=== PATIENT | male | born 1965 | race Caucasian/White ===

== ENCOUNTER 2022-08-24 14:53 | Emergency (ER) | payer BC, SELFPAY ==
[2022-08-24 14:53] VITALS: BP 144/102; PULSE 112; RESP 17; TEMP 36.9; O2SAT 96; BMI 40.0
--- NOTE | 2022-08-24 14:56 | PC.NURSE ---
AKBAR RODARTE at
[2022-08-24 14:57] VITALS: BP 144/102; PULSE 109; O2SAT 95
[2022-08-24 14:58] VITALS: BP 147/99; PULSE 109; O2SAT 95
--- NOTE | 2022-08-24 15:03 | ECG_ITS ---
APPROVED REPORT Exam: Resting ECG HR:102 bpm ECG Measurements Heart Rate 102 AXES RI 147 P 63 QRSd 80 QRS 50 QT 313 T 18 QTc 372 Conclusion SINUS TACHYCARDIA NONSPECIFIC T-WAVE ABNORMALITY ABNORMAL RHYTHM ECG UNCONFIRMED REPORT Electronically signed by : Latrell Butler MD 08/26/2022 19:52:16
--- NOTE | 2022-08-24 15:35 | PC.NURSE ---
Patient finished gibran lens irrigation. Tolerated well
--- NOTE | 2022-08-24 15:55 | PC.NURSE ---
Patient advised to continue intermittent eye wash with eye wash station in his room.
[2022-08-24 16:03] LABS: Basophils # 0.1 K/mm3 (0-0.2); Basophils % 1.6 % (0.1-2.0); Eosinophils # 0.1 K/mm3 (0.0-0.4); Eosinophils % 2.3 % (0.1-12.0); Hematocrit 47.1 % (42.0-52.0); Hemoglobin 15.2 g/dL (14.1-18.0); Lymphocytes % 33.1 % (10-50); Mean Corpuscular HGB Conc 32.3 g/dL (31.8-35.4); Mean Corpuscular Hemoglobin 30.7 pg (27.0-31.2); Mean Platelet Volume 7.8 fl (7.4-10.4); Monocytes # 0.5 K/mm3 (0.1-1.0); Monocytes % 8.8 % (1.7-9.3); Neutrophils # 3.3 K/mm3 (1.8-7.8); Neutrophils % 54.2 % (37.0-80.0); Platelet Count 255 K/mm3 (142-424); Red Blood Count 4.96 M/mm3 (4.60-6.20); Red Cell Distribution Width 13.2 % (11.5-17.5); White Blood Count 6.1 K/mm3 (4.8-10.8)
[2022-08-24 16:05] LABS: Chloride 102 mmol/L (98-107); Potassium 3.9 mmoL/L (3.5-5.1); Sodium 138 mmol/L (136-145)
[2022-08-24 16:08] LABS: Alanine Aminotransferase 28 U/L (12-78); Albumin Level 4.6 g/dl (3.5-5.0); Albumin/Globulin Ratio 1.5 (1.1-1.8); Alkaline Phosphatase 47 U/L (38-126); Anion Gap 11.9 mEq/L (5-15); Aspartate Amino Transferase 31 U/L (17-59); Bilirubin,Total 0.4 mg/dl (0.2-1.3); Blood Urea Nitrogen 22 mg/dl (9-20); Carbon Dioxide 28 mmol/L (22.0-30.0); Creatinine Clearance Estimated 98 mL/min (50-200); Estimated Glomerular Filt Rate 69 ml/min (>60); GFR (African American) 83 ML/MIN (>60); Total Protein,Serum 7.6 g/dl (6.3-8.2)
[2022-08-24 16:09] LABS: Calcium 9.2 mg/dl (8.4-10.2); Glucose 98 mg/dl (74-100); Lactic Acid 1.5 mmol/L (0.7-2.1)
[2022-08-24 16:34] VITALS: BP 133/66; PULSE 80; RESP 17; TEMP 36.7; O2SAT 99
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
== END 2022-08-24 16:39 | disposition home or self-care (01) ==
PROVIDERS: Emergency Provider Student in an Organized Health Care Education/Training Program; PCP Family Medicine
DX: H10.219 Acute toxic conjunctivitis, unspecified eye (principal); T54.2X1A Toxic effect of corrosive acids and acid-like substances, accidental (unintentional), initial encounter
CPT/HCPCS: 36415; 80053; 83605; 85025; 93005; 99284; 99285

== ENCOUNTER 2024-02-25 08:10 | Emergency (ER) | payer BC, SELFPAY ==
[2024-02-25 08:38] VITALS: BP 140/92; PULSE 91; RESP 18; TEMP 36.9; O2SAT 96; BMI 30.2
[2024-02-25 08:46] LABS: UTC Influenza A Antigen Negative (Negative); UTC Influenza B Antigen Negative (Negative)
--- NOTE | 2024-02-25 08:52 | ED_ITS ---
Discharge Plan Disposition Patient Disposition: Home, Self-Care Condition: Good Prescriptions Prescriptions: New benzonatate 100 mg capsule 100 mg PO TID PRN (Reason: cough) Qty: 30 0RF methylprednisolone [Medrol (Pool)] 4 mg tablets,dose pack See Rx Instructions .Route .COMPLEX 6 Days Qty: 21 0RF Rx Instructions: taper pack; guaifenesin [Mucinex] 600 mg tablet extended release 12hr 1,200 mg PO BID PRN (Reason: cough) Qty: 20 0RF azithromycin [Zithromax Z-Pool] 250 mg tablet See Rx Instructions .ROUTE .COMPLEX 5 Days Qty: 6 0RF Rx Instructions: For 250 mg dose pack: take 500 mg today (day 1), then 250 mg for 4 days (days 2-5) No Action levothyroxine 150 mcg tablet 150 mcg PO DAILY Patient Comments: TAKE 1 TABLET BY MOUTH ONCE DAILY alfuzosin 10 mg tablet extended release 24 hr 10 mg PO DAILY Patient Comments: TAKE 1 TABLET BY MOUTH ONCE DAILY Referrals Follow up/Referrals: Darrick Cifuentes MD [Primary Care Provider] - See instructions Activity Restrictions/Add. Instructions Additional Instructions/Restrictions: * Start antibiotic today. Be sure to complete entire prescription even if feeling better * Monitor temp. Tylenol every 4 hours as needed and / or ibuprofen every 6 hours as needed ( As long as your primary care physician has told you that it ok to take both. For fever/aches/pains ER if no less than 101 despite Tylenol or Motrin * Humidifier/vaporizer or hot steamy shower * Mucinex during the day for your cough and cough suppressant only at night. Be sure to drink lots of water. Insurance may not cover a prescriptions for mucinex. Might be cheaper to get 400mg tablets and take 2 tablet in the morning, mid-day and evening with lots of water. *Tessalon Perles will not cause drowsiness but use at bedtime to help stop cough so that you may get some rest. *Start steroid today. Helps with inflammation therefore, cough and wheezing. Follow directions on the package. Reviewed side effects. Patient reports taking them before. Follow up IMMEDIATELY for new or worsening of symptoms OR no noticeable improvement over the next 48-72 hours. 911 immediately for any life threatening symptoms such as chest pain or difficulty breathing Clinical Impressions Clinical Impression: Sinusitis Instructions Patient Instructions: DI for Sinusitis, Sinusitis Print Language Print Language: Japanese Discharge ED Provider: Alana Hendricks [facility] [place] HPI General Stated complaint: sore throat cough congestion Mode of Arrival: Ambulatory Source of Information: Patient Time Seen by Provider: 02/25/24 08:52 Description of Symptoms (Recalled from Triage Doc. by RN): FLU S/S, COUGHING, HEADACHE, ACHES HEENT Symptoms (Recalled from RN notes): Yes Resp Symptoms (Recalled from RN notes): Yes Skin Symptoms (Recalled from RN notes): No MS Symptoms (Recalled from RN notes): No Functional Status (Recalled from RN notes): WNL History of Present Illness Provider Complaint: Patient states that he has been sick over a week with sore throat, sinus congestion and pressure, cough, headache and chills and over all not feeling well so today when he was still not feeling well he came in to get checked Related Data Home Medications ?Medication ?Instructions ?Recorded ?Confirmed alfuzosin 10 mg tablet,extended 10 mg PO DAILY Prostate 08/24/22 08/24/22 release 24 hr levothyroxine 150 mcg tablet 150 mcg PO DAILY Thyroid 08/24/22 08/24/22 Previous Rx's ?Medication ?Instructions ?Recorded azithromycin 250 mg tablet See Rx Instructions PO .COMPLEX 5 02/25/24 (Zithromax Z-Pool) days #6 tabs benzonatate 100 mg capsule 100 mg PO TID PRN cough #30 caps 02/25/24 guaifenesin 600 mg tablet, 1,200 mg (2 x 600 mg) PO BID PRN 02/25/24 extended release 12 hr (Mucinex) cough #20 tabs methylprednisolone 4 mg tablets in See Rx Instructions .Route 02/25/24 a dose pack (Medrol (Pool)) .COMPLEX 6 days #21 tabs Allergies Allergy/AdvReac Type Severity Reaction Status Date / Time nitroglycerin AdvReac Palpitation Verified 02/25/24 08:42 s succinylcholine AdvReac Drowsy Verified 02/25/24 08:42 [From Anectine] Worker's Comp Is this a Worker's Comp case?: No [facility] Disclaimer: The information contained in this section may have been updated after the patient was seen, as this information can be updated by other users. Medical History (Updated 02/25/24 @ 09:17 by Alana Hendricks APRN) BPH (benign prostatic hyperplasia) Hypothyroidism Social History Smoking Status: Never smoker second hand exposure: No alcohol intake: never current occupational status: employed Travel in the last 8 weeks: None housing: house ROS Obtained: Yes All systems reviewed & no additional complaints except as documented and Yes Systems reviewed as appropriate & no additional complaints except as documented Constitutional Constitutional: Reports system reviewed and no additional complaints, except as documented, Reports as per HPI, Reports body ache, Reports fever(s) and Reports headache(s) ENT Ears, Nose, Mouth, and Throat: Reports system reviewed and no additional complaints, except as documented, Reports as per HPI, Reports headache(s), Reports nasal congestion, Reports sinus pain, Reports sinus pressure and Reports sore throat Cardiovascular Cardiovascular: Reports system reviewed and no additional complaints, except as documented and Reports as per HPI Respiratory Respiratory: Reports system reviewed and no additional complaints, except as documented, Reports as per HPI and Reports cough Gastrointestinal Gastrointestingal: Reports system reviewed and no additional complaints, except as documented and as per HPI Neurologic Neurologic: Reports headache(s) Physical Exam General General appearance: alert and in no apparent distress ENT ENT exam: Present mucous membranes moist Expanded ENT Exam Nose exam: Present sinus tenderness Throat exam: Present tonsillar erythema (several tonsil stones noted) Respiratory Respiratory exam: Present normal lung sounds bilaterally; Absent respiratory distress or wheezes Cardiovascular Cardiovascular exam: Present regular rate, normal rhythm and normal heart sounds Neurological Exam Neurological exam: Present alert, oriented X3 and normal gait Medical Decision Making Medical Records Screening: Per USPSTF and CDC recommendations, given the prevalence of disease in our region, it is our hospital?s policy to screen for HIV and viral Hepatitis for all patients aged 18 and over and those with ongoing risk factors. Jaleel Inquiry Pt receiving controlled substance: No Jaleel was queried for this patient: No Vital Signs: 02/25/24 08:38 Temperature 98.5 F Temperature Source Oral Pulse Rate [Left Radial] 91 H Respiratory Rate 18 Blood Pressure [Left Arm] 140/92 H Blood Pressure Mean [Left Arm] 108 02 Sat by Pulse Oximetry 96 Lab Data Lab results reviewed: Yes I reviewed the patient's lab results. Lab Results 02/25/24 08:45: Influenza Type A Ag Negative, Influenza Type B Ag Negative
[2024-02-25 09:21] VITALS: BP 140/92; PULSE 91; RESP 18; TEMP 36.9; O2SAT 96
[2024-02-25 09:23] LABS: UTC Strep Screen (Rapid) Negative (Negative)
== END 2024-02-25 09:24 | disposition home or self-care (01) ==
PROVIDERS: Emergency Provider Nurse Practitioner; PCP Family Medicine
DX: J32.9 Chronic sinusitis, unspecified (principal); R05.9 Cough, unspecified; J02.9 Acute pharyngitis, unspecified; R09.81 Nasal congestion; R51.9 Headache, unspecified; M79.10 Myalgia, unspecified site
CPT/HCPCS: 87804; 87880; 99212; G0381

== ENCOUNTER 2024-06-01 13:26 | Emergency (ER) | payer BC, SELFPAY ==
[2024-06-01 13:46] VITALS: BP 123/72; PULSE 100; RESP 18; TEMP 36.8; O2SAT 96; BMI 31.6
[2024-06-01 13:57] LABS: UTC Strep Screen (Rapid) Positive (Negative)
--- NOTE | 2024-06-01 14:03 | EXP.UTC ---
Discharge Plan Disposition Patient Disposition: Home, Self-Care Condition: Good Prescriptions Prescriptions: New benzonatate 100 mg capsule 100 mg PO TIDP PRN (Reason: Cough) Qty: 30 0RF methylprednisolone 4 mg Tablets,Dose Pack 4 mg PO DIRECTED 6 Days Qty: 21 0RF Rx Instructions: Take 1 pack as directed for 6 days amoxicillin-pot clavulanate 875-125 mg Tablet 1 tab PO Q12H Qty: 20 0RF No Action levothyroxine 150 mcg tablet 150 mcg PO DAILY Patient Comments: TAKE 1 TABLET BY MOUTH ONCE DAILY Referrals Follow up/Referrals: Darrick Cifuentes MD [Primary Care Provider] - See instructions Activity Restrictions/Add. Instructions Additional Instructions/Restrictions: Drink plenty of fluids. Take tylenol or ibuprofen for pain or fever. Take the medications as directed. Follow up with your regular doctor. GO TO THE ER FOR ANY WORSENING SYMPTOMS Clinical Impressions Clinical Impression: Strep throat, Sinusitis, Bronchitis Instructions Patient Instructions: Strep Throat, DI for Strep Throat, Ceftriaxone Injection Print Language Print Language: Surinamese Discharge ED Provider: Dave Blackman [facility] General Stated complaint: sore throat, congestion, cough Mode of Arrival: Ambulatory Source of Information: Patient Time Seen by Provider: 06/01/24 14:03 Description of Symptoms (Recalled from Triage Doc. by RN): FATIGUE, COUGH , CONGESTION, SORE THROAT, HEENT Symptoms (Recalled from RN notes): Yes Resp Symptoms (Recalled from RN notes): Yes Skin Symptoms (Recalled from RN notes): No MS Symptoms (Recalled from RN notes): No Functional Status (Recalled from RN notes): WNL History of Present Illness Provider Complaint: He states that for the past 3 days he has had worsening sore throat, sinus congestion, and chest congestion. He has a productive cough with greenish sputum. He has had a fever at times also. He states that his cough is worse at night when he goes to bed. Related Data Home Medications ?Medication ?Instructions ?Recorded ?Confirmed levothyroxine 150 mcg tablet 150 mcg PO DAILY Thyroid 08/24/22 06/01/24 Previous Rx's ?Medication ?Instructions ?Recorded amoxicillin 875 mg-potassium 1 tab PO Q12H #20 tabs 06/01/24 clavulanate 125 mg tablet benzonatate 100 mg capsule 100 mg PO TIDP PRN Cough #30 caps 06/01/24 methylprednisolone 4 mg tablets in 4 mg PO DIRECTED 6 days #21 tabs 06/01/24 a dose pack Allergies Allergy/AdvReac Type Severity Reaction Status Date / Time nitroglycerin AdvReac Palpitation Verified 02/25/24 08:42 s succinylcholine (From AdvReac Drowsy Verified 02/25/24 08:42 Anectine) Worker's Comp Is this a Worker's Comp case?: No [facility] Disclaimer: The information contained in this section may have been updated after the patient was seen, as this information can be updated by other users. Medical History (Updated 06/01/24 @ 14:27 by Dave Blackman APRN) BPH (benign prostatic hyperplasia) Hypothyroidism Social History Smoking Status: Never smoker second hand exposure: No alcohol intake: never current occupational status: employed Travel in the last 8 weeks: None housing: house Have you lived/traveled outside [place] in past 30 days?: No Contact w/someone who lives/traveled outside [place] past 30 days?: No Exposure to someone with infectious disease in past 14 days?: No Do you have a fever (greater than 100.4 F or 38 C)?: No Have you tested positive for COVID-19: No Exposed to someone with COVID-19 in past 14 days?: No Do you have a sore throat?: Yes Do you have a cough?: Yes Do you have any weakness?: No Do you have any diarrhea?: No Are you experiencing any unusual bleeding?: No Do you have any muscle aches/pain?: No Do you have any abdominal pain?: No Are you experiencing loss of taste or smell?: No ROS Obtained: Yes All systems reviewed & no additional complaints except as documented Constitutional Constitutional: Reports chills and Reports fever(s) Eyes Eyes: Denies eye discharge ENT Ears, Nose, Mouth, and Throat: Reports as per HPI Cardiovascular Cardiovascular: Denies chest pain Respiratory Respiratory: Denies chest congestion and Reports cough Gastrointestinal Gastrointestingal: Reports nausea; Denies abdominal pain, constipation, cramping, diarrhea or vomiting Musculoskeletal Musculoskeletal: Denies arthralgias Integumentary/Breasts Skin/Breast: Denies rash Neurologic Neurologic: Denies paresthesias Physical Exam General General appearance: alert and in no apparent distress Head Head exam: atraumatic, normocephalic and normal inspection Eye Eye exam: Present normal appearance, PERRL and EOMI ENT ENT exam: Present mucous membranes moist and normal external ear exam Expanded ENT Exam TM/Canal exam: Bilateral TM: erythema and bulging Nose exam: Absent sinus tenderness Mouth exam: Present normal external inspection; Absent drooling Teeth exam: Present normal inspection Throat exam: Present tonsillar erythema, tonsillomegaly and tonsillar exudate Neck Neck exam: Present normal inspection, full ROM and trachea midline; Absent tenderness, meningismus or lymphadenopathy Chest Chest inspection: Present normal inspection and symmetric chest wall rise; Absent tenderness Respiratory Respiratory exam: Present normal lung sounds bilaterally; Absent respiratory distress, wheezes, stridor or accessory muscle use Cardiovascular Cardiovascular exam: Present regular rate and normal rhythm; Absent systolic murmur or diastolic murmur Abdominal Exam Abdominal exam: Present soft and normal bowel sounds; Absent distention, tenderness, guarding, rebound or rigidity Extremities Exam Extremities exam: Present normal inspection and normal capillary refill; Absent calf tenderness Back Exam Back exam: Present normal inspection and full ROM; Absent tenderness, CVA tenderness (R) or CVA tenderness (L) Neurological Exam Neurological exam: Present alert, oriented X3 and CN II-XII intact Psychiatric Psychiatric exam: Present normal affect and normal mood Skin Skin exam: Present warm, dry, intact and normal color Medical Decision Making Medical Records Medical records reviewed: No I reviewed the patient's medical records. Screening: Per USPSTF and CDC recommendations, given the prevalence of disease in our region, it is our hospital?s policy to screen for HIV and viral Hepatitis for all patients aged 18 and over and those with ongoing risk factors. Jaleel Inquiry Pt receiving controlled substance: No Vital Signs: 06/01/24 13:46 Temperature 98.2 F Temperature Source Oral Pulse Rate [Left Radial] 100 H Respiratory Rate 18 Blood Pressure [Left Arm] 123/72 Blood Pressure Mean [Left Arm] 89 02 Sat by Pulse Oximetry 96 Lab Data Lab results reviewed: Yes I reviewed the patient's lab results. Lab Results 06/01/24 13:46: Strep Scn [facility] Positive A
[2024-06-01] MEDS: cefTRIAXone 1GM VIAL 1 GM IM (14:17)
[2024-06-01] MEDS: LIDOCAINE 1% 5ML PF VIAL IM (14:17)
[2024-06-01 14:29] VITALS: BP 123/72; PULSE 100; RESP 18; TEMP 36.8
== END 2024-06-01 14:33 | disposition home or self-care (01) ==
PROVIDERS: Emergency Provider Nurse Practitioner Family; PCP Family Medicine
DX: J02.0 Streptococcal pharyngitis (principal); J01.90 Acute sinusitis, unspecified; J20.9 Acute bronchitis, unspecified; R50.9 Fever, unspecified; R05.9 Cough, unspecified; R09.81 Nasal congestion; R11.0 Nausea
CPT/HCPCS: 87880; 99212; G0381; J0696

== ENCOUNTER 2024-06-04 10:46 | Emergency (ER) | payer BC, SELFPAY ==
[2024-06-04 11:15] VITALS: BP 137/95; PULSE 101; RESP 18; TEMP 36.7; O2SAT 97; BMI 31.4
--- NOTE | 2024-06-04 11:30 | ED_ITS ---
Discharge Plan Disposition Patient Disposition: Home, Self-Care Condition: Good Prescriptions Prescriptions: New azithromycin [Zithromax] 250 mg tablet 250 mg PO UD DOSE PK Qty: 6 0RF Rx Instructions: Take two (2) tablets today, then one (1) tablet days #2 thru #5 guaifenesin [Mucinex] 600 mg tablet extended release 12hr 600 - 1,200 mg PO BIDP PRN (Reason: Congestion) Qty: 30 0RF No Action benzonatate 100 mg capsule 100 mg PO TIDP PRN (Reason: Cough) Qty: 30 0RF methylprednisolone 4 mg Tablets,Dose Pack 4 mg PO DIRECTED 6 Days Qty: 21 0RF Rx Instructions: Take 1 pack as directed for 6 days amoxicillin-pot clavulanate 875-125 mg Tablet 1 tab PO Q12H Qty: 20 0RF levothyroxine 150 mcg tablet 150 mcg PO DAILY Patient Comments: TAKE 1 TABLET BY MOUTH ONCE DAILY Referrals Follow up/Referrals: Darrick Cifuentes MD [Primary Care Provider] - See instructions Activity Restrictions/Add. Instructions Additional Instructions/Restrictions: Drink plenty of fluids. Take tylenol or ibuprofen for pain or fever. Continue the steroids (medrol dose pack) that you are already on. Stop the antibiotics (amoxicillin-potassium clavulanate) that you are on and start the new antibioitics (azithromycin) that we prescribed. Follow up with your regular doctor. GO TO THE ER FOR ANY WORSENING SYMPTOMS Clinical Impressions Clinical Impression: Strep throat, Sinusitis, Acute viral syndrome Instructions Patient Instructions: DI for Sinusitis, Guaifenesin, Azithromycin Print Language Print Language: French Discharge ED Provider: Dave Blackman [facility] General Stated complaint: bad cough and vomiting Time Seen by Provider: 06/04/24 11:29 History of Present Illness Provider Complaint: He is back today after being diagnosed with strep throat 4 days ago. He states that he has not got better as fast as he thought he should with the medications that were prescribed. He denies worsening chest congestion. Related Data Home Medications ?Medication ?Instructions ?Recorded ?Confirmed levothyroxine 150 mcg tablet 150 mcg PO DAILY Thyroid 08/24/22 06/04/24 Previous Rx's ?Medication ?Instructions ?Recorded amoxicillin 875 mg-potassium 1 tab PO Q12H #20 tabs 06/01/24 clavulanate 125 mg tablet benzonatate 100 mg capsule 100 mg PO TIDP PRN Cough #30 caps 06/01/24 methylprednisolone 4 mg tablets in 4 mg PO DIRECTED 6 days #21 tabs 06/01/24 a dose pack azithromycin 250 mg tablet 250 mg PO UD DOSE PK #6 tabs 06/04/24 (Zithromax) guaifenesin 600 mg tablet, 600 - 1,200 mg (1 - 2 x 600 mg) PO 06/04/24 extended release 12 hr (Mucinex) BIDP PRN Congestion #30 tabs Allergies Allergy/AdvReac Type Severity Reaction Status Date / Time nitroglycerin AdvReac Palpitation Verified 02/25/24 08:42 s succinylcholine (From AdvReac Drowsy Verified 02/25/24 08:42 Anectine) [facility] Disclaimer: The information contained in this section may have been updated after the patient was seen, as this information can be updated by other users. Medical History (Updated 06/04/24 @ 12:02 by Dave Blackman APRN) BPH (benign prostatic hyperplasia) Hypothyroidism Social History Smoking Status: Never smoker second hand exposure: No alcohol intake: never current occupational status: employed Travel in the last 8 weeks: None housing: house Have you lived/traveled outside US in past 30 days?: No Contact w/someone who lives/traveled outside US past 30 days?: No Exposure to someone with infectious disease in past 14 days?: No Do you have a fever (greater than 100.4 F or 38 C)?: No Have you tested positive for COVID-19: No Exposed to someone with COVID-19 in past 14 days?: No Do you have a sore throat?: No Do you have a cough?: Yes Do you have any weakness?: No Do you have any diarrhea?: No Are you experiencing any unusual bleeding?: No Do you have any muscle aches/pain?: No Do you have any abdominal pain?: No Are you experiencing loss of taste or smell?: No ROS Obtained: Yes All systems reviewed & no additional complaints except as documented Constitutional Constitutional: Reports chills and Reports fever(s) Eyes Eyes: Denies eye discharge ENT Ears, Nose, Mouth, and Throat: Reports as per HPI Cardiovascular Cardiovascular: Denies chest pain Respiratory Respiratory: Denies chest congestion and Reports cough Gastrointestinal Gastrointestingal: Reports nausea; Denies abdominal pain, constipation, cramping, diarrhea or vomiting Musculoskeletal Musculoskeletal: Denies arthralgias Integumentary/Breasts Skin/Breast: Denies rash Neurologic Neurologic: Denies paresthesias Physical Exam General General appearance: alert and in no apparent distress Head Head exam: atraumatic, normocephalic and normal inspection Eye Eye exam: Present normal appearance, PERRL and EOMI ENT ENT exam: Present normal exam, normal oropharynx, mucous membranes moist, TM's normal bilaterally and normal external ear exam Neck Neck exam: Present normal inspection, full ROM and trachea midline; Absent meningismus or lymphadenopathy Chest Chest inspection: Present normal inspection and symmetric chest wall rise; Absent tenderness Respiratory Respiratory exam: Present normal lung sounds bilaterally; Absent respiratory distress Cardiovascular Cardiovascular exam: Present regular rate and normal rhythm; Absent JVD Abdominal Exam Abdominal exam: Present soft and normal bowel sounds; Absent distention, tenderness or guarding Extremities Exam Extremities exam: Present normal inspection, full ROM and normal capillary refill; Absent calf tenderness Back Exam Back exam: Present normal inspection; Absent tenderness Neurological Exam Neurological exam: Present alert and oriented X3 Psychiatric Psychiatric exam: Present normal affect and normal mood Skin Skin exam: Present warm, dry, intact and normal color Lymphatic Lymphatic Findings: no adenopathy Medical Decision Making Medical Records Medical records reviewed: No I reviewed the patient's medical records. Screening: Per USPSTF and CDC recommendations, given the prevalence of disease in our region, it is our hospital?s policy to screen for HIV and viral Hepatitis for all patients aged 18 and over and those with ongoing risk factors. Jaleel Inquiry Pt receiving controlled substance: No Lab Data Lab results reviewed: Yes I reviewed the patient's lab results.
[2024-06-04 11:36] LABS: UTC Influenza A Antigen Negative (Negative); UTC Influenza B Antigen Negative (Negative)
[2024-06-04 11:54] VITALS: BP 137/95; PULSE 101; RESP 18; TEMP 36.7; O2SAT 97
[2024-06-04 12:22] LABS: Coronavirus 19, PCR Not Detected (NotDetected); Influenza A, PCR Not Detected (NotDetected); Influenza B, PCR Not Detected (NotDetected)
== END 2024-06-04 12:10 | disposition home or self-care (01) ==
PROVIDERS: Emergency Provider Nurse Practitioner Family; PCP Family Medicine
DX: J02.0 Streptococcal pharyngitis (principal); B34.9 Viral infection, unspecified; J32.9 Chronic sinusitis, unspecified
CPT/HCPCS: 87636; 87804; 99214; G0381

== ENCOUNTER 2024-08-18 01:28 | Inpatient (IN) | payer BC, SELFPAY ==
[2024-08-18] VITALS (33 sets, daily range): BP systolic 98–152; BP diastolic 71–114; PULSE 62–103; RESP 12–23; TEMP 36.6–37.1; O2SAT 90–98; BMI 29.9; BMI 32.1
--- NOTE | 2024-08-18 01:31 | ECG_ITS ---
APPROVED REPORT Exam: Resting ECG HR:102 bpm ECG Measurements Heart Rate 102 AXES MT 159 P 50 QRSd 86 QRS 28 QT 324 T 42 QTc 383 Conclusion SINUS TACHYCARDIA LOW QRS VOLTAGE IN PRECORDIAL LEADS [QRS DEFLECTION < 1.0 mV IN CHEST LEADS] NONSPECIFIC T-WAVE ABNORMALITY ABNORMAL RHYTHM ECG Trace MT depression versus trace ST elevation in lead V6, lead II, no STEMI Electronically signed by : LUIS BROWN, 08/18/2024 06:51:32
[2024-08-18 01:51] LABS: Basophils # 0.1 K/mm3 (0-0.2); Basophils % 0.6 % (0.1-2.0); Eosinophils # 0.1 K/mm3 (0.0-0.4); Eosinophils % 0.8 % (0.1-12.0); Hemoglobin 15.6 g/dL (14.1-18.0); Lymphocytes # 3.1 K/mm3 (0.7-4.5); Lymphocytes % 30.3 % (10-50); Mean Corpuscular HGB Conc 34.7 g/dL (31.8-35.4); Mean Corpuscular Hemoglobin 31.9 pg (27.0-31.2); Monocytes # 0.9 K/mm3 (0.1-1.0); Monocytes % 9.2 % (1.7-9.3); Neutrophils # 5.9 K/mm3 (1.8-7.8); Neutrophils % 58.3 % (37.0-80.0); Platelet Count 265 K/mm3 (142-424); Red Blood Count 4.89 M/mm3 (4.60-6.20); Red Cell Distribution Width 12.4 % (11.5-17.5); White Blood Count 10.1 K/mm3 (4.8-10.8)
[2024-08-18] MEDS: ASPIRIN 81MG CHEWABLE TABLET 324 MG PO (01:52)
[2024-08-18] MEDS: BELLADONNA ALKALOIDS 60 ML ML PO (01:52)
[2024-08-18] MEDS: ONDANSETRON 4MG/2ML VIAL 4 MG IV (01:52)
[2024-08-18] MEDS: MORPHINE 4MG/ML SYRINGE 4 MG IV ×2 (01:52→02:38)
[2024-08-18 02:00] LABS: Albumin Level 4.5 g/dl (3.5-5.0); Chloride 100 mmol/L (98-107); Potassium 3.9 mmoL/L (3.5-5.1); Sodium 135 mmol/L (136-145)
[2024-08-18 02:03] LABS: Alanine Aminotransferase 29 U/L (12-78); Albumin/Globulin Ratio 1.5 (1.1-1.8); Alkaline Phosphatase 40 U/L (38-126); Anion Gap 9.9 mEq/L (5-15); Aspartate Amino Transferase 35 U/L (17-59); Bilirubin,Total 0.5 mg/dl (0.2-1.3); Blood Urea Nitrogen 31 mg/dl (9-20); Calcium 9.2 mg/dl (8.4-10.2); Carbon Dioxide 29 mmol/L (22.0-30.0); Creatinine Clearance Estimated 97 mL/min (50-200); Estimated Glomerular Filt Rate 68 ml/min (>60); GFR (African American) 82 ML/MIN (>60); Glucose 123 mg/dl (74-100); Total Protein,Serum 7.5 g/dl (6.3-8.2)
[2024-08-18 02:07] LABS: INR 0.94 (0.9-1.1); Prothrombin Time 10.6 seconds (10.1-12.5)
[2024-08-18 02:13] LABS: NT Pro Brain Natriuretic Pep. < 20.0 pg/mL (0-125)
[2024-08-18 02:17] LABS: D-Dimer 0.39 ug/mL (0.0-0.5)
[2024-08-18 02:18] LABS: Troponin I < 0.01 ng/ml (0.00-0.034)
--- NOTE | 2024-08-18 02:34 | XR_ITS ---
PROCEDURE INFORMATION: Exam: XR Chest Exam date and time: 08/18/2024 2:50 AM Age: 59 years old Clinical indication: Pain; Chest pressure; Additional info: Cp TECHNIQUE: Imaging protocol: Radiologic exam of the chest. Views: 1 view. COMPARISON: No relevant prior studies available. FINDINGS: Lungs: There are infiltrates versus atelectasis of the left lung base. The right lung is clear. Pleural spaces: Unremarkable. No pleural effusion. No pneumothorax. Heart/Mediastinum: Unremarkable. No cardiomegaly. Bones/joints: Unremarkable. IMPRESSION: Minimal infiltrate versus atelectasis of the left base.
[2024-08-18] MEDS: HEPARIN SODIUM 5,000 UNIT/ML VIAL 8000 UNIT IV (03:18)
[2024-08-18] MEDS: METOPROLOL TARTRATE 5MG/5ML VIAL 5 MG IV (03:19)
--- NOTE | 2024-08-18 03:23 | ECG_ITS ---
APPROVED REPORT Exam: Resting ECG HR:80 bpm ECG Measurements Heart Rate 80 AXES CA 154 P 42 QRSd 97 QRS 23 QT 328 T 24 QTc 363 Conclusion SINUS RHYTHM LOW QRS VOLTAGE IN PRECORDIAL LEADS [QRS DEFLECTION < 1.0 mV IN CHEST LEADS] BORDERLINE ECG Slight CA/ST changes in lead II and lead V6 have improved. No STEMI Electronically signed by : LUIS BROWN, 08/18/2024 06:52:28
--- NOTE | 2024-08-18 03:33 | HMH.EDCP ---
Discharge Plan Disposition Patient Disposition: Admitted Condition: Fair Clinical Impressions Clinical Impression: Chest pain, Non-ST elevation MA (NSTEMI) Discharge ED Provider: Marielena Cordero General Chief Complaint: Chest Pain Stated Complaint: cp Time Seen by Provider: 08/18/24 01:36 Mode of Arrival: Ambulatory Source of Information: Patient and Spouse Description of Symptoms (Recalled from ER Triage Doc. 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 History of Present Illness HPI narrative: 59-year-old male presents to the ER with midsternal chest pressure feeling like a weight on on his chest with associated burning in the mid chest beginning approximately 1 hour prior to arrival. 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 He reports associated sweating. He reports associated vomiting as well as generalized weakness. He reports no personal cardiac history. He does report allergy to nitroglycerin. He did not take aspirin prior to arrival. He did take Tums hoping to resolve any indigestion but this did not help. Related Data Home Medications ?Medication ?Instructions ?Recorded ?Confirmed levothyroxine 150 mcg tablet 150 mcg PO DAILY Thyroid 08/24/22 08/11/24 Previous Rx's ?Medication ?Instructions ?Recorded azithromycin 250 mg tablet See Rx Instructions PO .COMPLEX #6 08/11/24 tabs methylprednisolone 4 mg tablets in See Rx Instructions PO PER PKG DIR 08/11/24 a dose pack (Medrol (Pool)) #21 tabs Allergies Allergy/AdvReac Type Severity Reaction Status Date / Time nitroglycerin AdvReac Palpitation Verified 08/11/24 13:20 s succinylcholine (From AdvReac Drowsy Verified 08/11/24 13:20 Anectine) [facility] Disclaimer: The information contained in this section may have been updated after the patient was seen, as this information can be updated by other users. Medical History (Updated 08/18/24 @ 03:49 by Marielena Cordero MD) Pharyngitis BPH (benign prostatic hyperplasia) Hypothyroidism Social History Smoking Status: Never smoker second hand exposure: No alcohol intake: never current occupational status: employed Travel in the last 8 weeks: None housing: house Have you lived/traveled outside US in past 30 days?: No Contact w/someone who lives/traveled outside US past 30 days?: No Exposure to someone with infectious disease in past 14 days?: No Do you have a fever (greater than 100.4 F or 38 C)?: No Have you tested positive for COVID-19: No Exposed to someone with COVID-19 in past 14 days?: No Do you have a sore throat?: No Do you have a cough?: No Do you have any weakness?: No Do you have any diarrhea?: No Are you experiencing any unusual bleeding?: No Do you have any muscle aches/pain?: No Do you have any abdominal pain?: No Are you experiencing loss of taste or smell?: No ROS Obtained: Yes Systems reviewed as appropriate & no additional complaints except as documented Per HPI Physical Exam General General appearance: alert Comment: Appears uncomfortable, he is not actively diaphoretic Head Head exam: atraumatic and normocephalic Eye Eye exam: Present PERRL and EOMI ENT ENT exam: Present mucous membranes moist Neck Neck exam: Present normal inspection and full ROM Chest Chest inspection: Present symmetric chest wall rise Respiratory Respiratory exam: Present normal lung sounds bilaterally; Absent respiratory distress, wheezes or stridor Cardiovascular Cardiovascular exam: Present normal rhythm and tachycardia (Tachycardic on arrival but this spontaneously resolved) Abdominal Exam Abdominal exam: Present soft; Absent distention or tenderness Extremities Exam Extremities exam: Present full ROM; Absent edema Neurological Exam Neurological exam: Present alert, oriented X3 and normal gait; Absent motor sensory deficit Psychiatric Psychiatric exam: Present normal affect and normal mood Skin Skin exam: Present warm and dry HEART Score HEART Score HEART Score assessment performed?: Yes History (anamnesis): Highly suspicious ECG: Non-specific disturbance Age: 45-65 years Risk factors: 1-2 risk factors Troponin: </= normal limit HEART Score: 5 Procedures Miscellaneous Procedure Procedure Performed: Limited Cardiac Ultrasound Indication: Chest pain Identified cardiac views: [-Cardiac parasternal long axis] [-Cardiac parasternal short axis] [-Cardiac apical four-chamber] [-Cardiac subxiphoid] -unable to be obtained secondary to body habitus Findings: Cardiac activity present with no gross wall motion abnormality, no pericardial effusion, no right heart strain Impression: Cardiac activity present with no gross wall motion abnormality, no pericardial effusion, no right heart strain Images were saved to permanent archive The study was technically adequate CPT: 77907 This study was performed by me, and I personally interpreted all images/videos. Based on my clinical judgement, these images were adequate and did not necessitate further imaging. Critical Care Critical Care Time Critical Care Time: Yes Attestation: On 08/18/24, the high probability of a clinically significant, sudden or life threatening deterioration of the following system(s) (cardiac) required my full and direct attention, intervention and personal management. The time I documented below is in addition to time spent performing reported procedures but includes the following listed in this critical care notation. Total Time Total Critical Care Time: 35 Medical Decision Making Medical Records Medical records reviewed: Yes I reviewed the patient's medical records. MR Comment: Patient was seen in [facility] in May for viral symptoms and prescribed azithromycin and guaifenesin. Jaleel Inquiry Pt receiving controlled substance: No Vital Signs Vital Signs: 08/18/24 01:57 08/18/24 01:58 08/18/24 02:00 Temperature 98 F Temperature Source Oral Pulse Rate 98 H 90 Pulse Rate [Radial] 103 H Respiratory Rate 23 12 17 Blood Pressure 120/86 115/83 Blood Pressure [Right Arm] 152/114 H Blood Pressure Mean [Right Arm] 126 Blood Pressure Position [Right Arm] Supine 02 Sat by Pulse Oximetry 98 97 93 L Oxygen Delivery Method Room Air 08/18/24 02:15 08/18/24 02:30 08/18/24 02:45 Temperature Temperature Source Pulse Rate 90 87 87 Pulse Rate [Radial] Respiratory Rate 21 20 17 Blood Pressure 121/90 131/93 H 126/95 H Blood Pressure [Right Arm] Blood Pressure Mean [Right Arm] Blood Pressure Position [Right Arm] 02 Sat by Pulse Oximetry 92 L 95 92 L Oxygen Delivery Method 08/18/24 03:00 08/18/24 03:26 08/18/24 03:28 Temperature Temperature Source Pulse Rate 80 80 78 Pulse Rate [Radial] Respiratory Rate 12 Blood Pressure 130/95 H 135/91 H 131/96 H Blood Pressure [Right Arm] Blood Pressure Mean [Right Arm] Blood Pressure Position [Right Arm] 02 Sat by Pulse Oximetry 93 L Oxygen Delivery Method 08/18/24 03:29 08/18/24 03:44 Temperature Temperature Source Pulse Rate 79 Pulse Rate [Radial] Respiratory Rate 14 Blood Pressure 130/93 H 130/97 H Blood Pressure [Right Arm] Blood Pressure Mean [Right Arm] Blood Pressure Position [Right Arm] 02 Sat by Pulse Oximetry 0 L Oxygen Delivery Method Lab Data Labs: Lab Results 08/18/24 01:42: WBC 10.1, RBC 4.89, Hgb 15.6, Hct 45.0, MCV 92.0, MCH 31.9 H, MCHC 34.7, RDW 12.4, Plt Count 265, MPV 9.0, Neut % (Auto) 58.3, Lymph % (Auto) 30.3, Darke % (Auto) 9.2, Eos % (Auto) 0.8, Baso % (Auto) 0.6, Neut # (Auto) 5.9, Lymph # (Auto) 3.1, Darke # (Auto) 0.9, Eos # (Auto) 0.1, Baso # (Auto) 0.1, PT 10.6, INR 0.94, D-Dimer 0.39, Sodium 135 L, Potassium 3.9, Chloride 100, Carbon Dioxide 29, Anion Gap 9.9, BUN 31 H, Creatinine 1.10, Estimated Creat Clear 97, Estimated GFR 68, Est GFR ( Amer) 82, Glucose 123 H, Calcium 9.2, Total Bilirubin 0.5, AST 35, ALT 29, Alkaline Phosphatase 40, Troponin I < 0.01, NT-Pro-B Natriuret Pep < 20.0, Total Protein 7.5, Albumin 4.5, Globulin 3.0, Albumin/Globulin Ratio 1.5 08/18/24 01:42 08/18/24 01:42 Response Orders (Tests/Meds): ED MEDICATIONS Discontinued Medications Generic Name Dose Route Start Last Admin Trade Name Freq PRN Reason Stop Dose Admin Aspirin 324 mg 08/18/24 01:34 08/18/24 01:52 Aspirin 81mg Chewable Tablet PO 08/18/24 01:35 324 mg ONCE ONE Administration Belladonna Alkaloids 60 ml 08/18/24 01:47 08/18/24 01:52 Belladonna Alkaloids 60 Ml Ml PO 08/18/24 01:48 60 ml ONCE ONE Administration Heparin Sodium (Porcine) 8,000 unit 08/18/24 03:13 08/18/24 03:18 Heparin Sodium 5,000 Unit/Ml Vial IV 08/18/24 03:14 8,000 unit ONCE ONE Administration Metoprolol Tartrate 5 mg 08/18/24 03:13 08/18/24 03:19 Metoprolol Tartrate 5mg/5ml Vial IV 08/18/24 03:14 5 mg ONCE ONE Administration Morphine Sulfate 4 mg 08/18/24 01:34 08/18/24 01:52 Morphine 4mg/Ml Syringe IV 08/18/24 01:35 4 mg ONCE ONE Administration Morphine Sulfate 4 mg 08/18/24 02:34 08/18/24 02:38 Morphine 4mg/Ml Syringe IV 08/18/24 02:35 4 mg ONCE ONE Administration Ondansetron HCl 4 mg 08/18/24 01:34 08/18/24 01:52 Ondansetron 4mg/2ml Vial IV 08/18/24 01:35 4 mg ONCE ONE Administration ORDERS Category Date Time Status CXR --portable [XR chest portable] Stat Exams 08/18/24 02:34 Taken POCUS Point of Care (ER Only) Stat Exams 08/18/24 03:14 Completed Complete Blood Count Auto Diff Stat Lab 08/18/24 01:42 Completed Comprehensive Metabolic Panel Stat Lab 08/18/24 01:42 Completed D-Dimer Stat Lab 08/18/24 01:42 Completed Free T4 (Free Thyroxine) Stat Lab 08/18/24 01:42 Received NT Pro Brain Natriuretic Pep. Stat Lab 08/18/24 01:42 Completed Prothrombin Time INR Stat Lab 08/18/24 01:42 Completed TSH [Thyroid Stimulating Hormone] Stat Lab 08/18/24 01:42 Received Troponin I Q3H Lab 08/18/24 04:45 Ordered Troponin I Q3H Lab 08/18/24 07:45 Ordered Troponin I Stat Lab 08/18/24 01:42 Completed MDM Narrative Medical Decision Narrative: In summary, this 59-year-old male presents to the emergency department today with chest pain, pressure, indigestion, sweating. On initial evaluation patient is slightly tachycardic but otherwise hemodynamically stable, afebrile, he appears uncomfortable but not in extremis, he has no tenderness of the chest or reproducible pain, no peripheral edema, remainder of exam benign. Differential diagnosis includes but is not limited to ACS, PE, esophageal spasm, electrolyte abnormality, pneumothorax, pneumonia, among others. Based on these concerns, I ordered serum labs, cardiac workup, D-dimer, chest x-ray. ECG personally interpreted demonstrates sinus tachycardia, rate 102, normal axis, normal OH and QTc, patient does not have a STEMI. Patient reports allergy to nitro and will not take it. Patient received aspirin, morphine, Zofran, GI cocktail initially for treatment. Labs personally reviewed demonstrate no leukocytosis or anemia, normal platelets, PT/INR normal, D-dimer normal at 0.39 reassuring against PE, no CTA PE indicated at this time. CMP nonactionable, initial troponin undetectably low less than 0.01, BNP undetectable less than 20. XR personally interpreted demonstrates no lobar infiltrate or acute intrathoracic abnormality, see radiology read for final interpretation. Patient had received an additional dose of morphine because his pain was not significantly improved. He continues being uncomfortable. I discussed this case with Dr. Osman and we reviewed his ECG. He did comment on the patient having trace ST elevation versus OH depression in lead V6 as well as lead II. He is concern for possible circumflex pathology. He recommended heparin bolus and metoprolol. He recommended 10 minutes after patient receives these medications to reassess and that if the patient still has pain to call him back and he will take the patient to the [facility]. While patient received these medications, I perform [id number] bedside ultrasound. Patient does not have pericardial effusion and no obvious wall motion abnormality on my personal interpretation. Repeat ECG on the patient now demonstrates sinus rhythm, rate 80, normal axis, normal OH and QTc, there is may be still very subtle ST elevation in lead V6 but I no longer appreciate OH depression in the inferior leads or lead V6. On reassessment patient continues reporting chest pressure 7 out of 10 despite having received the interventions recommended by Dr. Osman. I called Dr. Osman back and he recommended to have the [facility] team, and him to take the patient to [facility]. Patient agreeable to this plan. I discussed this case with the hospitalist and he knows the patient will be coming to his service after cardiac cath. 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
--- NOTE | 2024-08-18 03:35 | PC.NURSE ---
pt placed in gown, family at the bedside
--- NOTE | 2024-08-18 03:36 | PC.NURSE ---
provider at the bedside
--- NOTE | 2024-08-18 03:45 | PC.NURSE ---
bilateral wrist and groin shaved per shop laborer protocol.
--- NOTE | 2024-08-18 03:47 | PC.NURSE ---
wharf labourer paged at [phone]. Maya returned call at [phone]. Jung returned call at [phone]. Bonita returned call at [phone].
--- NOTE | 2024-08-18 04:02 | IR_ITS ---
APPROVED REPORT Patient Location: [facility] Architect: ROBERTH Eldridge RT (R) PROCEDURES Left heart catheterization Left ventriculogram Selective coronary angiogram INDICATION Suspected ST elevation myocardial infarction Informed consent was obtained prior to the procedure. COMPLICATIONS NONE Estimated Blood Loss: LESS THAN 10 ML TECHNIQUE One percent lidocaine used to anesthetize the right anterior aspect of the wrist. The right radial artery was accessed via the Seldinger technique. A 6 [place] sheath was placed in the right radial artery. 2.5 mg of Verapamil, 800 mcg of nitroglycerin, 1mg Lidocaine and 5000 U Heparin were given through the arterial sheath. The papa catheter was also used to perform left heart catheterization, left ventriculogram and selective coronary angiogram. At the end of the procedure the sheath was removed good hemostasis was achieved using Traclet band, patient was transferred to the postop holding area in stable condition. ANGIOGRAPHIC RESULTS The left main artery Normal The left anterior descending artery Normal The circumflex artery Large dominant normal The right coronary artery Small nondominant accompanied by LAMAR I flow The DELACURZ ventriculogram reveals Normal 65% The left ventricular end-diastolic pressure 20 mmHg IMPRESSION No angiographic evidence of macrovascular atherosclerotic disease Unusual LAMAR I flow down a small nondominant right coronary artery which can explain the EKG abnormalities Normal ejection fraction Elevated LVEDP PLAN 1. Continue heparin drip for now in the event a small thrombus occurred in the right coronary artery which is now angiographically undetectable. If this is the case troponins should elevate 2. Continue to monitor troponins x 2 additional draws 3. Formal echocardiogram in the morning 4. Continuous telemetry and supportive care for now 5. Add CRP and sed rate Electronically signed by : Derrek Osman MD 08/18/2024 04:55:02
--- NOTE | 2024-08-18 04:02 | PC.NURSE ---
pt transport pending manager cardiac cath arrival
[2024-08-18 04:03] LABS: Free T4 (Free Thyroxine) 1.04 ng/dl (0.78-2.19)
--- NOTE | 2024-08-18 04:05 | P.HP_ITS ---
<Statement entered by Win De La Rosa MD - 08/25/24 11:03> I personally examined patient and agree with the plan of care outlined by the IT PROGRAM MANAGER. History of Present Illness *Admission Date: 08/18/24 *Reason for visit:: Chest pain *History of present illness: This is a 59-year-old male who has a past medical history significant for BPH, hypothyroidism, and hyperlipidemia (currently being managed with diet and exercise), who presents with a chief complaint of midsternal chest pain that felt like pressure, was coupled with diaphoresis, still ongoing, was with some shortness of breath, and was without any radiation. Due to patient's symptoms, he presented to the emergency room for evaluation. While in the emergency room, patient was given multiple interventions to help relieve chest pain. Patient had an allergy to nitro so did not take this but he was given heparin, GI cocktail, and aspirin. Despite these interventions, patient's chest pain persisted. As a result, cardiovascular intervention this was contacted who recommended patient undergo left heart cath. As a result, patient is being admitted for further management. During my evaluation of the patient, patient states his symptomology occurred while he was at work. He reports he had chest pain in the past greater than 10 years ago and he was evaluated by cardiology who determined patient had pleurisy. Patient voices that normally he is able to tolerate exercise to include running, and lifting without any chest pain or shortness of breath. He voices never having a stress test for a cardiac cath in the past. Currently he is denying any lightheadedness, dizziness, fever, chills, rigors, nausea, vomiting, or diarrhea. Per my read, chest x-ray was negative for any acute cardiopulmonary process-is pending final read by the radiologist. Additional pertinent vitals obtained include a sodium 135, BUN of 31, blood glucose of 123, and troponin was less than 0.01. [facility] Disclaimer: The information contained in this section may have been updated after the patient was seen, as this information can be updated by other users. Medical History (Updated 08/18/24 @ 04:11 by Rupert Edmondson APRN) Pharyngitis BPH (benign prostatic hyperplasia) Hypothyroidism Social History Smoking Status: Never smoker second hand exposure: No alcohol intake: never current occupational status: employed Travel in the last 8 weeks: None housing: house Have you lived/traveled outside [place] in past 30 days?: No Contact w/someone who lives/traveled outside US past 30 days?: No Exposure to someone with infectious disease in past 14 days?: No Do you have a fever (greater than 100.4 F or 38 C)?: No Have you tested positive for COVID-19: No Exposed to someone with COVID-19 in past 14 days?: No Do you have a sore throat?: No Do you have a cough?: No Do you have any weakness?: No Do you have any diarrhea?: No Are you experiencing any unusual bleeding?: No Do you have any muscle aches/pain?: No Do you have any abdominal pain?: No Are you experiencing loss of taste or smell?: No Review of Systems Review of Systems Review of systems:: pertinent systems reviewed and negative unless documented below Constitutional Constitutional: Reports system reviewed and no additional complaints, except as documented Eyes Eyes: Reports system reviewed and no additional complaints, except as documented ENT Ears, Nose, Mouth, and Throat: Reports system reviewed and no additional complaints, except as documented *Cardiovascular Cardiovascular: Reports chest pain, Reports chest pain with activity, Reports diaphoresis and Reports dyspnea *Respiratory Respiratory: Reports system reviewed and no additional complaints, except as documented and Reports dyspnea *Gastrointestinal Gastrointestinal: Reports system reviewed and no additional complaints, except as documented *Genitourinary Genitourinary: Reports system reviewed and no additional complaints, except as documented *Musculoskeletal Musculoskeletal: Reports system reviewed and no additional complaints, except as documented Integumentary/Breasts Skin/Breast: Reports system reviewed and no additional complaints, except as documented *Neurologic Neurologic: Reports system reviewed and no additional complaints, except as documented Psychiatric Psychiatric: Reports system reviewed and no additional complaints, except as documented Endocrine Endocrine: Reports system reviewed and no additional complaints, except as documented Hematologic/Lymphatic Hematologic/Lymphatic: Reports system reviewed and no additional complaints, except as documented Allergic/Immunologic Allergic/Immunologic: Reports system reviewed and no additional complaints, except as documented Meds Home Medications and Allergies Home Medications ?Medication ?Instructions ?Recorded ?Confirmed ?Type levothyroxine 150 mcg tablet 150 mcg PO DAILY Thyroid 08/24/22 08/11/24 History azithromycin 250 mg tablet See Rx Instructions PO .COMPLEX #6 08/11/24 08/11/24 Rx tabs methylprednisolone 4 mg tablets in See Rx Instructions PO PER PKG DIR 08/11/24 08/11/24 Rx a dose pack (Medrol (Pool)) #21 tabs New Prescriptions to Start Prescriptions: Allergies Allergy/AdvReac Type Severity Reaction Status Date / Time nitroglycerin AdvReac Palpitation Verified 08/11/24 13:20 s succinylcholine (From AdvReac Drowsy Verified 08/11/24 13:20 Anectine) Exam Data for Last 24 hours Vital signs and Labs for Last 24 Hours: Temp Pulse Resp BP Pulse Ox O2 Del Method 98 F 76 14 136/97 H 97 Room Air 08/18/24 01:58 08/18/24 04:00 08/18/24 04:00 08/18/24 04:00 08/18/24 04:00 08/18/24 03:44 Laboratory Results - last 24 hr 08/18/24 01:42: WBC 10.1, RBC 4.89, Hgb 15.6, Hct 45.0, MCV 92.0, MCH 31.9 H, MCHC 34.7, RDW 12.4, Plt Count 265, MPV 9.0, Neut % (Auto) 58.3, Lymph % (Auto) 30.3, [place] % (Auto) 9.2, Eos % (Auto) 0.8, Baso % (Auto) 0.6, Neut # (Auto) 5.9, Lymph # (Auto) 3.1, [place] # (Auto) 0.9, Eos # (Auto) 0.1, Baso # (Auto) 0.1, PT 10.6, INR 0.94, D-Dimer 0.39, Sodium 135 L, Potassium 3.9, Chloride 100, Carbon Dioxide 29, Anion Gap 9.9, BUN 31 H, Creatinine 1.10, Estimated Creat Clear 97, Estimated GFR 68, Est GFR ( Amer) 82, Glucose 123 H, Calcium 9.2, Total Bilirubin 0.5, AST 35, ALT 29, Alkaline Phosphatase 40, Troponin I < 0.01, NT-Pro-B Natriuret Pep < 20.0, Total Protein 7.5, Albumin 4.5, Globulin 3.0, Albumin/Globulin Ratio 1.5, Free T4 1.04 I & O for Last 24 hours: Intake & Output 08/15/24 08/16/24 08/17/24 08/18/24 23:59 23:59 23:59 23:59 Weight 97.522 kg Constitutional Constitutional: no acute distress, obese and cooperative *Routine HEENT Exam Head: Present normocephalic and atraumatic Eye: Present EOMI, PERRL and normal accommodation ENT: Present mucous membranes moist *Routine Neck Exam Neck: Present supple, full ROM and trachea midline *Routine Respiratory Exam Respiratory: Present CTA bilaterally, normal respiratory effort, able to speak in complete sentences and symmetric chest movement *Routine Cardiovascular Exam Cardiovascular: Present RRR, Normal S1 and Normal S2 *Routine Abdominal Exam Abdominal: Present soft, normoactive bowel sounds and obese *Routine Rectal Exam Rectal:: deferred *Routine Genitalia Exam Genitalia:: deferred *Routine Extremities Exam Extremities: Present full ROM, pulses intact and normal capillary refill Routine Back/Spine/Pelvis Exam Back/Spine: Present full ROM *Routine Skin Exam Skin: Present dry, warm and normal turgor *Routine Neurological Exam Neurological: Present alert, oriented X3, CN II-XII intact and normal speech Routine Psychiatric Exam Psychiatric: Present normal affect, normal thought process, cooperative, good insight and good judgment H&P: Result Impressions This is a 59-year-old obese male who has no significant cardiac history who presents with a chief complaint of midsternal chest pain that has been ongoing for greater than 1 hour. His chest pain was unrelieved with conventional methods to include GI cocktail and aspirin. Assessment and Plan *Assessment and plan (1) Chest pain: Status: Acute Qualifiers: Chest pain type: unspecified Qualified Code(s): R07.9 - Chest pain, unspecified Category: Medical Code(s): R07.9 - Chest pain, unspecified Plan Assessment: Chest pain -Will keep patient n.p.o. until evaluated by quality assurance lab technician -Will trend troponin -Will trend EKG -Will follow recommendations of cardiology-patient received heparin bolus and metoprolol Possible angina -Patient states he has an allergy to nitro Plan: Admit patient to this stepdown unit on telemetry Saline lock Vital signs every 2 hours Consult cardiology Keep patient n.p.o. TSH and T4 pending CBC/BMP daily Obtain lipid panel in a.m. [place] p.o. every 4 hours for moderate pain 2 mg of morphine IV push every 2 hours as needed severe pain 4 mg Zofran IV push to 8 hours. Nausea vomiting/ full code I will discuss this case with attending physician Dr. De La Rosa and a look forward to more input
[2024-08-18] MEDS: VERAPAMIL 2.5MG/ML 2ML VIAL 2.5 MG IV (04:29)
[2024-08-18] MEDS: MIDAZOLAM HCL 1MG/ML 5ML VIAL 1 MG IV (04:29)
[2024-08-18] MEDS: diphenhydrAMINE 50MG/ML VIAL 50 MG IV (04:29)
[2024-08-18] MEDS: FENTANYL 100MCG/2ML VIAL 50 MCG IV (04:30)
[2024-08-18] MEDS: 0.9 % SODIUM CHLORIDE 500 ML 25 ML IV (04:30)
[2024-08-18] MEDS: HEPARIN 1,000 UNITS/ML 10ML VIAL (CATH LAB) 10000 UNIT IV (04:31)
[2024-08-18] MEDS: LIDOCAINE 1% 10ML MDV 20 ML IJ (04:33)
--- NOTE | 2024-08-18 05:14 | PC.NURSE ---
Patient arrived to floor via stretcher from clinical laboratory aides teacher at 05:09.
[2024-08-18] MEDS: IOPAMIDOL-370 (76%);100ML BOTTLE 90 ML IV (05:15)
[2024-08-18 05:16] LABS: CATHL Activated Clotting Time 295 SEC (74-125)
[2024-08-18 06:34] LABS: Basophils % 0.3 % (0.1-2.0); Eosinophils % 0.3 % (0.1-12.0); Hematocrit 42.3 % (42.0-52.0); Hemoglobin 14.3 g/dL (14.1-18.0); Lymphocytes # 2.1 K/mm3 (0.7-4.5); Lymphocytes % 16.2 % (10-50); Mean Corpuscular HGB Conc 33.8 g/dL (31.8-35.4); Mean Corpuscular Hemoglobin 31.6 pg (27.0-31.2); Mean Corpuscular Volume 93.4 fl (80-94); Mean Platelet Volume 9.1 fl (7.4-10.4); Monocytes # 1.5 K/mm3 (0.1-1.0); Monocytes % 11.7 % (1.7-9.3); Neutrophils # 9.1 K/mm3 (1.8-7.8); Neutrophils % 70.7 % (37.0-80.0); Platelet Count 225 K/mm3 (142-424); Red Blood Count 4.53 M/mm3 (4.60-6.20); Red Cell Distribution Width 12.5 % (11.5-17.5); White Blood Count 12.9 K/mm3 (4.8-10.8)
[2024-08-18 06:38] LABS: Anion Gap 11.3 mEq/L (5-15); Blood Urea Nitrogen 26 mg/dl (9-20); Calcium 8.8 mg/dl (8.4-10.2); Carbon Dioxide 25 mmol/L (22.0-30.0); Chloride 104 mmol/L (98-107); Creatinine Clearance Estimated 114 mL/min (50-200); Estimated Glomerular Filt Rate 76 ml/min (>60); GFR (African American) 92 ML/MIN (>60); Glucose 99 mg/dl (74-100); Potassium 4.3 mmoL/L (3.5-5.1); Sodium 136 mmol/L (136-145)
[2024-08-18 06:43] LABS: Chol/HDL Ratio 4.7 (1-3.5); Cholesterol 164 mg/dl (140-200); HDL Cholesterol 35 mg/dl (40-60); Triglycerides 76 mg/dl (30-150); VLDL Cholesterol 15 mg/dL (0-40)
[2024-08-18 06:54] LABS: Direct LDL Cholesterol 103.07 mg/dL (100-129)
--- NOTE | 2024-08-18 07:52 | HMH.PHAINT1 ---
Pharmacy Intervention Comments: MEDICATION RECONCILIATION COMPLETED ON PATIENT USING EXTERNAL FILL HISTORY FROM PHARMACY. -KAYDEN HARE, MAMADOUD
[2024-08-18 08:12] LABS: C-Reactive Protein 4.1 mg/L (0-4)
[2024-08-18] MEDS: HEPARIN SODIUM,PORCINE/D5W 500 ML 20 UNIT IV (08:26)
[2024-08-18 08:35] LABS: PTT Heparin (inpatient only) 34.2 Seconds (50-75)
[2024-08-18 08:40] LABS: Erythrocyte Sedimentation Rate 6 mm/hr (0-20)
--- NOTE | 2024-08-18 08:59 | CA_ITS ---
FINAL REPORT CLINICAL HISTORY: Embolic event FINDINGS: DUPLEX VENOUS SONOGRAPHY OF THE BILATERAL LOWER EXTREMITIES Multiple transverse and longitudinal scans were performed of the femoropopliteal deep venous systems, with augmentation and compression maneuvers. FINDINGS: Normal phasic flow was noted in the visualized deep venous systems. No intraluminal increased echogenicity is noted to suggest thrombus. There is normal compression and augmentation of the venous structures. No abnormal venous collaterals are seen. IMPRESSION: No evidence of deep venous thrombosis of the bilateral lower extremities. Reviewed, Interpreted and Dictated by Rochelle Jacques MD Transcribed by Rowena Ni Authenticated and [facility]
--- NOTE | 2024-08-18 09:00 | CA_ITS ---
APPROVED REPORT EXAM: Comprehensive 2D, Doppler, and color-flow Echocardiogram Senior Technical Program Manager: SHERI Sánchez, RVS Ht: 5 ft 11 in Wt: 215lbs BSA: 2.17 BP: 124/78 mmHg Indications: CP, Emobilc event Echo Enhancing Agent Indication: Rule out Shunt Agent(s) / Amount(s) Used: Agitated Saline 20 cc Comments: Negative for right to left shunt 2D Dimensions Left Atrium 2.88 cm LA Volume 49.80 mL LA Volume Index 22.30 mL/m2 (M/F) 16-34 M-Mode Dimensions RVDd 2.85 cm (0.9-2.6) LA Diam 2.71 cm (1.9-4.0) LVDd 5.02 cm (3.5-5.7) LVDs 2.70 cm (3.5-5.7) IVSd 0.91 cm (0.6-1.1) PWd 1.03 cm (0.6-1.1) EF (Teich) 77.40% EPSs 1.03 cm FS 46.20% EDV (Teich) 119.30 mL TAPSE 1.58 (<1.7) ESV (Teich) 27.00 mL LV Diastology E Decel Time 147 (160-240 msec) E/A Ratio 1.19 MED A' 9.00 cm/s LAT A' 9.80 cm/s Aortic Valve ANIRUDH Index 1.13 cm2/m2 AoV Peak Jorge. 87.0 (50-130 cm/s) AO Peak GR. 3.00 mmHg AO Mean GR. 1.60 (<5 mmHg) AO VTI 17.3 (18-25 cm) ANIRUDH (VTI) 2.53 (2.5-4.5 cm2) Mitral Valve MV A Velocity 60.0 (40-130 cm/s) E/A Ratio 1.19 Pulmonary Valve PV Peak Velocity 77.0 (50-150 cm/s) Left Ventricle The left ventricle is normal size. The left ventricular systolic function is mildly reduced. There is increased LV wall thickness. There is mild global hypokinesis present. The left ventricular diastolic function is normal. LVEF is 45%. Right Ventricle The right ventricle is borderline dilated. The right ventricular systolic function is low normal. Atria The left atrium size is normal. The right atrium size is normal. There is no Doppler evidence of interatrial shunt. Agitated saline administration demonstrates no evidence of interatrial shunt. Aortic Valve Aortic valve is mildly thickened. There is no aortic valvular stenosis. No aortic regurgitation is present. Mitral Valve The mitral valve is normal in structure. No evidence of mitral valve stenosis. Trace mitral regurgitation. Tricuspid Valve Tricuspid valve is grossly normal in structure and function. Trace tricuspid regurgitation. There is insufficient TR jet to estimate RVSP. Pulmonic Valve The pulmonary valve is normal in structure. Trace pulmonic regurgitation. Great Vessels The aortic root is normal in size. IVC is normal in size and collapses >50% with inspiration. Pericardium There is no pericardial effusion. Other Information Study Quality: Fair Conclusion Mildly reduced LV systolic function (LVEF 45%). Borderline dilated RV with mildly reduced RV function. No significant valvular stenosis or regurgitation. Agitated saline administration demonstrates no evidence of interatrial shunt. The above findings were communicated with the inpatient consult team at the time of image acquisition. Electronically signed by : Katherine Cohen MD 08/24/2024 22:50:13
--- NOTE | 2024-08-18 09:00 | CT_ITS ---
FINAL REPORT TECHNIQUE: Axial imaging of the chest is obtained after the administration of contrast. 3-D MIP reformatted images were also obtained and reviewed per PE protocol. CLINICAL HISTORY: [place], PT HAD HEART CATH THIS AM, CAME IN WITH CHEST PAIN COMPARISON: None FINDINGS: The pulmonary arteries are well filled. There is no evidence of pulmonary embolus. Exam is nondiagnostic for aortic dissection due to contrast bolus timing. Heart size is normal. There is no mediastinal, hilar, or axillary lymphadenopathy. Bilateral lower lobe atelectasis. Lungs are otherwise clear. There is no pleural or pericardial effusion. Limited evaluation of the upper abdomen is without acute abnormality. No acute osseous abnormality. IMPRESSION: No evidence of pulmonary embolism. No acute findings. Reviewed, Interpreted and Dictated by Rochelle Jacques MD Transcribed by Rowena Ni Authenticated and [facility]
[2024-08-18] MEDS: HEPARIN SODIUM 5,000 UNIT/ML VIAL 4000 UNIT IV (09:21)
--- NOTE | 2024-08-18 09:50 | HMH.PHAHEP ---
[facility] Pharm[facility] Heparin Dosing Demographic Data Admission date:: 08/18/24 Date: 08/18/24 Time: 09:50 Allergies Allergy/AdvReac Type Severity Reaction Status Date / Time nitroglycerin AdvReac Palpitation Verified 08/11/24 13:20 s succinylcholine (From AdvReac Drowsy Verified 08/11/24 13:20 Anectine) Height: 1.8 m Weight: 104 kg Indication Medication therapy:: Heparin Current Indications:: POSSIBLE THROMBUS, POST HEART CATH Current Active Problems (Updated 08/18/24 @ 13:09 by FLAVIO Murphy) BPH (benign prostatic hyperplasia) (Acute) Hypothyroidism (Acute) ST elevation (STEMI) myocardial infarction involving right coronary artery (Acute) Non-ST elevation IN (NSTEMI) (Acute) Chest pain (Acute) CVA?: No Bleeding problem?: No Kidney disease?: No IN?: No Desired PTT range:: 50-75 seconds Labs Anticoagulation Lab Results:: 08/18/24 08/18/24 01:42 06:08 Hgb 15.6 14.3 Hct 45.0 42.3 Plt Count 265 225 Monitoring Dose Monitor 1: Date: 08/18/24 Time: 08:06 PTT Result:: 34.2 Infusion Rate:: BOLUS WITH HEPARIN 4000 UNITS; HEPARIN AT 1000 UNITS/HR (20 ML/HR) Comment:: PATIENT RECEIVED HEPARIN 8000 UNITS IV ~0318 THIS AM AND 3000 UNITS ~0431 THIS AM IN ER AND W[employer]. Dose Monitor 2: Date: 08/18/24 Time: 14:08 PTT Result:: 51.4 Infusion Rate:: CONTINUED WITH HEPARIN 1000 UNITS/HR Dose Monitor 3: Date: 08/18/24 Time: 17:48 PTT Result:: 43.2 Infusion Rate:: BOLUSED WITH HEPARIN 3000 UNITS AND INCREASE INFUSION TO 1200 UNITS/HR. Dose Monitor 4: Date: 08/19/24 Time: 01:13 PTT Result:: 51.3 Infusion Rate:: CONTINUE WITH HEPARIN 1200 UNIT/HR Dose Monitor 5: Date: 08/19/24 Time: 08:51 PTT Result:: 44.1 Infusion Rate:: HEPARIN 3000 UNIT BOLUS, THEN INCREASED HEPARIN 1400 UNITS/HR Core Measures Is INR > or = 2 at discharge?: No Most Recent Labs:: Laboratory Results - last 24 hr 08/18/24 01:42: WBC 10.1, RBC 4.89, Hgb 15.6, Hct 45.0, MCV 92.0, MCH 31.9 H, MCHC 34.7, RDW 12.4, Plt Count 265, MPV 9.0, Neut % (Auto) 58.3, Lymph % (Auto) 30.3, [place] % (Auto) 9.2, Eos % (Auto) 0.8, Baso % (Auto) 0.6, Neut # (Auto) 5.9, Lymph # (Auto) 3.1, [place] # (Auto) 0.9, Eos # (Auto) 0.1, Baso # (Auto) 0.1, PT 10.6, INR 0.94, D-Dimer 0.39, Sodium 135 L, Potassium 3.9, Chloride 100, Carbon Dioxide 29, Anion Gap 9.9, BUN 31 H, Creatinine 1.10, Estimated Creat Clear 97, Estimated GFR 68, Est GFR ( Amer) 82, Glucose 123 H, Calcium 9.2, Total Bilirubin 0.5, AST 35, ALT 29, Alkaline Phosphatase 40, Troponin I < 0.01, NT-Pro-B Natriuret Pep < 20.0, Total Protein 7.5, Albumin 4.5, Globulin 3.0, Albumin/Globulin Ratio 1.5, TSH 4.30, Free T4 1.04 08/18/24 04:26: Activated Clotting Time 295 H* 08/18/24 06:08: WBC 12.9 H D, RBC 4.53 L, Hgb 14.3, Hct 42.3, MCV 93.4, MCH 31.6 H, MCHC 33.8, RDW 12.5, Plt Count 225, MPV 9.1, Neut % (Auto) 70.7, Lymph % (Auto) 16.2, [place] % (Auto) 11.7 H, Eos % (Auto) 0.3, Baso % (Auto) 0.3, Neut # (Auto) 9.1 H, Lymph # (Auto) 2.1, [place] # (Auto) 1.5 H, Eos # (Auto) 0.0, Baso # (Auto) 0.0, ESR 6, Sodium 136, Potassium 4.3, Chloride 104, Carbon Dioxide 25, Anion Gap 11.3, BUN 26 H, Creatinine 1.00, Estimated Creat Clear 114, Estimated GFR 76, Est GFR ( Amer) 92, Glucose 99, Calcium 8.8, Troponin I 16.90 H, C-Reactive Protein 4.1 H, Triglycerides 76, Cholesterol 164, LDL Cholesterol Direct 103.07, VLDL Cholesterol 15, HDL Cholesterol 35 L, Cholesterol/HDL Ratio 4.7 H 08/18/24 08:06: APTT 34.2 L, Troponin I 19.90 H If INR was < than 2.0 why was therapy stopped?: SWITCHING TO LOVENOX Were Heparin and Warfarin started on the same day?: No If not, why?: SWITCHED TO LOVENOX
[2024-08-18 10:03] LABS: Prostate Specific Ag Screen 3.9 ng/ml (0.0-4.0)
[2024-08-18] MEDS: SODIUM CHLORIDE 0.9% 10ML SYR (RAD ONLY) 10 ML IV (10:44)
[2024-08-18] MEDS: IOPAMIDOL-370 (76%);100ML BOTTLE 85 ML IV (10:44)
[2024-08-18] MEDS: 0.9 % SODIUM CHLORIDE 50 ML VIAL IV (10:44)
--- NOTE | 2024-08-18 12:06 | P.CONCA_ITS ---
History of Present Illness History of Present Illness Consult date: 08/18/24 Requesting physician: Win De La Rosa Consult reason: chest pain Chief complaint: STEMI Additional Medical History:: 1. Hypothyroidism, on supplement for 20 yrs 2. CAD A. STEMI, 08/17/24, [facility] with no significant CAD but LAMAR I flow down RCA B. DAPT ASA/plavix 3. History of elevated PSA, negative biopsy A. Followed by Urology 4. Negative colonoscopy in the last 10 yrs. History of present illness: 59-year-old male presents to the ER with midsternal chest pressure feeling like a weight on on his chest with associated burning in the mid chest beginning approximately 1 hour prior to arrival. 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 He reports associated sweating. He reports associated vomiting as well as generalized weakness. He reports no personal cardiac history. He does report allergy to nitroglycerin. He did not take aspirin prior to arrival. He did take Tums hoping to resolve any indigestion but this did not help. The above per Dr. Cordero Initial ER workup unremarkable except EKG with slight ST elevation in leads V6 and II. Initial troponin normal. Discussion with Dr. Osman undertaken and he felt patient was having STEMI and recommended IV heparin and metoprolol. 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 C revealed no significant coronary artery disease but LAMAR I flow down the RCA. It was felt that this was the culprit vessel and the heparin had helped to dissolve the clot. Patient was started on IV heparin and admitted for further evaluation. This morning patient is feeling better but still tired. [facility] Disclaimer: The information contained in this section may have been updated after the patient was seen, as this information can be updated by other users. Medical History (Updated 08/18/24 @ 13:09 by FLAVIO Murphy) Pharyngitis BPH (benign prostatic hyperplasia) Hypothyroidism Social History (Updated 08/18/24 @ 05:25 by Janis David RN) Smoking Status: Never smoker second hand exposure: No alcohol intake: never current occupational status: employed Travel in the last 8 weeks: None housing: house Have you lived/traveled outside [place] in past 30 days?: No Contact w/someone who lives/traveled outside US past 30 days?: No Exposure to someone with infectious disease in past 14 days?: No Do you have a fever (greater than 100.4 F or 38 C)?: No Have you tested positive for COVID-19: No Exposed to someone with COVID-19 in past 14 days?: No Do you have a sore throat?: No Do you have a cough?: No Do you have any weakness?: No Are you experiencing any nausea/vomitting?: No Do you have any diarrhea?: No Are you experiencing any unusual bleeding?: No Do you have any muscle aches/pain?: No Do you have any abdominal pain?: No Are you experiencing loss of taste or smell?: No Review of Systems Review of Systems Review of systems:: pertinent systems reviewed and negative unless documented below *Cardiovascular Cardiovascular: Reports chest pain at rest, Reports diaphoresis and Reports dyspnea *Respiratory Respiratory: Reports dyspnea *Gastrointestinal Gastrointestinal: Reports dyspepsia *Neurologic Neurologic: Reports system reviewed and no additional complaints, except as documented Exam Data for Last 24 hours Vital signs and Labs for Last 24 Hours: Temp Pulse Resp BP Pulse Ox O2 Del Method 98.5 F 67 18 120/73 92 L Room Air 08/18/24 10:05 08/18/24 10:05 08/18/24 10:05 08/18/24 10:05 08/18/24 10:05 08/18/24 10:05 Laboratory Results - last 24 hr 08/18/24 01:42: WBC 10.1, RBC 4.89, Hgb 15.6, Hct 45.0, MCV 92.0, MCH 31.9 H, MCHC 34.7, RDW 12.4, Plt Count 265, MPV 9.0, Neut % (Auto) 58.3, Lymph % (Auto) 30.3, [place] % (Auto) 9.2, Eos % (Auto) 0.8, Baso % (Auto) 0.6, Neut # (Auto) 5.9, Lymph # (Auto) 3.1, [place] # (Auto) 0.9, Eos # (Auto) 0.1, Baso # (Auto) 0.1, PT 10.6, INR 0.94, D-Dimer 0.39, Sodium 135 L, Potassium 3.9, Chloride 100, Carbon Dioxide 29, Anion Gap 9.9, BUN 31 H, Creatinine 1.10, Estimated Creat Clear 97, Estimated GFR 68, Est GFR ( Amer) 82, Glucose 123 H, Calcium 9.2, Total Bilirubin 0.5, AST 35, ALT 29, Alkaline Phosphatase 40, Troponin I < 0.01, NT-Pro-B Natriuret Pep < 20.0, Total Protein 7.5, Albumin 4.5, Globulin 3.0, Albumin/Globulin Ratio 1.5, TSH 4.30, Free T4 1.04 08/18/24 04:26: Activated Clotting Time 295 H* 08/18/24 06:08: WBC 12.9 H D, RBC 4.53 L, Hgb 14.3, Hct 42.3, MCV 93.4, MCH 31.6 H, MCHC 33.8, RDW 12.5, Plt Count 225, MPV 9.1, Neut % (Auto) 70.7, Lymph % (Auto) 16.2, [place] % (Auto) 11.7 H, Eos % (Auto) 0.3, Baso % (Auto) 0.3, Neut # (Auto) 9.1 H, Lymph # (Auto) 2.1, [place] # (Auto) 1.5 H, Eos # (Auto) 0.0, Baso # (Auto) 0.0, ESR 6, Sodium 136, Potassium 4.3, Chloride 104, Carbon Dioxide 25, Anion Gap 11.3, BUN 26 H, Creatinine 1.00, Estimated Creat Clear 114, Estimated GFR 76, Est GFR ( Amer) 92, Glucose 99, Calcium 8.8, Troponin I 16.90 H, C-Reactive Protein 4.1 H, Triglycerides 76, Cholesterol 164, LDL Cholesterol D irect 103.07, VLDL Cholesterol 15, HDL Cholesterol 35 L, Cholesterol/HDL Ratio 4.7 H, PSA Screen 3.9 08/18/24 08:06: APTT 34.2 L, Troponin I 19.90 H I & O for Last 24 hours: Intake & Output 08/16/24 08/17/24 08/18/24 08/19/24 11:59 11:59 11:59 11:59 Weight 229 lb 4.492 oz Constitutional Constitutional: no acute distress *Routine Respiratory Exam Respiratory: Present CTA bilaterally *Routine Cardiovascular Exam Cardiovascular: Present RRR; Absent murmur, gallop or rubs *Routine Extremities Exam Extremities: Absent edema Meds Home Medications and Allergies Home Medications ?Medication ?Instructions ?Recorded ?Confirmed ?Type levothyroxine 125 mcg tablet 125 mcg PO DAILY 08/18/24 08/18/24 History New Prescriptions to Start Prescriptions: Allergies Allergy/AdvReac Type Severity Reaction Status Date / Time nitroglycerin AdvReac Palpitation Verified 08/11/24 13:20 s succinylcholine (From AdvReac Drowsy Verified 08/11/24 13:20 Anectine) Assessment and Plan *Assessment and plan (1) ST elevation (STEMI) myocardial infarction involving right coronary artery: Status: Acute Category: Medical Code(s): I21.11 - ST elevation (STEMI) myocardial infarction involving right coronary artery (2) Chest pain: Status: Acute Qualifiers: Chest pain type: unspecified Qualified Code(s): R07.9 - Chest pain, unspecified Category: Medical Code(s): R07.9 - Chest pain, unspecified (3) Hypothyroidism: Status: Acute Qualifiers: Hypothyroidism type: acquired Qualified Code(s): E03.9 - Hypothyroidism, unspecified Category: Medical Code(s): E03.9 - Hypothyroidism, unspecified (4) BPH (benign prostatic hyperplasia): Status: Acute Qualifiers: Lower urinary tract symptom presence: symptoms absent Qualified Code(s): N40.0 - Benign prostatic hyperplasia without lower urinary tract symptoms Category: Medical Code(s): N40.0 - Benign prostatic hyperplasia without lower urinary tract symptoms Plan 1. STEMI of RCA with no obstructive coronary artery disease (MINOCA) on [facility] -Continue IV heparin and eventually switched to DAPT therapy with aspirin and Plavix -echo shows EF 45% with WMA. Will start ARNI and/or beta-maite for wall motion abnormalities/cardiomyopathy -Concern for etiology of thrombus therefore recommend consideration of hematology and gastroenterology consult -Known history of BPH with elevated PSA and negative biopsy in the past. PSA here 3.9 -Non-smoker, no history of diabetes, hypertension or hyperlipidemia -Check venous Doppler lower extremities for DVT -Check echo with bubble study to rule out PFO/ASD and possibility of paradoxical thrombus -Check CTA of the chest to look for PE. Resulted as negative for PE or other significant findings. -Recent upper respiratory infection, repeat respiratory panel including COVID -CRP 4.1 -ESR 6 -D-dimer 0.39 2. Hypothyroidism, on replacement therapy 3. History of BPH followed by urology 4. LDL 103 -start statin 5. UDS positive for benzodiazepines and barbituates. Continue to monitor for full 48 hrs Cardiac MRI due to STEMI and possible myocarditis with wall motion abnormalities on echo. Repeat CRP, ESR with ALBINA in AM Continue heparin for 48 hrs and then switch to ASA/plavix Start entresto and metoprolol for cardiomyopathy Start statin therapy
[2024-08-18 12:08] LABS: Coronavirus 19, PCR Not Detected (NotDetected); Human Rhinovirus Not Detected (NotDetected); Influenza A, PCR Not Detected (NotDetected); Influenza B, PCR Not Detected (NotDetected); Respiratory Syncytial Virus Not Detected (NotDetected)
[2024-08-18 12:24] LABS: Microscopic, Urine URINE MICROSCOPIC (MICROSCOPIC)
[2024-08-18 12:52] LABS: Appearance,Urine CLEAR (Clear); Bilirubin,Urine Negative (Negative); Blood, Urine Negative (Negative); Color,Urine YELLOW (Yellow); Glucose,Urine (UA) Negative (Negative); Ketones,Urine Negative (Negative); Leukocyte Esterase,Urine Negative (Negative); Nitrate,Urine Negative (Negative); Protein,Urine Negative (Negative); Urobilinogen,Urine 0.2 EU/dl (0.2)
[2024-08-18 13:05] LABS: Amphetamine/Metha Screen,Urine Negative ng/ml (<1000)
[2024-08-18 13:06] LABS: Barbiturates Screen,Urine Positive ng/ml (<200); Benzodiazepines Screen,Urine Positive ng/ml (<200)
[2024-08-18 13:07] LABS: Cannabinoid Screen,Urine Negative ng/ml (<50)
[2024-08-18 13:08] LABS: Cocaine Screen,Urine Negative ng/ml (<300); Methadone Screen,Urine Negative ng/ml (<300)
[2024-08-18 13:09] LABS: Opiate Screen,Urine Positive ng/ml (<300)
[2024-08-18 13:10] LABS: Phencyclidine Screen,Urine Negative ng/ml (<25)
[2024-08-18] MEDS: SACUBITRIL/VALSARTAN 24-26MG TABLET 1 EACH PO ×2 (14:12→20:44)
[2024-08-18] MEDS: METOPROLOL TARTRATE 25MG TABLET 12.5 MG PO ×2 (14:12→20:44)
[2024-08-18 14:26] LABS: PTT Heparin (inpatient only) 51.4 Seconds (50-75)
[2024-08-18 14:37] LABS: Bacteria,Urine Trace /lpf; WBC,Urine Occasional #/hpf (0-3)
[2024-08-18 14:56] LABS: Hemoglobin A1C 5.6 % (4.0-6.0)
--- NOTE | 2024-08-18 16:19 | PC.NURSE ---
AOX4, HEPARIN GTT INFUSING PER ORDER. AMBULATING IN ROOM INDEPENDENTLY. DENIES CHEST PAIN/DIZZINESS/HEADACHE. TOLERATING PO INTAKE. DRESSING TO R RADIAL CATH SITE C/D/I.
[2024-08-18 18:26] LABS: Troponin I 8.56 ng/ml (0.00-0.034)
[2024-08-18 18:32] LABS: PTT Heparin (inpatient only) 43.2 Seconds (50-75)
[2024-08-18] MEDS: HEPARIN SODIUM 5,000 UNIT/ML VIAL 3000 UNIT IV (18:56)
[2024-08-18] MEDS: HYDROCODONE/APAP 5/325 MG TABLET 1 TAB PO (20:44)
[2024-08-18] MEDS: ATORVASTATIN 40MG TABLET 40 MG PO (20:45)
[2024-08-19] VITALS (7 sets, daily range): BP systolic 112–147; BP diastolic 47–95; PULSE 65–90; RESP 15–22; TEMP 36.3–36.9; O2SAT 92–99; BMI 31.4
--- NOTE | 2024-08-19 01:51 | PC.NURSE ---
Took over care for patient at 0100. Pt resting in bed with no complaints.
[2024-08-19 01:56] LABS: PTT Heparin (inpatient only) 51.3 Seconds (50-75)
--- NOTE | 2024-08-19 02:01 | PC.NURSE ---
Spoke with Aranza at [facility], stated to leave heparin gtt as is.
--- NOTE | 2024-08-19 04:40 | PC.NURSE ---
Alert and oriented. Rested well. No complaints from patient. Right radial site, CDI. Room air. NSR on tele. Heparin gtt infusing per Mar. Call light in reach.
[2024-08-19] MEDS: HEPARIN SODIUM,PORCINE/D5W 500 ML 24 UNIT IV (05:27)
--- NOTE | 2024-08-19 06:00 | MR_ITS ---
APPROVED REPORT Pest Control Service Technician: CLINICAL INDICATION Elevated troponin, reduced LVEF on TTE, recent respiratory infection, evaluation for myocarditis TECHNIQUE Image Acquisition: Cardiac magnetic resonance (CMR) was performed on Siemens Espree MRI 1.5T scanner. Software platform sequences were performed using the Siemens Gramovox MR B19 platform. A set of three-plane, low-resolution, large [id number] localizers were initially acquired. Then axial, coronal, sagittal TrueFISP, as well as axial HASTE images, were obtained. These were followed by gated TrueFISP breathold cinematic sequences obtained in the short axis with 8 mm slices and 2 mm gaps, 2-chamber (vertical long axis), 3-chamber, 4-chamber (horizontal long axis). A bolus of contrast was injected intravenously with first-pass sequences obtained in the short axis and four-chamber planes. After approximately 10 minutes, a TI drier take off tender sequence was performed to determine the optimal TI time. Using the optimized TI time, delayed contrast enhancement segmented inversion???recovery TurboFLASH sequences were obtained in the short axis, 2-chamber, 3-chamber, and 4-chamber projections. 2D-velocity phase mapping was performed. Functional parameters were calculated by offline analysis on an independent workstation ([employer], [employer]). Contrast: ProHance??? (Gadoteridol) FINDINGS MORPHOLOGY AND FUNCTION Left ventricle: The left ventricle is normal in size. The indexed left ventricular end-diastolic volume (LVEDVi) is 58 ml/m2 (reference range 57-105 ml/m2 in males, 56-96 ml/m2 in females). There is mild global hypokinesis present. LVEF is calculated at 42.3% (reference range 57-77%). Right ventricle: The right ventricle is normal in size. The indexed right ventricular end-diastolic volume (RVEDVi) is 50 ml/m2 (reference range 61-121 ml/m2 in males, 48-112 ml/m2 in females). Normal right ventricular systolic function is present. RVEF is calculated at 43.0% (reference range 52-72% in males, 51-71% in females). Atria: The left atrium is normal in size. The maximum indexed left atrial volume is 22 ml/m2 (reference range 26-52 ml/m2 in males, 27-53 ml/m2 in females). The right atrium is normal in size. The maximum indexed right atrial volume is 18 ml/m2 (reference range 18-90 ml/m2). Aorta: The diameter of the aortic annulus is normal, measuring 28 mm (coronal view reference range 21-30 mm in males, 19-27 mm in females). The diameter of the aortic sinus is normal, measuring 38 mm (coronal view reference range 25-42 mm in males, 24-36 mm in females). The diameter of the sinotubular junction is normal, measuring 29 mm (coronal view reference range 18-32 mm in males, 18-28 mm in females). The diameters of the ascending and descending thoracic aorta are normal. Main pulmonary artery: The main pulmonary artery diameter is normal. Pericardium: The pericardial thickness is normal. The pericardial thickness measures 1.5 mm (normal < 4.0 mm). Trivial posterior pericardial effusion is present. VALVES The valvular morphologies in the visualized sequences appear normal. There is no significant valvular stenosis or regurgitation of the mitral, aortic, tricuspid, or pulmonic valve noted visually. Systolic anterior motion of the mitral valve is not visualized. Ratio of pulmonary to systemic flow, Qp:Qs ratio = 1.0 (normal < or = 1.2, hemodynamically significant shunt > 1.5), demonstrating no evidence of hemodynamically significant shunt. TISSUE CHARACTERIZATION Resting Perfusion: Normal myocardial blood flow at rest. No evidence of resting hypoperfusion. Myocardial Fibrosis and/or edema: Difficult evaluation for late gadolinium enhancement (LGE) due to significant motion and blurring artifact. Grossly, there is diffuse, faint, patchy subendocardial late gadolinium enhancement present, as well as a focus of subepicardial LGE in the lateral basal LV wall. T1 and T2 mapping cannot be performed in the study. T2-weighted STIR sequences demonstrate presence of mild diffuse myocardial edema. OTHER No other significant findings are noted. However, this exam is focused on the cardiac structure and function. IMPRESSION Normal LV size with normal LV systolic function. LVEDVi= 58 ml/m2 and LVEF= 42.3%. Normal RV size with normal RV systolic function. RVEDVi= 50 ml/m2 and RVEF= 43.0%. No atrial enlargement. Difficult evaluation for late gadolinium enhancement (LGE) due to significant motion and blurring artifact. Grossly, there is diffuse, faint, patchy subendocardial late gadolinium enhancement present, as well as a focus of subepicardial LGE in the lateral basal LV wall. T1 and T2 mapping cannot be performed in the study. Perfusion analysis demonstrates normal blood flow at rest with no evidence of resting hypoperfusion. T2-weighted STIR sequences demonstrate presence of mild diffuse myocardial edema. Ratio of pulmonary to systemic flow, Qp:Qs ratio = 1.0 (normal < or = 1.2, hemodynamically significant shunt > 1.5), demonstrating no evidence of hemodynamically significant shunt. Trivial posterior pericardial effusion is present. In the setting of mild reduced biventricular systolic function with presence of trivial pericardial effusion, along with presence of mild myocardial edema and mixed subendocardial and subepicardial LGE pattern, the findings are most suggestive of myopericarditis in the setting of recent respiratory infection. GDMT is recommended. Clinical correlation is required. COMPARISON None CRITICAL RESULT None COMMUNICATION The above findings were communicated with inpatient cardiology consult team at the time of image acquisition. The findings of this cardiac MR were reviewed, reported, and signed by Constantino Cohen MD (Pilot Teacher). Conclusion Electronically signed by : Katherine Cohen MD 08/19/2024 14:02:05
[2024-08-19 06:28] LABS: Anti-Centromere B Antibodies ND; Anti-DNA (DS) Ab Qn ND; Anti-Jo-1 ND; Antichromatin Antibodies ND; Antiscleroderma-70 Antibodies ND; RNP Antibodies ND; Sjogren's Anti-SS-A ND; Sjogren's Anti-SS-B ND
[2024-08-19 06:53] LABS: C-Reactive Protein 33.2 mg/L (0-4)
[2024-08-19 07:07] LABS: Basophils # 0.1 K/mm3 (0-0.2); Basophils % 0.6 % (0.1-2.0); Eosinophils # 0.1 K/mm3 (0.0-0.4); Eosinophils % 1.1 % (0.1-12.0); Hematocrit 46.5 % (42.0-52.0); Hemoglobin 15.9 g/dL (14.1-18.0); Lymphocytes # 3.2 K/mm3 (0.7-4.5); Mean Corpuscular HGB Conc 34.2 g/dL (31.8-35.4); Mean Corpuscular Hemoglobin 31.9 pg (27.0-31.2); Mean Corpuscular Volume 93.2 fl (80-94); Mean Platelet Volume 9.3 fl (7.4-10.4); Monocytes % 10.6 % (1.7-9.3); Neutrophils # 5.2 K/mm3 (1.8-7.8); Neutrophils % 54.1 % (37.0-80.0); Platelet Count 230 K/mm3 (142-424); Red Blood Count 4.99 M/mm3 (4.60-6.20); Red Cell Distribution Width 12.6 % (11.5-17.5); White Blood Count 9.7 K/mm3 (4.8-10.8)
[2024-08-19 07:30] LABS: Erythrocyte Sedimentation Rate 7 mm/hr (0-20)
[2024-08-19] MEDS: LEVOTHYROXINE 125MCG (0.125MG) TAB 125 MCG PO (08:48)
[2024-08-19] MEDS: SACUBITRIL/VALSARTAN 24-26MG TABLET 1 EACH PO (08:48)
[2024-08-19] MEDS: METOPROLOL TARTRATE 25MG TABLET 12.5 MG PO (08:48)
[2024-08-19] MEDS: ASPIRIN 81MG CHEWABLE TABLET 81 MG PO (08:50)
[2024-08-19 08:51] LABS: PTT Heparin (inpatient only) 44.1 Seconds (50-75)
[2024-08-19 08:57] LABS: Chloride 104 mmol/L (98-107); Sodium 137 mmol/L (136-145)
[2024-08-19] MEDS: HEPARIN SODIUM 5,000 UNIT/ML VIAL 3000 UNIT IV (08:57)
[2024-08-19 09:00] LABS: Blood Urea Nitrogen 16 mg/dl (9-20); Carbon Dioxide 26 mmol/L (22.0-30.0); Creatinine Clearance Estimated 112 mL/min (50-200); Estimated Glomerular Filt Rate 76 ml/min (>60); GFR (African American) 92 ML/MIN (>60)
[2024-08-19 09:01] LABS: Calcium 9.1 mg/dl (8.4-10.2); Glucose 96 mg/dl (74-100)
[2024-08-19] MEDS: ENOXAPARIN 100MG/ML SYRINGE 100 MG SUBCUT (10:25)
--- NOTE | 2024-08-19 10:39 | PC.NURSE ---
Heparin gtt DC. Pt placed on Lovenox. Pt is currently off floor and down for cardiac MRI.
[2024-08-19] MEDS: LORazepam 2MG/ML VIAL 1 MG IV (11:20)
[2024-08-19] MEDS: SODIUM CHLORIDE 0.9% 10ML FLUSH SYRINGE 10 ML IV (11:20)
--- NOTE | 2024-08-19 11:50 | P.PN_ITS ---
Subjective Subjective Date: 08/19/24 Time: 11:52 Principal diagnosis: STEMI Interval history: 59-year-old white male in bed in no acute distress. Complains of back pain due to being in the hospital bed. Patient is getting ready to go down for MRI today. He is anxious to go home. So far we have not identified any source for potential thrombus formation. Exam Data for Last 24 hours Vital signs and Labs for Last 24 Hours: Temp Pulse Resp BP Pulse Ox O2 Del Method 97.4 F L 83 19 116/72 94 L Room Air 08/19/24 08:00 08/19/24 10:00 08/19/24 10:00 08/19/24 10:00 08/19/24 10:00 08/19/24 10:00 Laboratory Results - last 24 hr 08/18/24 06:08: Hemoglobin A1c 5.6 08/18/24 12:03: SARS-CoV-2 (PCR) Not detected, Influenza Type A (PCR) Not detected, Influenza Type B (PCR) Not detected, RSV (PCR) Not detected, Rhinovirus (PCR) Not detected 08/18/24 12:19: Urine Color Yellow, Urine Appearance Clear, Urine pH 8.0, Ur Specific [place] 1.010, Urine Protein Negative, Urine Glucose (UA) Negative, Urine Ketones Negative, Urine Blood Negative, Urine Nitrate Negative, Urine Bilirubin Negative, Urine Urobilinogen 0.2, Ur Leukocyte Esterase Negative, Urine RBC None, Urine WBC Occasional, Ur Squamous Epith Cells None, Urine Bacte renzo Trace, Urine Opiates Screen Positive H, Urine Methadone Screen Negative, Ur Barbituates Screen Positive H, Ur Phencyclidine Scrn Negative, Ur Amphetamines Screen Negative, U Benzodiazepines Scrn Positive H, Urine Cocaine Screen Negative, U Marijuana (THC) Screen Negative 08/18/24 12:35: Troponin I 15.10 H 08/18/24 14:08: APTT 51.4 08/18/24 17:48: APTT 43.2 L, Troponin I 8.56 H 08/19/24 01:13: APTT 51.3 08/19/24 05:25: WBC 9.7, RBC 4.99, Hgb 15.9 D, Hct 46.5, MCV 93.2, MCH 31.9 H, MCHC 34.2, RDW 12.6, Plt Count 230, MPV 9.3, Neut % (Auto) 54.1, Lymph % (Auto) 33.0, [place] % (Auto) 10.6 H, Eos % (Auto) 1.1, Baso % (Auto) 0.6, Neut # (Auto) 5.2, Lymph # (Auto) 3.2, [place] # (Auto) 1.0, Eos # (Auto) 0.1, Baso # (Auto) 0.1, ESR 7, Sodium 137, Potassium 4.0, Chloride 104, Carbon Dioxide 26, Anion Gap 11.0, BUN 16 D, Creatinine 1.00, Estimated Creat Clear 112, Estimated GFR 76, Est GFR ( Amer) 92, Glucose 96, Calcium 9.1, C-Reactive Protein 33.2 H D 08/19/24 08:30: APTT 44.1 L I & O for Last 24 hours: Intake & Output 08/16/24 08/17/24 08/18/24 08/19/24 11:59 11:59 11:59 11:59 Intake Total 1405 / 1405 Output Total 0 / 0 Balance 1405 / 1405 Weight 229 lb 4.492 oz 224 lb 1 oz Constitutional Constitutional: no acute distress *Routine Respiratory Exam Respiratory: Present CTA bilaterally *Routine Cardiovascular Exam Cardiovascular: Present RRR; Absent murmur, gallop or rubs *Routine Extremities Exam Extremities: Absent edema Progress Note: A&P Assessment and plan (1) ST elevation (STEMI) myocardial infarction involving right coronary artery: Status: Acute (2) Chest pain: Status: Acute (3) Hypothyroidism: Status: Acute (4) BPH (benign prostatic hyperplasia): Status: Acute (5) Acute myopericarditis: Status: Acute Assessment and Plan Assessment and Plan for All Diagnoses:: 1. STEMI of RCA with no obstructive coronary artery disease (MINOCA) on [facility]; myopericarditis on cardiac MRI -Continue IV heparin and eventually switched to DAPT therapy with aspirin and Plavix -echo shows EF 45% with WMA. Will start ARNI and/or beta-maite for wall motion abnormalities/cardiomyopathy -Concern for etiology of thrombus, consider hematology and gastroenterology consults as outpatient -Known history of BPH with elevated PSA and negative biopsy in the past. PSA here 3.9 -Non-smoker, no history of diabetes, hypertension or hyperlipidemia -Check venous Doppler lower extremities for DVT -Check echo with bubble study to rule out PFO/ASD and possibility of paradoxical thrombus -Check CTA of the chest to look for PE. Resulted as negative for PE or other significant findings. -Recent upper respiratory infection, repeat respiratory panel negative this admission -CRP 4.1, then increased to 33.2 after cath -ESR 6 and next day 7 -D-dimer 0.39 -ALBINA pending 2. Hypothyroidism, on replacement therapy 3. History of BPH followed by urology 4. Hyperlipidemia with LDL 103 -start statin 5. UDS positive but received most of those meds in ER and manager lab Cardiac MRI today showed evidence of myopericarditis likely related to recent respiratory infection. LVEF 42.3%, RVEF 43%. Patient is clinically stable for discharge later today. Follow-up in our office in [address] Murphy. Home medication recommendations: Aspirin 81 mg daily Plavix 75 mg daily Entresto 24/26 mg twice daily Metoprolol succinate 25 mg daily Atorvastatin 40 mg daily Colchicine 0.6 mg daily Synthroid 125 mcg daily
[2024-08-19] MEDS: GADOTERIDOL INJ 20ML SYRINGE 20 ML IV ×2 (12:01→12:14)
[2024-08-19] MEDS: GADOTERIDOL INJ 10ML SYRINGE 2 ML IV (12:01)
[2024-08-19] MEDS: 0.9 % SODIUM CHLORIDE 50 ML VIAL 20 ML IV ×2 (12:01)
[2024-08-19] MEDS: METOPROLOL SUCCINATE XL 25MG TABLET 25 MG PO (16:29)
[2024-08-19] MEDS: COLCHICINE 0.6MG TABLET 0.6 MG PO (16:29)
[2024-08-19] MEDS: CLOPIDOGREL 75MG TAB 75 MG PO (16:29)
--- NOTE | 2024-08-19 16:48 | EXP.DC.SUM ---
General Admission date:: 08/18/24 HPI HPI HPI: This is a 59-year-old male who has a past medical history significant for BPH, hypothyroidism, and hyperlipidemia (currently being managed with diet and exercise), who presents with a chief complaint of midsternal chest pain that felt like pressure, was coupled with diaphoresis, still ongoing, was with some shortness of breath, and was without any radiation. Due to patient's symptoms, he presented to the emergency room for evaluation. While in the emergency room, patient was given multiple interventions to help relieve chest pain. Patient had an allergy to nitro so did not take this but he was given heparin, GI cocktail, and aspirin. Despite these interventions, patient's chest pain persisted. As a result, cardiovascular intervention this was contacted who recommended patient undergo left heart cath. As a result, patient is being admitted for further management. During my evaluation of the patient, patient states his symptomology occurred while he was at work. He reports he had chest pain in the past greater than 10 years ago and he was evaluated by cardiology who determined patient had pleurisy. Patient voices that normally he is able to tolerate exercise to include running, and lifting without any chest pain or shortness of breath. He voices never having a stress test for a cardiac cath in the past. Currently he is denying any lightheadedness, dizziness, fever, chills, rigors, nausea, vomiting, or diarrhea. Per my read, chest x-ray was negative for any acute cardiopulmonary process-is pending final read by the radiologist. Additional pertinent vitals obtained include a sodium 135, BUN of 31, blood glucose of 123, and troponin was less than 0.01. Hospital Course Hospital Course Hospital Course: Latrell Morales is a 59-year-old male who presented with severe chest pain and was admitted for suspected STEMI #STEMI of RCA with no obstructive coronary artery disease ([place]) on [facility] #Myopericarditis #HFmrEF ? Cardiology consulted, s/p [facility] 08/18/2024 with normal coronaries. Unusual LAMAR I flow down a small nondominant RCA which can explain presentation. Troponin peaked at 19.9. ? Cardiac MRI suggestive of myopericarditis, especially in the setting of recent influenza and strep infection. ? ECHO shows LVEF 45%. ? CTA chest unremarkable for acute findings, including PE. ? UDS positive for benzodiazepine, barbiturates but patient was given those in the ED in [employer]. Barbiturates likely cross-reactive with Zofran. ? Patient's chest pain completely subsided after LHC, no shortness of breath. Patient denies smoking, alcohol use, recreational drug use. ? ALBINA comprehensive panel normal. ? Discharged with aspirin 81 mg, Plavix 75 mg, metoprolol succinate 25 mg, Jardiance 10 mg, spironolactone 25 mg, Entresto, colchicine 0.6 mg. ? Advised to follow-up with cardiology within 1 week. #Hypothyroidism ? Continue home levothyroxine 150 mcg. TFTs normal. #BPH ? Continue home tamsulosin 0.4 mg. Total time spent on discharge: 33 minutes on chart review, counseling, documentation, and direct care with patient. Exam Data for Last 24 hours Vital signs and Labs for Last 24 Hours: Temp Pulse Resp BP Pulse Ox O2 Del Method 97.4 F L 83 19 116/72 94 L Room Air 08/19/24 08:00 08/19/24 10:00 08/19/24 10:00 08/19/24 10:00 08/19/24 10:00 08/19/24 14:46 Laboratory Results - last 24 hr 08/18/24 12:03: SARS-CoV-2 (PCR) Not detected, Influenza Type A (PCR) Not detected, Influenza Type B (PCR) Not detected, RSV (PCR) Not detected, Rhinovirus (PCR) Not detected 08/18/24 17:48: APTT 43.2 L, Troponin I 8.56 H 08/19/24 01:13: APTT 51.3 08/19/24 05:25: WBC 9.7, RBC 4.99, Hgb 15.9 D, Hct 46.5, MCV 93.2, MCH 31.9 H, MCHC 34.2, RDW 12.6, Plt Count 230, MPV 9.3, Neut % (Auto) 54.1, Lymph % (Auto) 33.0, [place] % (Auto) 10.6 H, Eos % (Auto) 1.1, Baso % (Auto) 0.6, Neut # (Auto) 5.2, Lymph # (Auto) 3.2, [place] # (Auto) 1.0, Eos # (Auto) 0.1, Baso # (Auto) 0.1, ESR 7, Sodium 137, Potassium 4.0, Chloride 104, Carbon Dioxide 26, Anion Gap 11.0, BUN 16 D, Creatinine 1.00, Estimated Creat Clear 112, Estimated GFR 76, Est GFR ( Amer) 92, Glucose 96, Calcium 9.1, C-Reactive Protein 33.2 H D 08/19/24 08:30: APTT 44.1 L I & O for Last 24 hours: Intake & Output 08/16/24 08/17/24 08/18/24 08/19/24 23:59 23:59 23:59 23:59 Intake Total 990 / 990 415 / 415 Output Total 0 / 0 0 / 0 Balance 990 / 990 415 / 415 Weight 104 kg 101.633 kg Results Data Completed and Pending Labs on day of discharge: Labs from last 24 hours 08/19/24 08/19/24 08/19/24 08:30 05:25 01:13 WBC 9.7 RBC 4.99 Hgb 15.9 D Hct 46.5 MCV 93.2 MCH 31.9 H MCHC 34.2 RDW 12.6 Plt Count 230 MPV 9.3 Neut % (Auto) 54.1 Lymph % (Auto) 33.0 [place] % (Auto) 10.6 H Eos % (Auto) 1.1 Baso % (Auto) 0.6 Neut # (Auto) 5.2 Lymph # (Auto) 3.2 [place] # (Auto) 1.0 Eos # (Auto) 0.1 Baso # (Auto) 0.1 ESR 7 APTT 44.1 L 51.3 Sodium 137 Potassium 4.0 Chloride 104 Carbon Dioxide 26 Anion Gap 11.0 BUN 16 D Creatinine 1.00 Estimated Creat Clear 112 Estimated GFR 76 Est GFR ( Amer) 92 Glucose 96 Calcium 9.1 Troponin I C-Reactive Protein 33.2 H D SARS-CoV-2 (PCR) Influenza Type A (PCR) Influenza Type B (PCR) RSV (PCR) Rhinovirus (PCR) 08/18/24 08/18/24 17:48 12:03 WBC RBC Hgb Hct MCV MCH MCHC RDW Plt Count MPV Neut % (Auto) Lymph % (Auto) [place] % (Auto) Eos % (Auto) Baso % (Auto) Neut # (Auto) Lymph # (Auto) [place] # (Auto) Eos # (Auto) Baso # (Auto) ESR APTT 43.2 L Sodium Potassium Chloride Carbon Dioxide Anion Gap BUN Creatinine Estimated Creat Clear Estimated GFR Est GFR ( Amer) Glucose Calcium Troponin I 8.56 H C-Reactive Protein SARS-CoV-2 (PCR) Not detected Influenza Type A (PCR) Not detected Influenza Type B (PCR) Not detected RSV (PCR) Not detected Rhinovirus (PCR) Not detected DS: Diagnosis Discharge Diagnosis (1) ST elevation (STEMI) myocardial infarction involving right coronary artery: Status: Acute Code(s): I21.11 - ST elevation (STEMI) myocardial infarction involving right coronary artery (2) Chest pain: Status: Acute Code(s): R07.9 - Chest pain, unspecified Qualifiers: Chest pain type: unspecified Qualified Code(s): R07.9 - Chest pain, unspecified (3) Hypothyroidism: Status: Acute Code(s): E03.9 - Hypothyroidism, unspecified Qualifiers: Hypothyroidism type: acquired Qualified Code(s): E03.9 - Hypothyroidism, unspecified (4) BPH (benign prostatic hyperplasia): Status: Acute Code(s): N40.0 - Benign prostatic hyperplasia without lower urinary tract symptoms Qualifiers: Lower urinary tract symptom presence: symptoms absent Qualified Code(s): N40.0 - Benign prostatic hyperplasia without lower urinary tract symptoms (5) Acute myopericarditis: Status: Acute Code(s): I30.9 - Acute pericarditis, unspecified Meds Home Medications and Allergies Home Medications ?Medication ?Instructions ?Recorded ?Confirmed ?Type levothyroxine 125 mcg tablet 125 mcg PO DAILY 08/18/24 08/31/24 History metoprolol succinate 25 mg 25 mg PO DAILY 30 days #30 tabs 08/19/24 08/31/24 Rx tablet,extended release 24 hr sacubitril 24 mg-valsartan 26 mg 1 tab PO BID 30 days #60 tabs 08/19/24 08/31/24 Rx tablet (Entresto) rivaroxaban 20 mg tablet (Xarelto) 20 mg PO DAILY #30 tabs 08/21/24 08/31/24 Rx empagliflozin 10 mg tablet 10 mg PO DAILY #30 tabs 08/25/24 08/31/24 Rx (Jardiance) spironolactone 25 mg tablet 25 mg PO DAILY #30 tabs 08/25/24 08/31/24 Rx (Aldactone) New Prescriptions to Start Prescriptions: metoprolol succinate Win De La Rosa John Allergies Allergy/AdvReac Type Severity Reaction Status Date / Time nitroglycerin AdvReac Palpitation Verified 08/31/24 10:26 s succinylcholine (From AdvReac Drowsy Verified 08/31/24 10:26 Anectine) Discharge Plan Disposition Patient Disposition: Home, Self-Care Condition: Fair Discharge Order Discharge Orders: Discharge Order (Routine); Ordered 08/19/24 Ordered By: Win De La Rosa Follow up Plan Follow up with: Constantino Cohen MD [Staff Physician] - 08/27/24 (Please call office for follow up appointment) Prescriptions/Medication Reconciliation: New metoprolol succinate 25 mg Tablet Extended Release 24 Hr 25 mg PO DAILY 30 Days Qty: 30 0RF Entresto 24-26 mg Tablet 1 tab PO BID 30 Days Qty: 60 0RF Continued levothyroxine 125 mcg tablet 125 mcg PO DAILY Patient Comments: TAKE 1 TABLET BY MOUTH ONCE DAILY FOR 90 DAYS No Action spironolactone [Aldactone] 25 mg tablet 25 mg PO DAILY Qty: 30 2RF Jardiance 10 mg tablet 10 mg PO DAILY Qty: 30 5RF Xarelto 20 mg tablet 20 mg PO DAILY Qty: 30 0RF Other Ambulatory Orders: Basic Metabolic Panel (Routine) Timeframe: 20240727 Facility: [facility] - Location: Laboratory Ordered By: Derrek Osman Complete Blood Count Auto Diff (Routine) Timeframe: 20240727 Facility: [facility] - Location: Laboratory Ordered By: Derrek Osman Problem Reconciliation Problems Reviewed?: Yes Patient Discharge Instructions Patient Instructions: DI for Chest Pain Print Language: Jordanian Providers Primary Care Provider: Darrick Cifuentes Admit Provider: Win De La Rosa Attending Provider: Win De La Rosa
--- NOTE | 2024-08-19 17:32 | PC.NURSE ---
Student nurse. Brionna Garcia provided care for pt under my supervision.
--- NOTE | 2024-08-20 10:28 | SW/DCPLANNER ---
Patient i was readmitted back to the hospital Lizbeth Mcfadden
[2024-08-20 11:21] LABS: Antinuclear Antibodies (ANA) Negative (Negative)
--- OUTSIDE RECORDS SUMMARY | 2024-09-02 16:46 | XMS_ITS | Data Portability ---
Author Organization [facility] ROBB oRusseau ADMIN Address [address] [place] [id number] Care Team Providers Care House Steward/Stewardess Name Role Phone IGLESIA CIFUENTES Primary Care Provider [phone] Assessment No assessment recorded. Plan of Treatment Reminders Order Date Submit Date Provider Last Modified By Organization Details Last Modified Time Details Appointments 3 MONTH FU 15 2024 01:15P M Iglesia Cifuentes MD Not available Not available Not available Lab HbA1c (hemoglob in A1c), blood 2023 024 [facility], [address], [address], [place], [address], 03/18/2024 08:21:57 thyroid panel, serum 2023 024 [facility], [address], [address], [place], [address], 03/18/2024 08:21:56 lipid panel, serum 2023 024 [facility], [address], [address], [place], [address], 03/18/2024 08:21:55 CMP, serum or plasma 2023 024 [facility], [address], [address], [place], [address], 03/18/2024 08:21:54 CMP, serum or plasma 2023 024 [facility], [address], [address], [place], [address], 12/17/2023 14:13:31 lipid panel, serum 2023 024 [facility], [address], [address], [place], [address], 12/17/2023 14:13:31 thyroid panel, serum 2023 024 [facility], [address], [address], [place], [address], 12/17/2023 14:13:32 urinalysi s, dipstick 2023 024 [email or web address] [facility], [address], [place], [address], 09/22/2023 16:33:21 Referral None recorded. Procedures None recorded. Surgeries None recorded. Imaging None recorded. Medication Orders levothyro xine 125 mcg tablet [address] [facility], [address], [address], 06/17/2024 15:50:58 levothyro xine 150 mcg tablet [address] [facility], [address], [address], 03/18/2024 17:41:59 sildenafi l 100 mg tablet [address] [facility], [address], [address], 08/25/2024 10:47:00 Zithromax Z-Pool 250 mg tablet 2023 024 [email or web address] [facility], [address], [address], 08/25/2024 10:45:54 promethaz ine-DM 6.25 mg-15 mg/5 mL oral syrup [address] [facility], [address] [place], [address], 12/16/2023 13:52:39 prednison e 20 mg tablet [address] [facility], [address] [place], [address], 12/16/2023 13:45:16 Patient TargetsNo targets recorded. Patient InstructionsNo instructions recorded. Reason for Referral None Reported. Results Created Date Observation Date Name Description Value Unit Range Abnormal Flag Note LastModifiedBy Organization Detail LastModifiedTime 09/22/19 24 09/22/2023 urina lysis , dipst ick Leukocytes (reference range) negati ve Not Available [address], [place], [address], 09/22/2023 16:10:01 09/22/19 24 09/22/2023 urina lysis , dipst ick Nitrite (reference range:) negati ve Not Available [address], [place], [address], 09/22/2023 16:10:01 09/22/19 24 09/22/2023 urina lysis , dipst ick Urobilinogen (reference range) 0.2 Not Available [facility] [address] [facility] [address], [place], [address], 09/22/2023 16:10:01 09/22/19 24 09/22/2023 urina lysis , dipst ick Protein (reference range) negati ve Not Available [facility] [address] [facility] [address], [place], [address], 09/22/2023 16:10:01 09/22/19 24 09/22/2023 urina lysis , dipst ick pH (reference range 5-8.5) 5.5 Not Available [facility] [address], [place], [address], 09/22/2023 16:10:01 09/22/19 24 09/22/2023 urina lysis , dipst ick Blood (reference range:) negati ve Not Available [facility] [address] [facility] [address], [place], [address], 09/22/2023 16:10:01 09/22/19 24 09/22/2023 urina lysis , dipst ick Specific [place] (reference range) 1.025 Not Available [facility] [address], [place], [address], 09/22/2023 16:10:01 09/22/19 24 09/22/2023 urina lysis , dipst ick Ketone (reference range) negati ve Not Available [facility] [address], [place], [address], 09/22/2023 16:10:01 09/22/19 24 09/22/2023 urina lysis , dipst ick Bilirubin (reference range) negati ve Not Available [facility] [address], [place], [address], 09/22/2023 16:10:01 09/22/19 24 09/22/2023 urina lysis , dipst ick Glucose (reference range) negati ve Not Available [facility] [address] [facility] [address], [place], [address], 09/22/2023 16:10:01 09/22/19 24 09/22/2023 urina lysis , dipst ick Color (reference range: yellow-brown ) Yellow Not Available [facility] [address], [place], [address], 09/22/2023 16:10:01 12/16/19 24 12/17/2023 COMP. METAB OLIC PANEL (14) glucose 81 mg/dL 70-99 normal Not Available [facility] ([facility]) [address] [facility], [place], [address], 12/17/2023 14:13:31 12/16/19 24 12/17/2023 COMP. METAB OLIC PANEL (14) BUN 17 mg/dL 8-27 normal Not Available [facility] ([facility]) [address] [facility], [place], [address], 12/17/2023 14:13:31 12/16/19 24 12/17/2023 COMP. METAB OLIC PANEL (14) creatinine 1.05 mg/dL 0.76-1 .27 normal Not Available [facility] ([facility]) [address] [facility], [place], [address], 12/17/2023 14:13:31 12/16/19 24 12/17/2023 COMP. METAB OLIC PANEL (14) eGFR 81 mL/mi n/1.7 3 >59 normal Not Available [facility] ([facility]) [address] [facility], [place], [address], 12/17/2023 14:13:31 12/16/19 24 12/17/2023 COMP. METAB OLIC PANEL (14) BUN/creatini ne ratio 16 10-24 normal Not Available [facility] ([facility]) [address] [facility], [place], [address], 12/17/2023 14:13:31 12/16/19 24 12/17/2023 COMP. METAB OLIC PANEL (14) sodium 139 mmol/ L 134-14 4 normal Not Available [facility] ([facility]) [address] [facility] [place], [address], 12/17/2023 14:13:31 12/16/19 24 12/17/2023 COMP. METAB OLIC PANEL (14) potassium 4.5 mmol/ L 3.5-5. 2 normal Not Available [facility] ([facility]) [address] [facility] [place], [address], 12/17/2023 14:13:31 12/16/1912/17/2023 COMP. METAB OLIC PANEL (14) chloride 100 mmol/ L 96-106 normal Not Available [facility] ([facility]) [address] [facility], [place], [address], 12/17/2023 14:13:31 12/16/19 24 12/17/2023 COMP. METAB OLIC PANEL (14) carbon dioxide, total 26 mmol/ L 20-29 normal Not Available [facility] ([facility]) [address] [facility] [place], [address], 12/17/2023 14:13:31 12/16/19 24 12/17/2023 COMP. METAB OLIC PANEL (14) calcium 9.4 mg/dL 8.6-10 .2 normal Not Available [facility] ([facility]) [address] [facility] [place], [address], 12/17/2023 14:13:31 12/16/19 24 12/17/2023 COMP. METAB OLIC PANEL (14) protein, total 6.7 g/dL 6.0-8. 5 normal Not Available [facility] ([facility]) [address] [facility] [place], [address], 12/17/2023 14:13:31 12/16/19 24 12/17/2023 COMP. METAB OLIC PANEL (14) albumin 4.3 g/dL 3.8-4. 9 normal Not Available [facility] ([facility]) [address], [place], [address], 12/17/2023 14:13:31 12/16/19 24 12/17/2023 COMP. METAB OLIC PANEL (14) globulin, total 2.4 g/dL 1.5-4. 5 Not Available [facility] ([facility]) [address], [place], [address], 12/17/2023 14:13:31 12/16/19 24 12/17/2023 COMP. METAB OLIC PANEL (14) bilirubin, total 0.4 mg/dL 0.0-1. 2 normal Not Available [facility] ([facility]) [address], [place], [address], 12/17/2023 14:13:31 12/16/19 24 12/17/2023 COMP. METAB OLIC PANEL (14) alkaline phosphatase 51 IU/L 44-121 normal Not Available [facility] ([facility]) [address], [place], [address], 12/17/2023 14:13:31 12/16/19 24 12/17/2023 COMP. METAB OLIC PANEL (14) AST (SGOT) 19 IU/L 0-40 normal Not Available [facility] ([facility]) [address], [place], [address], 12/17/2023 14:13:31 12/16/19 24 12/17/2023 COMP. METAB OLIC PANEL (14) ALT (SGPT) 18 IU/L 0-44 normal Not Available [facility] ([facility]) [address] [facility], [address], 12/17/2023 14:13:31 12/16/19 24 12/17/2023 LIPID PANEL cholesterol, total 208 mg/dL 100-19 9 above high normal Not Available [facility] ([facility]) [address] [facility] [place], [address], 12/17/2023 14:13:31 12/16/19 24 12/17/2023 LIPID PANEL triglyceride s 212 mg/dL 0-149 above high normal Not Available [facility] ([facility]) [address] [facility] [place], [address], 12/17/2023 14:13:31 12/16/19 24 12/17/2023 LIPID PANEL HDL cholesterol 37 mg/dL >39 below low normal Not Available [facility] ([facility]) [address] [facility] [place], [address], 12/17/2023 14:13:31 12/16/19 24 12/17/2023 LIPID PANEL VLDL cholesterol heather 38 mg/dL 5-40 Not Available [facility] ([facility]) [address] [place], [address], 12/17/2023 14:13:31 12/16/19 24 12/17/2023 LIPID PANEL LDL chol calc ([facility]) 133 mg/dL 0-99 above high normal Not Available [facility] ([facility]) [address] [facility] [place], [address], 12/17/2023 14:13:31 12/16/19 24 12/17/2023 LIPID PANEL LDL calc comment: [employer] Not Available [facility] ([facility]) [address] [place], [address], 12/17/2023 14:13:31 12/16/19 24 12/17/2023 THYRO ID PANEL WITH TSH TSH 0.178 uIU/m L 0.450- 4.500 below low normal Not Available [facility] ([facility]) [address] [place], [address], 12/17/2023 14:13:32 12/16/19 24 12/17/2023 THYRO ID PANEL WITH TSH thyroxine (T4) 8.6 ug/dL 4.5-12 .0 normal Not Available [facility] ([facility]) [address] [place], [address], 12/17/2023 14:13:32 12/16/1912/17/2023 THYRO ID PANEL WITH TSH T3 uptake 29 % 24-39 normal Not Available [facility] ([facility]) [address] [facility], [address], 12/17/2023 14:13:32 12/16/1912/17/2023 THYRO ID PANEL WITH TSH free thyroxine index 2.5 1.2-4. 9 normal Not Available [facility] ([facility]) [address] [facility] [place], [address], 12/17/2023 14:13:32 03/17/2003/18/2024 COMP. METAB OLIC PANEL (14) glucose 93 mg/dL 70-99 normal Not Available [facility] ([facility]) [address] [facility] [place], [address], 03/18/2024 08:21:54 03/17/2003/18/2024 COMP. METAB OLIC PANEL (14) BUN 16 mg/dL 8-27 normal Not Available [facility] ([facility]) [address] [facility] [place], [address], 03/18/2024 08:21:54 03/17/2003/18/2024 COMP. METAB OLIC PANEL (14) creatinine 1.09 mg/dL 0.76-1 .27 normal Not Available [facility] ([facility]) [address] [facility] [place], [address], 03/18/2024 08:21:54 03/17/2003/18/2024 COMP. METAB OLIC PANEL (14) eGFR 78 mL/mi n/1.7 3 >59 normal Not Available [facility] ([facility]) [address] [facility] [place], [address], 03/18/2024 08:21:54 03/17/20 24 03/18/2024 COMP. METAB OLIC PANEL (14) BUN/creatini ne ratio 15 10-24 normal Not Available [facility] ([facility]) [address] [facility], [place], [address], 03/18/2024 08:21:54 03/17/2003/18/2024 COMP. METAB OLIC PANEL (14) sodium 140 mmol/ L 134-14 4 normal Not Available [facility] ([facility]) [address] [facility], [place], [address], 03/18/2024 08:21:54 03/17/2003/18/2024 COMP. METAB OLIC PANEL (14) potassium 5.1 mmol/ L 3.5-5. 2 normal Not Available [facility] ([facility]) [address] [facility], [place], [address], 03/18/2024 08:21:54 03/17/2003/18/2024 COMP. METAB OLIC PANEL (14) chloride 101 mmol/ L 96-106 normal Not Available [facility] ([facility]) [address] [facility], [place], [address], 03/18/2024 08:21:54 03/17/2003/18/2024 COMP. METAB OLIC PANEL (14) carbon dioxide, total 24 mmol/ L 20-29 normal Not Available [facility] ([facility]) [address] [facility], [place], [address], 03/18/2024 08:21:54 03/17/2003/18/2024 COMP. METAB OLIC PANEL (14) calcium 9.4 mg/dL 8.6-10 .2 normal Not Available [facility] ([facility]) [address] [facility], [place], [address], 03/18/2024 08:21:54 03/17/2003/18/2024 COMP. METAB OLIC PANEL (14) protein, total 7.0 g/dL 6.0-8. 5 normal Not Available [facility] ([facility]) [address] [facility], [place], [address], 03/18/2024 08:21:54 03/17/2003/18/2024 COMP. METAB OLIC PANEL (14) albumin 4.4 g/dL 3.8-4. 9 normal Not Available [facility] ([facility]) [address] [facility], [place], [address], 03/18/2024 08:21:54 03/17/2003/18/2024 COMP. METAB OLIC PANEL (14) globulin, total 2.6 g/dL 1.5-4. 5 Not Available [facility] ([facility]) [address] [facility], [place], [address], 03/18/2024 08:21:54 03/17/2003/18/2024 COMP. METAB OLIC PANEL (14) bilirubin, total 0.6 mg/dL 0.0-1. 2 normal Not Available [facility] ([facility]) [address] [facility], [place], [address], 03/18/2024 08:21:54 03/17/2003/18/2024 COMP. METAB OLIC PANEL (14) alkaline phosphatase 51 IU/L 44-121 normal Not Available [facility] ([facility]) [address] [facility], [place], [address], 03/18/2024 08:21:54 03/17/2003/18/2024 COMP. METAB OLIC PANEL (14) AST (SGOT) 21 IU/L 0-40 normal Not Available [facility] ([facility]) [address] [facility], [place], [address], 03/18/2024 08:21:54 03/17/2003/18/2024 COMP. METAB OLIC PANEL (14) ALT (SGPT) 22 IU/L 0-44 normal Not Available [facility] ([facility]) [address] [place], [address], 03/18/2024 08:21:54 03/17/2003/18/2024 LIPID PANEL cholesterol, total 230 mg/dL 100-19 9 above high normal Not Available [facility] ([facility]) [address] [place], [address], 03/18/2024 08:21:55 03/17/2003/18/2024 LIPID PANEL triglyceride s 141 mg/dL 0-149 normal Not Available [facility] ([facility]) [address] [place], [address], 03/18/2024 08:21:55 03/17/2003/18/2024 LIPID PANEL HDL cholesterol 39 mg/dL >39 below low normal Not Available [facility] ([facility]) [address] [place], [address], 03/18/2024 08:21:55 03/17/2003/18/2024 LIPID PANEL VLDL cholesterol heather 26 mg/dL 5-40 Not Available [facility] ([facility]) [address] [place], [address], 03/18/2024 08:21:55 03/17/2003/18/2024 LIPID PANEL LDL chol calc ([facility]) 165 mg/dL 0-99 above high normal Not Available [facility] ([facility]) [address] [place], [address], 03/18/2024 08:21:55 03/17/2003/18/2024 LIPID PANEL LDL calc comment: [employer]ER Not Available [facility] ([facility]) [address] [place], [address], 03/18/2024 08:21:55 03/17/2003/18/2024 THYRO ID PANEL WITH TSH TSH 2.780 uIU/m L 0.450- 4.500 normal Not Available [facility] ([facility]) [address] [place], [address], 03/18/2024 08:21:56 03/17/2003/18/2024 THYRO ID PANEL WITH TSH thyroxine (T4) 8.7 ug/dL 4.5-12 .0 normal Not Available [facility] ([facility]) [address] [place], [address], 03/18/2024 08:21:56 03/17/2003/18/2024 THYRO ID PANEL WITH TSH T3 uptake 30 % 24-39 normal Not Available [facility] ([facility]) [address] [place], [address], 03/18/2024 08:21:56 03/17/2003/18/2024 THYRO ID PANEL WITH TSH free thyroxine index 2.6 1.2-4. 9 normal Not Available [facility] ([facility]) [address] [place], [address], 03/18/2024 08:21:56 03/17/2003/18/2024 HEMOG LOBIN A1C hemoglobin A1C 5.8 % 4.8-5. 6 above high normal Predi abete s: 5.7 - 6.4 Diabe adair: >6.4 Glyce jose daniel contr ol for adult s with diabe adair: <7.0 Not Available [facility] ([facility]) [address] [place], [address], 03/18/2024 08:21:57 08/19/1908/18/2024 XR, chest No observ ation record ed. [email or web address] [facility] [address], [place], [address], 08/19/2024 18:04:49 08/19/19 25 08/18/2024 elect rocar diogr am No observ ation record ed. [address], [place], [address], 08/19/2024 18:04:32 08/19/19 25 08/18/[facility] No observ ation record ed. [address], [place], [address], 08/19/2024 18:04:22 08/19/19 25 08/18/2024 CT, angio gram, chest + abdom en + pelvi s, w/ contr ast No observ ation record ed. [address], [place], [address], 08/19/2024 18:03:59 08/19/19 25 08/18/2024 venou s mappi ng, lower extre mity No observ ation record ed. [address], [place], [address], 08/19/2024 18:03:24 08/20/19 25 08/19/2024 stres s echoc ardio gram No observ ation record ed. [address], [place], [address], 08/19/2024 18:02:33 08/21/19 25 08/20/2024 CT, head + brain , w/ contr ast No observ ation record ed. [address], [place], [address], 08/23/2024 08:19:58 08/21/19 25 08/20/2024 CT, angio gram, head + neck, w/ contr ast No observ ation record ed. [address], [place], [address], 08/23/2024 08:19:44 08/21/19 25 08/20/2024 CT, angio gram, abdom en + pelvi s + lower extre mity, w/wo contr ast No observ ation record ed. [address], [place], [address], 08/23/2024 08:19:33 08/21/19 25 08/20/2024 CT, angio gram, abdom en + pelvi s + lower extre mity, w/wo contr ast No observ ation record ed. [address], [place], [address], 08/23/2024 08:19:24 08/21/19 25 08/20/2024 CT, abdom en + pelvi s, w/ contr ast No observ ation record ed. [address], [place], [place], [address], 08/23/2024 08:18:18 08/21/19 25 08/20/2024 CT, abdom en + pelvi s, w/ contr ast No observ ation record ed. [address], [place], [place], [address], 08/23/2024 08:18:09 08/21/19 25 08/20/2024 CT, angio gram, abdom en + pelvi s + lower extre mity, w/wo contr ast No observ ation record ed. [address], [place], [place], [address], 08/23/2024 08:17:20 08/21/19 25 08/20/2024 XR, chest No observ ation record ed. [address], [place], [place], [address], 08/23/2024 08:17:09 08/21/19 25 08/20/2024 elect rocar diogr am No observ ation record ed. [address], [place], [address], 08/23/2024 08:17:01 08/21/19 25 08/20/2024 CT, abdom en + pelvi s, w/ contr ast No observ ation record ed. [address], [place], [address], 08/23/2024 08:16:20 08/25/19 25 08/18/2024 elect rocar diogr am No observ ation record ed. [address], [place], [address], 08/25/2024 15:14:09 08/25/19 25 08/20/2024 stres s echoc ardio gram No observ ation record ed. [address], [place], [address], 08/25/2024 15:13:55 Result Notes None recorded. Problems Name Problem SNOMED Code Status Onset Date Resolution Date Notes Provider Name and Address Organization Details Recorded Time Pain of right shoulder joint [id number] 00 Active 2022 FARZANA CARROL thomas [place] - [facility] - [place] & [place] 13:31:09 Problem Notes None recorded. Procedures Surgical History Date Name Laterality Status Provider Name and Address Organization Details Recorded Time 7 Appendectomy completed Minerva Tobin [place] - [facility] & [place] 07/31/2022 13:09:49 4 Other completed Minerva Mahad [place] - [facility] & [place] 07/31/2022 13:12:39 Imaging Results Imaging Date Name Status LastModified by Organization Details LastModified Time 08/18/2024 XR, chest completed [address], [place], [address], 08/19/2024 18:04:49 08/18/2024 electrocardiogram completed [address], [place], [address], 08/19/2024 18:04:32 08/18/2024 electrocardiogram completed [address], [place], [address], 08/19/2024 18:04:22 08/18/2024 CT, angiogram, chest + abdomen + pelvis, w/ contrast completed [address], [place], [address], 08/19/2024 18:03:59 08/18/2024 venous mapping, lower extremity completed [address], [place], [address], 08/19/2024 18:03:24 08/19/2024 stress echocardiogram completed [address], [place], [address], 08/19/2024 18:02:33 08/20/2024 CT, head + brain, w/ contrast completed [address], [place], [address], 08/23/2024 08:19:58 08/20/2024 CT, angiogram, head + neck, w/ contrast completed [address], [place], [address], 08/23/2024 08:19:44 08/20/2024 CT, angiogram, abdomen + pelvis + lower extremity, w/wo contrast completed [address], [place], [address], 08/23/2024 08:19:33 08/20/2024 CT, angiogram, abdomen + pelvis + lower extremity, w/wo contrast completed [address], [place], [address], 08/23/2024 08:19:24 08/20/2024 CT, abdomen + pelvis, w/ contrast completed [address], [place], [address], 08/23/2024 08:18:18 08/20/2024 CT, abdomen + pelvis, w/ contrast completed [address], [place], [address], 08/23/2024 08:18:09 08/20/2024 CT, angiogram, abdomen + pelvis + lower extremity, w/wo contrast completed [address], [place], [address], 08/23/2024 08:17:20 08/20/2024 XR, chest completed [address], [place], [address], 08/23/2024 08:17:09 08/20/2024 electrocardiogram completed [address], [place], [address], 08/23/2024 08:17:01 08/20/2024 CT, abdomen + pelvis, w/ contrast completed [address], [place], [address], 08/23/2024 08:16:20 08/18/2024 electrocardiogram completed [address], [place], [address], 08/25/2024 15:14:09 08/20/2024 stress echocardiogram completed [address], [place], [address], 08/25/2024 15:13:55 Procedure Notes None recorded. Medical Equipment None Reported. Allergies Allergen ID Allergen Name Allergen Category Reaction Reaction Severity Criticality Documentation Date Start Date Code Code System Note Provider Name and Address Organization Details Recorded Time 68576 nitroglyc wayne medicatio n Not available Not available Not available 07/31/2022 4917 RxNorm [place] Calderon LPADAM [facility] & [place] 3 13:10:08 97029 Anectine medicatio n Not available Not available Not available 07/31/202201541 8 RxNorm KET[place] Calderon LPADAM [facility] & [place] 3 13:11:52 Medications Name Sig Start Date Stop Date Status Note LastModified by Organization Details LastModified Time eq mucus er 600mg tab TAKE 1 TO 2 TABLETS BY MOUTH TWICE DAILY NEEDED FOR CONGESTIO N 08/25 completed Not Available Not Available Not Available cyclobenzap rine 10 mg tablet TAKE 1 TABLET BY MOUTH THREE TIMES DAILY NEEDED FOR 5 DAYS 09/21 completed Not Available Not Available Not Available amoxicillin 500 mg capsule TAKE 1 CAPSULE BY MOUTH THREE TIMES DAILY UNTIL GONE 06/15 completed Not Available Not Available Not Available atorvastati n 40 mg tablet TAKE ONE TABLET BY MOUTH EVERY DAY AT BEDTIME active Not Available Not Available No t Available promethazin e-DM 6.25 mg-15 mg/5 mL oral syrup TAKE 5 ML BY MOUTH EVERY 4 HOURS NEEDED 12/15 completed Not Available Not Available Not Available clindamycin HCl 300 mg capsule TAKE 1 CAPSULE BY MOUTH THREE TIMES DAILY FOR 7 DAYS 06/15 completed Not Available Not Available Not Available azithromyci n 250 mg tablet TAKE 2 TABLETS BY MOUTH ON DAY 1, AND THEN TAKE 1 TABLET BY MOUTH ONCE A DAY ON DAY 2 THROUGH DAY 5 08/25 completed Not Available Not Available Not Available prednisone 20 mg tablet TAKE 3 TABLETS BY MOUTH ONCE DAILY FOR 3 DAYS THEN 2 ONCE DAILY FOR 3 DAYS THEN 1 ONCE DAILY FOR 3 DAYS 12/15 completed Not Available Not Available Not Available clopidogrel 75 mg tablet TAKE ONE TABLET BY MOUTH EVERY DAY 08/25 completed Not Available Not Available Not Available sulfamethox azole 800 mg-trimetho prim 160 mg tablet TAKE 1 TABLET BY MOUTH EVERY 12 HOURS 08/25 completed Not Available Not Available Not Available tramadol 50 mg tablet TAKE 1 TABLET BY MOUTH THREE TIMES DAILY FOR 4 DAYS 09/21 completed Not Available Not Available Not Available sildenafil 100 mg tablet TAKE 1 TABLET BY MOUTH ONCE DAILY 08/25 completed Not Available Not Available Not Available benzonatate 100 mg capsule TAKE 1 CAPSULE BY MOUTH THREE TIMES DAILY NEEDED FOR COUGH 06/15 completed Not Available Not Available Not Available cephalexin 500 mg capsule TAKE 1 CAPSULE BY MOUTH THREE TIMES DAILY FOR 7 DAYS 09/21 completed Not Available Not Available Not Available levothyroxi ne 125 mcg tablet TAKE 1 TABLET BY MOUTH ONCE DAILY FOR 90 DAYS active Not Available Not Available No t Available levothyroxi ne 150 mcg tablet Take 1 tablet by mouth once daily 03/18 completed Not Available Not Available Not Available metoprolol succinate ER 25 mg tablet,exte nded release 24 hr TAKE ONE TABLET BY MOUTH EVERY DAY active Not Available Not Available No t Available levofloxaci n 500 mg tablet 07/28 completed Not Available Not Available Not Available scopolamine 1 mg over 3 days transdermal patch APPLY 1 PATCH TOPICALLY EVERY 72 HOURS FOR 9 DAYS 12/15 completed Not Available Not Available Not Available methylpredn isolone 4 mg tablets in a dose pack TAKE BY MOUTH DIRECTED ON INSIDE OF PACKAGE 08/25 completed Not Available Not Available Not Available colchicine 0.6 mg tablet TAKE ONE TABLET BY MOUTH EVERY DAY active Not Available Not Available No t Available ketorolac 60 mg/2 mL intramuscul ar solution Inject 2 mL every day by intramusc ular route for 1 day. 11/07 completed Not Available Not Available Not Available dexamethaso ne sodium phosphate 10 mg/mL injection solution Take 1 mL by injection route for 1 day. 07/15 completed Not Available Not Available Not Available amoxicillin 875 mg-potassiu m clavulanate 125 mg tablet TAKE 1 TABLET BY MOUTH EVERY 12 HOURS 06/17 completed Not Available Not Available Not Available tobramycin 0.3 %-dexametha sone 0.1 % eye drops,suspe nsion INSTILL 1 DROP 4 TIMES DAILY FOR 7 DAYS INTO RIGHT EYE AND 1 DROP EVERY 2 HOURS FOR 7 DAYS INTO LEFT EYE 11/07 completed Not Available Not Available Not Available vardenafil 20 mg tablet TAKE 1 TABLET BY MOUTH 60 MINUTES BEFORE SEXUAL ACTIVITY NEEDED 12/15 completed Not Available Not Available Not Available alfuzosin ER 10 mg tablet,exte nded release 24 hr TAKE 1 TABLET BY MOUTH ONCE DAILY 09/21 completed Not Available Not Available Not Available tadalafil 20 mg tablet TAKE 1 TABLET BY MOUTH ONCE DAILY NEEDED active Not Available Not Available No t Available Mucus Relief ER 600 mg tablet, extended release TAKE 2 TABLETS BY MOUTH TWICE DAILY NEEDED FOR COUGH 06/15 completed Not Available Not Available Not Available Xarelto 20 mg tablet TAKE 1 TABLET BY MOUTH ONCE DAILY active Not Available Not Available No t Available Entresto 24 mg-26 mg tablet TAKE ONE TABLET BY MOUTH TWICE DAILY active Not Available Not Available No t Available Vitals Date Recorded Body height Body mass index (BMI) Body weight Body temperature Oxygen saturation Oxygen saturation in Arterial blood by Pulse oximetry Heart rate Systolic blood pressure Diastolic blood pressure Provider Name and Address Organization Details Last Updated DateTime 4 180.34 cm 29.7 kg/m2 55544.1 7 g 97.1 [degF] 98 % 98 % 103 /min 120 mm[Hg] 80 mm[Hg] Minerva Couch [facility] 4 16:03:14 Date Recorded Body height Body mass index (BMI) Body weight Body temperature Oxygen saturation Oxygen saturation in Arterial blood by Pulse oximetry Heart rate Systolic blood pressure Diastolic blood pressure Provider Name and Address Organization Details Last Updated DateTime 4 180.34 cm 30.1 kg/m2 70048.9 5 g 97.1 [degF] 95 % 95 % 91 /min 142 mm[Hg] 94 mm[Hg] Minerva Tobin [facility] [place] 4 13:48:52 Date Recorded Body height Body mass index (BMI) Body weight Body temperature Oxygen saturation Oxygen saturation in Arterial blood by Pulse oximetry Heart rate Systolic blood pressure Diastolic blood pressure Provider Name and Address Organization Details Last Updated DateTime 5 180.34 cm 31.4 kg/m2 110393. 28 g 99.3 [degF] 98 % 98 % 91 /min 120 mm[Hg] 94 mm[Hg] [facility] [place] 5 15:38:14 Date Recorded Body height Body mass index (BMI) Body weight Body temperature Oxygen saturation Oxygen saturation in Arterial blood by Pulse oximetry Heart rate Systolic blood pressure Diastolic blood pressure Provider Name and Address Organization Details Last Updated DateTime 5 180.34 cm 30 kg/m2 77495.3 6 g 97.3 [degF] 95 % 95 % 94 /min 114 mm[Hg] 82 mm[Hg] Minerva Azul [facility] & [place] 5 10:45:30 Social History Question Answer Notes LastModified by Organizat [employer] Details LastModified Time Tobacco Smoking Status Never Smoker Minerva thomas, KETAN [facility] & [place] 07/31/2022 13:09:49 Do You Have An Advance Directive? No [email or web address] Information not available 07/31/2022 What Is Your Level Of Alcohol Consumption? None [email or web address] Information not available 07/31/2022 Are You Blind Or Do You Have Difficulty Seeing? No [email or web address] Information not available 07/31/2022 Do You Feel Stressed (tense, Restless, Nervous, Or Anxious, Or Unable To Sleep At Night)? [id number] Information not available 07/31/2022 Do You Use Any Illicit Or Recreational Drugs? No [email or web address] Information not available 07/31/2022 Sex: Male Functional Status Question Answer Note LastModified by Organizat ion Details LastModified Time What is your exercise level? Occasional [email or web address] Information not available 07/31/2022 Mental Status None recorded. Family History Relationship Description Onset Age of this Age Resolved Age Notes LastModified by Organization Details LastModified Time Father Myocardial infarction pt. added direct ly (07/28) [email or web address] Not available 07/28/2022 13:00:39 Mother Chronic obstructive pulmonary disease pt. added direct ly (07/28) [email or web address] Not available 07/28/2022 13:00:52 Mother Disorder of thyroid gland pt. added direct ly (07/28) [email or web address] Not available 07/28/2022 13:01:14 Medical History Condition Response Other Y Obstructive Sleep Apnea Y Thyroid Problems Y High Cholesterol Y Immunizations Vaccine Type Date Status Note Provider Nam e and Address Organization Details Recorded Time COVID-19 vaccine, vector-nr, rS-Ad26, PF, 0.5 mL 1 completed Minerva Couch null, [place] - [facility] [place] [facility] [place] 08/25/2024 10:45:47 COVID-19 vaccine, vector-nr, rS-Ad26, PF, 0.5 mL 1 completed Minerva Couch null, [place] [facility] [place] [facility] [place] 08/25/2024 10:45:47 Td (adult), 2 Lf tetanus toxoid, preservative free, adsorbed 7 completed Minerva Couch null, [place] - [facility] & [place] 08/25/2024 10:45:47 Past Encounters Encounter ID Performer Location Encounter Start Date Encounter Closed Date Diagnosis/Indication Diagnosis SNOMED-CT Code Diagnosis ICD10 Code Diagnosis Note [id number] Iglseia Cifuentes MD [address] [place] [address] 07/31/2022 13:03:06 07/31/2022 14:01:15 Benign prostatic hyperplasia 685833394 N40.0 Acquired hypothyroidism 416919441 E03.9 Adult heal th examination 217824532 Z00.00 Hyperlipidemia 81792106 E78.5 [id number] Reuben Shannon MD [address] [place] [address] 09/27/2022 14:05:11 09/27/2022 14:16:52 Acquired hypothyroidism 562329129 E03.9 [id number] Kathrin Munson, MARIA T, [employer] OFFICER-C, CLINICAL INSTRUCTOR [facility] [address] [facility] [place] [address] 11/05/2022 12:32:23 11/05/2022 13:51:17 Pain of right shoulder joint 4379434414 5005327 M25.511 Shoulder pain 10727039 M 25.519 Tendinitis of right shoulder 0122036227 639379 M75.91 Patient advised to take medication as prescribed . May ice shoulder in 15 minute intervals. Will stretch shoulder. If pain persists will order MRI for further evaluation . Cervical radiculopathy 85930606 M54.12 [id number] Iglesia Cifuentes MD [address] [place] [address] 11/07/2022 15:40:35 11/07/2022 16:01:57 Pain of right acromioclavicular joint 297569021 M25.511 Continues steroids for now. Consider trigger point injection if no improvemen t. Orthopedic evaluation if no improvemen t. He may wear shoulder sling but I have advised him to be conservati ve with usage of this extremity for the next week to 10 days. [id number] Iglesia Cifuentes MD [address] [place] [address] 07/15/2023 08:51:20 07/15/2023 09:12:19 Pain of right shoulder joint 9942076847 3933986 M25.511 Acute sinusitis 37306950 J01.90 Cervical radiculopathy 33821913 M54.12 [id number] [facility] [address] [facility] [place] [address] 09/22/2023 15:43:51 09/22/2023 16:16:22 Upper respiratory infection 19282052 J06.9 Right flank pain 7536449 09 R10.9 No urine noted. Consider CT of his abdomen and pelvis concentrat ing on the kidneys if his symptoms persist. Patient aware. [id number] Iglesia Cifuentes MD [facility] [address] [facility] [place] [address] 12/16/2023 13:36:16 12/16/2023 14:45:38 Adult health examination 768589602 Z00.00 Essential hypertension 78475115 I10 Hypothyroidism 99218437 E03.9 Acquired hypothyroidism 026875791 E03.9 Erectile dysfunction 860 748182 F52.21 [id number] Iglesia Cifuentes MD [facility] [address] [facility] [place] [address] 03/17/2024 14:28:38 03/17/2024 15:27:53 Hyperlipidemia 74968552 E78.5 Hypothyroidism 89777245 E03.9 Prediabetes 012816049 R7 3.03 [id number] Iglesia Cifuentes MD [facility] [address] [place] [address] 06/17/2024 15:13:05 06/17/2024 15:52:50 Acquired hypothyroidism 931151138 E03.9 Essential hypertension 85397825 I10 serial bp ckecks [id number] Iglesia Cifuentes MD [facility] [address] [place] [address] 08/25/2024 10:24:04 08/25/2024 10:53:[address] segment elevation myocardial infarction 2730345046 18461 I25.2 Keep follow-up with Cardiology today. Reassured by relatively clean cardiac catheteriz ation. History of pancreatitis 5117068634 9107 Z87.19 He is tofollow-u p with GI. wonder if they will do an ERCP on him History of sepsis 044917 9033 87788 Z86.19 Health Concerns Section Related Observation LastModified by Organization Detai ls LastModified Time None Recorded Concern Status LastModified by Organization Details LastModified Time None Recorded Advance Directives Directive N: Payers Encounter Date Sequence Insurance Name Policy Number Policy [place] Covered Member ID [place] Member ID Guarantor Name 09/22/2023 1 [place] [id number] 2 Latrell N Morales [id number] Latrell N Morales 12/16/2023 1 [place] [id number] 2 Latrell N Morales [id number] Latrell N Morales 03/17/2024 1 [place] [id number] 2 Altrell N Morales [id number] Latrell N Morales 06/17/2024 1 [place] [id number] 2 Latrell Morales [id number] Latrell Morales 08/25/2024 1 [place] [id number] 2 Latrell Morales [id number] Latrell Morales Notes Date Note Type Note Provider Name and Address Organization Details Recorded Time 09/22/2023 text/html He is here for several week history of sinus pressure drainage and congestion. Started out like a viral syndrome but he primarily now has sinus pressure. Headaches can be associated. Lot of drainage and congestion. No fevers. No history of allergies. He has also had some right flank pain intermittently. He denies any history of kidney stones. Iglesia Cifuentes MD [address], [place], [address], [facility] & [place] 09/22/2023 16:52:50 12/16/2023 text/html [facility]. He is history of hypothyroidism, erectile dysfunction. His blood pressure slightly elevated today. That is relatively new for him. Does report having a 4-year-old with a bit stressful right now. He takes 150 mcg of Synthroid for his hypothyroidism. He is due for TSH today. Takes sildenafil for erectile dysfunction. Seems to be getting good results with this. His past medical history, social history, surgical history, family history reviewed and preventive maintenance strategies discussed with the patient. Iglesia Cifuentes MD [address], [place], [address], [facility] & [place] 12/16/2023 16:38:58 06/17/2024 text/html He is here for follow-up. He is history of hypothyroidism. He is on Synthroid 125 mcg daily. Thyroid studies performed less than 3 months ago were within normal limits.Mild prediabetes. His A1c back in February was 5.8. His blood pressure Slightly elevated in the diastolic. Iglesia Cifuentes MD [address], [place], [address], [facility] & [place] 06/17/2024 17:16:05 08/25/2024 text/html He is here for hospital follow-up. He has had an interesting past few days. From what I gather he had a ST-elevation NC and pancreatitis. 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 Progress of the night to the point where he went to the emergency room where he was diagnosed with troponin elevation and what the ER record shows his ST elevation NC. he was deemed a cardiac catheterization which was essentially clean. 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 He also had pancreatitis per his report. I am not sure if this was from enzymes or from a CT but he did have some pancreatic ductal dilatation. He seems to be doing better in this regard. He has an appointment in a few days to see GI for most likely ERCP. Iglesia Cifuentes MD [address], [place], [address], [place] [facility] [place] [facility] [place] 08/25/2024 11:45:51
--- OUTSIDE RECORDS SUMMARY | 2024-09-02 16:46 | XMS_ITS | Data Portability ---
Author Organization [facility] MARGARET Ramos [place] Address [address] [facility] [facility] [address] [place] [address] Assessment No assessment recorded. Plan of Treatment Reminders Order Date Submit Date Provider Last Modified By Organization Details Last Modified Time Details Appointments RECHECK 2024 04:00P M CINTIA ROSADO MD Not available Not available Not available Lab PSA, serum or plasma 2024 025 [facility], [address], [place], [address], 07/22/2024 16:58:53 PSA, serum or plasma 2024 025 [facility], [address], [address], [place], [address], 06/24/2024 17:29:52 urinalysi s panel, auto 2024 025 [facility], [address], [address], [place], [address], 06/24/2024 17:29:52 urinalysi s panel, auto 2023 024 [facility], [address], [address], [place], [address], 12/23/2023 16:31:33 PSA, serum or plasma 2023 024 [facility], [address], [address], [place], [address], 12/23/2023 16:31:34 urinalysi s panel, auto 2022 023 [facility], [address], [address], [place], [address], 12/25/2022 11:34:53 PSA, serum or plasma 2022 023 [facility], [address], [address], [place], [address], 12/25/2022 11:34:53 urinalysi s panel, auto 2022 023 [facility], [address], [address], [place], [address], 10/24/2022 19:18:12 PSA, serum or plasma 2022 023 [facility], [address], [address], [place], [address], 06/27/2022 13:47:13 Referral None recorded. Procedures None recorded. Surgeries None recorded. Imaging None recorded. Medication Orders Bactrim DS 800 mg-160 mg tablet 2024 025 [facility], [address], [address], 06/24/2024 17:29:53 tadalafil 20 mg tablet 2023 024 [facility], [address], [address], 12/23/2023 16:31:37 sildenafi l 100 mg tablet 2022 023 [facility], [address] [place], [address], 12/25/2022 11:34:58 alfuzosin ER 10 mg tablet,ex tended release 24 hr 2022 023 [facility], [address] [place], [address], 06/27/2022 18:18:33 Patient TargetsNo targets recorded. Patient InstructionsNo instructions recorded. Reason for Referral None Reported. Results Created Date Observation Date Name Description Value Unit Range Abnormal Flag Note LastModifiedBy Organization Detail LastModifiedTime 06/27/1906/27/2022 PSA, serum or plasm a PSA 5.8 NG/mL 0.0 - 4.0 Not Available [facility] [address], [place], [address], 06/27/2022 10:14:28 12/26/19 23 12/25/2022 PSA, serum or plasm a PSA 3.5 NG/mL 0.0 - 4.0 Not Available [facility] [address], [address], 12/25/2022 11:21:00 12/26/19 23 12/25/2022 urina lysis panel , auto Unknown Analyte Clean Catch Not Available [facility] [address], [place], [address], 12/25/2022 11:20:28 12/26/19 23 12/25/2022 urina lysis panel , auto Unknown Analyte Yellow Not Available [facility] [address], [place], [address], 12/25/2022 11:20:28 12/26/19 23 12/25/2022 urina lysis panel , auto Unknown Analyte Clear Not Available [facility] [address], [place], [address], 12/25/2022 11:20:28 12/26/19 23 12/25/2022 urina lysis panel , auto Unknown Analyte 1.015 Not Available [facility] [address], [place], [address], 12/25/2022 11:20:28 12/26/19 23 12/25/2022 urina lysis panel , auto Unknown Analyte 5.0 Not Available [facility] [address], [place], [address], 12/25/2022 11:20:28 12/26/19 23 12/25/2022 urina lysis panel , auto Unknown Analyte Negati ve Not Available [facility] [address], [place], [address], 12/25/2022 11:20:28 12/26/19 23 12/25/2022 urina lysis panel , auto Unknown Analyte Negati ve Not Available [facility] [address], [place], [address], 12/25/2022 11:20:28 12/26/19 23 12/25/2022 urina lysis panel , auto Unknown Analyte Negati ve Not Available [facility] [address], [place], [address], 12/25/2022 11:20:28 12/26/19 23 12/25/2022 urina lysis panel , auto Unknown Analyte Normal Not Available [facility] [address], [place], [address], 12/25/2022 11:20:28 12/26/19 23 12/25/2022 urina lysis panel , auto Unknown Analyte Negati ve Not Available [facility] [address], [place], [address], 12/25/2022 11:20:28 12/26/19 23 12/25/2022 urina lysis panel , auto Unknown Analyte Normal Not Available [facility] [address], [place], [address], 12/25/2022 11:20:28 12/26/19 23 12/25/2022 urina lysis panel , auto Unknown Analyte Negati ve Not Available [facility] [address], [place], [address], 12/25/2022 11:20:28 12/26/19 23 12/25/2022 urina lysis panel , auto Unknown Analyte Negati ve Not Available [facility] [address], [place], [address], 12/25/2022 11:20:28 12/23/19 24 12/23/2023 PSA, serum or plasm a PSA 4.9 NG/mL 0.0 - 4.0 Not Available [facility] [address], [place], [address], 12/23/2023 16:21:52 12/23/19 24 12/23/2023 urina lysis panel , auto Unknown Analyte Clean Catch Not Available [facility] [address] [facility] [address], [place], [address], 12/23/2023 15:57:25 12/23/19 24 12/23/2023 urina lysis panel , auto Unknown Analyte Yellow Not Available [facility] [address], [place], [address], 12/23/2023 15:57:25 12/23/19 24 12/23/2023 urina lysis panel , auto Unknown Analyte Clear Not Available [facility] [address], [place], [address], 12/23/2023 15:57:25 12/23/19 24 12/23/2023 urina lysis panel , auto Unknown Analyte 1.020 Not Available [facility] [address], [place], [address], 12/23/2023 15:57:25 12/23/19 24 12/23/2023 urina lysis panel , auto Unknown Analyte 1.003- 1.035 Not Available [facility] [address], [place], [address], 12/23/2023 15:57:25 12/23/19 24 12/23/2023 urina lysis panel , auto Unknown Analyte 5.0 Not Available [facility] [place] [address], [place], [address], 12/23/2023 15:57:25 12/23/19 24 12/23/2023 urina lysis panel , auto Unknown Analyte 5.0-8. 0 Not Available [facility] [address], [place], [address], 12/23/2023 15:57:25 12/23/19 24 12/23/2023 urina lysis panel , auto Unknown Analyte Negati ve Not Available [facility] [address], [place], [address], 12/23/2023 15:57:25 12/23/19 24 12/23/2023 urina lysis panel , auto Unknown Analyte Negati ve Not Available [facility] [address], [place], [address], 12/23/2023 15:57:25 12/23/19 24 12/23/2023 urina lysis panel , auto Unknown Analyte Negati ve Not Available [facility] [address], [place], [address], 12/23/2023 15:57:25 12/23/19 24 12/23/2023 urina lysis panel , auto Unknown Analyte Negati ve Not Available [facility] [address], [place], [address], 12/23/2023 15:57:25 12/23/19 24 12/23/2023 urina lysis panel , auto Unknown Analyte Negati ve Not Available [facility] [address], [place], [address], 12/23/2023 15:57:25 12/23/19 24 12/23/2023 urina lysis panel , auto Unknown Analyte Negati ve Not Available [facility] [address], [place], [address], 12/23/2023 15:57:25 12/23/19 24 12/23/2023 urina lysis panel , auto Unknown Analyte Normal Not Available [facility] [address], [place], [address], 12/23/2023 15:57:25 12/23/19 24 12/23/2023 urina lysis panel , auto Unknown Analyte Normal Not Available [facility] [address], [place], [address], 12/23/2023 15:57:25 12/23/19 24 12/23/2023 urina lysis panel , auto Unknown Analyte Negati ve Not Available [facility] [address], [place], [address], 12/23/2023 15:57:25 12/23/19 24 12/23/2023 urina lysis panel , auto Unknown Analyte Negati ve Not Available [facility] [address], [place], [address], 12/23/2023 15:57:25 12/23/19 24 12/23/2023 urina lysis panel , auto Unknown Analyte Normal Not Available [facility] [address], [place], [address], 12/23/2023 15:57:25 12/23/19 24 12/23/2023 urina lysis panel , auto Unknown Analyte Normal 1 mg/dl Not Available [facility] [address], [place], [address], 12/23/2023 15:57:25 12/23/19 24 12/23/2023 urina lysis panel , auto Unknown Analyte Negati ve Not Available [facility] [address], [place], [address], 12/23/2023 15:57:25 12/23/19 24 12/23/2023 urina lysis panel , auto Unknown Analyte Negati ve Not Available [facility] [address], [place], [address], 12/23/2023 15:57:25 12/23/19 24 12/23/2023 urina lysis panel , auto Unknown Analyte Negati ve Not Available [facility] [address], [place], [address], 12/23/2023 15:57:25 12/23/19 24 12/23/2023 urina lysis panel , auto Unknown Analyte Negati ve Not Available [facility] [address], [place], [address], 12/23/2023 15:57:25 06/24/19 25 06/24/2024 urina lysis panel , auto Unknown Analyte Clean Catch Not Available [facility] [address], [place], [address], 06/24/2024 17:21:52 06/24/19 25 06/24/2024 urina lysis panel , auto Unknown Analyte Yellow Not Available [facility] [address], [place], [address], 06/24/2024 17:21:52 06/24/19 25 06/24/2024 urina lysis panel , auto Unknown Analyte Clear Not Available [facility] [address], [place], [address], 06/24/2024 17:21:52 06/24/19 25 06/24/2024 urina lysis panel , auto Unknown Analyte 1.020 Not Available [facility] [address], [place], [address], 06/24/2024 17:21:52 06/24/19 25 06/24/2024 urina lysis panel , auto Unknown Analyte 1.003- 1.035 Not Available [facility] [address], [place], [address], 06/24/2024 17:21:52 06/24/19 25 06/24/2024 urina lysis panel , auto Unknown Analyte 5.0 Not Available [facility] [address] [place] [address] [address], [place], [address], 06/24/2024 17:21:52 06/24/19 25 06/24/2024 urina lysis panel , auto Unknown Analyte 5.0-8. 0 Not Available [facility] [address], [place], [address], 06/24/2024 17:21:52 06/24/19 25 06/24/2024 urina lysis panel , auto Unknown Analyte Negati ve Not Available [facility] [address], [place], [address], 06/24/2024 17:21:52 06/24/19 25 06/24/2024 urina lysis panel , auto Unknown Analyte Negati ve Not Available [facility] [address], [place], [address], 06/24/2024 17:21:52 06/24/19 25 06/24/2024 urina lysis panel , auto Unknown Analyte Negati ve Not Available [facility] [address], [place], [address], 06/24/2024 17:21:52 06/24/19 25 06/24/2024 urina lysis panel , auto Unknown Analyte Negati ve Not Available [facility] [address], [place], [address], 06/24/2024 17:21:52 06/24/19 25 06/24/2024 urina lysis panel , auto Unknown Analyte Negati ve Not Available [facility] [address], [place], [address], 06/24/2024 17:21:52 06/24/19 25 06/24/2024 urina lysis panel , auto Unknown Analyte Negati ve Not Available [facility] [address], [place], [address], 06/24/2024 17:21:52 06/24/19 25 06/24/2024 urina lysis panel , auto Unknown Analyte Normal Not Available [facility] [address], [place], [address], 06/24/2024 17:21:52 06/24/19 25 06/24/2024 urina lysis panel , auto Unknown Analyte Normal Not Available [facility] [address], [place], [address], 06/24/2024 17:21:52 06/24/19 25 06/24/2024 urina lysis panel , auto Unknown Analyte Negati ve Not Available [facility] [address], [place], [address], 06/24/2024 17:21:52 06/24/19 25 06/24/2024 urina lysis panel , auto Unknown Analyte Negati ve Not Available [facility] [address], [place], [address], 06/24/2024 17:21:52 06/24/19 25 06/24/2024 urina lysis panel , auto Unknown Analyte Normal Not Available [facility] [address], [place], [address], 06/24/2024 17:21:52 06/24/19 25 06/24/2024 urina lysis panel , auto Unknown Analyte Normal 1 mg/dl Not Available [facility] [address], [place], [address], 06/24/2024 17:21:52 06/24/19 25 06/24/2024 urina lysis panel , auto Unknown Analyte Negati ve Not Available [facility] [address], [place], [address], 06/24/2024 17:21:52 06/24/19 25 06/24/2024 urina lysis panel , auto Unknown Analyte Negati ve Not Available [facility] [address], [place], [address], 06/24/2024 17:21:52 06/24/19 25 06/24/2024 urina lysis panel , auto Unknown Analyte Negati ve Not Available [facility] [address], [place], [address], 06/24/2024 17:21:52 06/24/19 25 06/24/2024 urina lysis panel , auto Unknown Analyte Negati ve Not Available [facility] [address], [place], [address], 06/24/2024 17:21:52 06/24/19 25 06/24/2024 PSA, serum or plasm a PSA 12.6 NG/mL 0.0 - 4.0 Not Available [facility] [address], [place], [address], 06/24/2024 17:21:32 07/22/19 25 07/22/2024 PSA, serum or plasm a PSA 7.4 NG/mL 0.0 - 4.0 Not Available [facility] [address], [place], [address], 07/22/2024 16:55:58 Result Notes None recorded. Problems No Known Problems Medical Equipment None Reported. Allergies Allergen ID Allergen Name Allergen Category Reaction Reaction Severity Criticality Documentation Date Start Date Code Code System Note Provider Name and Address Organization Details Recorded Time 059357 Anectine medicatio n Not available Not available Not available 10/30/2021 66764 8 RxNorm Radha Levy [facility] 2 15:18:56 451793 nitroglyc wayne medicatio n Not available Not available Not available 10/30/2021 4917 RxNorm Radha Leyv [facility] 2 15:19:05 Medications Name Sig Start Date Stop Date Status Note LastModified by Organization Details LastModified Time cyclobenzapri ne 10 mg tablet TAKE 1 TABLET BY MOUTH THREE TIMES DAILY NEEDED FOR 5 DAYS active Not Available Not Available No t Available promethazine- DM 6.25 mg-15 mg/5 mL oral syrup TAKE 5 ML BY MOUTH EVERY 4 HOURS NEEDED active Not Available Not Available No t Available azithromycin 250 mg tablet TAKE 2 TABLETS BY MOUTH ON DAY 1, AND THEN TAKE 1 TABLET BY MOUTH ONCE A DAY ON DAY 2 THROUGH DAY 5 active Not Available Not Available No t Available prednisone 20 mg tablet TAKE 3 TABLETS BY MOUTH ONCE DAILY FOR 3 DAYS THEN 2 ONCE DAILY FOR 3 DAYS THEN 1 ONCE DAILY FOR 3 DAYS active Not Available Not Available N ot Available tramadol 50 mg tablet TAKE 1 TABLET BY MOUTH THREE TIMES DAILY FOR 4 DAYS active Not Available Not Available No t Available sildenafil 100 mg tablet TAKE 1 TABLET BY MOUTH ONCE DAILY active Not Available Not Available No t Available cephalexin 500 mg capsule TAKE 1 CAPSULE BY MOUTH THREE TIMES DAILY FOR 7 DAYS active Not Available Not Available No t Available levothyroxine 125 mcg tablet TAKE 1 TABLET BY MOUTH ONCE DAILY FOR 90 DAYS active Not Available Not Available No t Available levothyroxine 150 mcg tablet TAKE 1 TABLET BY MOUTH ONCE DAILY active Not Available Not Available No t Available levofloxacin 500 mg tablet Take 1 tablet every 24 hours by oral route. active Not Available Not Available No t Available scopolamine 1 mg over 3 days transdermal patch APPLY 1 PATCH TOPICALLY EVERY 72 HOURS FOR 9 DAYS active Not Available Not Available No t Available tobramycin 0.3 %-dexamethaso ne 0.1 % eye drops,suspens ion INSTILL 1 DROP 4 TIMES DAILY FOR 7 DAYS INTO RIGHT EYE AND 1 DROP EVERY 2 HOURS FOR 7 DAYS INTO LEFT EYE active Not Available Not Available No t Available Bactrim DS 800 mg-160 mg tablet Take 1 tablet every 12 hours by oral route. 2024 active Not Available Not Available Not Avai lable vardenafil 20 mg tablet TAKE 1 TABLET BY MOUTH 60 MINUTES BEFORE SEXUAL ACTIVITY NEEDED active Not Available Not Available No t Available alfuzosin ER 10 mg tablet,extend ed release 24 hr TAKE 1 TABLET BY MOUTH ONCE DAILY active Not Available Not Available No t Available tadalafil 20 mg tablet Take 1 tablet every day by oral route as needed. 2023 active Not Available Not Available Not Avai lable multivitamin active Not Available Not Available Not Available Vitals Date Recorded Body height Body mass index (BMI) Body weight Provider Name and Address Organization Details Last Updated DateTime 06/26/2022 180.34 cm 29.6 kg/m2 80215.58 g Jagruti Sanchez [facility] 06/26/2022 09:45:08 Date Recorded Body height Body mass index (BMI) Body weight Provider Name and Address Organization Details Last Updated DateTime 12/25/2022 180.34 cm 29.6 kg/m2 34361.58 g Lillian Contreras [facility] 12/25/2022 11:18:33 Date Recorded Body height Body mass index (BMI) Body weight Provider Name and Address Organization Details Last Updated DateTime 12/23/2023 180.34 cm 29.6 kg/m2 94929.58 g [facility] 12/23/2023 16:05:04 Date Recorded Body height Body mass index (BMI) Body weight Provider Name and Address Organization Details Last Updated DateTime 06/24/2024 180.34 cm 30 kg/m2 88299.36 g Kevin [facility] 06/24/2024 17:24:31 Date Recorded Body height Body mass index (BMI) Body weight Provider Name and Address Organization Details Last Updated DateTime 07/22/2024 180.34 cm 30 kg/m2 56691.36 g Marquita Loja [facility] 07/22/2024 16:26:48 Social History Question Answer Notes LastModified by Organizat ion Details LastModified Time Tobacco Smoking Status Never Smoker Radha Levy [facility] 10/30/2021 15:19:59 What Is Your Level Of Alcohol Consumption? None [email or web address] Information not available 10/30/2021 What Was The Date Of Your Most Recent Tobacco Screening? 07/22/2024 [email or web address] Information not available 07/22/2024 What Is Your Relationship Status? [email or web address] Information not available 10/30/2021 Do You Use Any Illicit Or Recreational Drugs? No [email or web address] Information not available 10/30/2021 Has Tobacco Cessation Counseling Been Provided? No [email or web address] Information not available 10/30/2021 Have You Recently Traveled Abroad? No [email or web address] Information not available 10/30/2021 Do You Or Have You Ever Used Any Other Forms Of Tobacco Or Nicotine? No [email or web address] Information not available 10/30/2021 Sex: Unknown Functional Status None recorded. Mental Status None recorded. Family History Relationship Description Onset Age of this Age Resolved Age Notes LastModified by Organization Details LastModified Time Father Malignant tumor of prostate [email or web address] Not available 10/30 15:19:36 Medical History Condition Response Sleep Apnea Y Thyroid Disorder Y High Cholesterol Y Past Encounters Encounter ID Performer Location Encounter Start Date Encounter Closed Date Diagnosis/Indication Diagnosis SNOMED-CT Code Diagnosis ICD10 Code Diagnosis Note [id number] MD [facility] [address] [place] [id number] 10/30/2021 14:38:14 10/30/2021 15:40:05 Prostate specific antigen above reference range 874230251 R97.20 Benign pro static hyperplasia with outflow obstruction 438890488 N40.1 [id number] CINTIA ROSADO MD [facility] [address] [place] [address] 12/04/2021 13:13:23 12/04/2021 14:05:53 Prostate specific antigen above reference range 684159742 R97.20 [id number] CINTIA ROSADO MD SURGERY SCHEDULE [address] [place] [address] 12/17/2021 09:19:42 12/17/2021 09:21:27 [id number] CINTIA ROSADO MD [facility] [address],[place] [place] [address] 0 12/20/2021 12:33:29 12/20/2021 13:05:45 Prostate specific antigen above reference range 539792049 R97.20 Benign pro static hyperplasia with outflow obstruction 517430994 N40.1 [id number] CINTIA ROSADO MD [facility] [address] [place] [address] 06/26/2022 09:25:21 06/26/2022 10:37:25 Prostate specific antigen above reference range 966505233 R97.20 Benign pro static hyperplasia with outflow obstruction 827345634 N40.1 [id number] CINTIA ROSADO MD [facility] [address] [place] [address] 0 12/25/2022 10:34:56 12/25/2022 11:32:21 Prostate specific antigen above reference range 742628696 R97.20 Benign pro static hyperplasia with outflow obstruction 754162153 N40.1 Primary er ectile dysfunction 971446327 N52.9 [id number] CINTIA ROSADO MD [facility] [address] [address] 0 12/23/2023 15:38:20 12/23/2023 16:27:25 Prostate specific antigen above reference range 228157692 R97.20 Benign pro static hyperplasia with outflow obstruction 552528240 N40.1 Primary er ectile dysfunction 763288122 N52.9 [id number] CINTIA ROSADO MD [facility] [address] [place] [address] 0 06/24/2024 16:48:42 06/25/2024 08:49:31 Prostate specific antigen above reference range 677702704 R97.20 [id number] CINTIA ROSADO MD [facility] [address] 0 07/22/2024 16:19:08 07/23/2024 14:34:06 Prostate specific antigen above reference range 599175572 R97.20 Health Concerns Section Related Observation LastModified by Organization Detai ls LastModified Time None Recorded Concern Status LastModified by Organization Details LastModified Time None Recorded Advance Directives Directive None Recorded Payers Encounter Date Sequence Insurance Name Policy Number Policy [place] Covered Member ID Montgomery Member ID Guarantor Name 06/26/2022 1 [place] [id number] 2 Latrell N Morales [id number] Latrell N Morales 12/25/2022 1 [place] [id number] 2 Latrell N Morales [id number] Latrell N Morales 12/23/2023 1 [place] [id number] 2 Latrell N Morales [id number] Latrell N Morales 06/24/2024 1 [place] [id number] 2 Latrell N Morales [id number] Latrell N Morales 07/22/2024 1 [place] [id number] 2 Latrell N Morales [id number] Latrell N Morales Notes Date Note Type Note Provider Name and Address Organization Details Recorded Time 06/26/2022 text/html He is back for follow-up of elevated PSA. It was 16.5 and biopsies were negative. Repeat today is 5.8. He is having some voiding difficulties. Is having nocturia 2-3 times at night. He is having some hesitancy and has noticed a diminished in the stream. There is no hematuria or dysuria. We will begin alfuzosin CINTIA ROSADO MD [address], [place], [address], [facility] 06/27/2022 18:18:45 12/25/2022 text/html He is back for follow-up of elevated PSA. Previously his PSA was 16.5 and biopsies were negative. Last time it was 5.8. Today it is 3.5. We started him on alfuzosin. He did not really see a big change in the voiding pattern. He still has some hesitancy. His nocturia x2 we talked about cystoscopy but he does not think the problem is bad enough to warrant that at this time. He is having erectile dysfunction. He is taking Viagra in the past that has helped. We will send in the 100 mg sildenafil CINTIA ROSADO MD [address] [place] [address] [place], [address], [facility] 12/25/2022 11:36:44 12/23/2023 text/html He is back for follow-up of elevated PSA. It was 16.5 and biopsies were negative. It dropped down to 5.8, last time 3.5. It is 4.9. He is still having obstructive symptoms. The alfuzosin did not help him previously he is not ready for cystoscopy. The sildenafil works fairly well but not perfect. We will try tadalafil CINITA ROSADO MD [address] [place], [address], [facility] 12/23/2023 16:31:51 06/24/2024 text/html He is back for follow-up of elevated PSA. Previously biopsies were negative and his PSA was 16.5. It dropped down to 5.8. Last time it was 4.9 today it is 12.6. He denies any dysuria. He is voiding with a good stream and emptying his bladder easily he did have strep infection earlier this month. We will treat with antibiotics and repeat in 1 month. If continues to be elevated we will schedule MRI CINTIA ROSADO MD [address] [place] [address], [address], [facility] 06/24/2024 17:30:22 07/22/2024 text/html He is back for follow-up of elevated PSA. Biopsies were negative when his PSA was 16.5. It dropped down to 5.8 and then 4.9. Last time it went back up to 12.6. We treated with antibiotics and now it is down to 7.4. He voids without any difficulty. There is no hematuria or dysuria. There is no back or abdominal pain. We will repeat the PSA in 6 months CINTIA ROSADO MD [address] [place], [address], [facility] 07/26/2024 16:29:53
--- OUTSIDE RECORDS SUMMARY | 2024-09-02 16:46 | XMS_ITS ---
Author Organization Unknown Medications Medication Instructions Effective Dates (start - stop) Status prednisone 20 MG Oral Tablet 07-29-12T00:00:00.000+00:0 0 - Completed 24 HR alfuzosin hydrochlorid e 10 MG Extended Release Oral Tablet [id number]:00:00.00 0+00:0 0 - Completed tramadol hydrochloride 50 MG Oral Tablet 0166-68-85N76:00:00.000+00:0 0 - Completed levothyroxine sodium 0.15 MG Oral Tablet [id number]:00:00.000+00:0 0 - Completed 24 HR alfuzosin hydrochlorid e 10 MG Extended Release Oral Tablet 0600-25-02V06:00:00.00 0+00:0 0 - Completed 24 HR alfuzosin hydrochlorid e 10 MG Extended Release Oral Tablet [id number]:00:00.00 0+00:0 0 - Completed levothyroxine sodium 0.15 MG Oral Tablet [id number]:00:00.000+00:0 0 - Completed cyclobenzaprine hydrochlorid e 10 MG Oral Tablet [id number]:00:00.000+00:0 0 - Completed 24 HR alfuzosin hydrochlorid e 10 MG Extended Release Oral Tablet 1889-01-32V69:00:00.00 0+00:0 0 - Completed 24 HR alfuzosin hydrochlorid e 10 MG Extended Release Oral Tablet [id number]:00:00.00 0+00:0 0 - Completed 24 HR alfuzosin hydrochlorid e 10 MG Extended Release Oral Tablet [id number]:00:00.00 0+00:0 0 - Completed dexamethasone 1 MG/ML / tobr amycin 3 MG/ML Ophthalmic Suspension 9454-36-36N85:00:00.000+ 00:0 0 - Completed Patient Care team information Name Category Status Period Participants - - Proposed period not known -
--- OUTSIDE RECORDS SUMMARY | 2024-09-02 16:47 | XMS_ITS | Continuity of Care Document ---
Author Organization [facility] Address [address] [place] [address] Care Team Providers Care Mineral Economist Name Role Phone IGLESIA CIFUENTES Primary Care Provider [phone] Assessment No assessment recorded. Plan of Treatment Reminders Order Date Submit Date Provider Last Modified By Organization Details Last Modified Time Details Appointments 3 MONTH FU 15 025 01:15PM Iglesia Cifuentes MD Not available Not available Not available Lab None recorde d. Referral None recorde d. Procedures None recorde d. Surgeries None recorde d. Imaging None recorde d. Medication Orders None recorde d. Patient TargetsNo targets recorded. Patient InstructionsNo instructions recorded. Reason for Referral None Reported. Results Created Date Observation Date Name Description Value Unit Range Abnormal Flag Note LastModifiedBy Organization Detail LastModifiedTime 08/19/19 25 08/18/2024 XR, chest No observ ation record ed. [email or web address] [facility] [address], [place], [address], 08/19/2024 18:04:49 08/19/19 25 08/18/2024 elect rocar diogr am No observ ation record ed. [facility] [address] [place], [address], 08/19/2024 18:04:32 08/19/19 25 08/18/2024 elect rocar diogr am No observ ation record ed. [email or web address] [facility] [address] [place] [address], [address], 08/19/2024 18:04:22 08/19/19 25 08/18/2024 CT, angio gram, chest + abdom en + pelvi s, w/ contr ast No observ ation record ed. [place] [address], [place], [address], 08/19/2024 18:03:59 08/19/19 25 08/18/2024 venou s mappi ng, lower extre mity No observ ation record ed. [address], [place], [address], 08/19/2024 18:03:24 08/20/19 25 08/19/2024 stres s echoc ardio gram No observ ation record ed. [place] [address], [place], [address], 08/19/2024 18:02:33 08/21/19 25 08/20/2024 CT, head + brain , w/ contr ast No observ ation record ed. [place] [address], [place], [address], 08/23/2024 08:19:58 08/21/19 25 08/20/2024 CT, angio gram, head + neck, w/ contr ast No observ ation record ed. [address], [place], [address], 08/23/2024 08:19:44 08/21/19 25 08/20/2024 CT, angio gram, abdom en + pelvi s + lower extre mity, w/wo contr ast No observ ation record ed. [place] [address], [place], [address], 08/23/2024 08:19:33 08/21/19 25 08/20/2024 CT, angio gram, abdom en + pelvi s + lower extre mity, w/wo contr ast No observ ation record ed. [address], [place], [address], 08/23/2024 08:19:24 08/21/19 25 08/20/2024 CT, abdom en + pelvi s, w/ contr ast No observ ation record ed. [address], [place], [address], 08/23/2024 08:18:18 08/21/19 25 08/20/2024 CT, abdom en + pelvi s, w/ contr ast No observ ation record ed. [place] [address], [place], [address], 08/23/2024 08:18:09 08/21/19 25 08/20/2024 CT, angio gram, abdom en + pelvi s + lower extre mity, w/wo contr ast No observ ation record ed. [place] [address], [place], [address], 08/23/2024 08:17:20 08/21/19 25 08/20/2024 XR, chest No observ ation record ed. [address], [place], [address], 08/23/2024 08:17:09 08/21/19 25 08/20/2024 elect jay jay [email or web address] am No observ ation record ed. [address], [place], [address], 08/23/2024 08:17:01 08/21/19 25 08/20/2024 CT, abdom en + pelvi s, w/ contr ast No observ ation record ed. [address], [place], [address], 08/23/2024 08:16:20 08/25/1908/18/2024 vazquez narayan am No observ ation record ed. [email or web address] [facility] [address], [place], [address], 08/25/2024 15:14:09 08/25/19 25 08/20/2024 stres s echoc ardio gram No observ ation record ed. [email or web address], [place], [address], 08/25/2024 15:13:55 Result Notes None recorded. Problems Name Problem SNOMED Code Status Onset Date Resolution Date Notes Provider Name and Address Organization Details Recorded Time Pain of right shoulder joint 718277433038118 00 Active 2022 FARZANA thomas [place] - [facility] & [place] 3 13:31:09 Problem Notes None recorded. Procedures Surgical History Date Name Laterality Status Provider Name and Address Organization Details Recorded Time 7 Appendectomy completed Minerva Deshpandenathan [place] - [facility] & [place] 07/31/2022 13:09:49 4 Other completed Minerva GALVIN [facility] & [place] 07/31/2022 13:12:39 Imaging Results None recorded. Procedure Notes None recorded. Medical Equipment None Reported. Allergies Allergen ID Allergen Name Allergen Category Reaction Reaction Severity Criticality Documentation Date Start Date Code Code System Note Provider Name and Address Organization Details Recorded Time 21163 nitroglyc wayne medicatio n Not available Not available Not available 07/31/2022 4917 RxNorm Minerva Deshpandenathan thomas [place] - [facility] & [place] 3 13:10:08 13067 Anectine medicatio n Not available Not available Not available 07/31/2022 67079 8 RxNorm Minerva Counathan thomas, [place] - [facility] & [place] 3 13:11:52 Medications Name Sig Start Date [...] Updated DateTime 5 180.34 cm 30 kg/m2 70611.3 6 g 97.3 [degF] 95 % 95 % 94 /min 114 mm[Hg] 82 mm[Hg] Minerva Tobin [facility] & [place] 5 10:45:30 Social History Question Answer Notes LastModified by Organizat ion Details LastModified Time Tobacco Smoking Status Never Smoker Minerva Tobin [facility] & [place] 07/31/2022 13:09:49 Do You Have An Advance Directive? No [email or web address] Information not available 07/31/2022 What Is Your Level Of Alcohol Consumption? None Information not available 07/31/2022 Are You Blind Or Do You Have Difficulty Seeing? No [email or web address] Information not available 07/31/2022 Do You Feel Stressed (tense, Restless, Nervous, Or Anxious, Or Unable To Sleep At Night)? [id number] [email or web address] Information not available 07/31/2022 Do You Use Any Illicit Or Recreational Drugs? No Information not available 07/31/2022 Sex: Male Functional Status Question Answer Note LastModified by Organizat ion Details LastModified Time What is your exercise level? Occasional [email or web address] Information not available 07/31/2022 Mental Status None [...] 13:01:14 Medical History Condition Response Other Y Thyroid Problems Y Obstructive Sleep Apnea Y High Cholesterol Y Immunizations Vaccine Type Date Status Note Provider Nam e and Address Organization Details Recorded Time COVID-19 vaccine, vector-nr, rS-Ad26, PF, 0.5 mL 1 completed Minerva thomas, [place] - [facility] [place] 08/25/2024 10:45:47 COVID-19 vaccine, vector-nr, rS-Ad26, PF, 0.5 mL 1 completed Minerva thomas, [place] - [facility] [place] 08/25/2024 10:45:47 Td (adult), 2 Lf tetanus toxoid, preservative free, adsorbed 7 completed Minerva thomas, [place] - [facility] [place] 08/25/2024 10:45:47 Past Encounters Encounter ID Performer Location Encounter Start Date Encounter Closed Date Diagnosis/Indication Diagnosis SNOMED-CT Code Diagnosis ICD10 Code Diagnosis Note [id number] Iglesia Cifuentes MD [facility] [address] [place] [address] 08/25/2024 10:24:04 08/25/2024 10:53:[address] segment elevation myocardial infarction 5911473259 78959 I25.2 Keep follow-up with Cardiology today. Reassured by relatively clean cardiac catheteriz ation. History of pancreatitis 9870537509 9107 Z87.19 He is tofollow-u p with GI. wonder if they will do an ERCP on him History of sepsis 727720 8004 51580 Z86.19 Health Concerns Section Related Observation LastModified by Organization Detai ls LastModified Time None Recorded Concern Status LastModified by Organization Details LastModified Time None Recorded Payers Encounter Date Sequence Insurance Name Policy Number Policy [place] Covered Member ID [place] Member ID Guarantor Name 08/25/2024 1 [place]: [place] [id number] 2 Latrell Morales [id number] Latrell Morales Notes Date Note Type Note Provider Name and Address Organization Details Recorded Time 08/25/2024 text/html He is here for hospital follow-up. He has had an interesting past few days. From what I gather he had a ST-elevation AR and pancreatitis. 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 Progress of the night to the point where he went to the emergency room where he was diagnosed with troponin elevation and what the ER record shows his ST elevation AR. he was deemed a cardiac catheterization which was essentially clean. 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 He also had pancreatitis per his report. I am not sure if this was from enzymes or from a CT but he did have some pancreatic ductal dilatation. He seems to be doing better in this regard. He has an appointment in a few days to see GI for most likely ERCP. Iglesia Cifuentes MD [address], [place], [address], [facility] [place] & [place] 08/25/2024 11:45:51
== END 2024-08-19 18:26 | disposition home or self-care (01) | DRG 281 ==
LOC: ER 01:37 → 2ND 03:49
PROVIDERS: Internal Medicine; Nurse Practitioner Family; Physician Assistant; Admitting Provider Student in an Organized Health Care Education/Training Program; Emergency Provider Emergency Medicine; PCP Family Medicine; Visit Provider Student in an Organized Health Care Education/Training Program
PROC: 4A023N7 Measurement of Cardiac Sampling and Pressure, Left Heart, Percutaneous Approach (ICD-10-PCS; principal; 2024-08-18 04:00)
DX: I21.11 ST elevation (STEMI) myocardial infarction involving right coronary artery (principal); I30.9 Acute pericarditis, unspecified; I42.9 Cardiomyopathy, unspecified; E03.9 Hypothyroidism, unspecified; E78.5 Hyperlipidemia, unspecified; Z88.8 Allergy status to other drugs, medicaments and biological substances; N40.0 Benign prostatic hyperplasia without lower urinary tract symptoms; Z79.899 Other long term (current) drug therapy
CPT/HCPCS: 36415; 71045; 71275; 75561; 80048; 80053; 80061; 80307; 81001; 83036; 83880; 84439; 84443; 84484; 85025; 85347; 85378; 85610; 85651; 85730; 86038; 86140; 87631; 93005; 93306; 93458; 93970; 99152; 99291; G0103; A9576; C1725; C1760; C1769; J1200; J1644; J1650; J2060; J2250; J2270; J2405; J3010; Q9967

== ENCOUNTER 2024-08-20 02:11 | Observation (INO) | payer BC, SELFPAY ==
[2024-08-20] VITALS (8 sets, daily range): BP systolic 99–136; BP diastolic 56–103; PULSE 70–123; RESP 12–20; TEMP 36.4–36.9; O2SAT 92–96; BMI 30.8; BMI 30.7
--- NOTE | 2024-08-20 02:13 | XR_ITS ---
PROCEDURE INFORMATION: Exam: XR Chest Exam date and time: 08/20/2024 3:12 AM Age: 59 years old Clinical indication: Pain; Chest pressure; Additional info: Cp fever recent cath TECHNIQUE: Imaging protocol: Radiologic exam of the chest. Views: 1 view. COMPARISON: CT ANGIO CHEST 08/20/2024 2:57 AM FINDINGS: Lungs: Small areas of bibasilar airspace disease. No consolidation. Pleural spaces: No pleural effusion. No pneumothorax. Heart/Mediastinum: No cardiomegaly. Bones/joints: Within normal limits. IMPRESSION: Small areas of bibasilar airspace disease suggestive for atelectasis. Advise clinical correlation for infection.
--- NOTE | 2024-08-20 02:16 | ECG_ITS ---
APPROVED REPORT Exam: Resting ECG HR:123 bpm ECG Measurements Heart Rate 123 AXES MD 137 P 47 QRSd 72 QRS 30 QT 270 T -24 QTc 343 Conclusion SINUS TACHYCARDIA LOW QRS VOLTAGE IN PRECORDIAL LEADS [QRS DEFLECTION < 1.0 mV IN CHEST LEADS] NONSPECIFIC T-WAVE ABNORMALITY ABNORMAL RHYTHM ECG No STEMI Electronically signed by : LUIS BROWN, 08/20/2024 04:45:25
--- NOTE | 2024-08-20 02:18 | CT_ITS ---
PROCEDURE INFORMATION: Exam: CT Head Without Contrast Exam date and time: 08/20/2024 2:48 AM Age: 59 years old Clinical indication: Stroke-like symptoms; Headache; Additional info: Kim/vomiting TECHNIQUE: Imaging protocol: Computed tomography of the head without contrast. 3D rendering (Not supervised by radiologist): MIP and/or 3D reconstructed images were created by the technologist. Radiation optimization: All CT scans at this facility use at least one of these dose optimization techniques: automated exposure control; mA and/or kV adjustment per patient size (includes targeted exams where dose is matched to clinical indication); or iterative reconstruction. Other technique: STROKE PROTOCOL was implemented. COMPARISON: CT HEAD/BRAIN WO CON 08/20/2024 2:48 AM FINDINGS: Brain: Normal appearing brain parenchyma without intraparenchymal hemorrhage and normal abreu-white matter differentiation/no obvious acute ischemic stroke. No intra-or extra-axial fluid collection, no supra-or infratentorial mass, no mass effect or midline shift. Cerebral ventricles: Ventricles, sulci and basal cisterns are normal in size without hydrocephalus. Paranasal sinuses: No significant mucoperiosteal thickening in the visualized paranasal sinuses. Mastoid air cells: No mastoid effusion. Bones: Visualized skull bones are grossly normal. Soft tissues: Large probable radicular cyst in the RIGHT paramedian maxilla at the root of the canine. IMPRESSION: No evidence of an acute intracranial hemorrhage, mass lesion or obvious acute ischemic infarction. COMMENT: Possibility of early and/or small acute/subacute ischemic infarct cannot be excluded on a CT scan. Recommend followup with MRI if persistent/worsening focal neurological deficits. ASSESSMENT: ASPECTS ([place] Stroke Program Early CT Score) is 10.
[2024-08-20] MEDS: ASPIRIN 81MG CHEWABLE TABLET 162 MG PO (02:24)
[2024-08-20 02:25] LABS: Basophils # 0.1 K/mm3 (0-0.2); Basophils % 0.4 % (0.1-2.0); Eosinophils # 0.1 K/mm3 (0.0-0.4); Eosinophils % 0.5 % (0.1-12.0); Hematocrit 50.6 % (42.0-52.0); Lymphocytes # 3.2 K/mm3 (0.7-4.5); Lymphocytes % 20.1 % (10-50); Mean Corpuscular Hemoglobin 31.9 pg (27.0-31.2); Mean Corpuscular Volume 91.3 fl (80-94); Mean Platelet Volume 9.3 fl (7.4-10.4); Monocytes # 1.9 K/mm3 (0.1-1.0); Monocytes % 11.8 % (1.7-9.3); Neutrophils # 10.4 K/mm3 (1.8-7.8); Neutrophils % 66.6 % (37.0-80.0); Platelet Count 280 K/mm3 (142-424); Red Blood Count 5.54 M/mm3 (4.60-6.20); Red Cell Distribution Width 12.5 % (11.5-17.5); White Blood Count 15.7 K/mm3 (4.8-10.8)
[2024-08-20] MEDS: MORPHINE 4MG/ML SYRINGE 4 MG IV (02:25)
[2024-08-20] MEDS: LACTATED RINGERS 1000ML 1,000 ML 999 ML IV ×2 (02:25→16:17)
[2024-08-20] MEDS: ONDANSETRON 4MG/2ML VIAL 4 MG IV (02:25)
[2024-08-20 02:27] LABS: Coronavirus 19, PCR Not Detected (NotDetected); Influenza A, PCR Not Detected (NotDetected); Influenza B, PCR Not Detected (NotDetected)
[2024-08-20 02:35] LABS: MANUAL DIFFERENTIAL MANUAL DIFFERENTIAL (MANUAL DIFF)
--- NOTE | 2024-08-20 02:35 | CT_ITS ---
PROCEDURE INFORMATION: Exam: CTA Chest With Contrast Exam date and time: 08/20/2024 2:57 AM Age: 59 years old Clinical indication: ROGERS, tachy, recent cardiac cath, vomiting TECHNIQUE: Imaging protocol: Computed tomographic angiography of the chest with contrast. Exam focused on the arteries. 3D rendering (Not supervised by radiologist): MIP and/or 3D reconstructed images were created by the technologist. Radiation optimization: All CT scans at this facility use at least one of these dose optimization techniques: automated exposure control; mA and/or kV adjustment per patient size (includes targeted exams where dose is matched to clinical indication); or iterative reconstruction. Contrast material: ISOVUE; Contrast volume: 80 ml; Contrast route: INTRAVENOUS (IV); COMPARISON: CT ANGIO CHEST PE PROTOCOL 08/18/2024 10:39 AM FINDINGS: Pulmonary arteries: Limited evaluation of the peripheral pulmonary artery branches due to suboptimal contrast bolus timing and motion artifact. No evidence of central pulmonary emboli. Aorta: No aortic aneurysm. No aortic dissection. Lungs: Ground-glass opacification of the dorsal lungs bilaterally likely related to dependent atelectasis. No overt pulmonary consolidation. Pleural spaces: No pneumothorax. No pleural effusion. Heart: No cardiomegaly. No pericardial effusion. Lymph nodes: Unremarkable. No enlarged lymph nodes. Bones/joints: Degenerative change of the thoracic spine. No acute fracture. Soft tissues: Mild gaseous distension of the esophageal column. Bilateral gynecomastia. IMPRESSION: 1. Limited evaluation of the peripheral pulmonary artery branches due to suboptimal contrast bolus timing and motion artifact. No evidence of central pulmonary emboli. 2. Ground-glass opacification of the dorsal lungs bilaterally likely related to dependent atelectasis.
--- NOTE | 2024-08-20 02:35 | CT_ITS ---
PROCEDURE INFORMATION: Exam: CTA Head With Contrast, Arteriography Exam date and time: 08/20/2024 2:51 AM Age: 59 years old Clinical indication: Stroke-like symptoms; Headache; Additional info: ROGERS, tachy, recent cardiac cath, vomiting TECHNIQUE: Imaging protocol: Computed tomographic angiography of the head with contrast. Exam focused on the arteries. 3D rendering (Not supervised by radiologist): MIP and/or 3D reconstructed images were created by the technologist. Radiation optimization: All CT scans at this facility use at least one of these dose optimization techniques: automated exposure control; mA and/or kV adjustment per patient size (includes targeted exams where dose is matched to clinical indication); or iterative reconstruction. COMPARISON: CT HEAD/BRAIN WO CON 08/20/2024 2:48 AM FINDINGS: ANTERIOR CIRCULATION: Intracranial internal carotid arteries: Intracranial internal carotid arteries are without acute flow limiting stenosis. Middle cerebral arteries: M1, M2 and their distal visualized branches are without acute flow limiting stenosis. Anterior cerebral arteries: A1, A2 and their distal visualized branches are without acute flow limiting stenosis. Anterior communicating artery is unremarkable. . POSTERIOR CIRCULATION: Vertebral arteries: Intracranial vertebral arteries and their visualized branches are without acute flow limiting stenosis. Basilar artery: The basilar artery and its visualized proximal branches are without acute flow limiting stenosis. Posterior cerebral arteries: P1, P2 and their distal visualized branches are without acute flow limiting stenosis. IMPRESSION: NO acute flow-limiting stenosis or large vessel occlusion. COMMENT: Recommend followup with MRI if persistent/new/worsening symptoms or symptoms unexplained by the current study. PROCEDURE INFORMATION: Exam: CTA Neck With Contrast Exam date and time: 08/20/2024 2:51 AM Age: 59 years old Clinical indication: Stroke-like symptoms; Headache; Additional info: ROGERS, tachy, recent cardiac cath, vomiting TECHNIQUE: Imaging protocol: Computed tomographic angiography of the neck with contrast. Exam focused on the cervical segments of the vasculature. 3D rendering (Not supervised by radiologist): MIP and/or 3D reconstructed images were created by the technologist. Radiation optimization: All CT scans at this facility use at least one of these dose optimization techniques: automated exposure control; mA and/or kV adjustment per patient size (includes targeted exams where dose is matched to clinical indication); or iterative reconstruction. Contrast material: ISOVUE; Contrast volume: 80 ml; Contrast route: INTRAVENOUS (IV); COMPARISON: No relevant recent comparison exams. FINDINGS: Thoracic Vessels: Visualized aortic arch is unremarkable. No significant narrowing at the origin of the neck vessels. . Common Carotid Arteries: Common carotid arteries are without acute flow limiting stenosis. . Cervical Internal Carotid Arteries: No acute flow-limiting stenosis of the cervical internal carotid arteries. No evidence of an aneurysm or a dissection. . Vertebral Arteries: Cervical vertebral arteries are without acute flow limiting stenosis. . Other Structures: Chronic degenerative changes in the visualized spine. Scarring, ground-glass opacities, septal and peribronchial thickening in the lung apices with distal airway narrowing. Markedly atrophic thyroid gland. RIGHT maxillary radicular cyst. IMPRESSION: NO acute flow-limiting stenosis, no occlusion, aneurysm or dissection of the carotid and vertebral arteries in the neck. REFERENCES: NASCET CRITERIA. The degree of stenosis in the cervical segment of the internal carotid artery is based on NASCET criteria. Normal is no stenosis. Mild is less than 50% stenosis. Moderate is 50-69% stenosis. Severe is 70% to 99% stenosis. Total occlusion is no detectable patent lumen.
--- NOTE | 2024-08-20 02:35 | CT_ITS ---
PROCEDURE INFORMATION: Exam: CTA Head With Contrast, Arteriography Exam date and time: 08/20/2024 2:51 AM Age: 59 years old Clinical indication: Stroke-like symptoms; Headache; Additional info: ROGERS, tachy, recent cardiac cath, vomiting TECHNIQUE: Imaging protocol: Computed tomographic angiography of the head with contrast. Exam focused on the arteries. 3D rendering (Not supervised by radiologist): MIP and/or 3D reconstructed images were created by the technologist. Radiation optimization: All CT scans at this facility use at least one of these dose optimization techniques: automated exposure control; mA and/or kV adjustment per patient size (includes targeted exams where dose is matched to clinical indication); or iterative reconstruction. Contrast material: ISOVUE; Contrast volume: 80 ml; Contrast route: INTRAVENOUS (IV); COMPARISON: CT HEAD/BRAIN WO CON 08/20/2024 2:48 AM FINDINGS: ANTERIOR CIRCULATION: Intracranial internal carotid arteries: Intracranial internal carotid arteries are without acute flow limiting stenosis. Middle cerebral arteries: M1, M2 and their distal visualized branches are without acute flow limiting stenosis. Anterior cerebral arteries: A1, A2 and their distal visualized branches are without acute flow limiting stenosis. Anterior communicating artery is unremarkable. . POSTERIOR CIRCULATION: Vertebral arteries: Intracranial vertebral arteries and their visualized branches are without acute flow limiting stenosis. Basilar artery: The basilar artery and its visualized proximal branches are without acute flow limiting stenosis. Posterior cerebral arteries: P1, P2 and their distal visualized branches are without acute flow limiting stenosis. IMPRESSION: NO acute flow-limiting stenosis or large vessel occlusion. COMMENT: Recommend followup with MRI if persistent/new/worsening symptoms or symptoms unexplained by the current study. PROCEDURE INFORMATION: Exam: CTA Neck With Contrast Exam date and time: 08/20/2024 2:51 AM Clinical indication: Stroke-like symptoms; Headache; Additional info: ROGERS, tachy, recent cardiac cath, vomiting TECHNIQUE: Imaging protocol: Computed tomographic angiography of the neck with contrast. Exam focused on the cervical segments of the vasculature. 3D rendering (Not supervised by radiologist): MIP and/or 3D reconstructed images were created by the technologist. COMPARISON: No relevant prior studies available. FINDINGS: Thoracic Vessels: Visualized aortic arch is unremarkable. No significant narrowing at the origin of the neck vessels. . Common Carotid Arteries: Common carotid arteries are without acute flow limiting stenosis. . Cervical Internal Carotid Arteries: No acute flow-limiting stenosis of the cervical internal carotid arteries. No evidence of an aneurysm or a dissection. . Vertebral Arteries: Cervical vertebral arteries are without acute flow limiting stenosis. . Other Structures: Chronic degenerative changes in the visualized spine. Scarring, ground-glass opacities, septal and peribronchial thickening in the lung apices with distal airway narrowing. Markedly atrophic thyroid gland. RIGHT maxillary radicular cyst. IMPRESSION: NO acute flow-limiting stenosis, no occlusion, aneurysm or dissection of the carotid and vertebral arteries in the neck. REFERENCES: NASCET CRITERIA. The degree of stenosis in the cervical segment of the internal carotid artery is based on NASCET criteria. Normal is no stenosis. Mild is less than 50% stenosis. Moderate is 50-69% stenosis. Severe is 70% to 99% stenosis. Total occlusion is no detectable patent lumen.
[2024-08-20 02:36] LABS: Chloride 101 mmol/L (98-107)
[2024-08-20 02:37] LABS: Sodium 136 mmol/L (136-145)
[2024-08-20 02:39] LABS: Alanine Aminotransferase 30 U/L (12-78); Aspartate Amino Transferase 47 U/L (17-59); Blood Urea Nitrogen 20 mg/dl (9-20); Carbon Dioxide 25 mmol/L (22.0-30.0); Creatinine Clearance Estimated 89 mL/min (50-200); Estimated Glomerular Filt Rate 62 ml/min (>60); GFR (African American) 74 ML/MIN (>60)
[2024-08-20 02:40] LABS: Albumin/Globulin Ratio 1.4 (1.1-1.8); Alkaline Phosphatase 49 U/L (38-126); Bilirubin,Total 1.2 mg/dl (0.2-1.3); Calcium 10.1 mg/dl (8.4-10.2); Globulin 3.7 g/dL (1.3-3.2); Glucose 127 mg/dl (74-100); Lactic Acid 0.8 mmol/L (0.7-2.1); Total Protein,Serum 8.7 g/dl (6.3-8.2)
[2024-08-20] MEDS: PROMETHAZINE HCL 25MG/ML 1ML VIAL 12.5 MG IV (02:40)
[2024-08-20 02:41] LABS: Prothrombin Time 11.2 seconds (10.1-12.5)
[2024-08-20] MEDS: SODIUM CHLORIDE 0.9% 25ML BAG 25 ML IV (02:41)
[2024-08-20 02:49] LABS: D-Dimer 0.45 ug/mL (0.0-0.5); NT Pro Brain Natriuretic Pep. 105 pg/mL (0-125)
[2024-08-20 02:51] LABS: Adenovirus,PCR Not Detected (NotDetected); Bordetella Pertussis Not Detected (NotDetected); Chlamydophila Pneumoniae, PCR Not Detected (NotDetected); Coronavirus 19, PCR Not Detected (NotDetected); Coronavirus 229E Not Detected (NotDetected); Coronavirus NL63 Not Detected (NotDetected); Coronavirus OC43 Not Detected (NotDetected); Coronovirus HKU1,PCR Not Detected (NotDetected); Human Metapneumovirus Not Detected (NotDetected); Influenza A, PCR Not Detected (NotDetected); Influenza AH1, 2009 Not Detected (NotDetected); Influenza AH1, PCR Not Detected (NotDetected); Influenza AH3,PCR Not Detected (NotDetected); Influenza B, PCR Not Detected (NotDetected); Mycoplasma Pneumoniae, PCR Not Detected (NotDetected); Parainfluenza 1, PCR Not Detected (NotDetected); Parainfluenza 2, PCR Not Detected (NotDetected); Parainfluenza 3, PCR Not Detected (NotDetected); Parainfluenza 4, PCR Not Detected (NotDetected); Respiratory Syncytial Virus Not Detected (NotDetected); Rhinovirus/Enterovirus Not Detected (NotDetected)
--- NOTE | 2024-08-20 02:55 | CT_ITS ---
PROCEDURE INFORMATION: Exam: CTA Abdomen and Pelvis With Contrast Exam date and time: 08/20/2024 2:55 AM Age: 59 years old Clinical indication: Injury or trauma; Additional info: ROGERS, vomiting, recent card cath TECHNIQUE: Imaging protocol: Computed tomographic angiography of the abdomen and pelvis with contrast. Exam focused on the arteries. 3D rendering (Not supervised by radiologist): MIP and/or 3D reconstructed images were created by the technologist. Radiation optimization: All CT scans at this facility use at least one of these dose optimization techniques: automated exposure control; mA and/or kV adjustment per patient size (includes targeted exams where dose is matched to clinical indication); or iterative reconstruction. Contrast material: ISOVUE; Contrast volume: 80 ml; Contrast route: INTRAVENOUS (IV); COMPARISON: CT ANGIO CHEST PE PROTOCOL 08/18/2024 10:39 AM FINDINGS: Aorta: Atherosclerotic calcification. No aortic aneurysm. No aortic dissection. Celiac trunk and mesenteric arteries: No occlusion or significant stenosis. Renal arteries: No occlusion or significant stenosis. Mild ectasia at a branch point of the left renal artery. Right iliac arteries: No occlusion or significant stenosis. Left iliac arteries: No occlusion or significant stenosis. Liver: Several subcentimeter cyst-like foci of the liver, too small to characterize. Gallbladder and biliary ducts: Unremarkable. No calcified stones. No ductal dilation. Pancreas: 5 mm pancreatic duct dilatation the level of the pancreatic head and proximal pancreatic body. No CT evidence of pancreatic inflammatory change. Spleen: Unremarkable. No splenomegaly. Adrenal glands: Unremarkable. No mass. Kidneys and ureters: Limited evaluation for nephrolithiasis due to excretion of IV contrast by the collecting system. No hydronephrosis. 1.4 cm simple cyst of the inferior pole of the left kidney. Stomach and bowel: No evidence of small bowel obstruction or colitis. Mild dilatation of small bowel loops may be related to enteritis. Increased stool content within the proximal mid colon segments. Appendix: Appendectomy change. Intraperitoneal space: Unremarkable. No free air. No significant fluid collection. Lymph nodes: Unremarkable. No enlarged lymph nodes. Urinary bladder: Within normal limits. Reproductive: The prostate gland measures 4.3 x 4.7 x 3.7 cm. Bones/joints: No acute fracture. Degenerative change of the lumbar spine Soft tissues: 1.6 cm fat containing umbilical hernia. 1.4 cm fat containing right inguinal hernia. 1.3 cm fat containing left inguinal hernia. Several punctate gas pockets within the subcutaneous fat of the left abdominal wall may be related to therapeutic injections. IMPRESSION: 1. No evidence of abdominal aortic aneurysm or dissection. Aortic branches are patent. 2. Mild dilatation of small bowel loops may be related to enteritis. 3. Pancreatic duct dilatation.
[2024-08-20 02:56] LABS: Troponin I 2.19 ng/ml (0.00-0.034)
[2024-08-20] MEDS: IOPAMIDOL-370 (76%);100ML BOTTLE 160 ML IV (03:06)
[2024-08-20] MEDS: 0.9 % SODIUM CHLORIDE 50 ML VIAL IV (03:06)
[2024-08-20] MEDS: SODIUM CHLORIDE 0.9% 10ML SYR (RAD ONLY) 10 ML IV (03:06)
[2024-08-20 03:11] LABS: C-Reactive Protein 52.3 mg/L (0-4)
[2024-08-20 03:11] LABS: ABG Base Excess 0.4 mmol/L (-2.4-2.3); ABG HCO3 24.6 mmhg (22.0-26.0); ABG Oxygen Saturation 93 % (90-100); ABG PCO2 37.5 mmhg (35.0-45.0); ABG PH 7.44 mmol/L (7.35-7.45); ABG PO2 65.4 mmhg (80-100); ABG TCO2 25.8 mmhg (23-27)
[2024-08-20 03:12] LABS: Allen's Test Acceptable; Oxygen 21 %; Source Left Radial
[2024-08-20] MEDS: KETOROLAC 30MG/ML VIAL 15 MG IV (03:14)
[2024-08-20] MEDS: METHYLPREDNISOLONE SOD SUCC 125MG VIAL 125 MG IV (03:14)
[2024-08-20 03:32] LABS: Erythrocyte Sedimentation Rate 1 mm/hr (0-20)
--- NOTE | 2024-08-20 03:33 | ED_ITS ---
Discharge Plan Disposition Patient Disposition: Admitted Condition: Fair Chief Complaint: Chest Pain Prescriptions Prescriptions: No Action levothyroxine 125 mcg tablet 125 mcg PO DAILY Patient Comments: TAKE 1 TABLET BY MOUTH ONCE DAILY FOR 90 DAYS atorvastatin 40 mg Tablet 40 mg PO HS 30 Days Qty: 30 0RF clopidogrel 75 mg Tablet 75 mg PO DAILY 30 Days Qty: 30 0RF aspirin 81 mg Tablet,Chewable 81 mg PO DAILY 30 Days Qty: 30 0RF metoprolol succinate 25 mg Tablet Extended Release 24 Hr 25 mg PO DAILY 30 Days Qty: 30 0RF colchicine [Colcrys] 0.6 mg Tablet 0.6 mg PO DAILY 30 Days Qty: 30 0RF Entresto 24-26 mg Tablet 1 tab PO BID 30 Days Qty: 60 0RF Clinical Impressions Clinical Impression: Pancreatitis, Pericarditis, Headache Print Language Print Language: [place] Discharge ED Provider: Marielena Cordero General Chief Complaint: Chest Pain Stated Complaint: cp, vomiting, fever Time Seen by Provider: 08/20/24 02:13 Mode of Arrival: Wheelchair Source of Information: Patient Description of Symptoms (Recalled from ER Triage Doc. by RN): pt reports headache, nausea, vomitting and chest pressure that began approximately one hour ago, pt reports he was sleeping when he woke with a headache and the vomitting began soon after. pt was discharged from the hospital 08/19 following a heart cath. pt states no stents were placed History of Present Illness HPI narrative: 59-year-old male who had DE 2 days ago presents to the ER with headache, nausea, vomiting, chest pressure that all started 1 hour prior to arrival. Patient reports his symptoms started with headache, he then developed chest pressure and vomiting. He states he has 8 out of 10 headache pain. It was not thunderclap in nature and he would describe it as gradual onset but quite painful. He reports chest pressure but nothing like when he had his DE a few nights ago. He states he vomited 5 or 6 times back to back. Nothing bloody or bilious. He denies any abdominal pain, no constipation or diarrhea. Patient is taking all home medications as prescribed. He states he took 1 chewable aspirin prior to arrival and takes a aspirin daily so he has had a total of 162 mg aspirin prior to arrival. He reports no numbness, tingling, or localizing weakness. He states he feels generally unwell. reports temperature 99.5 at home, patient afebrile on arrival. Patient had to be assisted from the vehicle via wheelchair into the ER. Related Data Home Medications ?Medication ?Instructions ?Recorded ?Confirmed levothyroxine 125 mcg tablet 125 mcg PO DAILY 08/18/24 08/18/24 Previous Rx's ?Medication ?Instructions ?Recorded aspirin 81 mg chewable tablet 81 mg PO DAILY 30 days #30 tabs 08/19/24 atorvastatin 40 mg tablet 40 mg PO HS 30 days #30 tabs 08/19/24 clopidogrel 75 mg tablet 75 mg PO DAILY 30 days #30 tabs 08/19/24 colchicine 0.6 mg tablet (Colcrys) 0.6 mg PO DAILY 30 days #30 tabs 08/19/24 metoprolol succinate 25 mg 25 mg PO DAILY 30 days #30 tabs 08/19/24 tablet,extended release 24 hr sacubitril 24 mg-valsartan 26 mg 1 tab PO BID 30 days #60 tabs 08/19/24 tablet (Entresto) Allergies Allergy/AdvReac Type Severity Reaction Status Date / Time nitroglycerin AdvReac Palpitation Verified 08/11/24 13:20 s succinylcholine (From AdvReac Drowsy Verified 08/11/24 13:20 Anectine) [facility] Disclaimer: The information contained in this section may have been updated after the patient was seen, as this information can be updated by other users. Medical History (Updated 08/20/24 @ 04:27 by Marielena Cordero MD) Pharyngitis BPH (benign prostatic hyperplasia) Hypothyroidism Social History (Updated 08/18/24 @ 05:25 by Janis David RN) Smoking Status: Never smoker second hand exposure: No alcohol intake: never current occupational status: employed Travel in the last 8 weeks: None housing: house Other Medical History Have you received the Flu Vaccine for this season: No Have you received the Pneumonia Vaccine: No ROS Obtained: Yes Systems reviewed as appropriate & no additional complaints except as documented Per HPI Physical Exam General General appearance: alert Comment: Appears ill, borderline diaphoretic, pale Head Head exam: atraumatic and normocephalic Eye Eye exam: Present PERRL and EOMI ENT ENT exam: Present mucous membranes moist Neck Neck exam: Present normal inspection and full ROM Chest Chest inspection: Present symmetric chest wall rise; Absent tenderness Respiratory Respiratory exam: Present normal lung sounds bilaterally and other (Borderline tachypnea); Absent respiratory distress, wheezes or stridor Cardiovascular Cardiovascular exam: Present normal rhythm and tachycardia Abdominal Exam Abdominal exam: Present soft; Absent distention, tenderness, guarding or rebound Comment: Benign abdomen Extremities Exam Extremities exam: Present full ROM; Absent edema Neurological Exam Neurological exam: Present alert, oriented X3 and CN II-XII intact; Absent motor sensory deficit Psychiatric Psychiatric exam: Present normal affect and normal mood HEART Score HEART Score HEART Score assessment performed?: Yes History (anamnesis): Moderately suspicious ECG: Non-specific disturbance Age: 45-65 years Risk factors: 3 or more risk factors Troponin: > 3x normal limit HEART Score: 7 Procedures Miscellaneous Procedure Procedure Performed: Limited Cardiac Ultrasound Indication: Chest pain Identified cardiac views: Parasternal long axis, parasternal short axis, apical four-chamber All views were somewhat limited secondary to patient's body habitus Findings: Cardiac activity present with no gross wall motion abnormality, trace pericardial effusion, no evidence of right heart strain Impression: Cardiac activity present with no gross wall motion abnormality, trace pericardial effusion, no evidence of right heart strain Images were saved to permanent archive The study was technically adequate CPT: 65205 This study was performed by me, and I personally interpreted all images/videos. Based on my clinical judgement, these images were adequate and did not necessitate further imaging. Critical Care Critical Care Time Critical Care Time: Yes Attestation: On 08/20/24, the high probability of a clinically significant, sudden or life threatening deterioration of the following system(s) (hemodynamic, cardiac) required my full and direct attention, intervention and personal management. The time I documented below is in addition to time spent performing reported procedures but includes the following listed in this critical care notation. Total Time Total Critical Care Time: 65 Medical Decision Making Medical Records Medical records reviewed: Yes I reviewed the patient's medical records. MR Comment: While patient was admitted to the hospital he had troponin as high as 19 and it was downtrending, most recent was 8.56. He also had elevated CRP while hospitalized. They had suspicion for myopericarditis and patient is on colchicine. He was also placed on Entresto, clopidogrel, aspirin, atorvastatin. He is also taking metoprolol. Cardiac MRI performed before discharge demonstrated LV and RV size and function diffuse faint, patchy subendocardial late gadolinium enhancement as well as a focus of subepicardial LGE in the lateral basal LV wall. Trivial pericardial effusion at that time, mild myocardial edema, mixed subendocardial and subepicardial LGE, most suggestive of myocarditis according to cardiac MRI. He also had CTA PE while admitted that did not demonstrate PE. Jaleel Inquiry Pt receiving controlled substance: No Vital Signs Vital Signs: 08/20/24 02:26 Temperature 98.4 F Temperature Source Oral Pulse Rate [Right] 123 H Respiratory Rate 20 Blood Pressure [Right Arm] 136/103 H Blood Pressure Mean [Right Arm] 114 02 Sat by Pulse Oximetry 95 Oxygen Delivery Method Room Air Lab Data Labs: Lab Results 08/20/24 02:13: WBC 15.7 H D, RBC 5.54, Hct 50.6, MCV 91.3, MCH 31.9 H, MCHC 35.0, RDW 12.5, Plt Count 280, MPV 9.3, Neut % (Auto) 66.6, Lymph % (Auto) 20.1, [place] % (Auto) 11.8 H, Eos % (Auto) 0.5, Baso % (Auto) 0.4, Neut # (Auto) 10.4 H, Lymph # (Auto) 3.2, [place] # (Auto) 1.9 H, Eos # (Auto) 0.1, Baso # (Auto) 0.1, ESR 1, PT 11.2, INR 1.00, D-Dimer 0.45, Sodium 136, Potassium 5.0 D, Chloride 101, Carbon Dioxide 25, Anion Gap 15.0, BUN 20, Creatinine 1.20, Estimated Creat Clear 89, Estimated GFR 62, Est GFR ( Amer) 74, Glucose 127 H D, Lactate 0.8, Calcium 10.1, Total Bilirubin 1.2, AST 47 D, ALT 30, Alkaline Phosphatase 49, Troponin I 2.19 H, C-Reactive Protein 52.3 H D, NT-Pro-B Natriuret Pep 105, Total Protein 8.7 H, Albumin 5.0, Globulin 3.7 H, Albumin/Globulin Ratio 1.4, L ipase 868 H 08/20/24 02:22: SARS-CoV-2 (PCR) Not detected, Influenza A Untype (PCR) Not detected, Influenza Type B (PCR) Not detected 08/20/24 02:49: Specimen Source Left radial, O2 % 21, ABG pH 7.44, ABG pCO2 37.5, ABG pO2 65.4 L, ABG HCO3 24.6, ABG Total CO2 25.8, ABG O2 Saturation 93, ABG Base Excess 0.4, Fletcher Test Acceptable 08/20/24 03:28: VBG pH 7.42 H, VBG pCO2 36.4, VBG pO2 59.6 H, VBG HCO3 22.9 L, VBG Total CO2 24.0, VBG O2 Saturation 91.4 H, VBG Base Excess -1.7, VBG Lactic Acid 1.4 08/20/24 02:13 08/20/24 02:13 Response Orders (Tests/Meds): ED MEDICATIONS Generic Name Dose Route Start Last Admin Trade Name Freq PRN Reason Stop Dose Admin Piperacillin Sod/Tazobactam 100 mls @ 200 mls/hr 08/20/24 03:15 08/20/24 03:38 Sod 4.5 gm/ Sodium Chloride IV 08/30/24 03:14 200 mls/hr Q8H TRICIA Administration Vancomycin HCl 2,000 mg/ 250 mls @ 125 mls/hr 08/20/24 03:15 08/20/24 03:39 Sodium Chloride IV 08/20/24 05:14 125 mls/hr ONCE ONE Administration Miscellaneous 1 each 08/20/24 03:15 Vancomycin Consult Request NOTAPPLIC 09/19/24 03:14 CONSULT PHARMACY TRICIA Discontinued Medications Generic Name Dose Route Start Last Admin Trade Name Freq PRN Reason Stop Dose Admin Aspirin 162 mg 08/20/24 02:18 08/20/24 02:24 Aspirin 81mg Chewable Tablet PO 08/20/24 02:19 162 mg ONCE ONE Administration Lactated Ringer's 1,000 mls @ 999 mls/hr 08/20/24 02:19 08/20/24 02:25 Lactated Ringer's 1000 Ml Bag IV 08/20/24 03:19 999 mls/hr .Q1H1M ONE Administration Iopamidol 160 ml 08/20/24 03:04 08/20/24 03:06 Iopamidol-370 (76%);100ml Bottle IV 08/20/24 03:05 160 ml ONCE ONE Administration Ketorolac Tromethamine 15 mg 08/20/24 02:52 08/20/24 03:14 Ketorolac 30mg/Ml Vial IV 08/20/24 02:53 15 mg ONCE ONE Administration Methylprednisolone Sodium Succinate 125 mg 08/20/24 03:05 08/20/24 03:14 Methylprednisolone Sod Succ 125mg Vial IV 08/20/24 03:06 125 mg ONCE ONE Administration Morphine Sulfate 4 mg 08/20/24 02:19 08/20/24 02:25 Morphine 4mg/Ml Syringe IV 08/20/24 02:20 4 mg ONCE ONE Administration Ondansetron HCl 4 mg 08/20/24 02:19 08/20/24 02:25 Ondansetron 4mg/2ml Vial IV 08/20/24 02:20 4 mg ONCE ONE Administration Promethazine HCl 12.5 mg 08/20/24 02:35 08/20/24 02:40 Promethazine Hcl 25mg/Ml 1ml Vial IV 08/20/24 02:36 12.5 mg ONCE ONE Administration Sodium Chloride 25 ml 08/20/24 02:35 08/20/24 02:41 Sodium Chloride 0.9% 25ml Bag IV 08/20/24 02:36 25 ml ONCE ONE Administration Sodium Chloride 50 ml 08/20/24 03:04 08/20/24 03:06 0.9 % Sodium Chloride 50 Ml Vial IV 08/20/24 03:05 50 ml ONCE ONE Administration Sodium Chloride 10 ml 08/20/24 03:04 08/20/24 03:06 Sodium Chloride 0.9% 10ml Syr (Rad Only) IV 08/20/24 03:05 10 ml ONCE ONE Administration ORDERS Category Date Time Status CT angio abdomen pelvis Stat Cat Scan 08/20/24 02:[address] angio chest - dissection Stat Cat Scan 08/20/24 02:[address] angio head Stat Cat Scan 08/20/24 02:[address] angio neck Stat Cat Scan 08/20/24 02:[address] head/brain wo con Stat Cat Scan 08/20/24 02:18 Completed POCUS Point of Care (ER Only) Stat Exams 08/20/24 02:20 Completed XR chest portable Stat Exams 08/20/24 02:13 Taken CRP [C-Reactive Protein] Stat Lab 08/20/24 02:13 Completed Carbon Monoxide, Whole Blood Stat Lab 08/20/24 03:35 Received Complete Blood Count Auto Diff Stat Lab 08/20/24 02:13 Results Comprehensive Metabolic Panel Stat Lab 08/20/24 02:13 Completed D-Dimer Stat Lab 08/20/24 02:13 Completed ESR [Erythrocyte Sedimentation Rate] Stat Lab 08/20/24 02:13 Completed Full Resp Panel w/COVID ([facility]) Routine Lab 08/20/24 02:22 Received Lactic Acid Stat Lab 08/20/24 02:13 Completed Lipase Stat Lab 08/20/24 02:13 Completed NT Pro Brain Natriuretic Pep. Stat Lab 08/20/24 02:13 Completed Prothrombin Time INR Stat Lab 08/20/24 02:13 Completed Rapid PCR Covid and Flu A/B Stat Lab 08/20/24 02:22 Completed Troponin I Q3H Lab 08/20/24 05:15 Ordered Troponin I Q3H Lab 08/20/24 08:15 Ordered Troponin I Stat Lab 08/20/24 02:13 Completed Urinalysis and Microscopic Stat Lab 08/20/24 02:42 Ordered Blood Culture Stat Micro 08/20/24 03:26 Received ABG [Arterial Blood Gas] Stat RT 08/20/24 02:49 Completed VBG [Venous Blood Gas] Stat RT 08/20/24 03:28 Completed MDM Narrative Medical Decision Narrative: In summary, this 59-year-old male with comorbidities described in the HPI presents to the emergency department today with headache, chest pain, vomiting. On initial evaluation patient is tachycardic, ill-appearing, pale, no reproducible chest pain, no peripheral edema, abdominal exam benign, GCS 15 with no neurologic deficits. Differential diagnosis includes but is not limited to intracranial bleed though patient did not have thunderclap onset or neurologic deficits, also considered dissection, DE, considered PE, with reported elevated temperature at home considered sepsis, viral syndrome, Courtney-Sheriff tear, Boerhaave, pancreatitis, patient has myopericarditis previously diagnosed so considered exacerbation of this as well as possible pericardial effusion, tamponade, among others. Based on these concerns, I ordered broad workup including cardiac workup, CT angiography of the head, neck, chest, abdomen, pelvis, serum labs, urine studies, blood cultures, viral swab. ECG personally interpreted demonstrates sinus tachycardia, rate 123, normal axis, normal [place] and QTc, no STEMI. I performed [id number] bedside ultrasound to evaluate for possible pericardial effusion. Patient does have small pericardial effusion but no evidence of tamponade. Views are limited secondary to patient's body habitus and positioning at this time. I had ordered IV fluids for this patient as well as morphine, aspirin, Zofran for initial symptomatic treatment. Patient also required Phenergan as his nausea was not controlled with Zofran. Due to patient's recent DE and treatment with Dr. Osman I called him immediately and discussed the patient's EKG, presentation, and ill appearance at this time. We had extensive discussion initially and he agrees with the workup I ordered. He also recommended an ABG. Labs personally reviewed demonstrate new leukocytosis WBC 15.7 up from 9.7 prior to discharge in the last 24 hours, no anemia, platelets normal, PT/INR normal, D-dimer normal reassuring against PE and offering reassurance against dissection but I still believe imaging is appropriate to rule out dissection. ABG demonstrates hypoxia which makes me question if this was potentially a venous sample. CMP nonactionable, troponin down to 2.19 which is a downtrend from prior. Patient's BNP is now 105 up from previously undetectable. CRP also up to 52.3 from 33.2 prior to discharge. After receiving this initial set of labs I discussed this case with Dr. Osman again. He recommended repeat blood gas to assess the accuracy of what appears to be hypoxia on ABG. He considered the possibility of administering heparin but does not believe it is indicated at this time with reassuring D-dimer. He also considered the possibility of doing CTA PE but agrees that it is not indicated with reassuring D-dimer and negative CTA PE within the last 48 hours. He did recommend administering Solu-Medrol to the patient for possible Antony syndrome. He states his working diagnosis at this time is pericarditis versus Antony syndrome. With the leukocytosis I was starting the patient on broad- spectrum antibiotics since he had findings concerning for sepsis. He agrees with this. Patient went for emergent CT scans. I personally interpreted CT head as well as CTA chest, abdomen, pelvis. I do not appreciate intracranial bleed or other acute intracranial abnormality, I also do not appreciate dissection, PE, free air in the chest that would be concerning for Boerhaave's, and the abdomen I do not appreciate dissection or other acute intra-abdominal pathology. Radiology reads pending. After reviewing the CTs I had additional discussion with Dr. Osman and he is reassured by the workup so far. Radiologist called me stating that the neuroimaging is negative for acute abnormality. Lipase resulted elevated at 868 concerning for possible pancreatitis. Patient has a benign abdomen and has not had abdominal pain. CT abdomen pelvis also does not demonstrate peripancreatic stranding on my personal interpretation. I had additional discussion with Dr. Osman about these results. We discussed that there is no obvious stone but that GI will likely need to be involved in the patient's inpatient care. At this time he is reassured against acute cardiac pathology and does recommend admission to the hospital to continue trending troponin, treatment of pancreatitis, GI workup, echo, and evaluation for Antony syndrome versus worsening pericarditis. Final radiology read does comment on pancreatic duct dilation but no comment on stones. Patient has reassuring liver enzymes. No tenderness of the abdomen. His symptoms have significantly improved. Heart rate is now in the mid 90s, saturating well on room air, blood pressure continues to be normotensive. He states his symptoms have improved and he is resting more comfortably, no longer having nausea and emesis. I believe the patient is appropriate for admission at this time. Patient and family are agreeable to this. I discussed this case with the hospitalist including the recommendations from Dr. Osman. Patient was graciously except[facility] to [facility].
[2024-08-20] MEDS: PIPERACILLIN/TAZO 4.5 GM in 0.9 % SODIUM CHLORIDE 100 ML IV (03:38)
[2024-08-20] MEDS: VANCOMYCIN HCL 2,000 MG in 0.9 % SODIUM CHLORIDE 250 ML 125 MG IV (03:39)
[2024-08-20 03:41] LABS: Lactate Venous 1.4 mmol/L (0.4-2.0); VBG Base Excess -1.7 mmol/L (-2.4-2.3); VBG HCO3 22.9 mmol/L (23-30); VBG Oxygen Saturation 91.4 % (50-70); VBG PCO2 36.4 mmol/L (35-51); VBG PH 7.42 mmol/L (7.31-7.41); VBG PO2 59.6 mmol/L (28-40)
[2024-08-20 03:51] LABS: Lipase 868 U/L (23-300)
--- NOTE | 2024-08-20 03:51 | PC.NURSE ---
Dr. Cordero notified of critical lipase 868.
[2024-08-20 04:05] LABS: Gamma Glutamyl Transpeptidase 32 U/L (15-73)
[2024-08-20 04:12] LABS: Lymphocytes % 27 % (10-50); Monocytes % 16 % (2-9); Neutrophils % 53 % (42-76); Platelet Estimate Normal; RBC Morphology Normal; Total Cells Counted 100
[2024-08-20 04:13] LABS: Microscopic, Urine URINE MICROSCOPIC (MICROSCOPIC)
[2024-08-20 04:26] LABS: Appearance,Urine CLEAR (Clear); Bilirubin,Urine Negative (Negative); Blood, Urine Negative (Negative); Color,Urine YELLOW (Yellow); Glucose,Urine (UA) Negative (Negative); Ketones,Urine Negative (Negative); Leukocyte Esterase,Urine Negative (Negative); Nitrate,Urine Negative (Negative); PH,Urine 5.5 (5.0-8.5); Protein,Urine Negative (Negative); Specific Gravity, Urine <= 1.005 (1.005-1.030); Urobilinogen,Urine 0.2 EU/dl (0.2)
--- NOTE | 2024-08-20 04:34 | P.HP_ITS ---
<Statement entered by Win De La Rosa MD - 08/25/24 11:08> I personally examined patient and agree with the plan of care outlined by the STAMP PRESS OPERATOR. History of Present Illness *Admission Date: 08/20/24 *Reason for visit:: Chest pain *History of present illness: This is a 59-year-old male who has a past medical history significant for BPH, hypothyroidism, recent [place] without any cardiac stents, myopericarditis, and hyperlipidemia who presents with a chief complaint of headache, nausea, nonbilious emesis, and chest pressure. Due to patient's symptoms, he presented to the emergency room for eval ration. While in the emergency room, CT scan of the head was negative for any evidence of acute intracranial hemorrhage, mass lesion or obvious acute ischemic infarction. CTA of the chest revealed no pulmonary embolism and groundglass ossifications of the dorsal lungs bilaterally likely related to dependent atelectasis. CT scan of the head and neck ordered negative for any stenosis or large vessel occlusion. CT scan of the abdomen and pelvis revealed no abdominal aortic aneurysm or dissection, mild dilation of the small bowel loops may relate to enteritis, and pancreatic duct dilation at 5 mm. Patient's initial troponin was 2.19 (this is downward trending from previous levels during previous admission) Case was discussed with mandarin speaking nanny and he recommended admission. Due to these recommendations, patient is being admitted for further management During my evaluation of the patient, patient states he feels somewhat better. He voices having a nonfocal headache that woke him up in his sleep with chest pressure and nonbilious emesis that started 1 hour prior to him arriving to the hospital. Patient states upon discharge yesterday he was doing well and he ate without any problems. Additional pertinent values obtained include white blood cell count of 15.7, blood glucose of 127, C-reactive protein of 52.3, total protein 8.7, and lipase is 868. [facility] Disclaimer: The information contained in this section may have been updated after the patient was seen, as this information can be updated by other users. Medical History (Updated 08/20/24 @ 04:48 by Rupert Edmondson APRN) Pharyngitis BPH (benign prostatic hyperplasia) Hypothyroidism Social History (Updated 08/18/24 @ 05:25 by Janis David RN) Smoking Status: Never smoker second hand exposure: No alcohol intake: never current occupational status: employed Travel in the last 8 weeks: None housing: house Other Medical History Have you received the Flu Vaccine for this season: No Have you received the Pneumonia Vaccine: No Review of Systems Review of Systems Review of systems:: pertinent systems reviewed and negative unless documented below Constitutional Constitutional: Reports headache(s) Eyes Eyes: Reports system reviewed and no additional complaints, except as documented ENT Ears, Nose, Mouth, and Throat: Reports system reviewed and no additional complaints, except as documented and Reports headache(s) *Cardiovascular Comments: Chest pressure *Respiratory Respiratory: Reports system reviewed and no additional complaints, except as documented *Gastrointestinal Gastrointestinal: Reports nausea and Reports vomiting *Genitourinary Genitourinary: Reports system reviewed and no additional complaints, except as documented *Musculoskeletal Musculoskeletal: Reports system reviewed and no additional complaints, except as documented Integumentary/Breasts Skin/Breast: Reports system reviewed and no additional complaints, except as documented *Neurologic Neurologic: Reports system reviewed and no additional complaints, except as documented and Reports headache(s) Psychiatric Psychiatric: Reports system reviewed and no additional complaints, except as documented Endocrine Endocrine: Reports system reviewed and no additional complaints, except as documented Hematologic/Lymphatic Hematologic/Lymphatic: Reports system reviewed and no additional complaints, except as documented Allergic/Immunologic Allergic/Immunologic: Reports system reviewed and no additional complaints, except as documented Meds Home Medications and Allergies Home Medications ?Medication ?Instructions ?Recorded ?Confirmed ?Type levothyroxine 125 mcg tablet 125 mcg PO DAILY 08/18/24 08/18/24 History aspirin 81 mg chewable tablet 81 mg PO DAILY 30 days #30 tabs 08/19/24 Rx atorvastatin 40 mg tablet 40 mg PO HS 30 days #30 tabs 08/19/24 Rx clopidogrel 75 mg tablet 75 mg PO DAILY 30 days #30 tabs 08/19/24 Rx colchicine 0.6 mg tablet (Colcrys) 0.6 mg PO DAILY 30 days #30 tabs 08/19/24 Rx metoprolol succinate 25 mg 25 mg PO DAILY 30 days #30 tabs 08/19/24 Rx tablet,extended release 24 hr sacubitril 24 mg-valsartan 26 mg 1 tab PO BID 30 days #60 tabs 08/19/24 Rx tablet (Entresto) New Prescriptions to Start Prescriptions: Allergies Allergy/AdvReac Type Severity Reaction Status Date / Time nitroglycerin AdvReac Palpitation Verified 08/11/24 13:20 s succinylcholine (From AdvReac Drowsy Verified 08/11/24 13:20 Anectine) Exam Data for Last 24 hours Vital signs and Labs for Last 24 Hours: Temp Pulse Resp BP Pulse Ox O2 Del Method 98.4 F 123 H 20 136/103 H 95 Room Air 08/20/24 02:26 08/20/24 02:26 08/20/24 02:26 08/20/24 02:26 08/20/24 02:26 08/20/24 02:26 Laboratory Results - last 24 hr 08/20/24 02:13: WBC 15.7 H D, RBC 5.54, Hct 50.6, MCV 91.3, MCH 31.9 H, MCHC 35.0, RDW 12.5, Plt Count 280, MPV 9.3, Neut % (Auto) 66.6, Lymph % (Auto) 20.1, Centre % (Auto) 11.8 H, Eos % (Auto) 0.5, Baso % (Auto) 0.4, Neut # (Auto) 10.4 H, Lymph # (Auto) 3.2, Centre # (Auto) 1.9 H, Eos # (Auto) 0.1, Baso # (Auto) 0.1, Total Counted 100, Neutrophils % (Manual) 53, Band Neutrophils % 3.0, Lymphocytes % (Manual) 27, Atypical Lymphs % 1.0, Monocytes % (Manual) 16 H, Platelet Estimate Normal, RBC Morphology Normal, ESR 1, PT 11.2, INR 1.00, D- Dimer 0.45, Sodium 136, Potassium 5.0 D, Chloride 101, Carbon Dioxide 25, Anion Gap 15.0, BUN 20, Creatinine 1.20, Estimated Creat Clear 89, Estimated GFR 62, Est GFR ( Amer) 74, Glucose 127 H D, Lactate 0.8, Calcium 10.1, Total B ilirubin 1.2, GGT 32, AST 47 D, ALT 30, Alkaline Phosphatase 49, Troponin I 2.19 H, C-Reactive Protein 52.3 H D, NT-Pro-B Natriuret Pep 105, Total Protein 8.7 H, Albumin 5.0, Globulin 3.7 H, Albumin/Globulin Ratio 1.4, Lipase 868 H 08/20/24 02:22: SARS-CoV-2 (PCR) Not detected, Influenza A Untype (PCR) Not detected, Influenza Type B (PCR) Not detected 08/20/24 02:49: Specimen Source Left radial, O2 % 21, ABG pH 7.44, ABG pCO2 37.5, ABG pO2 65.4 L, ABG HCO3 24.6, ABG Total CO2 25.8, ABG O2 Saturation 93, ABG Base Excess 0.4, Fletcher Test Acceptable 08/20/24 03:28: VBG pH 7.42 H, VBG pCO2 36.4, VBG pO2 59.6 H, VBG HCO3 22.9 L, VBG Total CO2 24.0, VBG O2 Saturation 91.4 H, VBG Base Excess -1.7, VBG Lactic Acid 1.4 08/20/24 04:08: Urine Color Yellow, Urine Appearance Clear, Urine pH 5.5, Ur Specific [place] <= 1.005, Urine Protein Negative, Urine Glucose (UA) Negative, Urine Ketones Negative, Urine Blood Negative, Urine Nitrate Negative, Urine Bilirubin Negative, Urine Urobilinogen 0.2, Ur Leukocyte Esterase Negative I & O for Last 24 hours: Intake & Output 08/17/24 08/18/24 08/19/24 08/20/24 23:59 23:59 23:59 23:59 Weight 97.52 kg Constitutional Constitutional: no acute distress, obese and cooperative *Routine HEENT Exam Head: Present normocephalic and atraumatic Eye: Present EOMI, PERRL and normal accommodation ENT: Present mucous membranes moist *Routine Neck Exam Neck: Present supple, full ROM and trachea midline *Routine Respiratory Exam Respiratory: Present CTA bilaterally, normal respiratory effort, able to speak in complete sentences and symmetric chest movement *Routine Cardiovascular Exam Cardiovascular: Present RRR, Normal S1, Normal S2 and tachycardia *Routine Abdominal Exam Abdominal: Present soft, normoactive bowel sounds and obese *Routine Rectal Exam Rectal:: deferred *Routine Genitalia Exam Genitalia:: deferred *Routine Extremities Exam Extremities: Present full ROM, pulses intact and normal capillary refill Routine Back/Spine/Pelvis Exam Back/Spine: Present full ROM *Routine Skin Exam Skin: Present dry, warm and normal turgor *Routine Neurological Exam Neurological: Present alert, oriented X3, CN II-XII intact, moving all extremities and normal speech Routine Psychiatric Exam Psychiatric: Present normal affect, normal thought process, cooperative, good insight and good judgment H&P: Result Impressions 59-year-old male who is known to our service line with previous left heart cath consistent with [place]. MRI of the heart did show myocarditis patient was treated with colchicine who presents with high heart rate, increased white blood cell count, and increased respiratory rate triggering sepsis Assessment and Plan *Assessment and plan (1) Sepsis: Status: Acute Qualifiers: Sepsis acute organ dysfunction status: without acute organ dysfunction Sepsis type: sepsis due to unspecified organism Qualified Code(s): A41.9 - Sepsis, unspecified organism Category: Medical Code(s): A41.9 - Sepsis, unspecified organism (2) Chest pain: Status: Acute Qualifiers: Chest pain type: unspecified Qualified Code(s): R07.9 - Chest pain, unspecified Category: Medical Code(s): R07.9 - Chest pain, unspecified (3) Myopericarditis: Status: Acute Category: Medical Code(s): I31.9 - Disease of pericardium, unspecified (4) Leukocytosis: Status: Acute Qualifiers: Leukocytosis type: unspecified Qualified Code(s): D72.829 - Elevated white blood cell count, unspecified Category: Medical Code(s): D72.829 - Elevated white blood cell count, unspecified (5) Pancreatic duct dilated: Status: Acute Category: Medical Code(s): K86.89 - Other specified diseases of pancreas (6) Elevated troponin: Status: Acute Category: Medical Code(s): R79.89 - Other specified abnormal findings of blood chemistry (7) Elevated C-reactive protein (CRP): Status: Acute Category: Medical Code(s): R79.82 - Elevated C-reactive protein (CRP) (8) Headache: Status: Acute Qualifiers: Headache chronicity pattern: acute headache Headache type: unspecified Intractability: not intractable Qualified Code(s): R51.9 - Headache, unspecified Category: Medical Code(s): R51.9 - Headache, unspecified Plan Assessment: Sepsis -Patient is meeting sepsis criteria -He did not receive 30 mL/kg of body weight of IV hydration per direction of cardiology -Blood cultures x 2 have been obtained -Source may be from myopericarditis Chest pain/elevated troponin/myopericarditis -Troponins are downward trending from previous admission -Will continue to trend troponins -Presentation Manager consult -Will leave patient n.p.o. until evaluated by mandarin speaking nanny -Will repeat echo per direction of cardiology -Once med rec is updated we will continue colchicine and DAPT therapy Leukocytosis/elevated CRP -Will trend white blood cell count -Blood cultures x 2 are pending -Will continue Zosyn 3.375 g IV every 6 hours Pancreatic duct dilation/elevated lipase -Will obtain CA 19?9 -Obtain CEA -Obtain GGT -Obtain AFP -Will consider MRI of the pancreas pancreas or triphasic CT scan of pancreas -Will consult GI in the a.m. -Currently there is no imaging consistent with pancreatitis Plan: Admit patient to the MedSurg unit on telemetry Saline lock Vital signs every 4 hours CBC/BMP/CRP daily 40 mg Lovenox subcu daily for DVT prophylax 5 mg of Brainard p.o. every 4 hours as needed moderate pain 2 mg morphine IV push every 2 hours as needed pain 4 mg Zofran IV push to 8 hours. Nausea vomit Full code I will discuss this case with attending physician Dr. De La Rosa and I look forward to more input
[2024-08-20 04:39] LABS: Squamous Epithelial Cell,Urine Occasional #/hpf (0-5)
[2024-08-20 04:44] LABS: Hemoglobin 17.8 g/dL (14.1-18.0)
--- NOTE | 2024-08-20 04:56 | EXP.SEPSISRE ---
[facility] Tissue Perfusion Eval Sepsis Re-Evaluation Performed: Yes Date Performed: 08/20/24 Time Performed: 04:57
[2024-08-20] MEDS: VANCOMYCIN CONSULT REQUEST 1 EACH NOTAPPLIC (05:19)
--- NOTE | 2024-08-20 05:47 | PC.NURSE ---
New Admit. Pt was just discharged last evening and is now back with dx of pancreatitis. V/s, ox4, at bedside. Pain management per MAR. Plan of care ongoing.
[2024-08-20 06:40] LABS: Troponin I 1.65 ng/ml (0.00-0.034)
[2024-08-20 07:02] LABS: Gamma Glutamyl Transpeptidase 27 U/L (15-73)
--- NOTE | 2024-08-20 07:17 | [facility].PHAINT1 ---
Pharmacy Intervention Comments: HOME MEDICATION LIST VERIFIED USING LIST FROM MOST RECENT DISCHARGE FROM THIS FACILITY 08/18/24
--- NOTE | 2024-08-20 08:00 | CA_ITS ---
APPROVED REPORT EXAM: Comprehensive 2D, Doppler, and color-flow Echocardiogram Crepe Box Tender: Mile Corado RDCS Ht: 5 ft 10 in Wt: 214lbs BSA: 2.15 BP: 136/103 mmHg Indications: AD,RECENT NH WITH STENTS,SEPSIS,CP,HTN,HLP,INCREASED TROP TDS LIMITED WINDOWS M-Mode Dimensions RVDd 2.04 cm (0.9-2.6) LA Diam 2.81 cm (1.9-4.0) LVDd 5.60 cm (3.5-5.7) LVDs 4.11 cm (3.5-5.7) IVSd 1.06 cm (0.6-1.1) PWd 0.98 cm (0.6-1.1) EF (Teich) 51.40% FS 26.60% EDV (Teich) 153.70 mL ESV (Teich) 74.70 mL LV Diastology E Decel Time 217 (160-240 msec) E/A Ratio 0.9 Mitral Valve MV E Max Jorge. 57.0 (40-130 cm/s) MV A Velocity 63.0 (40-130 cm/s) E/A Ratio 0.91 MV PHT 63.0 ms Left Ventricle The left ventricle is normal size. The left ventricular systolic function is normal. The left ventricular ejection fraction is within the normal range. There is increased LV wall thickness. There is normal LV segmental wall motion. The left ventricular diastolic function is normal. LVEF is 45%. Right Ventricle The right ventricle is borderline dilated. Right ventricle is mildly hypokinetic. Atria The left atrium size is normal. The right atrium is not well-visualized. There is no Doppler evidence of interatrial shunt. Aortic Valve Aortic valve is mildly thickened. There is no aortic valvular stenosis. No aortic regurgitation is present. Mitral Valve The mitral valve is normal in structure. No evidence of mitral valve stenosis. Trace mitral regurgitation. Tricuspid Valve The tricuspid valve leaflets are not well-visualized. Trace tricuspid regurgitation. There is insufficient TR jet to estimate RVSP. Pulmonic Valve The pulmonic valve is not well-visualized. Great Vessels Aortic root is not well-visualized. The IVC is not well-visualized. Pericardium There is no pericardial effusion. Other Information Study Quality: Technically Difficult Conclusion Technically difficult study due to poor acoustic windows. Mild reduction in LV systolic function (LVEF 45%). Borderline RV dilation with mild reduction in RV function. No significant valvular stenosis or regurgitation. Compared to study from 2 days prior on 08/18/2024, there are no significant changes. Electronically signed by : Katherine Cohen MD 08/24/2024 22:52:51
--- NOTE | 2024-08-20 08:14 | MR_ITS ---
FINAL REPORT TECHNIQUE: Multiplanar multisequence imaging of the abdomen was obtained without contrast. MRCP images were obtained as well. CLINICAL HISTORY: Nausea and vomiting, elevated lipase, pancreatic ductal dilation COMPARISON: CTA abdomen and pelvis from 08/20/2024 FINDINGS: MRCP images are degraded by respiratory motion. The lung bases are clear. There are tiny fluid signal structures in the liver. The largest measures up to 9 mm in the posterior lobe. These are consistent with benign cysts. The spleen is unremarkable. The gallbladder is present. There is no localized signal abnormality. The pancreatic duct is mildly prominent at 5 mm. The common bile duct is normal size. There is no choledocholithiasis. There is no peripancreatic inflammatory reaction. IMPRESSION: Prominent pancreatic duct of uncertain significance. Reviewed, Interpreted and Dictated by Angel Franklin MD Transcribed by Roxie Burden Authenticated and [facility]
[2024-08-20 08:52] LABS: Troponin I 2.38 ng/ml (0.00-0.034)
[2024-08-20 09:24] LABS: Amylase 128 U/L (30-110)
[2024-08-20] MEDS: SACUBITRIL/VALSARTAN 24-26MG TABLET 1 EACH PO ×2 (10:09→20:00)
[2024-08-20] MEDS: METOPROLOL SUCCINATE XL 25MG TABLET 25 MG PO (10:09)
[2024-08-20] MEDS: LEVOTHYROXINE 125MCG (0.125MG) TAB 125 MCG PO (10:09)
[2024-08-20] MEDS: CLOPIDOGREL 75MG TAB 75 MG PO (10:09)
[2024-08-20] MEDS: ENOXAPARIN 40MG/0.4ML SYRINGE 40 MG SUBCUT (10:10)
[2024-08-20] MEDS: ASPIRIN 81MG CHEWABLE TABLET 81 MG PO (10:16)
[2024-08-20] MEDS: LORazepam 2MG/ML VIAL 1 MG IV (10:54)
[2024-08-20] MEDS: PIPERACILLIN/TAZO 3.375 GM in 0.9 % SODIUM CHLORIDE 50 ML IV ×3 (12:37→23:06)
--- NOTE | 2024-08-20 12:37 | EXP.CARD.PN ---
Subjective Subjective Date: 08/20/24 Time: 12:37 Principal diagnosis: Nausea, Vomiting, Pancreatitis Interval history: 59 yo WM just discharged from [facility] yesterday for myopericarditis came back last evening due to Nausea, vomiting and headache. Workup in ER revealed elevated lipase with Abd CT showing possible enteritis and pancreatic duct dilation. Admitted for observation. Cardiology consulted due to small rise in troponins after trending down during earlier stay. Pt has no complaints of chest pain at this time. Heading for [facility] at time of visit. Exam Data for Last 24 hours Vital signs and Labs for Last 24 Hours: Temp Pulse Resp BP Pulse Ox O2 Del Method 97.7 F 86 16 109/70 L 96 Room Air 08/20/24 08:00 08/20/24 08:00 08/20/24 08:00 08/20/24 08:00 08/20/24 08:00 08/20/24 12:01 Laboratory Results - last 24 hr 08/20/24 02:13: WBC 15.7 H D, RBC 5.54, Hgb 17.8 D, Hct 50.6, MCV 91.3, MCH 31.9 H, MCHC 35.0, RDW 12.5, Plt Count 280, MPV 9.3, Neut % (Auto) 66.6, Lymph % (Auto) 20.1, [place] % (Auto) 11.8 H, Eos % (Auto) 0.5, Baso % (Auto) 0.4, Neut # (Auto) 10.4 H, Lymph # (Auto) 3.2, [place] # (Auto) 1.9 H, Eos # (Auto) 0.1, Baso # (Auto) 0.1, Total Counted 100, Neutrophils % (Manual) 53, Band Neutrophils % 3.0, Lymphocytes % (Manual) 27, Atypical Lymphs % 1.0, Monocytes % (Manual) 16 H, Platelet Estimate Normal, RBC Morphology Normal, ESR 1, PT 11.2, INR 1.00, D-Dimer 0.45, Sodium 136, Potassium 5.0 D, Chloride 101, Carbon Dioxide 25, Anion Gap 15.0, BUN 20, Creatinine 1.20, Estimated Creat Clear 89, Estimated GFR 62, Est GFR ( Amer) 74, Glucose 127 H D, Lactate 0.8, Calcium 10.1, Total Bilirubin 1.2, GGT 32, AST 47 D, ALT 30, Alkaline Phosphatase 49, Troponin I 2.19 H, C-Reactive Protein 52.3 H D, NT-Pro-B Natriuret Pep 105, Total Protein 8.7 H, Albumin 5.0, Globulin 3.7 H, Albumin/Globulin Ratio 1.4, Lipase 868 H 08/20/24 02:22: Chlamy pneumoniae PCR Not detected, Adenovirus (PCR) Not detected, B. pertussis DNA (PCR) Not detected, Coronavirus OC43 (PCR) Not detected, Coronavirus HKU1 (PCR) Not detected, Coronavirus 229E (PCR) Not detected, SARS-CoV-2 (PCR) Not detected 08/20/24 02:22: SARS-CoV-2 (PCR) Not detected, Coronavirus NL63 (PCR) Not detected, Human Metapneumovir PCR Not detected, Influenza A (H1) PCR Not detected, Influ A (H1N1/09) PCR Not detected, Influenza A (H3) PCR Not detected, Influenza Type A (PCR) Not detected, Influenza A Untype (PCR) Not detected, Influenza Type B (PCR) Not detected 08/20/24 02:22: Influenza Type B (PCR) Not detected, M. pneumoniae (PCR) Not detected, Parainfluenza 1 (PCR) Not detected, Parainfluenza 2 (PCR) Not detected, Parainfluenza 3 (PCR) Not detected, Parainfluenza 4 (PCR) Not detected, RSV (PCR) Not detected, Entero/Rhino (PCR) Not detected 08/20/24 02:49: Specimen Source Left radial, O2 % 21, ABG pH 7.44, ABG pCO2 37.5, ABG pO2 65.4 L, ABG HCO3 24.6, ABG Total CO2 25.8, ABG O2 Saturation 93, ABG Base Excess 0.4, Fletcher Test Acceptable 08/20/24 03:28: VBG pH 7.42 H, VBG pCO2 36.4, VBG pO2 59.6 H, VBG HCO3 22.9 L, VBG Total CO2 24.0, VBG O2 Saturation 91.4 H, VBG Base Excess -1.7, VBG Lactic Acid 1.4 08/20/24 04:08: Urine Color Yellow, Urine Appearance Clear, Urine pH 5.5, Ur Specific [place] <= 1.005, Urine Protein Negative, Urine Glucose (UA) Negative, Urine Ketones Negative, Urine Blood Negative, Urine Nitrate Negative, Urine Bilirubin Negative, Urine Urobilinogen 0.2, Ur Leukocyte Esterase Negative, Urine RBC None, Urine WBC None, Ur Squamous Epith Cells Occasional 08/20/24 05:57: GGT 27, Troponin I 1.65 H 08/20/24 08:10: Troponin I 2.38 H, Amylase 128 H I & O for Last 24 hours: Intake & Output 08/18/24 08/19/24 08/20/24 08/21/24 11:59 11:59 11:59 11:59 Intake Total 50 / 50 Balance 50 / 50 Weight 219 lb 12.814 oz Constitutional Constitutional: no acute distress *Routine Respiratory Exam Respiratory: Present CTA bilaterally *Routine Cardiovascular Exam Cardiovascular: Present RRR Progress Note: A&P Assessment and plan (1) Sepsis: Status: Acute (2) Chest pain: Status: Acute (3) Myopericarditis: Status: Acute (4) Leukocytosis: Status: Acute (5) Pancreatic duct dilated: Status: Acute (6) Elevated troponin: Status: Acute (7) Elevated C-reactive protein (CRP): Status: Acute (8) Headache: Status: Acute Assessment and Plan Assessment and Plan for All Diagnoses:: 1. Elevated lipase and pancreatic duct dilation -MRCP today -GI consulted 2. Myopericarditis -discharged on colchicine but will stop in case this is the cause for pancreatitis -EF 45% with WMA--started on GDMT with KEE odell 3. Recent STEMI with dissolution of thrombus with heparin -no stenting -DAPT therapy recommended for one year with ASA/Plavix 4. Hyperlipidemia -on statin therapy which is new, will stop this as well in setting of acute pancreatitis Stop colchicine and statin therapy as possible cause of acute pancreatitis MRCP results pending Cardiac status stable. No plans for any testing. Please call if needed.
[2024-08-20 13:06] LABS: Troponin I 4.15 ng/ml (0.00-0.034)
[2024-08-20 16:27] LABS: Benzodiazepines Screen,Urine Negative ng/ml (<200)
[2024-08-20 16:28] LABS: Amphetamine/Metha Screen,Urine Negative ng/ml (<1000); Barbiturates Screen,Urine Negative ng/ml (<200)
--- NOTE | 2024-08-20 16:30 | PC.NURSE ---
Aox 4, up as andrew, on RA, on tele, 18g L AC SL, 20G L W SL, MRCP done and urine sent, bolus LR given.
[2024-08-20 16:31] LABS: Methadone Screen,Urine Negative ng/ml (<300)
[2024-08-20 16:31] LABS: Troponin I 4.07 ng/ml (0.00-0.034)
[2024-08-20 16:32] LABS: Cannabinoid Screen,Urine Negative ng/ml (<50); Cocaine Screen,Urine Negative ng/ml (<300)
[2024-08-20 16:33] LABS: Opiate Screen,Urine Positive ng/ml (<300)
[2024-08-20 16:34] LABS: Phencyclidine Screen,Urine Negative ng/ml (<25)
[2024-08-20] MEDS: MELATONIN 5MG TABLET 5 MG PO (23:12)
[2024-08-21] VITALS: PULSE 90
[2024-08-21 03:39] VITALS: BP 108/69; PULSE 90; RESP 16; TEMP 36.6; O2SAT 92; BMI 31.3
[2024-08-21 04:00] VITALS: PULSE 75
[2024-08-21 06:25] LABS: Basophils % 0.1 % (0.1-2.0); Eosinophils % 0.1 % (0.1-12.0); Hematocrit 42.9 % (42.0-52.0); Hemoglobin 14.7 g/dL (14.1-18.0); Lymphocytes % 8.5 % (10-50); Mean Corpuscular HGB Conc 34.3 g/dL (31.8-35.4); Mean Corpuscular Volume 93.3 fl (80-94); Mean Platelet Volume 9.3 fl (7.4-10.4); Monocytes # 1.9 K/mm3 (0.1-1.0); Monocytes % 8.1 % (1.7-9.3); Neutrophils # 19.4 K/mm3 (1.8-7.8); Neutrophils % 82.6 % (37.0-80.0); Platelet Count 229 K/mm3 (142-424); Red Cell Distribution Width 12.6 % (11.5-17.5); White Blood Count 23.5 K/mm3 (4.8-10.8)
[2024-08-21 06:31] LABS: MANUAL DIFFERENTIAL MANUAL DIFFERENTIAL (MANUAL DIFF)
[2024-08-21 06:32] LABS: Chloride 105 mmol/L (98-107); Potassium 4.6 mmoL/L (3.5-5.1); Sodium 137 mmol/L (136-145)
[2024-08-21] MEDS: PIPERACILLIN/TAZO 3.375 GM in 0.9 % SODIUM CHLORIDE 50 ML IV ×2 (06:32→11:35)
[2024-08-21] MEDS: LEVOTHYROXINE 125MCG (0.125MG) TAB 125 MCG PO (06:32)
[2024-08-21 06:35] LABS: Anion Gap 12.6 mEq/L (5-15); Blood Urea Nitrogen 25 mg/dl (9-20); Calcium 9.5 mg/dl (8.4-10.2); Carbon Dioxide 24 mmol/L (22.0-30.0); Creatinine Clearance Estimated 111 mL/min (50-200); Estimated Glomerular Filt Rate 76 ml/min (>60); GFR (African American) 92 ML/MIN (>60); Glucose 124 mg/dl (74-100)
[2024-08-21 06:40] LABS: C-Reactive Protein 41.8 mg/L (0-4)
[2024-08-21 08:00] VITALS: BP 110/67; PULSE 100; PULSE 86; RESP 12; TEMP 36.6; O2SAT 94
[2024-08-21] MEDS: CLOPIDOGREL 75MG TAB 75 MG PO (08:46)
[2024-08-21] MEDS: ENOXAPARIN 40MG/0.4ML SYRINGE 40 MG SUBCUT (08:46)
[2024-08-21] MEDS: ASPIRIN 81MG CHEWABLE TABLET 81 MG PO (08:46)
[2024-08-21] MEDS: METOPROLOL SUCCINATE XL 25MG TABLET 25 MG PO (08:46)
[2024-08-21] MEDS: SACUBITRIL/VALSARTAN 24-26MG TABLET 1 EACH PO (08:46)
[2024-08-21 09:33] LABS: Lipase 430 U/L (23-300)
[2024-08-21 09:54] LABS: Lymphocytes % 14 % (10-50); Monocytes % 7 % (2-9); Neutrophils % 79 % (42-76); Platelet Estimate Normal; RBC Morphology Normal; Total Cells Counted 100
[2024-08-21 10:15] LABS: AFP, Tumor Marker 2.4 ng/mL (0.0-8.4); CA 19-9 42 U/mL (0-35); CEA 2.8 ng/mL (0.0-4.7)
[2024-08-21 11:45] VITALS: BP 109/73; PULSE 76; RESP 12; TEMP 36.9; O2SAT 95
[2024-08-21 12:00] VITALS: PULSE 80
[2024-08-21 14:20] LABS: Basophils % 0.2 % (0.1-2.0); Eosinophils % 0.1 % (0.1-12.0); Hematocrit 42.5 % (42.0-52.0); Hemoglobin 14.5 g/dL (14.1-18.0); Lymphocytes # 2.5 K/mm3 (0.7-4.5); Lymphocytes % 14.1 % (10-50); Mean Corpuscular HGB Conc 34.1 g/dL (31.8-35.4); Mean Corpuscular Hemoglobin 31.8 pg (27.0-31.2); Mean Corpuscular Volume 93.2 fl (80-94); Mean Platelet Volume 9.4 fl (7.4-10.4); Monocytes # 1.4 K/mm3 (0.1-1.0); Monocytes % 7.8 % (1.7-9.3); Neutrophils # 13.6 K/mm3 (1.8-7.8); Neutrophils % 77.5 % (37.0-80.0); Platelet Count 235 K/mm3 (142-424); Red Blood Count 4.56 M/mm3 (4.60-6.20); Red Cell Distribution Width 12.6 % (11.5-17.5); White Blood Count 17.5 K/mm3 (4.8-10.8)
--- NOTE | 2024-08-21 15:08 | EXP.DC.SUM ---
General Admission date:: 08/20/24 HPI HPI HPI: This is a 59-year-old male who has a past medical history significant for BPH, hypothyroidism, recent MN without any cardiac stents, myopericarditis, and hyperlipidemia who presents with a chief complaint of headache, nausea, nonbilious emesis, and chest pressure. Due to patient's symptoms, he presented to the emergency room for eval ration. While in the emergency room, CT scan of the head was negative for any evidence of acute intracranial hemorrhage, mass lesion or obvious acute ischemic infarction. CTA of the chest revealed no pulmonary embolism and groundglass ossifications of the dorsal lungs bilaterally likely related to dependent atelectasis. CT scan of the head and neck ordered negative for any stenosis or large vessel occlusion. CT scan of the abdomen and pelvis revealed no abdominal aortic aneurysm or dissection, mild dilation of the small bowel loops may relate to enteritis, and pancreatic duct dilation at 5 mm. Patient's initial troponin was 2.19 (this is downward trending from previous levels during previous admission) Case was discussed with photogravure press operator and he recommended admission. Due to these recommendations, patient is being admitted for further management During my evaluation of the patient, patient states he feels somewhat better. He voices having a nonfocal headache that woke him up in his sleep with chest pressure and nonbilious emesis that started 1 hour prior to him arriving to the hospital. Patient states upon discharge yesterday he was doing well and he ate without any problems. Additional pertinent values obtained include white blood cell count of 15.7, blood glucose of 127, C-reactive protein of 52.3, total protein 8.7, and lipase is 868. Hospital Course Hospital Course Hospital Course: Latrell Morales is a 59-year-old male who presented with nausea/vomiting, pain and was admitted for suspected acute pancreatitis. #Acute on suspected chronic pancreatitis ? Presented with nausea/vomiting, epigastric pain. CT showed pancreatic duct dilation, enteritis. Lipase elevated to 430. ? MRCP showed prominent pancreatic duct, CA 19-9 elevated to 42 (normal less than 35). ? Patient had full resolution of symptoms on admission. ? I spoke with GI who suggested pancreatic duct dilatation and elevated CA 19-9 is often associated with chronic pancreatitis. Patient does not drink alcohol, smoke. Will further evaluate patient in the clinic. ? Spoke with Dr. Jacqui cardiology, who recommended discontinuing aspirin and Plavix and starting Xarelto 20 mg. #History of STEMI of RCA with no obstructive coronary artery disease ([place]) on [facility] #Myopericarditis #HFmrEF ? Cardiology consulted, s/p [facility] 08/18/2024 with normal coronaries. Unusual LAMAR I flow down a small nondominant RCA which can explain presentation. Troponin peaked at 19.9. ? Cardiac MRI suggestive of myopericarditis, especially in the setting of recent influenza and strep infection. ? ECHO showed LVEF 45%. ? CTA chest unremarkable for acute findings, including PE. ? Discharged with aspirin 81 mg, Plavix 75 mg, metoprolol succinate 25 mg, Jardiance 10 mg, Entresto, colchicine 0.6 mg. ? Advised to follow-up with cardiology within 1 week. #Hypothyroidism ? Continue home levothyroxine 150 mcg. TFTs normal. #BPH ? Continue home tamsulosin 0.4 mg. Total time spent on discharge: 32 minutes on chart review, counseling, documentation, and direct care with patient. Exam Data for Last 24 hours Vital signs and Labs for Last 24 Hours: Temp Pulse Resp BP Pulse Ox O2 Del Method 98.4 F 80 12 109/73 L 95 Room Air 08/21/24 11:45 08/21/24 12:00 08/21/24 11:45 08/21/24 11:45 08/21/24 11:45 08/21/24 13:00 Laboratory Results - last 24 hr 08/20/24 05:57: Tumor Marker AFP 2.4, Carcinoembryonic Ag 2.8, CA 19-9 Antigen 42 H 08/20/24 15:50: Troponin I 4.07 H 08/20/24 16:04: Urine Opiates Screen Positive H, Urine Methadone Screen Negative, Ur Barbituates Screen Negative, Ur Phencyclidine Scrn Negative, Ur Amphetamines Screen Negative, U Benzodiazepines Scrn Negative, Urine Cocaine Screen Negative, U Marijuana (THC) Screen Negative 08/21/24 06:15: WBC 23.5 H* D, RBC 4.60, Hgb 14.7, Hct 42.9, MCV 93.3, MCH 32.0 H, MCHC 34.3, RDW 12.6, Plt Count 229, MPV 9.3, Neut % (Auto) 82.6 H, Lymph % (Auto) 8.5 L, Island % (Auto) 8.1, Eos % (Auto) 0.1, Baso % (Auto) 0.1, Neut # (Auto) 19.4 H, Lymph # (Auto) 2.0, Island # (Auto) 1.9 H, Eos # (Auto) 0.0, Baso # (Auto) 0.0, Total Counted 100, Neutrophils % (Manual) 79 H, Lymphocytes % (Manual) 14, Monocytes % (Manual) 7, Platelet Estimate Normal, RBC Morphology Normal, Sodium 137, Potassium 4.6, Chloride 105, Carbon Dioxide 24, Anion Gap 12.6, BUN 25 H, Creatinine 1.00, Estimated Creat Clear 111, Estimated GFR 76, Est GFR ( Amer) 92 D, Glucose 124 H, Calcium 9.5, C-Reactive Protein 41.8 H, Lipase 430 H 08/21/24 14:15: WBC 17.5 H D, RBC 4.56 L, Hgb 14.5, Hct 42.5, MCV 93.2, MCH 31.8 H, MCHC 34.1, RDW 12.6, Plt Count 235, MPV 9.4, Neut % (Auto) 77.5, Lymph % (Auto) 14.1, Island % (Auto) 7.8, Eos % (Auto) 0.1, Baso % (Auto) 0.2, Neut # (Auto) 13.6 H, Lymph # (Auto) 2.5, Island # (Auto) 1.4 H, Eos # (Auto) 0.0, Baso # (Auto) 0.0 I & O for Last 24 hours: Intake & Output 08/18/24 08/19/24 08/20/24 08/21/24 23:59 23:59 23:59 23:59 Intake Total 1410 / 1460 590 / 590 Output Total 0 / 0 0 / 0 Balance 1410 / 1460 590 / 590 Weight 99.7 kg 101.605 kg Microbiology Reports for the Last 24 Hours: Microbiology 08/20/24 03:26 Blood Blood Culture - Preliminary NO GROWTH AFTER 24 HOURS 08/20/24 02:13 Blood Blood Culture - Preliminary NO GROWTH AFTER 24 HOURS Constitutional Constitutional: no acute distress and obese *Routine HEENT Exam Head: Present normocephalic Eye: Present EOMI and PERRL ENT: Present mucous membranes moist *Routine Neck Exam Neck: Present supple; Absent lymphadenopathy *Routine Respiratory Exam Respiratory: Present CTA bilaterally *Routine Cardiovascular Exam Cardiovascular: Present RRR *Routine Abdominal Exam Abdominal: Present soft and normoactive bowel sounds; Absent tenderness *Routine Extremities Exam Extremities: Absent cyanosis, clubbing or edema *Routine Skin Exam Skin: Present warm; Absent rash *Routine Neurological Exam Neurological: Present alert and oriented X3 Results Data Completed and Pending Labs on day of discharge: Labs from last 24 hours 08/21/24 08/21/24 08/20/24 14:15 06:15 16:04 WBC 17.5 H D 23.5 H* D RBC 4.56 L 4.60 Hgb 14.5 14.7 Hct 42.5 42.9 MCV 93.2 93.3 MCH 31.8 H 32.0 H MCHC 34.1 34.3 RDW 12.6 12.6 Plt Count 235 229 MPV 9.4 9.3 Neut % (Auto) 77.5 82.6 H Lymph % (Auto) 14.1 8.5 L Island % (Auto) 7.8 8.1 Eos % (Auto) 0.1 0.1 Baso % (Auto) 0.2 0.1 Neut # (Auto) 13.6 H 19.4 H Lymph # (Auto) 2.5 2.0 Island # (Auto) 1.4 H 1.9 H Eos # (Auto) 0.0 0.0 Baso # (Auto) 0.0 0.0 Total Counted 100 Neutrophils % (Manual) 79 H Lymphocytes % (Manual) 14 Monocytes % (Manual) 7 Platelet Estimate Normal RBC Morphology Normal Sodium 137 Potassium 4.6 Chloride 105 Carbon Dioxide 24 Anion Gap 12.6 BUN 25 H Creatinine 1.00 Estimated Creat Clear 111 Estimated GFR 76 Est GFR ( Amer) 92 D Glucose 124 H Calcium 9.5 Troponin I C-Reactive Protein 41.8 H Lipase 430 H Tumor Marker AFP Carcinoembryonic Ag CA 19-9 Antigen Urine Opiates Screen Positive H Urine Methadone Screen Negative Ur Barbituates Screen Negative Ur Phencyclidine Scrn Negative Ur Amphetamines Screen Negative U Benzodiazepines Scrn Negative Urine Cocaine Screen Negative U Marijuana (THC) Screen Negative 08/20/24 08/20/24 15:50 05:57 WBC RBC Hgb Hct MCV MCH MCHC RDW Plt Count MPV Neut % (Auto) Lymph % (Auto) Island % (Auto) Eos % (Auto) Baso % (Auto) Neut # (Auto) Lymph # (Auto) Island # (Auto) Eos # (Auto) Baso # (Auto) Total Counted Neutrophils % (Manual) Lymphocytes % (Manual) Monocytes % (Manual) Platelet Estimate RBC Morphology Sodium Potassium Chloride Carbon Dioxide Anion Gap BUN Creatinine Estimated Creat Clear Estimated GFR Est GFR ( Amer) Glucose Calcium Troponin I 4.07 H C-Reactive Protein Lipase Tumor Marker AFP 2.4 Carcinoembryonic Ag 2.8 CA 19-9 Antigen 42 H Urine Opiates Screen Urine Methadone Screen Ur Barbituates Screen Ur Phencyclidine Scrn Ur Amphetamines Screen U Benzodiazepines Scrn Urine Cocaine Screen U Marijuana (THC) Screen Preliminary micro results at discharge 08/20/24 03:26 Blood Culture - Preliminary Blood NO GROWTH AFTER 24 HOURS 08/20/24 02:13 Blood Culture - Preliminary Blood NO GROWTH AFTER 24 HOURS DS: Diagnosis Discharge Diagnosis (1) Sepsis: Status: Acute Code(s): A41.9 - Sepsis, unspecified organism Qualifiers: Sepsis acute organ dysfunction status: without acute organ dysfunction Sepsis type: sepsis due to unspecified organism Qualified Code(s): A41.9 - Sepsis, unspecified organism (2) Chest pain: Status: Acute Code(s): R07.9 - Chest pain, unspecified Qualifiers: Chest pain type: unspecified Qualified Code(s): R07.9 - Chest pain, unspecified (3) Myopericarditis: Status: Acute Code(s): I31.9 - Disease of pericardium, unspecified (4) Leukocytosis: Status: Acute Code(s): D72.829 - Elevated white blood cell count, unspecified Qualifiers: Leukocytosis type: unspecified Qualified Code(s): D72.829 - Elevated white blood cell count, unspecified (5) Pancreatic duct dilated: Status: Acute Code(s): K86.89 - Other specified diseases of pancreas (6) Elevated troponin: Status: Acute Code(s): R79.89 - Other specified abnormal findings of blood chemistry (7) Elevated C-reactive protein (CRP): Status: Acute Code(s): R79.82 - Elevated C-reactive protein (CRP) (8) Headache: Status: Acute Code(s): R51.9 - Headache, unspecified Qualifiers: Headache chronicity pattern: acute headache Headache type: unspecified Intractability: not intractable Qualified Code(s): R51.9 - Headache, unspecified Meds Home Medications and Allergies Home Medications ?Medication ?Instructions ?Recorded ?Confirmed ?Type levothyroxine 125 mcg tablet 125 mcg PO DAILY 08/18/24 08/31/24 History metoprolol succinate 25 mg 25 mg PO DAILY 30 days #30 tabs 08/19/24 08/31/24 Rx tablet,extended release 24 hr sacubitril 24 mg-valsartan 26 mg 1 tab PO BID 30 days #60 tabs 08/19/24 08/31/24 Rx tablet (Entresto) rivaroxaban 20 mg tablet (Xarelto) 20 mg PO DAILY #30 tabs 08/21/24 08/31/24 Rx empagliflozin 10 mg tablet 10 mg PO DAILY #30 tabs 08/25/24 08/31/24 Rx (Jardiance) spironolactone 25 mg tablet 25 mg PO DAILY #30 tabs 08/25/24 08/31/24 Rx (Aldactone) New Prescriptions to Start Prescriptions: rivaroxaban [Xarelto] Win De La Rosa Allergies Allergy/AdvReac Type Severity Reaction Status Date / Time nitroglycerin AdvReac Palpitation Verified 08/31/24 10:26 s succinylcholine (From AdvReac Drowsy Verified 08/31/24 10:26 Anectine) Discharge Plan Disposition Patient Disposition: Home, Self-Care Condition: Fair Follow up Plan Follow up with: Toni Garcia II, MD [Staff Physician] - Enter time for follow up Darrick Cifuentes MD [Primary Care Provider] - 08/30/24 2:00 pm Brian Phillips PA [Physician Supervisory Examiner] - 08/25/24 2:30 pm Prescriptions/Medication Reconciliation: New Xarelto 20 mg tablet 20 mg PO DAILY Qty: 30 0RF Continued levothyroxine 125 mcg tablet 125 mcg PO DAILY Patient Comments: TAKE 1 TABLET BY MOUTH ONCE DAILY FOR 90 DAYS metoprolol succinate 25 mg Tablet Extended Release 24 Hr 25 mg PO DAILY 30 Days Qty: 30 0RF Entresto 24-26 mg Tablet 1 tab PO BID 30 Days Qty: 60 0RF Discontinued clopidogrel 75 mg Tablet 75 mg PO DAILY 30 Days Qty: 30 0RF aspirin 81 mg Tablet,Chewable 81 mg PO DAILY 30 Days Qty: 30 0RF No Action spironolactone [Aldactone] 25 mg tablet 25 mg PO DAILY Qty: 30 2RF Jardiance 10 mg tablet 10 mg PO DAILY Qty: 30 5RF Problem Reconciliation Problems Reviewed?: Yes Patient Discharge Instructions Patient Instructions: DI for Pancreatitis Print Language: [place] Providers Primary Care Provider: Darrick Cifuentes Admit Provider: Win De La Rosa Attending Provider: Win De La Rosa
[2024-08-21] MEDS: COLCHICINE 0.6MG TABLET 0.6 MG PO (15:38)
[2024-08-22 19:08] LABS: Carbon Monoxide, Whole Blood 3.2 % (0.0-3.6)
--- NOTE | 2024-08-23 11:08 | SW/DCPLANNER ---
Spoke with patient on the phone. Patient stated that he is doing very well. Patient stated that he was able to get his medicine picked up. Patient stated that he is aware of his upcoming appointments. Patient stated that he has no concerns or questions at this time. Lizbeth Mcfadden
[2024-08-24 08:43] LABS: Anti-DNase B Strep Antibodies 1130 U/mL (0-120)
== END 2024-08-21 15:55 | disposition home or self-care (01) ==
LOC: ER 02:16 → 2ND 04:26
PROVIDERS: Nurse Practitioner Family; Physician Assistant; Admitting Provider Student in an Organized Health Care Education/Training Program; Emergency Provider Emergency Medicine; PCP Family Medicine; Visit Provider Student in an Organized Health Care Education/Training Program
DX: K85.90 Acute pancreatitis without necrosis or infection, unspecified (principal); I21.11 ST elevation (STEMI) myocardial infarction involving right coronary artery; I30.9 Acute pericarditis, unspecified; I42.9 Cardiomyopathy, unspecified; E03.9 Hypothyroidism, unspecified; E78.5 Hyperlipidemia, unspecified; Z88.8 Allergy status to other drugs, medicaments and biological substances; N40.0 Benign prostatic hyperplasia without lower urinary tract symptoms; Z79.899 Other long term (current) drug therapy; I25.10 Atherosclerotic heart disease of native coronary artery without angina pectoris; I50.20 Unspecified systolic (congestive) heart failure
CPT/HCPCS: 36415; 70450; 70496; 70498; 71045; 71275; 74174; 74181; 76376; 80048; 80053; 80307; 81001; 82105; 82150; 82375; 82378; 82803; 82977; 83605; 83690; 83880; 84484; 85007; 85025; 85027; 85378; 85610; 85651; 86140; 86215; 86301; 87040; 87633; 87636; 93005; 93306; 99291; G0378; J1650; J1885; J2060; J2270; J2405; J2543; J2550; J2919; J3370; J7120; Q9967

== ENCOUNTER 2024-09-15 15:59 | Outpatient (CLI) | payer BC, SELFPAY ==
--- NOTE | 2024-09-15 16:00 | MR_ITS ---
PROCEDURE INFORMATION: Exam: MR Abdomen Without and With Contrast Exam date and time: 09/15/2024 4:13 PM Age: 59 years old Clinical indication: Abdominal pain; Additional info: Follow up dilated pancreatic duct TECHNIQUE: Imaging protocol: Magnetic resonance imaging of the abdomen without and with contrast. Contrast material: PROHANCE; Contrast volume: 20 ml; Contrast route: IV; COMPARISON: MR MRCP WO CON 08/20/2024 11:13 AM FINDINGS: Liver: There are a couple of tiny increased T2 signal lesions most likely simple hepatic cysts largest measures 1 cm. Gallbladder and biliary ducts: The gallbladder is normal. There is no evidence of biliary ductal dilation. Pancreas: Stable smooth appearing mildly dilated pancreatic duct, unchanged. Spleen: The spleen is normal. Adrenal glands: Unremarkable. No mass. Kidneys: Simple cyst left kidney lower pole 1.5 cm. Stomach and bowel: Visualized stomach and intestines are unremarkable. Intraperitoneal space: No free air. No evidence for focal fluid collection or ascites. No evidence for omental thickening. Vasculature: No abdominal aortic aneurysm. Lymph nodes: No enlarged nodes. Bones/joints: Unremarkable. No suspicious lesions. Soft tissues: Unremarkable. IMPRESSION: 1. Stable smooth appearing mildly dilated pancreatic duct, unchanged. The maximal dilation 4 mm, unchanged. Pancreas is otherwise unremarkable. No evidence for pancreatic mass. No suspicious findings identified. 2. Other incidental and ancillary findings as discussed above. COMMENTS: Consistent with the [employer]'s Incidental Findings Committee white paper (J Am Roxann Radiol 2018): Any incidental renal lesion less than 1 cm or classified as too small to characterize, or any incidental cystic renal lesion characterized as simple-appearing, is likely benign. No follow-up imaging is recommended for these lesions per consensus recommendations based on imaging criteria.
--- OUTSIDE RECORDS SUMMARY | 2024-09-15 16:01 | XMS_ITS | Continuity of Care Document ---
Author Organization [facility] Patrick reese [facility] Address [address] [facility] [address] [place] [address] Assessment No assessment recorded. Plan of Treatment Reminders Order Date Submit Date Provider Last Modified By Organization Details Last Modified Time Details Appointments RECHECK 2024 04:00P M CINTIA ROSADO MD Not available Not available Not available Lab PSA, serum or plasma 2024 025 sue [facility], [address] [facility], [place], [address], 07/22/2024 16:58:53 Referral None recorded . Procedures None recorded . Surgeries None recorded . Imaging None recorded . Medication Orders None recorded . Patient TargetsNo targets recorded. Patient InstructionsNo instructions recorded. Reason for Referral None Reported. Results Created Date Observation Date Name Description Value Unit Range Abnormal Flag Note LastModifiedBy Organization Detail LastModifiedTime 07/22/1907/22/2024 PSA, serum or plasm a PSA 7.4 NG/mL 0.0 - 4.0 Not Available [facility] [address] [facility] [address], [place], [address], 07/22/2024 16:55:58 Result Notes None recorded. Problems No Known Problems Medical Equipment None Reported. Allergies Allergen ID Allergen Name Allergen Category Reaction Reaction Severity Criticality Documentation Date Start Date Code Code System Note Provider Name and Address Organization Details Recorded Time 435086 Anectine medicatio n Not available Not available Not available 10/30/2021 13887 8 RxNomayte Levy [facility] 2 15:18:56 134438 nitroglyc wayne medicatio n Not available Not available Not available 10/30/2021 4917 RxDaron Levy [facility] 2 15:19:05 Medications Name Sig Start [...] Updated DateTime 07/22/2024 180.34 cm 30 kg/m2 69324.36 g Marquita Hopsoners [facility] 07/22/2024 16:26:48 Social History Question Answer Notes LastModified by Organizat ion Details LastModified Time Tobacco Smoking Status Never [facility]oker [facility] 10/30/2021 15:19:59 What Is Your Level Of Alcohol Consumption? None Information not available 10/30/2021 What Was The Date Of Your Most Recent Tobacco Screening? 07/22/2024 Information not available 07/22/2024 What Is Your Relationship Status? [email or web address] Information not available 10/30/2021 Do You Use Any Illicit Or Recreational Drugs? No [email or web address] Information not available 10/30/2021 Has Tobacco Cessation Counseling Been Provided? No [email or web address] Information not available 10/30/2021 Have You Recently Traveled Abroad? No [email or web address] Information not available 10/30/2021 Do You Or Have You Ever Used Any Other Forms Of Tobacco Or Nicotine? No [email or web address] Information not available 10/30/2021 Sex: Unknown Functional Status None recorded. Mental Status None recorded. Family History Relationship Description Onset Age of this Age Resolved Age Notes LastModified by Organization Details LastModified Time Father Malignant tumor of prostate [email or web address] Not available 10/30 15:19:36 Medical History Condition Response Sleep Apnea Y Thyroid Disorder Y High Cholesterol Y Past Encounters Encounter ID Performer Location Encounter Start Date Encounter Closed Date Diagnosis/Indication Diagnosis SNOMED-CT Code Diagnosis ICD10 Code Diagnosis Note [id number] CINTIA ROSADO MD [facility] [address] [place] [address] 06/24/2024 16:48:42 06/25/2024 08:49:31 Prostate specific antigen above reference range 423614143 R97.20 [id number] CINTIA ROSADO MD [facility] [address] [place] [address] 07/22/2024 16:19:08 07/23/2024 14:34:06 Prostate specific antigen above reference range 343993304 R97.20 Health Concerns Section Related Observation LastModified by Organization Detai ls LastModified Time None Recorded Concern Status LastModified by Organization Details LastModified Time None Recorded Payers Encounter Date Sequence Insurance Name Policy Number Policy [place] Covered Member ID [place] Member ID Guarantor Name 07/22/2024 1 [place] [id number] 2 Latrell Morales [id number] Latrell Morales Notes Date Note Type Note Provider Name and Address Organization Details Recorded Time 07/22/2024 text/html He is back for follow-up [...] in 6 months CINTIA ROSADO MD [address] [facility] [place], [address], [facility] 07/26/2024 16:29:53
--- OUTSIDE RECORDS SUMMARY | 2024-09-15 16:01 | XMS_ITS | Data Portability ---
Author Organization [facility] Address [address] [place] [address] Assessment No assessment recorded. Plan of Treatment Reminders Order Date Submit Date Provider Last Modified By Organization Details Last Modified Time Details Appointments RECHECK 2024 04:00P M CINTIA ROSADO MD Not available Not available Not available Lab PSA, serum or plasma 2024 025 [facility], [address], [place], [address], 07/22/2024 16:58:53 PSA, serum or plasma 2024 025 [facility], [address], [address], [place], [address], 06/24/2024 17:29:52 urinalysi s panel, auto 2024 025 [facility], [address], [address], [place], [address], 06/24/2024 17:29:52 urinalysi s panel, auto 2023 024 [facility], [address], [address], [place], [address], 12/23/2023 16:31:33 PSA, serum or plasma 2023 024 [facility], [address], [address], [place], [address], 12/23/2023 16:31:34 urinalysi s panel, auto 2022 023 [facility], [address], [address], [place], [address], 12/25/2022 11:34:53 PSA, serum or plasma 2022 023 [facility], [address], [address], [place], [address], 12/25/2022 11:34:53 urinalysi s panel, auto 2022 023 [facility], [address], [address], [place], [address], 10/24/2022 19:18:12 PSA, serum or plasma 2022 023 [facility], [address], [address], [place], [address], 06/27/2022 13:47:13 Referral None recorded. Procedures None recorded. Surgeries None recorded. Imaging None recorded. Medication Orders Bactrim DS 800 mg-160 mg tablet 2024 025 [facility], [address], [address], 06/24/2024 17:29:53 tadalafil 20 mg tablet 2023 024 [facility], [address], [address], 12/23/2023 16:31:37 sildenafi l 100 mg tablet 2022 023 [facility], [address] [place], [address], 12/25/2022 11:34:58 alfuzosin ER 10 mg tablet,ex tended release 24 hr 2022 023 [facility], [address] [place], [address], 06/27/2022 18:18:33 Patient TargetsNo targets recorded. Patient InstructionsNo instructions recorded. Reason for Referral None Reported. Results Created Date Observation Date Name Description Value Unit Range Abnormal Flag Note LastModifiedBy Organization Detail LastModifiedTime 06/27/1906/27/2022 PSA, serum or plasm a PSA 5.8 NG/mL 0.0 - 4.0 Not Available [facility] [address], [place], [address], 06/27/2022 10:14:28 12/26/19 23 12/25/2022 PSA, serum or plasm a PSA 3.5 NG/mL 0.0 - 4.0 Not Available [facility] [address], [place], [address], 12/25/2022 11:21:00 12/26/19 23 12/25/2022 urina lysis panel , auto Unknown Analyte Clean Catch Not Available [facility] [address], [place], [address], 12/25/2022 11:20:28 12/26/19 23 12/25/2022 urina lysis panel , auto Unknown Analyte Yellow Not Available [facility] [address], [place], [address], 12/25/2022 11:20:28 12/26/19 23 12/25/2022 urina lysis panel , auto Unknown Analyte Clear Not Available [facility] [address], [place], [address], 12/25/2022 11:20:28 12/26/19 23 12/25/2022 urina lysis panel , auto Unknown Analyte 1.015 Not Available [facility] [address], [place], [address], 12/25/2022 11:20:28 12/26/19 23 12/25/2022 urina lysis panel , auto Unknown Analyte 5.0 Not Available [facility] [address], [place], [address], 12/25/2022 11:20:28 12/26/19 23 12/25/2022 urina lysis panel , auto Unknown Analyte Negati ve Not Available [facility] [address], [place], [address], 12/25/2022 11:20:28 12/26/19 23 12/25/2022 urina lysis panel , auto Unknown Analyte Negati ve Not Available [facility] [address], [place], [address], 12/25/2022 11:20:28 12/26/19 23 12/25/2022 urina lysis panel , auto Unknown Analyte Negati ve Not Available [facility] [address], [place], [address], 12/25/2022 11:20:28 12/26/19 23 12/25/2022 urina lysis panel , auto Unknown Analyte Normal Not Available [facility] [address], [place], [address], 12/25/2022 11:20:28 12/26/19 23 12/25/2022 urina lysis panel , auto Unknown Analyte Negati ve Not Available [facility] [address], [place], [address], 12/25/2022 11:20:28 12/26/19 23 12/25/2022 urina lysis panel , auto Unknown Analyte Normal Not Available [facility] [address], [place], [address], 12/25/2022 11:20:28 12/26/19 23 12/25/2022 urina lysis panel , auto Unknown Analyte Negati ve Not Available [facility] [address], [place], [address], 12/25/2022 11:20:28 12/26/19 23 12/25/2022 urina lysis panel , auto Unknown Analyte Negati ve Not Available [facility] [address], [place], [address], 12/25/2022 11:20:28 12/23/19 24 12/23/2023 PSA, serum or plasm a PSA 4.9 NG/mL 0.0 - 4.0 Not Available [facility] [address], [place], [address], 12/23/2023 16:21:52 12/23/19 24 12/23/2023 urina lysis panel , auto Unknown Analyte Clean Catch Not Available [facility] [address] [address], [place], [address], 12/23/2023 15:57:25 12/23/19 24 12/23/2023 urina lysis panel , auto Unknown Analyte Yellow Not Available [facility] [address], [place], [address], 12/23/2023 15:57:25 12/23/19 24 12/23/2023 urina lysis panel , auto Unknown Analyte Clear Not Available [facility] [address], [place], [address], 12/23/2023 15:57:25 12/23/19 24 12/23/2023 urina lysis panel , auto Unknown Analyte 1.020 Not Available [facility] [address], [place], [address], 12/23/2023 15:57:25 12/23/19 24 12/23/2023 urina lysis panel , auto Unknown Analyte 1.003- 1.035 Not Available [facility] [address], [place], [address], 12/23/2023 15:57:25 12/23/19 24 12/23/2023 urina lysis panel , auto Unknown Analyte 5.0 Not Available [facility] [place] [address], [place], [address], 12/23/2023 15:57:25 12/23/19 24 12/23/2023 urina lysis panel , auto Unknown Analyte 5.0-8. 0 Not Available [facility] [address], [place], [address], 12/23/2023 15:57:25 12/23/19 24 12/23/2023 urina lysis panel , auto Unknown Analyte Negati ve Not Available [facility] [address], [place], [address], 12/23/2023 15:57:25 12/23/19 24 12/23/2023 urina lysis panel , auto Unknown Analyte Negati ve Not Available [facility] [address], [place], [address], 12/23/2023 15:57:25 12/23/19 24 12/23/2023 urina lysis panel , auto Unknown Analyte Negati ve Not Available [facility] [address], [place], [address], 12/23/2023 15:57:25 12/23/19 24 12/23/2023 urina lysis panel , auto Unknown Analyte Negati ve Not Available [facility] [address], [place], [address], 12/23/2023 15:57:25 12/23/19 24 12/23/2023 urina lysis panel , auto Unknown Analyte Negati ve Not Available [facility] [address], [place], [address], 12/23/2023 15:57:25 12/23/19 24 12/23/2023 urina lysis panel , auto Unknown Analyte Negati ve Not Available [facility] [address], [place], [address], 12/23/2023 15:57:25 12/23/19 24 12/23/2023 urina lysis panel , auto Unknown Analyte Normal Not Available [facility] [address], [place], [address], 12/23/2023 15:57:25 12/23/19 24 12/23/2023 urina lysis panel , auto Unknown Analyte Normal Not Available [facility] [address], [place], [address], 12/23/2023 15:57:25 12/23/19 24 12/23/2023 urina lysis panel , auto Unknown Analyte Negati ve Not Available [facility] [address], [place], [address], 12/23/2023 15:57:25 12/23/19 24 12/23/2023 urina lysis panel , auto Unknown Analyte Negati ve Not Available [facility] [address], [place], [address], 12/23/2023 15:57:25 12/23/19 24 12/23/2023 urina lysis panel , auto Unknown Analyte Normal Not Available [facility] [address], [place], [address], 12/23/2023 15:57:25 12/23/19 24 12/23/2023 urina lysis panel , auto Unknown Analyte Normal 1 mg/dl Not Available [facility] [address], [place], [address], 12/23/2023 15:57:25 12/23/19 24 12/23/2023 urina lysis panel , auto Unknown Analyte Negati ve Not Available [facility] [address], [place], [address], 12/23/2023 15:57:25 12/23/19 24 12/23/2023 urina lysis panel , auto Unknown Analyte Negati ve Not Available [facility] [address], [place], [address], 12/23/2023 15:57:25 12/23/19 24 12/23/2023 urina lysis panel , auto Unknown Analyte Negati ve Not Available [facility] [address], [place], [address], 12/23/2023 15:57:25 12/23/19 24 12/23/2023 urina lysis panel , auto Unknown Analyte Negati ve Not Available [facility] [address], [place], [address], 12/23/2023 15:57:25 06/24/19 25 06/24/2024 urina lysis panel , auto Unknown Analyte Clean Catch Not Available [facility] [address], [place], [address], 06/24/2024 17:21:52 06/24/19 25 06/24/2024 urina lysis panel , auto Unknown Analyte Yellow Not Available [facility] [address], [place], [address], 06/24/2024 17:21:52 06/24/19 25 06/24/2024 urina lysis panel , auto Unknown Analyte Clear Not Available [facility] [address], [place], [address], 06/24/2024 17:21:52 06/24/19 25 06/24/2024 urina lysis panel , auto Unknown Analyte 1.020 Not Available [facility] [address], [place], [address], 06/24/2024 17:21:52 06/24/19 25 06/24/2024 urina lysis panel , auto Unknown Analyte 1.003- 1.035 Not Available [facility] [address], [place], [address], 06/24/2024 17:21:52 06/24/19 25 06/24/2024 urina lysis panel , auto Unknown Analyte 5.0 Not Available [facility] [address] [place] [address] [address], [place], [address], 06/24/2024 17:21:52 06/24/19 25 06/24/2024 urina lysis panel , auto Unknown Analyte 5.0-8. 0 Not Available [facility] [address], [place], [address], 06/24/2024 17:21:52 06/24/19 25 06/24/2024 urina lysis panel , auto Unknown Analyte Negati ve Not Available [facility] [address], [place], [address], 06/24/2024 17:21:52 06/24/19 25 06/24/2024 urina lysis panel , auto Unknown Analyte Negati ve Not Available [facility] [address], [place], [address], 06/24/2024 17:21:52 06/24/19 25 06/24/2024 urina lysis panel , auto Unknown Analyte Negati ve Not Available [facility] [address], [place], [address], 06/24/2024 17:21:52 06/24/19 25 06/24/2024 urina lysis panel , auto Unknown Analyte Negati ve Not Available [facility] [address], [place], [address], 06/24/2024 17:21:52 06/24/19 25 06/24/2024 urina lysis panel , auto Unknown Analyte Negati ve Not Available [facility] [address], [place], [address], 06/24/2024 17:21:52 06/24/19 25 06/24/2024 urina lysis panel , auto Unknown Analyte Negati ve Not Available [facility] [address], [place], [address], 06/24/2024 17:21:52 06/24/19 25 06/24/2024 urina lysis panel , auto Unknown Analyte Normal Not Available [facility] [address], [place], [address], 06/24/2024 17:21:52 06/24/19 25 06/24/2024 urina lysis panel , auto Unknown Analyte Normal Not Available [facility] [address], [place], [address], 06/24/2024 17:21:52 06/24/19 25 06/24/2024 urina lysis panel , auto Unknown Analyte Negati ve Not Available [facility] [address], [place], [address], 06/24/2024 17:21:52 06/24/19 25 06/24/2024 urina lysis panel , auto Unknown Analyte Negati ve Not Available [facility] [address], [place], [address], 06/24/2024 17:21:52 06/24/19 25 06/24/2024 urina lysis panel , auto Unknown Analyte Normal Not Available [facility] [address], [place], [address], 06/24/2024 17:21:52 06/24/19 25 06/24/2024 urina lysis panel , auto Unknown Analyte Normal 1 mg/dl Not Available [facility] [address], [place], [address], 06/24/2024 17:21:52 06/24/19 25 06/24/2024 urina lysis panel , auto Unknown Analyte Negati ve Not Available [facility] [address], [place], [address], 06/24/2024 17:21:52 06/24/19 25 06/24/2024 urina lysis panel , auto Unknown Analyte Negati ve Not Available [facility] [address], [place], [address], 06/24/2024 17:21:52 06/24/19 25 06/24/2024 urina lysis panel , auto Unknown Analyte Negati ve Not Available [facility] [address], [place], [address], 06/24/2024 17:21:52 06/24/19 25 06/24/2024 urina lysis panel , auto Unknown Analyte Negati ve Not Available [facility] [address], [place], [address], 06/24/2024 17:21:52 06/24/19 25 06/24/2024 PSA, serum or plasm a PSA 12.6 NG/mL 0.0 - 4.0 Not Available [facility] [address], [place], [address], 06/24/2024 17:21:32 07/22/19 25 07/22/2024 PSA, serum or plasm a PSA 7.4 NG/mL 0.0 - 4.0 Not Available [facility] [address], [place], [address], 07/22/2024 16:55:58 Result Notes None recorded. Problems No Known Problems Medical Equipment None Reported. Allergies Allergen ID Allergen Name Allergen Category Reaction Reaction Severity Criticality Documentation Date Start Date Code Code System Note Provider Name and Address Organization Details Recorded Time 022459 Anectine medicatio n Not available Not available Not available 10/30/2021 91197 8 RxNorm [facility] 15:18:56 362190 nitroglyc [facility] Not available Not available Not available 10/30/2021 4917 RxNorm [facility] 15:19:05 Medications Name Sig Start Date [...] Updated DateTime 06/26/2022 180.34 cm 29.6 kg/m2 03334.58 g Jagruti Sanchez [facility] 06/26/2022 09:45:08 Date Recorded Body height Body mass index (BMI) Body weight Provider Name and Address Organization Details Last Updated DateTime 12/25/2022 180.34 cm 29.6 kg/m2 16741.58 g Lillian Contreras [facility] 12/25/2022 11:18:33 Date Recorded Body height Body mass index (BMI) Body weight Provider Name and Address Organization Details Last Updated DateTime 12/23/2023 180.34 cm 29.6 kg/m2 01575.58 g [facility] 12/23/2023 16:05:04 Date Recorded Body height Body mass index (BMI) Body weight Provider Name and Address Organization Details Last Updated DateTime 06/24/2024 180.34 cm 30 kg/m2 46608.36 g Kevin [facility] 06/24/2024 17:24:31 Date Recorded Body height Body mass index (BMI) Body weight Provider Name and Address Organization Details Last Updated DateTime 07/22/2024 180.34 cm 30 kg/m2 26113.36 g Marquita Loja [facility] 07/22/2024 16:26:48 Social History Question Answer Notes LastModified by Organizat ion Details LastModified Time Tobacco Smoking Status Never Smoker [facility] 10/30/2021 15:19:59 What Is Your Level Of Alcohol Consumption? None [email or web address] Information not available 10/30/2021 What Was The Date Of Your Most Recent Tobacco Screening? 07/22/2024 Information not available 07/22/2024 What Is Your Relationship Status? [email or web address] Information not available 10/30/2021 Do You Use Any Illicit Or Recreational Drugs? No [email or web address] Information not available 10/30/2021 Has Tobacco Cessation Counseling Been Provided? No [email or web address] Information not available 10/30/2021 Have You Recently Traveled Abroad? No [email or web address] Information not available 10/30/2021 Do You Or Have You Ever Used Any Other Forms Of Tobacco Or Nicotine? No Information not available 10/30/2021 Sex: Unknown Functional Status None recorded. Mental Status None recorded. Family History Relationship Description Onset Age of this Age Resolved Age Notes LastModified by Organization Details LastModified Time Father Malignant tumor of prostate [email or web address] Not available 10/30 15:19:36 Medical History Condition Response Thyroid Disorder Y High Cholesterol Y Sleep Apnea Y Past Encounters Encounter ID Performer Location Encounter Start Date Encounter Closed Date Diagnosis/Indication Diagnosis SNOMED-CT Code Diagnosis ICD10 Code Diagnosis Note [id number] MD [facility] [address] [place] [id number] 10/30/2021 14:38:14 10/30/2021 15:40:05 Prostate specific antigen above reference range 631445591 R97.20 Benign pro static hyperplasia with outflow obstruction 832663236 N40.1 [id number] CINTIA ROSADO MD [facility] [address] [place] [address] 12/04/2021 13:13:23 12/04/2021 14:05:53 Prostate specific antigen above reference range 439779398 R97.20 [id number] CINTIA ROSADO MD SURGERY SCHEDULE [address] [place] [address] 12/17/2021 09:19:42 12/17/2021 09:21:27 [id number] CINTIA ROSADO MD [facility] [address] [address] 0 12/20/2021 12:33:29 12/20/2021 13:05:45 Prostate specific antigen above reference range 048481252 R97.20 Benign pro static hyperplasia with outflow obstruction 322368390 N40.1 [id number] CINTIA ROSADO MD [facility] [address] [address] 06/26/2022 09:25:21 06/26/2022 10:37:25 Prostate specific antigen above reference range 765794070 R97.20 Benign pro static hyperplasia with outflow obstruction 539196413 N40.1 [id number] CINTIA ROSADO MD [facility] [address] [address] 0 12/25/2022 10:34:56 12/25/2022 11:32:21 Prostate specific antigen above reference range 626988170 R97.20 Benign pro static hyperplasia with outflow obstruction 269526585 N40.1 Primary er ectile dysfunction 861180787 N52.9 [id number] CINTIA ROSADO MD [facility] [address] [address] 0 12/23/2023 15:38:20 12/23/2023 16:27:25 Prostate specific antigen above reference range [id number] R97.20 Benign pro static hyperplasia with outflow obstruction [id number] N40.1 Primary er ectile dysfunction [id number] N52.9 [id number] CINTIA ROSADO MD [facility] [address] [place] [address] 0 06/24/2024 16:48:42 06/25/2024 08:49:31 Prostate specific antigen above reference range [id number] R97.20 [id number] CINTIA ROSADO MD [facility] [address] 0 07/22/2024 16:19:08 07/23/2024 14:34:06 Prostate specific antigen above reference range [id number] R97.20 Health Concerns Section Related Observation LastModified by Organization Detai ls LastModified Time None Recorded Concern Status LastModified by Organization Details LastModified Time None Recorded Advance Directives Directive None Recorded Payers Encounter Date Sequence Insurance Name Policy Number Policy [place] Covered Member ID [place] Member ID Guarantor Name 06/26/2022 1 [place] [id number] 2 Latrell N Morales [id number] Latrell N Morales 12/25/2022 1 [place] [id number] 2 Latrell N Morales [id number] Latrell N Morales 12/23/2023 1 [place] [id number] 2 Latrell N Morales [id number] Latrell N Morales 06/24/2024 1 [place] [id number] 2 Latrell N Morales [id number] Latrell N Morales 07/22/2024 1 [place] [id number] 2 Latrell N Morales [id number] Latrell N Morales Notes Date Note [...] alfuzosin CINTIA ROSADO MD [address], [place], [address], [facility] 06/27/2022 18:18:45 12/25/2022 text/html He is back [...] the 100 mg sildenafil CINTIA ROSADO MD [address] [place] [address] [place], [address], [facility] 12/25/2022 11:36:44 12/23/2023 text/html He is back for follow-up of elevated PSA. It was 16.5 and biopsies were negative. It dropped down to 5.8, last time 3.5. It is 4.9. He is still having obstructive symptoms. The alfuzosin did not help him previously he is not ready for cystoscopy. The sildenafil works fairly well but not perfect. We will try tadalafil CINTIA ROSADO MD [address] [place], [address], [facility] 12/23/2023 16:31:51 06/24/2024 text/html He is back [...] we will schedule MRI CINTIA ROSADO MD [address] [place] [address], [phone], [facility] 06/24/2024 17:30:22 07/22/2024 text/html He is back [...] in 6 months CINTIA ROSADO MD [address] [place], [address], [facility] 07/26/2024 16:29:53
--- OUTSIDE RECORDS SUMMARY | 2024-09-15 16:01 | XMS_ITS | Data Portability ---
Author Organization [facility] ROBB Rousseau ADMIN Address [address] [place] [id number] Care Team Providers Care Tool Clerk Name Role Phone IGLESIA CIFUENTES Primary Care Provider [phone] Assessment No assessment recorded. Plan of Treatment Reminders Order Date Submit Date Provider Last Modified By Organization Details Last Modified Time Details Appointments 3 MONTH FU 15 2024 01:15P M Iglesia Cifuentes MD Not available Not available Not available Lab HbA1c (hemoglob in A1c), blood 2023 024 [facility], [address], [address], [place], [address], 03/18/2024 08:21:57 thyroid panel, serum 2023 024 [facility], [address], [address], [place], [address], 03/18/2024 08:21:56 lipid panel, serum 2023 024 [facility], [address], [address], [place], [address], 03/18/2024 08:21:55 CMP, serum or plasma 2023 024 [facility], [address], [address], [place], [address], 03/18/2024 08:21:54 CMP, serum or plasma 2023 024 [facility], [address], [address], [place], [address], 12/17/2023 14:13:31 lipid panel, serum 2023 024 [facility], [address], [address], [place], [address], 12/17/2023 14:13:31 thyroid panel, serum 2023 024 [facility], [address], [address], [place], [address], 12/17/2023 14:13:32 urinalysi s, dipstick 2023 024 [facility], [address], [place], [address], 09/22/2023 16:33:21 Referral None recorded. Procedures None recorded. Surgeries None recorded. Imaging None recorded. Medication Orders levothyro xine 125 mcg tablet 2024 025 [facility], [address], [address], 06/17/2024 15:50:58 levothyro xine 150 mcg tablet 2023 024 [facility], [address], [address], 03/18/2024 17:41:59 sildenafi l 100 mg tablet 2023 025 [facility], [address], [address], 08/25/2024 10:47:00 Zithromax Z-Pool 250 mg tablet 2023 024 [facility], [address], [address], 08/25/2024 10:45:54 promethaz ine-DM 6.25 mg-15 mg/5 mL oral syrup 2023 024 [facility], [address] [place], [address], 12/16/2023 13:52:39 prednison e 20 mg tablet 2023 024 [facility], [address] [place], [address], 12/16/2023 13:45:16 Patient TargetsNo targets recorded. Patient InstructionsNo instructions recorded. Reason for Referral None Reported. Results Created Date Observation Date Name Description Value Unit Range Abnormal Flag Note LastModifiedBy Organization Detail LastModifiedTime 09/22/19 24 09/22/2023 urina lysis , dipst ick Leukocytes (reference range) negati ve Not Available [address], [place], [address], 09/22/2023 16:10:01 09/22/19 24 09/22/2023 urina lysis , dipst ick Nitrite (reference range:) negati ve Not Available [address], [place], [address], 09/22/2023 16:10:01 09/22/19 24 09/22/2023 urina lysis , dipst ick Urobilinogen (reference range) 0.2 Not Available [facility] [address] [facility] [address], [place], [address], 09/22/2023 16:10:01 09/22/19 24 09/22/2023 urina lysis , dipst ick Protein (reference range) negati ve Not Available [facility] [address] [facility] [address], [place], [address], 09/22/2023 16:10:01 09/22/19 24 09/22/2023 urina lysis , dipst ick pH (reference range 5-8.5) 5.5 Not Available [facility] [address], [place], [address], 09/22/2023 16:10:01 09/22/19 24 09/22/2023 urina lysis , dipst ick Blood (reference range:) negati ve Not Available [facility] [address] [facility] [address], [place], [address], 09/22/2023 16:10:01 09/22/19 24 09/22/2023 urina lysis , dipst ick Specific [place] (reference range) 1.025 Not Available [facility] [address], [place], [address], 09/22/2023 16:10:01 09/22/19 24 09/22/2023 urina lysis , dipst ick Ketone (reference range) negati ve Not Available [facility] [address], [place], [address], 09/22/2023 16:10:01 09/22/19 24 09/22/2023 urina lysis , dipst ick Bilirubin (reference range) negati ve Not Available [facility] [address], [place], [address], 09/22/2023 16:10:01 09/22/19 24 09/22/2023 urina lysis , dipst ick Glucose (reference range) negati ve Not Available [facility] [address] [facility] [address], [place], [address], 09/22/2023 16:10:01 09/22/19 24 09/22/2023 urina lysis , dipst ick Color (reference range: yellow-brown ) Yellow Not Available [facility] [address], [place], [address], 09/22/2023 16:10:01 12/16/19 24 12/17/2023 COMP. METAB OLIC PANEL (14) glucose 81 mg/dL 70-99 normal Not Available [facility] ([facility]) [address] [facility], [place], [address], 12/17/2023 14:13:31 12/16/19 24 12/17/2023 COMP. METAB OLIC PANEL (14) BUN 17 mg/dL 8-27 normal Not Available [facility] ([facility]) [address] [facility], [place], [address], 12/17/2023 14:13:31 12/16/19 24 12/17/2023 COMP. METAB OLIC PANEL (14) creatinine 1.05 mg/dL 0.76-1 .27 normal Not Available [facility] ([facility]) [address] [facility], [place], [address], 12/17/2023 14:13:31 12/16/19 24 12/17/2023 COMP. METAB OLIC PANEL (14) eGFR 81 mL/mi n/1.7 3 >59 normal Not Available [facility] ([facility]) [address] [facility], [place], [address], 12/17/2023 14:13:31 12/16/19 24 12/17/2023 COMP. METAB OLIC PANEL (14) BUN/creatini ne ratio 16 10-24 normal Not Available [facility] ([facility]) [address] [facility], [place], [address], 12/17/2023 14:13:31 12/16/19 24 12/17/2023 COMP. METAB OLIC PANEL (14) sodium 139 mmol/ L 134-14 4 normal Not Available [facility] ([facility]) [address] [place], [address], 12/17/2023 14:13:31 12/16/19 24 12/17/2023 COMP. METAB OLIC PANEL (14) potassium 4.5 mmol/ L 3.5-5. 2 normal Not Available [facility] ([facility]) [address] [place], [address], 12/17/2023 14:13:31 12/16/1912/17/2023 COMP. METAB OLIC PANEL (14) chloride 100 mmol/ L 96-106 normal Not Available [facility] ([facility]) [address] [facility], [place], [address], 12/17/2023 14:13:31 12/16/19 24 12/17/2023 COMP. METAB OLIC PANEL (14) carbon dioxide, total 26 mmol/ L 20-29 normal Not Available [facility] ([facility]) [address] [place], [address], 12/17/2023 14:13:31 12/16/19 24 12/17/2023 COMP. METAB OLIC PANEL (14) calcium 9.4 mg/dL 8.6-10 .2 normal Not Available [facility] ([facility]) [address] [place], [address], 12/17/2023 14:13:31 12/16/19 24 12/17/2023 COMP. METAB OLIC PANEL (14) protein, total 6.7 g/dL 6.0-8. 5 normal Not Available [facility] ([facility]) [address] [place], [address], 12/17/2023 14:13:31 12/16/19 24 12/17/2023 COMP. METAB OLIC PANEL (14) albumin 4.3 g/dL 3.8-4. 9 normal Not Available [facility] ([facility]) [address], [place], [address], 12/17/2023 14:13:31 12/16/19 24 12/17/2023 COMP. METAB OLIC PANEL (14) globulin, total 2.4 g/dL 1.5-4. 5 Not Available [facility] ([facility]) [address], [place], [address], 12/17/2023 14:13:31 12/16/19 24 12/17/2023 COMP. METAB OLIC PANEL (14) bilirubin, total 0.4 mg/dL 0.0-1. 2 normal Not Available [facility] ([facility]) [address], [place], [address], 12/17/2023 14:13:31 12/16/19 24 12/17/2023 COMP. METAB OLIC PANEL (14) alkaline phosphatase 51 IU/L 44-121 normal Not Available [facility]) [address], [place], [address], 12/17/2023 14:13:31 12/16/19 24 12/17/2023 COMP. METAB OLIC PANEL (14) AST (SGOT) 19 IU/L 0-40 normal Not Available [facility] ([facility]) [address], [place], [address], 12/17/2023 14:13:31 12/16/19 24 12/17/2023 COMP. METAB OLIC PANEL (14) ALT (SGPT) 18 IU/L 0-44 normal Not Available [facility] ([facility]) [address] [place], [address], 12/17/2023 14:13:31 12/16/19 24 12/17/2023 LIPID PANEL cholesterol, total 208 mg/dL 100-19 9 above high normal Not Available [facility] ([facility]) [address] [place], [address], 12/17/2023 14:13:31 12/16/19 24 12/17/2023 LIPID PANEL triglyceride s 212 mg/dL 0-149 above high normal Not Available [facility] ([facility]) [address] [place], [address], 12/17/2023 14:13:31 12/16/19 24 12/17/2023 LIPID PANEL HDL cholesterol 37 mg/dL >39 below low normal Not Available [facility] ([facility]) [address] [place], [address], 12/17/2023 14:13:31 12/16/19 24 12/17/2023 LIPID PANEL VLDL cholesterol heather 38 mg/dL 5-40 Not Available [facility] ([facility]) [address] [place], [address], 12/17/2023 14:13:31 12/16/19 24 12/17/2023 LIPID PANEL LDL chol calc ([facility]) 133 mg/dL 0-99 above high normal Not Available [facility] ([facility]) [address] [place], [address], 12/17/2023 14:13:31 12/16/19 24 12/17/2023 LIPID PANEL LDL calc comment: 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 Not Available [facility] ([facility]) [address] [place], [address], 12/17/2023 14:13:31 12/16/19 24 12/17/2023 THYRO ID PANEL WITH TSH TSH 0.178 uIU/m L 0.450- 4.500 below low normal Not Available [facility] ([facility]) [address] [place], [address], 12/17/2023 14:13:32 12/16/19 24 12/17/2023 THYRO ID PANEL WITH TSH thyroxine (T4) 8.6 ug/dL 4.5-12 .0 normal Not Available [facility] ([facility]) [address] [place], [address], 12/17/2023 14:13:32 12/16/1912/17/2023 THYRO ID PANEL WITH TSH T3 uptake 29 % 24-39 normal Not Available [facility] ([facility]) [address] [place], [address], 12/17/2023 14:13:32 12/16/1912/17/2023 THYRO ID PANEL WITH TSH free thyroxine index 2.5 1.2-4. 9 normal Not Available [facility] ([facility]) [address] [place], [address], 12/17/2023 14:13:32 03/17/2003/18/2024 COMP. METAB OLIC PANEL (14) glucose 93 mg/dL 70-99 normal Not Available [facility] ([facility]) [address] [place], [address], 03/18/2024 08:21:54 03/17/2003/18/2024 COMP. METAB OLIC PANEL (14) BUN 16 mg/dL 8-27 normal Not Available [facility] ([facility]) [address] [place], [address], 03/18/2024 08:21:54 03/17/2003/18/2024 COMP. METAB OLIC PANEL (14) creatinine 1.09 mg/dL 0.76-1 .27 normal Not Available [facility] ([facility]) [address] [place], [address], 03/18/2024 08:21:54 03/17/2003/18/2024 COMP. METAB OLIC PANEL (14) eGFR 78 mL/mi n/1.7 3 >59 normal Not Available [facility] ([facility]) [address] [place], [address], 03/18/2024 08:21:54 03/17/20 24 03/18/2024 COMP. METAB OLIC PANEL (14) BUN/creatini ne ratio 15 10-24 normal Not Available [facility] ([facility]) [address] [facility], [place], [address], 03/18/2024 08:21:54 03/17/2003/18/2024 COMP. METAB OLIC PANEL (14) sodium 140 mmol/ L 134-14 4 normal Not Available [facility] ([facility]) [address] [facility], [place], [address], 03/18/2024 08:21:54 03/17/2003/18/2024 COMP. METAB OLIC PANEL (14) potassium 5.1 mmol/ L 3.5-5. 2 normal Not Available [facility] ([facility]) [address] [facility], [place], [address], 03/18/2024 08:21:54 03/17/2003/18/2024 COMP. METAB OLIC PANEL (14) chloride 101 mmol/ L 96-106 normal Not Available [facility] ([facility]) [address] [facility], [place], [address], 03/18/2024 08:21:54 03/17/2003/18/2024 COMP. METAB OLIC PANEL (14) carbon dioxide, total 24 mmol/ L 20-29 normal Not Available [facility] ([facility]) [address] [facility], [place], [address], 03/18/2024 08:21:54 03/17/2003/18/2024 COMP. METAB OLIC PANEL (14) calcium 9.4 mg/dL 8.6-10 .2 normal Not Available [facility] ([facility]) [address] [facility], [place], [address], 03/18/2024 08:21:54 03/17/2003/18/2024 COMP. METAB OLIC PANEL (14) protein, total 7.0 g/dL 6.0-8. 5 normal Not Available [facility] ([facility]) [address] [facility], [place], [address], 03/18/2024 08:21:54 03/17/2003/18/2024 COMP. METAB OLIC PANEL (14) albumin 4.4 g/dL 3.8-4. 9 normal Not Available [facility] ([facility]) [address] [facility], [place], [address], 03/18/2024 08:21:54 03/17/2003/18/2024 COMP. METAB OLIC PANEL (14) globulin, total 2.6 g/dL 1.5-4. 5 Not Available [facility] ([facility]) [address] [facility], [place], [address], 03/18/2024 08:21:54 03/17/2003/18/2024 COMP. METAB OLIC PANEL (14) bilirubin, total 0.6 mg/dL 0.0-1. 2 normal Not Available [facility] ([facility]) [address] [facility], [place], [address], 03/18/2024 08:21:54 03/17/2003/18/2024 COMP. METAB OLIC PANEL (14) alkaline phosphatase 51 IU/L 44-121 normal Not Available [facility] ([facility]) [address] [facility], [place], [address], 03/18/2024 08:21:54 03/17/2003/18/2024 COMP. METAB OLIC PANEL (14) AST (SGOT) 21 IU/L 0-40 normal Not Available [facility] ([facility]) [address] [facility], [place], [address], 03/18/2024 08:21:54 03/17/2003/18/2024 COMP. METAB OLIC PANEL (14) ALT (SGPT) 22 IU/L 0-44 normal Not Available [facility] ([facility]) [address] [place], [address], 03/18/2024 08:21:54 03/17/2003/18/2024 LIPID PANEL cholesterol, total 230 mg/dL 100-19 9 above high normal Not Available [facility] ([facility]) [address] [place], [address], 03/18/2024 08:21:55 03/17/2003/18/2024 LIPID PANEL triglyceride s 141 mg/dL 0-149 normal Not Available [facility] ([facility]) [address] [place], [address], 03/18/2024 08:21:55 03/17/2003/18/2024 LIPID PANEL HDL cholesterol 39 mg/dL >39 below low normal Not Available [facility] ([facility]) [address] [place], [address], 03/18/2024 08:21:55 03/17/2003/18/2024 LIPID PANEL VLDL cholesterol heather 26 mg/dL 5-40 Not Available [facility] ([facility]) [address] [place], [address], 03/18/2024 08:21:55 03/17/2003/18/2024 LIPID PANEL LDL chol calc ([facility]) 165 mg/dL 0-99 above high normal Not Available [facility] ([facility]) [address] [place], [address], 03/18/2024 08:21:55 03/17/2003/18/2024 LIPID PANEL LDL calc comment: [employer] 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 Not Available [facility] ([facility]) [address] [place], [address], 03/18/2024 08:21:55 03/17/2003/18/2024 THYRO ID PANEL WITH TSH TSH 2.780 uIU/m L 0.450- 4.500 normal Not Available [facility] ([facility]) [address] [place], [address], 03/18/2024 08:21:56 03/17/2003/18/2024 THYRO ID PANEL WITH TSH thyroxine (T4) 8.7 ug/dL 4.5-12 .0 normal Not Available [facility] ([facility]) [address] [place], [address], 03/18/2024 08:21:56 03/17/2003/18/2024 THYRO ID PANEL WITH TSH T3 uptake 30 % 24-39 normal Not Available [facility] ([facility]) [address] [place], [address], 03/18/2024 08:21:56 03/17/2003/18/2024 THYRO ID PANEL WITH TSH free thyroxine index 2.6 1.2-4. 9 normal Not Available [facility] ([facility]) [address] [place], [address], 03/18/2024 08:21:56 03/17/2003/18/2024 HEMOG LOBIN A1C hemoglobin A1C 5.8 % 4.8-5. 6 above high normal Predi abete s: 5.7 - 6.4 Diabe adair: >6.4 Glyce jose daniel contr ol for adult s with diabe adair: <7.0 Not Available [facility] ([facility]) [address] [place], [address], 03/18/2024 08:21:57 08/19/1908/18/2024 XR, chest No observ ation record ed. [email or web address] [facility] [address], [place], [address], 08/19/2024 18:04:49 08/19/19 25 08/18/2024 elect rocar diogr am No observ ation record ed. [address], [place], [address], 08/19/2024 18:04:32 08/19/19 25 08/18/2024 [facility] No observ ation record ed. [address], [place], [address], 08/19/2024 18:04:22 08/19/19 25 08/18/2024 CT, angio gram, chest + abdom en + pelvi s, w/ contr ast No observ ation record ed. [address], [place], [address], 08/19/2024 18:03:59 08/19/19 25 08/18/2024 venou s mappi ng, lower extre mity No observ ation record ed. [address], [place], [address], 08/19/2024 18:03:24 08/20/19 25 08/19/2024 stres s echoc ardio gram No observ ation record ed. [address], [place], [address], 08/19/2024 18:02:33 08/21/19 25 08/20/2024 CT, head + brain , w/ contr ast No observ ation record ed. [address], [place], [address], 08/23/2024 08:19:58 08/21/19 25 08/20/2024 CT, angio gram, head + neck, w/ contr ast No observ ation record ed. [address], [place], [address], 08/23/2024 08:19:44 08/21/19 25 08/20/2024 CT, angio gram, abdom en + pelvi s + lower extre mity, w/wo contr ast No observ ation record ed. [address], [place], [address], 08/23/2024 08:19:33 08/21/19 25 08/20/2024 CT, angio gram, abdom en + pelvi s + lower extre mity, w/wo contr ast No observ ation record ed. [address], [place], [address], 08/23/2024 08:19:24 08/21/19 25 08/20/2024 CT, abdom en + pelvi s, w/ contr ast No observ ation record ed. [address], [place], [place], [address], 08/23/2024 08:18:18 08/21/19 25 08/20/2024 CT, abdom en + pelvi s, w/ contr ast No observ ation record ed. [address], [place], [place], [address], 08/23/2024 08:18:09 08/21/19 25 08/20/2024 CT, angio gram, abdom en + pelvi s + lower extre mity, w/wo contr ast No observ ation record ed. [address], [place], [place], [address], 08/23/2024 08:17:20 08/21/19 25 08/20/2024 XR, chest No observ ation record ed. [address], [place], [place], [address], 08/23/2024 08:17:09 08/21/19 25 08/20/2024 elect rocar diogr am No observ ation record ed. [address], [place], [address], 08/23/2024 08:17:01 08/21/19 25 08/20/2024 CT, abdom en + pelvi s, w/ contr ast No observ ation record ed. [address], [place], [address], 08/23/2024 08:16:20 08/25/19 25 08/18/2024 elect rocar diogr am No observ ation record ed. [address], [place], [address], 08/25/2024 15:14:09 08/25/19 25 08/20/2024 stres s echoc ardio gram No observ ation record ed. [address], [place], [address], 08/25/2024 15:13:55 Result Notes None recorded. Problems Name Problem SNOMED Code Status Onset Date Resolution Date Notes Provider Name and Address Organization Details Recorded Time Pain of right shoulder joint [id number] 00 Active 2022 FARZANA CARROL [place] [facility] [place] 13:31:09 Problem Notes None recorded. Procedures Surgical History Date Name Laterality Status Provider Name and Address Organization Details Recorded Time 7 Appendectomy completed Minerva Tobin [place] - [facility] [place] 07/31/2022 13:09:49 4 Other completed Minerva Mahad [place] - [facility] [place] 07/31/2022 13:12:39 Imaging Results Imaging Date Name Status LastModified by Organization Details LastModified Time 08/18/2024 XR, chest completed [address], [place], [address], 08/19/2024 18:04:49 08/18/2024 electrocardiogram completed [address], [place], [address], 08/19/2024 18:04:32 08/18/2024 electrocardiogram completed [address], [place], [address], 08/19/2024 18:04:22 08/18/2024 CT, angiogram, chest + abdomen + pelvis, w/ contrast completed [address], [place], [address], 08/19/2024 18:03:59 08/18/2024 venous mapping, lower extremity completed [address], [place], [address], 08/19/2024 18:03:24 08/19/2024 stress echocardiogram completed [address], [place], [address], 08/19/2024 18:02:33 08/20/2024 CT, head + brain, w/ contrast completed [address], [place], [address], 08/23/2024 08:19:58 08/20/2024 CT, angiogram, head + neck, w/ contrast completed [address], [place], [address], 08/23/2024 08:19:44 08/20/2024 CT, angiogram, abdomen + pelvis + lower extremity, w/wo contrast completed [address], [place], [address], 08/23/2024 08:19:33 08/20/2024 CT, angiogram, abdomen + pelvis + lower extremity, w/wo contrast completed [address], [place], [address], 08/23/2024 08:19:24 08/20/2024 CT, abdomen + pelvis, w/ contrast completed [address], [place], [address], 08/23/2024 08:18:18 08/20/2024 CT, abdomen + pelvis, w/ contrast completed [address], [place], [address], 08/23/2024 08:18:09 08/20/2024 CT, angiogram, abdomen + pelvis + lower extremity, w/wo contrast completed [address], [place], [address], 08/23/2024 08:17:20 08/20/2024 XR, chest completed [address], [place], [address], 08/23/2024 08:17:09 08/20/2024 electrocardiogram completed [address], [place], [address], 08/23/2024 08:17:01 08/20/2024 CT, abdomen + pelvis, w/ contrast completed [address], [place], [address], 08/23/2024 08:16:20 08/18/2024 electrocardiogram completed [address], [place], [address], 08/25/2024 15:14:09 08/20/2024 stress echocardiogram completed [address], [place], [address], 08/25/2024 15:13:55 Procedure Notes None recorded. Medical Equipment None Reported. Allergies Allergen ID Allergen Name Allergen Category Reaction Reaction Severity Criticality Documentation Date Start Date Code Code System Note Provider Name and Address Organization Details Recorded Time 13128 nitroglyc wayne medicatio n Not available Not available Not available 07/31/2022 4917 RxNorm KETAN Calderon LPADAM [facility] [place] 3 13:10:08 13349 Anectine medicatio n Not available Not available Not available 07/31/202235378 8 RxNorm KET[place] Calderon LPADAM [facility] & [place] 3 13:11:52 Medications Name Sig Start Date [...] Not Available levothyroxi ne 125 mcg tablet Take 1 tablet by mouth once daily for 90 days 2024 active Not Available Not Available Not Avai lable levothyroxi ne 150 mcg tablet Take 1 [...] Updated DateTime 4 180.34 cm 29.7 kg/m2 12917.1 7 g 97.1 [degF] 98 % 98 % 103 /min 120 mm[Hg] 80 mm[Hg] Minerva Couch [facility] 4 16:03:14 Date Recorded Body height Body mass index (BMI) Body weight Body temperature Oxygen saturation Oxygen saturation in Arterial blood by Pulse oximetry Heart rate Systolic blood pressure Diastolic blood pressure Provider Name and Address Organization Details Last Updated DateTime 4 180.34 cm 30.1 kg/m2 83200.9 5 g 97.1 [degF] 95 % 95 % 91 /min 142 mm[Hg] 94 mm[Hg] Minerva Couch [facility] [place] 4 13:48:52 Date Recorded Body height Body mass index (BMI) Body weight Body temperature Oxygen saturation Oxygen saturation in Arterial blood by Pulse oximetry Heart rate Systolic blood pressure Diastolic blood pressure Provider Name and Address Organization Details Last Updated DateTime 5 180.34 cm 31.4 kg/m2 644279. 28 g 99.3 [degF] 98 % 98 % 91 /min 120 mm[Hg] 94 mm[Hg] [facility] [place] 5 15:38:14 Date Recorded Body height Body mass index (BMI) Body weight Body temperature Oxygen saturation Oxygen saturation in Arterial blood by Pulse oximetry Heart rate Systolic blood pressure Diastolic blood pressure Provider Name and Address Organization Details Last Updated DateTime 5 180.34 cm 30 kg/m2 10704.3 6 g 97.3 [degF] 95 % 95 % 94 /min 114 mm[Hg] 82 mm[Hg] Minerva GALVIN [facility] & [place] 5 10:45:30 Social History Question Answer Notes LastModified by [facility] Details LastModified Time Tobacco Smoking Status Never Smoker Minerva [facility], [facility] & [place] 07/31/2022 13:09:49 Do You Have An Advance Directive? No Information not available 07/31/2022 What Is Your Level Of Alcohol Consumption? None Information not available 07/31/2022 Are You Blind Or Do You Have Difficulty Seeing? No [email or web address] Information not available 07/31/2022 Do You Feel Stressed (tense, Restless, Nervous, Or Anxious, Or Unable To Sleep At Night)? [id number] Information not available 07/31/2022 Do You Use Any Illicit Or Recreational Drugs? No [email or web address] Information not available 07/31/2022 Sex: Male Functional Status Question Answer Note LastModified by [employer] Details LastModified Time What is your exercise level? Occasional [email or web address] Information not available 07/31/2022 Mental Status None [...] Minerva Couch [place] [facility] [place] 08/25/2024 10:45:47 COVID-19 vaccine, vector-nr, rS-Ad26, PF, 0.5 mL 1 completed Minerv[place] [facility] [place] 08/25/2024 10:45:47 Td (adult), 2 Lf tetanus toxoid, preservative free, adsorbed 7 completed [place]erv[place] [facility] [place] 08/25/2024 10:45:47 Past Encounters Encounter ID Performer Location Encounter Start Date Encounter Closed Date Diagnosis/Indication Diagnosis SNOMED-CT Code Diagnosis ICD10 Code Diagnosis Note [id number] Iglesia Cifuentes MD [address] [place] [address] 07/31/2022 13:03:06 07/31/2022 14:01:15 Benign prostatic hyperplasia 962832926 N40.0 Acquired hypothyroidism 308163710 E03.9 Adult heal th examination 660337262 Z00.00 Hyperlipidemia 39622657 E78.5 [id number] Reuben Shannon MD [address] [place] [address] 09/27/2022 14:05:11 09/27/2022 14:16:52 Acquired hypothyroidism 709397485 E03.9 [id number] Kathrin Munson, MARIA T, [employer] 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 May ice shoulder in 15 minute intervals. Will stretch shoulder. If pain persists will order MRI for further evaluation . Cervical radiculopathy 32856467 M54.12 [id number] MD Kyle Rodriguez[address] [place] [address] 11/07/2022 15:40:35 11/07/2022 16:01:57 Pain of right acromioclavicular joint 755932846 M25.511 Continues steroids for now. Consider trigger point injection if no improvemen t. Orthopedic evaluation if no improvemen t. He may wear shoulder sling but I have advised him to be conservati ve with usage of this extremity for the next week to 10 days. [id number] Iglesia Cifuentes MD [address] [place] [address] 07/15/2023 08:51:20 07/15/2023 09:12:19 Pain of right shoulder joint 7179638700 9211176 M25.511 Acute sinusitis 74653688 J01.90 Cervical radiculopathy 16544737 M54.12 [id number] Iglesia Cifuentes MD [facility] - [address] [facility] [place] [address] 09/22/2023 15:43:51 09/22/2023 16:16:22 Upper respiratory infection 61104668 J06.9 Right flank pain 7662445 09 R10.9 No urine noted. Consider CT of his abdomen and pelvis concentrat ing on the kidneys if his symptoms persist. Patient aware. [id number] Iglesia Cifuentes MD [facility] [address] [facility] [address] [place] [address] 12/16/2023 13:36:16 12/16/2023 14:45:38 Adult health examination 292935009 Z00.00 Essential hypertension 88566638 I10 Hypothyroidism 51337724 E03.9 Acquired hypothyroidism 327193716 E03.9 Erectile dysfunction 860 736445 F52.21 [id number] Iglesia Cifuentes MD [facility] - [address] [facility] [place] [address] 03/17/2024 14:28:38 03/17/2024 15:27:53 Hyperlipidemia 36938983 E78.5 Hypothyroidism 85480138 E03.9 Prediabetes 189846118 R7 3.03 [id number] Iglesia Cifuentes MD [facility] - [address] [facility] [place] [address] 06/17/2024 15:13:05 06/17/2024 15:52:50 Acquired hypothyroidism 651781611 E03.9 Essential hypertension 65575126 I10 serial bp ckecks [id number] Iglesia Cifuentes MD [facility] - [address] [facility] [place] [address] 08/25/2024 10:24:04 08/25/2024 10:53:[address] segment elevation myocardial infarction 8279236521 20234 I25.2 Keep follow-up with Cardiology today. Reassured by relatively clean cardiac catheteriz ation. History of pancreatitis 5534187160 9107 Z87.19 He is tofollow-u p with GI. wonder if they will do an ERCP on him History of sepsis 782100 6532 58672 Z86.19 Health Concerns Section Related Observation LastModified by Organization Detai ls LastModified Time None Recorded Concern Status LastModified by Organization Details LastModified Time None Recorded Advance Directives Directive N: Payers Encounter Date Sequence Insurance Name Policy Number Policy [place] Covered Member ID [place] Member ID Guarantor Name 09/22/2023 1 [place] [id number] 2 Latrell N Morales [id number] Latrell N Morales 12/16/2023 1 [place] [id number] 2 Latrell N Morales [id number] Latrell N Morales 03/17/2024 1 [place] [id number] 2 Latrell N Morales [id number] Latrell Morales 06/17/2024 1 [place] [id number] 2 Latrell Morales [id number] Latrell Morales 08/25/2024 1 [place]) [id number] 2 Latrell Morales [id number] Latrell Morales Notes Date Note Type [...] stones. Iglesia Cifuentes MD [address], [place], [address], [facility] & [place] 09/22/2023 16:52:50 12/16/2023 text/html He is here for [facility] adult exam and follow-up. He is [...] patient. Iglesia Cifuentes MD [address], [place], [address], [facility] & [place] 12/16/2023 16:38:58 06/17/2024 text/html He is here for follow-up. He is history of hypothyroidism. He is on Synthroid 125 mcg daily. Thyroid studies performed less than 3 months ago were within normal limits.Mild prediabetes. His A1c back in February was 5.8. His blood pressure Slightly elevated in the diastolic. MD [address], [place], [address], [place] - [facility] & [place] 06/17/2024 17:16:05 08/25/2024 text/html He is here for hospital follow-up. He has had an interesting past few days. From what I gather he had a ST-elevation SD and pancreatitis. 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 Progress of the night to the point where he went to the emergency room where he was diagnosed with troponin elevation and what the ER record shows his ST elevation SD. he was deemed a cardiac catheterization which was essentially clean. 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 He also had pancreatitis per his report. I am not sure if this was from enzymes or from a CT but he did have some pancreatic ductal dilatation. He seems to be doing better in this regard. He has an appointment in a few days to see GI for most likely ERCP. Iglesia Cifuentes MD [address], [place], [address], [place] [facility] & [place] 08/25/2024 11:45:51
[2024-09-15] MEDS: 0.9 % SODIUM CHLORIDE 50 ML VIAL IV (17:21)
[2024-09-15] MEDS: GADOTERIDOL INJ 20ML SYRINGE 20 ML IV (17:21)
== END 2024-09-15 23:59 | disposition home or self-care (01) ==
LOC: RAD 16:00
PROVIDERS: PCP Family Medicine; Visit Provider Internal Medicine Gastroenterology
DX: K86.89 Other specified diseases of pancreas (principal)
CPT/HCPCS: 74183; 76376; A9576

== ENCOUNTER 2024-10-13 15:00 | Outpatient (CLI) | payer BC, SELFPAY ==
--- NOTE | 2024-10-13 | CA_ITS ---
APPROVED REPORT EXAM: Limited 2D Echocardiogram with contrast Cutting Machine Tender: Justa Brown CRT Ht: 5 ft 11 in Wt: 211lbs BSA: 2.16 BP: 133/86 mmHg Indications: ef check with definity recent STEMI with dissolution of thrombus with heparin ef 45% MRI and echo Echo Enhancing Agent Indication: Rule out thrombus Agent(s) / Amount(s) Used: Definity 2 cc Comments: definity ordered Other Information Study Quality: Fair Conclusion This is a limited TTE to evaluate for LV systolic function. Limited windows are obtained. Ultrasound enhancing agent is administered. The left ventricle is normal in size. There is increased LV wall thickness. There is normal global LV systolic function. No regional wall motion abnormalities are noted. LVEF is 55-60%. Administration of ultrasound enhancing agent demonstrates no evidence of LV thrombus. Compared to prior study from 08/20/2024, the LV systolic function is improved and is now normal. Electronically signed by : Katherine Cohen MD 10/15/2024 23:14:35
--- OUTSIDE RECORDS SUMMARY | 2024-10-13 15:03 | XMS_ITS | Data Portability ---
Author Organization [facility] MARGARET Ramos [place] [facility] Address [address] [place] [address] Assessment No assessment recorded. Plan of Treatment Reminders Order Date Submit Date Provider Last Modified By Organization Details Last Modified Time Details Appointments RECHECK 2024 04:00P M CINTIA ROSADO MD Not available Not available Not available Lab PSA, serum or plasma 2024 025 [facility], [address], [place], [address], 07/22/2024 16:58:53 PSA, serum or plasma 2024 025 [facility], [address], [address], [place], [address], 06/24/2024 17:29:52 urinalysi s panel, auto 2024 025 [facility], [address], [address], [place], [address], 06/24/2024 17:29:52 urinalysi s panel, auto 2023 024 [facility], [address], [address], [place], [address], 12/23/2023 16:31:33 PSA, serum or plasma 2023 024 [facility], [address], [address], [place], [address], 12/23/2023 16:31:34 urinalysi s panel, auto 2022 023 [facility], [address], [address], [place], [address], 12/25/2022 11:34:53 PSA, serum or plasma 2022 023 [facility], [address], [address], [place], [address], 12/25/2022 11:34:53 urinalysi s panel, auto 2022 023 [facility], [address], [address], [place], [address], 10/24/2022 19:18:12 PSA, serum or plasma 2022 023 [facility], [address], [address], [place], [address], 06/27/2022 13:47:13 Referral None recorded. Procedures None recorded. Surgeries None recorded. Imaging None recorded. Medication Orders Bactrim DS 800 mg-160 mg tablet 2024 025 [facility], [address], [address], 06/24/2024 17:29:53 tadalafil 20 mg tablet 2023 024 [facility], [address], [address], 12/23/2023 16:31:37 sildenafi l 100 mg tablet 2022 023 [facility], [address] [place], [address], 12/25/2022 11:34:58 alfuzosin ER 10 mg tablet,ex tended release 24 hr 2022 023 [facility], [address] [place], [address], 06/27/2022 18:18:33 Patient TargetsNo targets recorded. Patient InstructionsNo instructions recorded. Reason for Referral None Reported. Results Created Date Observation Date Name Description Value Unit Range Abnormal Flag Note LastModifiedBy Organization Detail LastModifiedTime 06/27/1906/27/2022 PSA, serum or plasm a PSA 5.8 NG/mL 0.0 - 4.0 Not Available [facility] [address], [address], 06/27/2022 10:14:28 12/26/19 23 12/25/2022 PSA, serum or plasm a PSA 3.5 NG/mL 0.0 - 4.0 Not Available [facility] [address], [address], 12/25/2022 11:21:00 12/26/19 23 12/25/2022 urina lysis panel , auto Unknown Analyte Clean Catch Not Available [facility] [address], [address], 12/25/2022 11:20:28 12/26/19 23 12/25/2022 urina lysis panel , auto Unknown Analyte Yellow Not Available [facility] [address], [place], [address], 12/25/2022 11:20:28 12/26/19 23 12/25/2022 urina lysis panel , auto Unknown Analyte Clear Not Available [facility] [address], [place], [address], 12/25/2022 11:20:28 12/26/19 23 12/25/2022 urina lysis panel , auto Unknown Analyte 1.015 Not Available [facility] [address], [place], [address], 12/25/2022 11:20:28 12/26/19 23 12/25/2022 urina lysis panel , auto Unknown Analyte 5.0 Not Available [facility] [address], [place], [address], 12/25/2022 11:20:28 12/26/19 23 12/25/2022 urina lysis panel , auto Unknown Analyte Negati ve Not Available [facility] [address], [place], [address], 12/25/2022 11:20:28 12/26/19 23 12/25/2022 urina lysis panel , auto Unknown Analyte Negati ve Not Available [facility] [address], [place], [address], 12/25/2022 11:20:28 12/26/19 23 12/25/2022 urina lysis panel , auto Unknown Analyte Negati ve Not Available [facility] [address], [place], [address], 12/25/2022 11:20:28 12/26/19 23 12/25/2022 urina lysis panel , auto Unknown Analyte Normal Not Available [facility] [address], [place], [address], 12/25/2022 11:20:28 12/26/19 23 12/25/2022 urina lysis panel , auto Unknown Analyte Negati ve Not Available [facility] [address], [place], [address], 12/25/2022 11:20:28 12/26/19 23 12/25/2022 urina lysis panel , auto Unknown Analyte Normal Not Available [facility] [address], [place], [address], 12/25/2022 11:20:28 12/26/19 23 12/25/2022 urina lysis panel , auto Unknown Analyte Negati ve Not Available [facility] [address], [place], [address], 12/25/2022 11:20:28 12/26/19 23 12/25/2022 urina lysis panel , auto Unknown Analyte Negati ve Not Available [facility] [address], [place], [address], 12/25/2022 11:20:28 12/23/19 24 12/23/2023 PSA, serum or plasm a PSA 4.9 NG/mL 0.0 - 4.0 Not Available [facility] [address], [place], [address], 12/23/2023 16:21:52 12/23/19 24 12/23/2023 urina lysis panel , auto Unknown Analyte Clean Catch Not Available [facility] [address] [address], [place], [address], 12/23/2023 15:57:25 12/23/19 24 12/23/2023 urina lysis panel , auto Unknown Analyte Yellow Not Available [facility] [address], [place], [address], 12/23/2023 15:57:25 12/23/19 24 12/23/2023 urina lysis panel , auto Unknown Analyte Clear Not Available [facility] [address], [place], [address], 12/23/2023 15:57:25 12/23/19 24 12/23/2023 urina lysis panel , auto Unknown Analyte 1.020 Not Available [facility] [address], [place], [address], 12/23/2023 15:57:25 12/23/19 24 12/23/2023 urina lysis panel , auto Unknown Analyte 1.003- 1.035 Not Available [facility] [address], [place], [address], 12/23/2023 15:57:25 12/23/19 24 12/23/2023 urina lysis panel , auto Unknown Analyte 5.0 Not Available [facility] [place] [address], [place], [address], 12/23/2023 15:57:25 12/23/19 24 12/23/2023 urina lysis panel , auto Unknown Analyte 5.0-8. 0 Not Available [facility] [address], [place], [address], 12/23/2023 15:57:25 12/23/19 24 12/23/2023 urina lysis panel , auto Unknown Analyte Negati ve Not Available [facility] [address], [place], [address], 12/23/2023 15:57:25 12/23/19 24 12/23/2023 urina lysis panel , auto Unknown Analyte Negati ve Not Available [facility] [address], [place], [address], 12/23/2023 15:57:25 12/23/19 24 12/23/2023 urina lysis panel , auto Unknown Analyte Negati ve Not Available [facility] [address], [place], [address], 12/23/2023 15:57:25 12/23/19 24 12/23/2023 urina lysis panel , auto Unknown Analyte Negati ve Not Available [facility] [address], [place], [address], 12/23/2023 15:57:25 12/23/19 24 12/23/2023 urina lysis panel , auto Unknown Analyte Negati ve Not Available [facility] [address], [place], [address], 12/23/2023 15:57:25 12/23/19 24 12/23/2023 urina lysis panel , auto Unknown Analyte Negati ve Not Available [facility] [address], [place], [address], 12/23/2023 15:57:25 12/23/19 24 12/23/2023 urina lysis panel , auto Unknown Analyte Normal Not Available [facility] [address], [place], [address], 12/23/2023 15:57:25 12/23/19 24 12/23/2023 urina lysis panel , auto Unknown Analyte Normal Not Available [facility] [address], [place], [address], 12/23/2023 15:57:25 12/23/19 24 12/23/2023 urina lysis panel , auto Unknown Analyte Negati ve Not Available [facility] [address], [place], [address], 12/23/2023 15:57:25 12/23/19 24 12/23/2023 urina lysis panel , auto Unknown Analyte Negati ve Not Available [facility] [address], [place], [address], 12/23/2023 15:57:25 12/23/19 24 12/23/2023 urina lysis panel , auto Unknown Analyte Normal Not Available [facility] [address], [place], [address], 12/23/2023 15:57:25 12/23/19 24 12/23/2023 urina lysis panel , auto Unknown Analyte Normal 1 mg/dl Not Available [facility] [address], [place], [address], 12/23/2023 15:57:25 12/23/19 24 12/23/2023 urina lysis panel , auto Unknown Analyte Negati ve Not Available [facility] [address], [place], [address], 12/23/2023 15:57:25 12/23/19 24 12/23/2023 urina lysis panel , auto Unknown Analyte Negati ve Not Available [facility] [address], [place], [address], 12/23/2023 15:57:25 12/23/19 24 12/23/2023 urina lysis panel , auto Unknown Analyte Negati ve Not Available [facility] [address], [place], [address], 12/23/2023 15:57:25 12/23/19 24 12/23/2023 urina lysis panel , auto Unknown Analyte Negati ve Not Available [facility] [address], [place], [address], 12/23/2023 15:57:25 06/24/19 25 06/24/2024 urina lysis panel , auto Unknown Analyte Clean Catch Not Available [facility] [address], [place], [address], 06/24/2024 17:21:52 06/24/19 25 06/24/2024 urina lysis panel , auto Unknown Analyte Yellow Not Available [facility] [address], [place], [address], 06/24/2024 17:21:52 06/24/19 25 06/24/2024 urina lysis panel , auto Unknown Analyte Clear Not Available [facility] [address], [place], [address], 06/24/2024 17:21:52 06/24/19 25 06/24/2024 urina lysis panel , auto Unknown Analyte 1.020 Not Available [facility] [address], [place], [address], 06/24/2024 17:21:52 06/24/19 25 06/24/2024 urina lysis panel , auto Unknown Analyte 1.003- 1.035 Not Available [facility] [address], [place], [address], 06/24/2024 17:21:52 06/24/19 25 06/24/2024 urina lysis panel , auto Unknown Analyte 5.0 Not Available [facility] [address] [place] [address] [address], [place], [address], 06/24/2024 17:21:52 06/24/19 25 06/24/2024 urina lysis panel , auto Unknown Analyte 5.0-8. 0 Not Available [facility] [address], [place], [address], 06/24/2024 17:21:52 06/24/19 25 06/24/2024 urina lysis panel , auto Unknown Analyte Negati ve Not Available [facility] [address], [place], [address], 06/24/2024 17:21:52 06/24/19 25 06/24/2024 urina lysis panel , auto Unknown Analyte Negati ve Not Available [facility] [address], [place], [address], 06/24/2024 17:21:52 06/24/19 25 06/24/2024 urina lysis panel , auto Unknown Analyte Negati ve Not Available [facility] [address], [place], [address], 06/24/2024 17:21:52 06/24/19 25 06/24/2024 urina lysis panel , auto Unknown Analyte Negati ve Not Available [facility] [address], [place], [address], 06/24/2024 17:21:52 06/24/19 25 06/24/2024 urina lysis panel , auto Unknown Analyte Negati ve Not Available [facility] [address], [place], [address], 06/24/2024 17:21:52 06/24/19 25 06/24/2024 urina lysis panel , auto Unknown Analyte Negati ve Not Available [facility] [address], [place], [address], 06/24/2024 17:21:52 06/24/19 25 06/24/2024 urina lysis panel , auto Unknown Analyte Normal Not Available [facility] [address], [place], [address], 06/24/2024 17:21:52 06/24/19 25 06/24/2024 urina lysis panel , auto Unknown Analyte Normal Not Available [facility] [address], [place], [address], 06/24/2024 17:21:52 06/24/19 25 06/24/2024 urina lysis panel , auto Unknown Analyte Negati ve Not Available [facility] [address], [place], [address], 06/24/2024 17:21:52 06/24/19 25 06/24/2024 urina lysis panel , auto Unknown Analyte Negati ve Not Available [facility] [address], [place], [address], 06/24/2024 17:21:52 06/24/19 25 06/24/2024 urina lysis panel , auto Unknown Analyte Normal Not Available [facility] [address], [place], [address], 06/24/2024 17:21:52 06/24/19 25 06/24/2024 urina lysis panel , auto Unknown Analyte Normal 1 mg/dl Not Available [facility] [address], [place], [address], 06/24/2024 17:21:52 06/24/19 25 06/24/2024 urina lysis panel , auto Unknown Analyte Negati ve Not Available [facility] [address], [place], [address], 06/24/2024 17:21:52 06/24/19 25 06/24/2024 urina lysis panel , auto Unknown Analyte Negati ve Not Available [facility] [address], [place], [address], 06/24/2024 17:21:52 06/24/19 25 06/24/2024 urina lysis panel , auto Unknown Analyte Negati ve Not Available [facility] [address], [place], [address], 06/24/2024 17:21:52 06/24/19 25 06/24/2024 urina lysis panel , auto Unknown Analyte Negati ve Not Available [facility] [address], [place], [address], 06/24/2024 17:21:52 06/24/19 25 06/24/2024 PSA, serum or plasm a PSA 12.6 NG/mL 0.0 - 4.0 Not Available [facility] [address], [place], [address], 06/24/2024 17:21:32 07/22/19 25 07/22/2024 PSA, serum or plasm a PSA 7.4 NG/mL 0.0 - 4.0 Not Available [facility] [address], [place], [address], 07/22/2024 16:55:58 Result Notes None recorded. Problems No Known Problems Medical Equipment None Reported. Allergies Allergen ID Allergen Name Allergen Category Reaction Reaction Severity Criticality Documentation Date Start Date Code Code System Note Provider Name and Address Organization Details Recorded Time 689738 Anectine medicatio n Not available Not available Not available 10/30/2021 34776 8 RxNorm Radha Levy [facility] 2 15:18:56 385881 nitroglyc wayne medicatio n Not available Not available Not available 10/30/2021 4917 RxNorm Radha Levy [facility] 2 15:19:05 Medications Name Sig Start [...] Updated DateTime 06/26/2022 180.34 cm 29.6 kg/m2 25860.58 g Jagruti Sanchez [facility] 06/26/2022 09:45:08 Date Recorded Body height Body mass index (BMI) Body weight Provider Name and Address Organization Details Last Updated DateTime 12/25/2022 180.34 cm 29.6 kg/m2 80750.58 g Lillian Contreras [facility] 12/25/2022 11:18:33 Date Recorded Body height Body mass index (BMI) Body weight Provider Name and Address Organization Details Last Updated DateTime 12/23/2023 180.34 cm 29.6 kg/m2 03841.58 g [facility]23 16:05:04 Date Recorded Body height Body mass index (BMI) Body weight Provider Name and Address Organization Details Last Updated DateTime 06/24/2024 180.34 cm 30 kg/m2 72108.36 g Kevin Norton [facility] 06/24/2024 17:24:31 Date Recorded Body height Body mass index (BMI) Body weight Provider Name and Address Organization Details Last Updated DateTime 07/22/2024 180.34 cm 30 kg/m2 24951.36 g Marquita Loja [facility] 07/22/2024 16:26:48 Social History Question Answer Notes LastModified by Organizat ion Details LastModified Time Tobacco Smoking Status Never Smoker Radha Levy [facility] 10/30/2021 15:19:59 What Was The Date Of Your Most Recent Tobacco Screening? 07/22/2024 [email or web address] Information not available 07/22/2024 What Is Your Relationship Status? [email or web address] Information not available 10/30/2021 Has Tobacco Cessation Counseling Been Provided? No [email or web address] Information not available 10/30/2021 Have You Recently Traveled Abroad? No [email or web address] Information not available 10/30/2021 Sex: Unknown Functional Status Question Answer Note LastModified by Organizat ion Details LastModified Time Do you use any illicit or recreational drugs? No [email or web address] Information not available 10/30/2021 Do you or have you ever used any other forms of tobacco or nicotine? No [email or web address] Information not available 10/30/2021 What is your level of alcohol consumption? None [email or web address] Information not available 10/30/2021 Mental Status None recorded. Family History Relationship Description Onset Age of this Age Resolved Age Notes LastModified by Organization Details LastModified Time Father Malignant neoplasm of prostate [email or web address] Not available 10/30 15:19:36 Medical History Condition Response Thyroid Disorder Y High Cholesterol Y Sleep Apnea Y Past Encounters Encounter ID Performer Location Encounter Start Date Encounter Closed Date Diagnosis/Indication Diagnosis SNOMED-CT Code Diagnosis ICD10 Code Diagnosis Note [id number] MD [facility] [address] [place], [place] [address] 10/30/2021 14:38:14 10/30/2021 15:40:05 Prostate specific antigen above reference range [id number] R97.20 Benign pro static hyperplasia with outflow obstruction [id number] N40.1 [id number] MD [facility] [address] [address] 12/04/2021 13:13:23 12/04/2021 14:05:53 Prostate specific antigen above reference range [id number] R97.20 [id number] CINTIA ROSADO MD SURGERY SCHEDULE [address] [place] [address] 12/17/2021 09:19:42 12/17/2021 09:21:27 [id number] CINTIA ROSADO MD [facility] [address] 12/20/2021 12:33:29 12/20/2021 13:05:45 Prostate specific antigen above reference range 527693340 R97.20 Benign pro static hyperplasia with outflow obstruction [id number] N40.1 [id number] CINTIA ROSADO MD [facility] [address] [facility] [address] [address] 06/26/2022 09:25:21 06/26/2022 10:37:25 Prostate specific antigen above reference range [id number] R97.20 Benign pro static hyperplasia with outflow obstruction [id number] N40.1 [id number] [facility] [address] [address] [place] [address] 0 12/25/2022 10:34:56 12/25/2022 11:32:21 Prostate specific antigen above reference range 530943959 R97.20 Benign pro static hyperplasia with outflow obstruction 225536338 N40.1 Primary er ectile dysfunction 155169066 N52.9 [id number] CINTIA ROSADO MD [facility] [address] [place] [address] RD,[address] [place] [address] 0 12/23/2023 15:38:20 12/23/2023 16:27:25 Prostate specific antigen above reference range [id number] R97.20 Benign pro static hyperplasia with outflow obstruction 427587762 N40.1 Primary er ectile dysfunction 171755319 N52.9 [id number] CINTIA ROSADO MD [facility] [address] [address] [address] 0 06/24/2024 16:48:42 06/25/2024 08:49:31 Prostate specific antigen above reference range 804517355 R97.20 [id number] CINTIA ROSADO MD [facility] [address] [place] [address] [address] [place] [address] 07/22/2024 16:19:08 07/23/2024 14:34:06 Prostate specific antigen above reference range 333439147 R97.20 Health Concerns Section Related Observation LastModified by Organization Detai ls LastModified Time None Recorded Concern Status LastModified by Organization Details LastModified Time None Recorded Advance Directives Directive None Recorded Payers Insurance Date Sequence Insurance Name Policy Number Policy Montgomery Covered Member ID Montgomery Member ID Guarantor Name 10/01/2024 PAYMENT PLAN Latrell Morales 07/22/2024 1 [place] [id number] 2 Latrell Morales [id number] Latrell Morales Notes Date Note Type [...] We will begin alfuzosin CINTIA ROSADO MD [address] [place] [address], [phone], [facility] 06/27/2022 18:18:45 12/25/2022 text/html He is back [...] the 100 mg sildenafil CINTIA ROSADO MD [address] [place] [address] [place], [address], [facility] 12/25/2022 11:36:44 12/23/2023 text/html He is back [...] We will try tadalafil CINTIA ROSADO MD [address] [place] [address], [phone], [facility] 12/23/2023 16:31:51 06/24/2024 text/html He is back [...] we will schedule MRI CINTIA ROSADO MD [address] [place] [address], [phone], [facility] 06/24/2024 17:30:22 07/22/2024 text/html He is back [...] PSA in 6 months CINTIA ROSADO MD [address] [place] [address], [phone], [facility] 07/26/2024 16:29:53
--- OUTSIDE RECORDS SUMMARY | 2024-10-13 15:03 | XMS_ITS | Continuity of Care Document ---
Author Organization [facility] Address [address] [place] [address] Care Team Providers Care Collection Supervisor Name Role Phone IGLESIA CIFUENTES Primary Care Provider Assessment No assessment recorded. Plan of Treatment [...] XR, chest No observ ation record ed. [email or web address] [facility] [address], [place], [address], 08/19/2024 18:04:49 08/19/19 25 08/18/2024 elect rocar diogr am No observ ation record ed. [email or web address] [facility] [address], [address], 08/19/2024 18:04:32 08/19/19 25 08/18/2024 elect rocar diogr am No observ ation record ed. [facility] [address], [address], 08/19/2024 18:04:22 08/19/19 25 08/18/2024 CT, angio gram, chest + abdom en + pelvi s, w/ contr ast No observ ation record ed. [place] [id number], [place], [address], 08/19/2024 18:03:59 08/19/19 25 08/18/2024 venou s mappi ng, lower extre mity No observ ation record ed. [address], [place], [address], 08/19/2024 18:03:24 08/20/19 25 08/19/2024 stres s echoc ardio gram No observ ation record ed. [place] [address], [place], [address], 08/19/2024 18:02:33 08/21/19 25 08/20/2024 CT, head + brain , w/ contr ast No observ ation record ed. [place] [address], [place], [address], 08/23/2024 08:19:58 08/21/19 25 08/20/2024 CT, angio gram, head + neck, w/ contr ast No observ ation record ed. [address], [place], [address], 08/23/2024 08:19:44 08/21/19 25 08/20/2024 CT, angio gram, abdom en + pelvi s + lower extre mity, w/wo contr ast No observ ation record ed. [place] [address], [place], [address], 08/23/2024 08:19:33 08/21/19 25 08/20/2024 CT, angio gram, abdom en + pelvi s + lower extre mity, w/wo contr ast No observ ation record ed. [address], [place], [address], 08/23/2024 08:19:24 08/21/19 25 08/20/2024 CT, abdom en + pelvi s, w/ contr ast No observ ation record ed. [address], [place], [address], 08/23/2024 08:18:18 08/21/19 25 08/20/2024 CT, abdom en + pelvi s, w/ contr ast No observ ation record ed. [place] [address], [place], [address], 08/23/2024 08:18:09 08/21/19 25 08/20/2024 CT, angio gram, abdom en + pelvi s + lower extre mity, w/wo contr ast No observ ation record ed. [place] [id number], [place], [address], 08/23/2024 08:17:20 08/21/19 25 08/20/2024 XR, chest No observ ation record ed. [address], [place], [address], 08/23/2024 08:17:09 08/21/19 25 08/20/2024 elect jay jay osborngr am No observ ation record ed. [address], [place], [address], 08/23/2024 08:17:01 08/21/19 25 08/20/2024 CT, abdom en + pelvi s, w/ contr ast No observ ation record ed. [address] [place] [address], [address], 08/23/2024 08:16:20 08/25/1908/18/2024 vazquez narayan am No observ ation record ed. [address], [address], 08/25/2024 15:14:09 08/25/19 25 08/20/2024 stres s echoc ardio gram No observ ation record ed. [address], [address], 08/25/2024 15:13:55 09/16/19 25 09/15/2024 MR, angio gram, abdom en + pelvi s + lower extre mity, w/ contr ast No observ ation record ed. [address], [address], 09/16/2024 14:44:18 Result Notes None recorded. Problems Name Problem SNOMED Code Status Onset Date Resolution Date Notes Provider Name and Address Organization Details Recorded Time Pain of right shoulder joint [id number] 00 Active 2022 FARZANA KETAN King - CASANDRANT [facility] [place] 13:31:09 Problem Notes None recorded. Procedures Surgical History Date Name Laterality Status Provider Name and Address Organization Details Recorded Time 7 Appendectomy completed Minerva Mahad GALVIN - [facility] [place] 07/31/2022 13:09:49 4 Other completed Minerva Counathan GALVIN - [facility] [place] 07/31/2022 13:12:39 Imaging Results None recorded. Procedure Notes None recorded. Medical Equipment None Reported. Allergies Allergen ID Allergen Name Allergen Category Reaction Reaction Severity Criticality Documentation Date Start Date Code Code System Note Provider Name and Address Organization Details Recorded Time 79669 nitroglyc wayne medicatio n Not available Not available Not available 07/31/2022 4917 RxNorm Minerva KETAN Lutz - [facility] [place] 3 13:10:08 10824 Anectine medicatio n Not available Not available Not available 07/31/202269976 8 RxNorm KETAN Calderon - [facility] [place] 3 13:11:52 Medications Name Sig Start Date [...] and Address Organization Details Last Updated DateTime 180.34 cm 30 kg/m2 22874.3 6 g 97.3 [degF] 95 % 95 % 94 /min 114 mm[Hg] 82 mm[Hg] Minerva Tobin [facility] [place] 10:45:30 Social History Question Answer Notes LastModified by [employer] Details LastModified Time Tobacco Smoking Status Never Smoker Minerva Tobin [facility], [facility] [place] 07/31/2022 13:09:49 Do You Have An Advance Directive? No [email or web address] Information not available 07/31/2022 Are You Blind Or Do You Have Difficulty Seeing? No [email or web address] Information not available 07/31/2022 Sex: Male Functional Status Question Answer Note LastModified by [employer] Details LastModified Time Do you use any illicit or recreational drugs? No Information not available 07/31/2022 What is your level of alcohol consumption? None [email or web address] Information not available 07/31/2022 What is your exercise level? Occasional [email or web address] Information not available 07/31/2022 Mental Status Question Answer Note LastModified by Organization D etails LastModified Time Do you feel stressed (tense, restless, nervous, or anxious, or unable to sleep at night)? [id number] [email or web address] Information not available 07/31/2022 Family History Relationship Description Onset Age of [...] Vaccine Type Date Status Note Provider Nam nancie and Address Organization Details Recorded Time COVID-19 vaccine, vector-nr, rS-Ad26, PF, 0.5 mL 1 completed Minerva Couch [place], [place] - [facility] [place] [facility] [place] 08/25/2024 10:45:47 COVID-19 vaccine, vector-nr, rS-Ad26, PF, 0.5 mL 1 completed Minerva Couch null, [place] - [facility] [place] 08/25/2024 10:45:47 Td (adult), 2 Lf tetanus toxoid, preservative free, adsorbed 7 completed Minerva Couch null, [place] - [facility] [place] [facility] [place] 08/25/2024 10:45:47 Past Encounters Encounter ID Performer Location Encounter Start Date Encounter Closed Date Diagnosis/Indication Diagnosis SNOMED-CT Code Diagnosis ICD10 Code Diagnosis Note [id number] Iglesia Cifuentes MD [facility] [address] [place] [address] 08/25/2024 10:24:04 08/25/2024 10:53:[address] segment elevation myocardial infarction 9789123753 73781 I25.2 Keep follow-up with Cardiology today. Reassured by relatively clean cardiac catheteriz ation. History of pancreatitis 3899369457 9107 Z87.19 He is tofollow-u p with GI. wonder if they will do an ERCP on him History of sepsis 465020 7758 44164 Z86.19 Health Concerns Section Related Observation LastModified by Organization Detai ls LastModified Time None Recorded Concern Status LastModified by Organization Details LastModified Time None Recorded Payers Encounter Date Sequence Insurance Name Policy Number Policy Montgomery Covered Member ID Montgomery Member ID Guarantor Name 08/25/2024 1 [place] [id number] 2 Latrell Morales [id number] Latrell Morales Notes Date Note Type Note Provider Name and Address Organization Details Recorded Time 08/25/2024 text/html He is here for hospital follow-up. He has had an interesting past few days. From what I gather he had a ST[place]elevation [place] and pancreatitis. 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 Progress of the night to the point where he went to the emergency room where he was diagnosed with troponin elevation and what the ER record shows his ST elevation [place]. he was deemed a cardiac catheterization which was essentially clean. 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 He also had pancreatitis per his report. I am not sure if this was from enzymes or from a CT but he did have some pancreatic ductal dilatation. He seems to be doing better in this regard. He has an appointment in a few days to see GI for most likely ERCP. Iglesia Cifuentes MD [address], [place], [address], [facility] [place] [facility] [place] 08/25/2024 11:45:51
[2024-10-13] MEDS: DEFINITY US ECHO CONTRAST 2ML INJ 2 MG IV (15:50)
== END 2024-10-13 23:59 | disposition home or self-care (01) ==
LOC: RT 15:01
PROVIDERS: PCP Family Medicine; Visit Provider Internal Medicine
DX: I42.9 Cardiomyopathy, unspecified (principal); I31.9 Disease of pericardium, unspecified; E03.9 Hypothyroidism, unspecified; K86.1 Other chronic pancreatitis; I21.3 ST elevation (STEMI) myocardial infarction of unspecified site
CPT/HCPCS: 93308; Q9957

== ENCOUNTER 2025-01-21 08:28 | Emergency (ER) | payer BC, SELFPAY ==
[2025-01-21] VITALS (7 sets, daily range): BP systolic 104–136; BP diastolic 78–92; PULSE 63–76; RESP 15–17; TEMP 36.6–36.9; O2SAT 95–99; BMI 29.2
[2025-01-21 08:40] LABS: Microscopic, Urine URINE MICROSCOPIC (MICROSCOPIC)
--- NOTE | 2025-01-21 08:44 | CT_ITS ---
FINAL REPORT TECHNIQUE: Thin section axial images were obtained from the lung bases to the pubic symphysis without IV contrast. Coronal reconstruction images were obtained from the axial data. Exam was performed using dose reduction technique. CLINICAL HISTORY: Eval for R ureterolith FINDINGS: There are no renal or ureteral stones. There is no hydronephrosis or perinephric stranding. The gallbladder is present. The remaining unenhanced solid abdominal organs are unremarkable. There are changes from appendectomy. There is no evidence of small bowel obstruction. The prostate is mildly enlarged. GI tract is without acute abnormality. There is no lymphadenopathy or ascites. No acute osseous abnormality is identified. IMPRESSION: No renal or ureteral stones. No hydronephrosis. No acute abnormality on this unenhanced exam. Reviewed, Interpreted and Dictated by Rochelle Jacques MD Transcribed by Araceli Robles Authenticated and [facility]
--- NOTE | 2025-01-21 08:45 | [facility].EDGENADL ---
Discharge Plan Disposition Patient Disposition: Home, Self-Care Condition: Good Prescriptions Prescriptions: New methocarbamol 750 mg tablet 1,500 mg PO Q8H 7 Days Qty: 42 0RF ketorolac 10 mg tablet 10 mg PO Q8H 5 Days Qty: 15 0RF No Action Jardiance 10 mg tablet 10 mg PO DAILY Qty: 30 5RF metoprolol succinate 25 mg tablet extended release 24 hr 25 mg PO DAILY Qty: 90 3RF Entresto 24-26 mg tablet 1 tab PO BID 90 Days Qty: 180 3RF spironolactone 25 mg tablet See Rx Instructions .ROUTE .COMPLEX Qty: 90 3RF Dose Instruction: Take 1 tablet by mouth once daily Rx Instructions: Take 1 tablet by mouth once daily levothyroxine 125 mcg tablet 125 mcg PO DAILY Patient Comments: TAKE 1 TABLET BY MOUTH ONCE DAILY FOR 90 DAYS Referrals Follow up/Referrals: Darrick Cifuentes MD [Primary Care Provider, Medical] - See instructions Activity Restrictions/Add. Instructions Additional Instructions/Restrictions: I have prescribed Toradol and Robaxin to [facility] pharmacy here in [place]. Please take these medications over the next week as needed for pain and muscle laxation. If you have any new or worsening symptoms please return to the emergency department Clinical Impressions Clinical Impression: Muscle spasm Instructions Patient Instructions: DI for Back Spasm Print Language Print Language: Nepalese Discharge ED Provider: Humberto Escamilla Adult HPI General Chief complaint: Back Pain/Injury Stated complaint: lower R back and side/rib pain Time Seen by Provider: 01/21/25 08:33 Mode of Arrival: Ambulatory Source of Information: Patient Description of Symptoms (Recalled from ER Triage Doc. by RN): Patient states that he has been having right flank/side pain with muscle spasms for about 2 days. Has taken Ibuprofen- nothing this morning- which has not helped very much. Denies difficulty urinating. History of Present Illness HPI narrative: This is a 59-year-old male patient who is presenting to the emergency department today for evaluation of right-sided flank pain. 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 He states that this pain is in the right thoracic paraspinal musculature and he feels that it wraps around his rib cage. He states that his pain is particularly unusual because it often wakes him up from sleep. This morning the pain became so severe that he was concerned that he could have developed a kidney stone. He has had no dysuria, hematuria, or increased urinary frequency. He denies fevers and abdominal pain. He is not having any lower extremity radiculopathy, saddle anesthesia, or lower extremity weakness. Related Data Home Medications ?Medication ?Instructions ?Recorded ?Confirmed levothyroxine 125 mcg tablet 125 mcg PO DAILY 08/18/24 10/28/24 Previous Rx's ?Medication ?Instructions ?Recorded empagliflozin 10 mg tablet 10 mg PO DAILY #30 tabs 08/25/24 (Jardiance) metoprolol succinate 25 mg 25 mg PO DAILY #90 tabs 09/20/24 tablet,extended release 24 hr sacubitril 24 mg-valsartan 26 mg 1 tab PO BID 90 days #180 tabs 09/20/24 tablet (Entresto) spironolactone 25 mg tablet See Rx Instructions .Route 11/11/24 .COMPLEX #90 tabs ketorolac 10 mg tablet 10 mg PO Q8H 5 days #15 tabs 01/21/25 methocarbamol 750 mg tablet 1,500 mg (2 x 750 mg) PO Q8H 7 01/21/25 days #42 tabs Allergies Allergy/AdvReac Type Severity Reaction Status Date / Time nitroglycerin AdvReac Palpitation Verified 01/21/25 08:51 s succinylcholine (From AdvReac Drowsy Verified 01/21/25 08:51 Anectine) [facility] Disclaimer: The information contained in this section may have been updated after the patient was seen, as this information can be updated by other users. Medical History Headache Elevated C-reactive protein (CRP) Elevated troponin Leukocytosis Chest pain Sepsis Headache Pericarditis Pancreatitis Acute myopericarditis Non-ST elevation [place] (NSTEMI) Chest pain Acute viral syndrome Bronchitis Sinusitis Strep throat Sinusitis Acute chemical conjunctivitis Influenza A Pharyngitis BPH (benign prostatic hyperplasia) Hypothyroidism Social History Smoking Status: Never smoker second hand exposure: No alcohol intake: never substance use type: denies use current occupational status: unemployed Travel in the last 8 weeks?: None housing: house Have you lived/traveled outside US in past 30 days?: No Contact w/someone who lives/traveled outside US past 30 days?: No Exposure to someone with infectious disease in past 14 days?: No Do you have a fever (greater than 100.4 F or 38 C)?: No Have you tested positive for COVID-19?: No Exposed to someone with COVID-19 in past 14 days?: No Do you have a sore throat?: No Do you have a cough?: No Do you have any weakness?: No Do you have any diarrhea?: No Are you experiencing any unusual bleeding?: No Do you have any muscle aches/pain?: No Do you have any abdominal pain?: No Are you experiencing loss of taste or smell?: No Other Medical History Have you received the Flu Vaccine for this season: No Have you received the Pneumonia Vaccine: No ROS Obtained: Yes Systems reviewed as appropriate & no additional complaints except as documented Physical Exam General General appearance: other (See MDM) Respiratory Respiratory exam: Present other (See MDM) Cardiovascular Cardiovascular exam: Present other (See MDM) Neurological Exam Neurological exam: Present other (See MDM) Medical Decision Making Medical Records Medical records reviewed: Yes I reviewed the patient's medical records. Screening: Per USPSTF and CDC recommendations, given the prevalence of disease in our region, it is our hospital?s policy to screen for HIV and viral Hepatitis for all patients aged 18 and over and those with ongoing risk factors. Jaleel Inquiry Pt receiving controlled substance: No Jaleel was queried for this patient: No Vital Signs: 01/21/25 08:38 01/21/25 09:00 01/21/25 09:30 Temperature 98 F Temperature Source Oral Pulse Rate 72 74 Pulse Rate [Right Brachial] 75 Respiratory Rate 17 Blood Pressure 109/87 L 104/78 L Blood Pressure [Right Arm] 126/92 H Blood Pressure Mean 84 Blood Pressure Mean [Right Arm] 103 Blood Pressure Source [Right Arm] Automatic Cuff Blood Pressure Position [Right Arm] Sitting 02 Sat by Pulse Oximetry 97 96 96 Oxygen Delivery Method Room Air Room Air 01/21/25 10:00 01/21/25 10:30 01/21/25 11:00 Temperature Temperature Source Pulse Rate 63 65 Pulse Rate [Right Brachial] Respiratory Rate Blood Pressure 113/81 117/80 109/84 L Blood Pressure [Right Arm] Blood Pressure Mean 88 Blood Pressure Mean [Right Arm] Blood Pressure Source [Right Arm] Blood Pressure Position [Right Arm] 02 Sat by Pulse Oximetry 95 97 Oxygen Delivery Method Lab Data Lab Results 01/21/25 08:31: Urine Color Yellow, Urine Appearance Clear, Urine pH 6.0, Ur Specific [place] 1.025, Urine Protein Negative, Urine Glucose (UA) 3+, Urine Ketones Negative, Urine Blood Negative, Urine Nitrate Negative, Urine Bilirubin Negative, Urine Urobilinogen 0.2, Ur Leukocyte Esterase Negative, Urine RBC None, Urine WBC None, Ur Squamous Epith Cells None, Urine Bacteria None 01/21/25 08:45: WBC 7.8, RBC 4.87, Hgb 15.4, Hct 44.4, MCV 91.2, MCH 31.6 H, MCHC 34.7, RDW 12.9, Plt Count 212, MPV 9.0, Neut % (Auto) 62.3, Lymph % (Auto) 23.9, [place] % (Auto) 11.4 H, Eos % (Auto) 1.5, Baso % (Auto) 0.8, Neut # (Auto) 4.8, Lymph # (Auto) 1.9, [place] # (Auto) 0.9, Eos # (Auto) 0.1, Baso # (Auto) 0.1, Sodium 137, Potassium 4.5, Chloride 104, Carbon Dioxide 27, Anion Gap 10.5, BUN 20, Creatinine 0.90, Estimated Creat Clear 105, Estimated GFR 86, Est GFR ( Amer) 104, Glucose 103 H, Calcium 9.3, Total Bilirubin 0.5, AST 29, ALT 18, Alkaline Phosphatase 50, Total Creatine Kinase 135, Total Protein 7.7, Albumin 4.6, Globulin 3.1, Albumin/Globulin Ratio 1.5, HCV Ab ZITA w/Rflx PCR Qn Negative, HIV Ag/Ab Combo Qual Negative 01/21/25 08:45 01/21/25 08:45 Orders (Tests/Meds): ED MEDICATIONS Discontinued Medications Generic Name Dose Route Start Last Admin Trade Name Freq PRN Reason Stop Dose Admin Acetaminophen 1,000 mg 01/21/25 08:44 01/21/25 09:04 Acetaminophen 500mg Tab PO 01/21/25 08:45 1,000 mg ONCE ONE Administration Ketorolac Tromethamine 30 mg 01/21/25 08:44 01/21/25 09:03 Ketorolac 30mg/Ml Vial IV 01/21/25 08:45 30 mg ONCE ONE Administration Lidocaine 1 each 01/21/25 08:44 01/21/25 09:04 Lidocaine 5% Transdermal Patch TD 01/21/25 08:45 1 each ONCE ONE Administration Methocarbamol 1,500 mg 01/21/25 08:44 01/21/25 09:04 Methocarbamol 500mg Tablet PO 01/21/25 08:45 1,500 mg ONCE ONE Administration Morphine Sulfate 4 mg 01/21/25 08:44 01/21/25 09:04 Morphine 4mg/Ml Syringe IV 01/21/25 08:45 4 mg ONCE ONE Administration ORDERS Category Date Time Status CT abdomen pelvis wo con Stat Cat Scan 01/21/25 08:44 Completed CBC w/Auto Diff [Complete Blood Count Auto Diff] Stat Lab 01/21/25 08:45 Completed CK [Creatine Kinase] Stat Lab 01/21/25 08:45 Completed CMP [Comprehensive Metabolic Panel] Stat Lab 01/21/25 08:45 Completed HIV Combo Stat Lab 01/21/25 08:45 Completed Hepatitis C Ab Qual. W/ RFX Stat Lab 01/21/25 08:45 Completed UA [Urinalysis and Microscopic] Stat Lab 01/21/25 08:31 Completed Medical Decision Narrative: In summary, this is a 59-year-old male patient who is presenting to the emergency department today for evaluation of right flank pain. 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 However, the patient states this pain is waking him up from sleep and is wrapping around his flank and rib cage and he is personally concerned about a kidney stone. On initial evaluation of the patient they were resting comfortably in no acute distress and nontoxic in appearance. They are hemodynamically stable, saturating well room air, and are neurologically intact. On physical examination the patient has a GCS of 15 and he is appropriately alert and interactive. Heart and lungs are normal to auscultation bilaterally. He has no abdominal tenderness to palpation. He does have hypertonicity and tenderness of the paraspinal thoracic musculature. The patient does not have any C, T, or L-spine tenderness of the midline. He does have tenderness along the right rib cage as well. Differential diagnoses includes muscle spasm, muscle strain, rib fracture, pyelonephritis, ureterolithiasis, among others. Initial workup included hematologic labs as well as a urinalysis. We have also ordered a CT scan of the abdomen and pelvis without contrast to assess for ureterolithiasis. Initial interventions have included 4 mg of morphine, 1500 mg Robaxin, 15 mg of Toradol, and 1 g of Tylenol with a lidocaine patch. Labs were personally turbid by me and demonstrate no evidence of rhabdomyolysis or electrolyte derangement that would explain this patient's muscle spasm CT scan was personally turbid by me and demonstrates no hydronephrosis or ureteral stones. Official radiology read is in agreement and states that there is no abnormality on the scan. On repeat assessment of the patient he states that his symptoms of muscle spasm have improved but have not resolved. I have instructed the patient to refrain from harsh exertional activity over the next few days and to also take an anti-inflammatory and a muscle relaxer at home. We will send Robaxin to the pharmacy for him to take 3 times daily for the next week. At this time all questions have been answered and all parties are agreeable with the decision to discharge home Critical Care Critical Care Time Critical Care Time: No
[2025-01-21 08:47] LABS: Bilirubin,Urine Negative (Negative); Color,Urine YELLOW (Yellow); Glucose,Urine (UA) 3+ (Negative); Ketones,Urine Negative (Negative); Leukocyte Esterase,Urine Negative (Negative); PH,Urine 6.0 (5.0-8.5); Protein,Urine Negative (Negative); Specific Gravity, Urine 1.025 (1.005-1.030); Urobilinogen,Urine 0.2 EU/dl (0.2)
[2025-01-21 09:00] LABS: Hematocrit 44.4 % (42.0-52.0); Hemoglobin 15.4 g/dL (14.1-18.0); Immature Granulocytes % 0.1 %; Mean Corpuscular HGB Conc 34.7 g/dL (31.8-35.4); Mean Corpuscular Hemoglobin 31.6 pg (27.0-31.2); Mean Corpuscular Volume 91.2 fl (80-94); Nucleated Red Blood Cells % 0 %; Platelet Count 212 K/mm3 (142-424); Red Blood Count 4.87 M/mm3 (4.60-6.20); Red Cell Distribution Width-SD 42.7 fL; White Blood Count 7.8 K/mm3 (4.8-10.8)
[2025-01-21] MEDS: KETOROLAC 30MG/ML VIAL 30 MG IV (09:03)
[2025-01-21] MEDS: LIDOCAINE 5% TRANSDERMAL PATCH 1 EACH TD (09:04)
[2025-01-21] MEDS: MORPHINE 4MG/ML SYRINGE 4 MG IV (09:04)
[2025-01-21] MEDS: METHOCARBAMOL 500MG TABLET 1500 MG PO (09:04)
[2025-01-21] MEDS: ACETAMINOPHEN 500MG TAB 1000 MG PO (09:04)
[2025-01-21 09:09] LABS: Albumin Level 4.6 g/dl (3.5-5.0); Chloride 104 mmol/L (98-107); Sodium 137 mmol/L (136-145)
[2025-01-21 09:10] LABS: Potassium 4.5 mmoL/L (3.5-5.1)
[2025-01-21 09:12] LABS: Alanine Aminotransferase 18 U/L (12-78); Albumin/Globulin Ratio 1.5 (1.1-1.8); Alkaline Phosphatase 50 U/L (38-126); Anion Gap 10.5 mEq/L (5-15); Aspartate Amino Transferase 29 U/L (17-59); Bilirubin,Total 0.5 mg/dl (0.2-1.3); Blood Urea Nitrogen 20 mg/dl (9-20); Carbon Dioxide 27 mmol/L (22.0-30.0); Creatine Kinase 135 U/L (55-170); Creatinine Clearance Estimated 105 mL/min (50-200); Creatinine,Serum 0.90 mg/dl (0.66-1.25); Estimated Glomerular Filt Rate 86 ml/min (>60); GFR (African American) 104 ML/MIN (>60); Globulin 3.1 g/dL (1.3-3.2); Total Protein,Serum 7.7 g/dl (6.3-8.2)
[2025-01-21 09:13] LABS: Calcium 9.3 mg/dl (8.4-10.2); Glucose 103 mg/dl (74-100)
[2025-01-21 10:04] LABS: Hepatitis C Ab Qual. W/ RFX NEGATIVE (Negative)
== END 2025-01-21 11:57 | disposition home or self-care (01) ==
PROVIDERS: Emergency Provider Student in an Organized Health Care Education/Training Program; PCP Family Medicine
DX: R10.9 Unspecified abdominal pain (principal); M62.838 Other muscle spasm
CPT/HCPCS: 74176; 80053; 81001; 82550; 85025; 86803; 87389; 96374; 96375; 99284; 99285; J1885; J2270

== ENCOUNTER 2025-03-08 16:00 | Outpatient (CLI) | payer BC, SELFPAY ==
--- OUTSIDE RECORDS SUMMARY | 2025-03-08 16:02 | XMS_ITS | Data Portability ---
Author Organization [facility] Address [address] [place] [address] Assessment No assessment recorded. Plan of Treatment Reminders Order Date Submit Date Provider Last Modified By Organization Details Last Modified Time Details Appointments RECHECK 2025 04:45P M CINTIA ROSADO MD Not available Not available Not available Lab urinalysi s panel, auto 2024 025 [facility], [address], [place], [address], 01/25/2025 16:28:37 PSA, serum or plasma 2024 025 [facility], [address], [address], [place], [address], 01/25/2025 16:28:38 PSA, serum or plasma 2024 025 [facility], [address], [address], [place], [address], 07/22/2024 16:58:53 PSA, serum or plasma 2024 025 [facility], [address], [address], [place], [address], 06/24/2024 17:29:52 urinalysi s panel, auto 2024 025 [facility], [address], [address], [place], [address], 06/24/2024 17:29:52 urinalysi s panel, auto 2023 024 [facility], [address], [address], [place], [address], 12/23/2023 16:31:33 PSA, serum or plasma 2023 024 [facility], [address], [address], [place], [address], 12/23/2023 16:31:34 urinalysi s panel, auto 2022 023 [facility], [address], [address], [place], [address], 12/25/2022 11:34:53 PSA, serum or plasma 2022 023 [facility], [address], [address], [place], [address], 12/25/2022 11:34:53 Referral None recorded. Procedures None recorded. Surgeries None recorded. Imaging None recorded. Medication Orders alfuzosin ER 10 mg tablet,ex tended release 24 hr 2024 025 [facility], [address], [address], 01/25/2025 16:28:47 Bactrim DS 800 mg-160 mg tablet 2024 025 [facility], [address], [address], 06/24/2024 17:29:53 tadalafil 20 mg tablet 2023 024 [facility], [address], [address], 12/23/2023 16:31:37 sildenafi l 100 mg tablet 2022 023 [facility], [address] [place], [address], 12/25/2022 11:34:58 Patient TargetsNo targets recorded. Patient InstructionsNo instructions recorded. Reason for Referral None Reported. Results Created Date Observation Date Name Description Value Unit Range Abnormal Flag Note LastModifiedBy Organization Detail LastModifiedTime 12/26/1912/25/2022 PSA, serum or plasm a PSA 3.5 NG/mL 0.0 - 4.0 Not Available [facility] [address], [address], 12/25/2022 11:21:00 12/26/19 23 12/25/2022 urina lysis panel , auto Unknown Analyte Clean Catch Not Available [facility] [address], [place], [address], 12/25/2022 11:20:28 12/26/19 23 12/25/2022 urina lysis panel , auto Unknown Analyte Yellow Not Available [facility] [address], [place], [address], 12/25/2022 11:20:28 12/26/19 23 12/25/2022 urina lysis panel , auto Unknown Analyte Clear Not Available [facility] [address], [place], [address], 12/25/2022 11:20:28 12/26/19 23 12/25/2022 urina lysis panel , auto Unknown Analyte 1.015 Not Available [facility] [address], [place], [address], 12/25/2022 11:20:28 12/26/19 23 12/25/2022 urina lysis panel , auto Unknown Analyte 5.0 Not Available [facility] [address], [place], [address], 12/25/2022 11:20:28 12/26/19 23 12/25/2022 urina lysis panel , auto Unknown Analyte Negati ve Not Available [facility] [address], [place], [address], 12/25/2022 11:20:28 12/26/19 23 12/25/2022 urina lysis panel , auto Unknown Analyte Negati ve Not Available [facility] [address], [place], [address], 12/25/2022 11:20:28 12/26/19 23 12/25/2022 urina lysis panel , auto Unknown Analyte Negati ve Not Available [facility] [address], [place], [address], 12/25/2022 11:20:28 12/26/19 23 12/25/2022 urina lysis panel , auto Unknown Analyte Normal Not Available [facility] [address], [place], [address], 12/25/2022 11:20:28 12/26/19 23 12/25/2022 urina lysis panel , auto Unknown Analyte Negati ve Not Available [facility] [address], [place], [address], 12/25/2022 11:20:28 12/26/19 23 12/25/2022 urina lysis panel , auto Unknown Analyte Normal Not Available [facility] [address], [place], [address], 12/25/2022 11:20:28 12/26/19 23 12/25/2022 urina lysis panel , auto Unknown Analyte Negati ve Not Available [facility] [address], [place], [address], 12/25/2022 11:20:28 12/26/19 23 12/25/2022 urina lysis panel , auto Unknown Analyte Negati ve Not Available [facility] [address], [place], [address], 12/25/2022 11:20:28 12/23/19 24 12/23/2023 PSA, serum or plasm a PSA 4.9 NG/mL 0.0 - 4.0 Not Available [facility] [address], [place], [address], 12/23/2023 16:21:52 12/23/19 24 12/23/2023 urina lysis panel , auto Unknown Analyte Clean Catch Not Available [facility] [address], [place], [address], 12/23/2023 15:57:25 12/23/19 24 12/23/2023 urina lysis panel , auto Unknown Analyte Yellow Not Available [facility] [address], [place], [address], 12/23/2023 15:57:25 12/23/19 24 12/23/2023 urina lysis panel , auto Unknown Analyte Clear Not Available [facility] [address], [place], [address], 12/23/2023 15:57:25 12/23/19 24 12/23/2023 urina lysis panel , auto Unknown Analyte 1.020 Not Available [facility] [address], [place], [address], 12/23/2023 15:57:25 12/23/19 24 12/23/2023 urina lysis panel , auto Unknown Analyte 1.003- 1.035 Not Available [facility] [address], [place], [address], 12/23/2023 15:57:25 12/23/19 24 12/23/2023 urina lysis panel , auto Unknown Analyte 5.0 Not Available [facility] [address], [place], [address], 12/23/2023 15:57:25 12/23/19 24 12/23/2023 urina lysis panel , auto Unknown Analyte 5.0-8. 0 Not Available Critical [facility] [address], [place], [address], 12/23/2023 15:57:25 12/23/19 24 12/23/2023 urina lysis panel , auto Unknown Analyte Negati ve Not Available [facility] [address], [place], [address], 12/23/2023 15:57:25 12/23/19 24 12/23/2023 urina lysis panel , auto Unknown Analyte Negati ve Not Available [facility] [address], [place], [address], 12/23/2023 15:57:25 12/23/19 24 12/23/2023 urina lysis panel , auto Unknown Analyte Negati ve Not Available [facility] [address], [place], [address], 12/23/2023 15:57:25 12/23/19 24 12/23/2023 urina lysis panel , auto Unknown Analyte Negati ve Not Available [facility] [address], [place], [address], 12/23/2023 15:57:25 12/23/19 24 12/23/2023 urina lysis panel , auto Unknown Analyte Negati ve Not Available [facility] [address], [place], [address], 12/23/2023 15:57:25 12/23/19 24 12/23/2023 urina lysis panel , auto Unknown Analyte Negati ve Not Available [facility] [address], [place], [address], 12/23/2023 15:57:25 12/23/19 24 12/23/2023 urina lysis panel , auto Unknown Analyte Normal Not Available [facility] [address], [place], [address], 12/23/2023 15:57:25 12/23/19 24 12/23/2023 urina lysis panel , auto Unknown Analyte Normal Not Available [facility] [address], [place], [address], 12/23/2023 15:57:25 12/23/19 24 12/23/2023 urina lysis panel , auto Unknown Analyte Negati ve Not Available [facility] [address], [place], [address], 12/23/2023 15:57:25 12/23/19 24 12/23/2023 urina lysis panel , auto Unknown Analyte Negati ve Not Available [facility] [address], [place], [address], 12/23/2023 15:57:25 12/23/19 24 12/23/2023 urina lysis panel , auto Unknown Analyte Normal Not Available [facility] [address], [place], [address], 12/23/2023 15:57:25 12/23/19 24 12/23/2023 urina lysis panel , auto Unknown Analyte Normal 1 mg/dl Not Available [facility] [address], [place], [address], 12/23/2023 15:57:25 12/23/19 24 12/23/2023 urina lysis panel , auto Unknown Analyte Negati ve Not Available [facility] [address], [place], [address], 12/23/2023 15:57:25 12/23/19 24 12/23/2023 urina lysis panel , auto Unknown Analyte Negati ve Not Available [facility] [address], [place], [address], 12/23/2023 15:57:25 12/23/19 24 12/23/2023 urina lysis panel , auto Unknown Analyte Negati ve Not Available [facility] [address], [place], [address], 12/23/2023 15:57:25 12/23/19 24 12/23/2023 urina lysis panel , auto Unknown Analyte Negati ve Not Available [facility] [address], [place], [address], 12/23/2023 15:57:25 06/24/19 25 06/24/2024 urina lysis panel , auto Unknown Analyte Clean Catch Not Available [facility] [address], [place], [address], 06/24/2024 17:21:52 06/24/19 25 06/24/2024 urina lysis panel , auto Unknown Analyte Yellow Not Available [facility] [address], [place], [address], 06/24/2024 17:21:52 06/24/19 25 06/24/2024 urina lysis panel , auto Unknown Analyte Clear Not Available [facility] [address], [place], [address], 06/24/2024 17:21:52 06/24/19 25 06/24/2024 urina lysis panel , auto Unknown Analyte 1.020 Not Available [facility] [address], [place], [address], 06/24/2024 17:21:52 06/24/19 25 06/24/2024 urina lysis panel , auto Unknown Analyte 1.003- 1.035 Not Available [facility] [address], [place], [address], 06/24/2024 17:21:52 06/24/19 25 06/24/2024 urina lysis panel , auto Unknown Analyte 5.0 Not Available [facility] [address], [place], [address], 06/24/2024 17:21:52 06/24/19 25 06/24/2024 urina lysis panel , auto Unknown Analyte 5.0-8. 0 Not Available [facility] [address], [place], [address], 06/24/2024 17:21:52 06/24/19 25 06/24/2024 urina lysis panel , auto Unknown Analyte Negati ve Not Available [facility] [address], [place], [address], 06/24/2024 17:21:52 06/24/19 25 06/24/2024 urina lysis panel , auto Unknown Analyte Negati ve Not Available [facility] [address], [place], [address], 06/24/2024 17:21:52 06/24/19 25 06/24/2024 urina lysis panel , auto Unknown Analyte Negati ve Not Available [facility] [address], [place], [address], 06/24/2024 17:21:52 06/24/19 25 06/24/2024 urina lysis panel , auto Unknown Analyte Negati ve Not Available [facility] [address], [place], [address], 06/24/2024 17:21:52 06/24/19 25 06/24/2024 urina lysis panel , auto Unknown Analyte Negati ve Not Available [facility] [address], [place], [address], 06/24/2024 17:21:52 06/24/19 25 06/24/2024 urina lysis panel , auto Unknown Analyte Negati ve Not Available [facility] [address], [place], [address], 06/24/2024 17:21:52 06/24/19 25 06/24/2024 urina lysis panel , auto Unknown Analyte Normal Not Available [facility] [address], [place], [address], 06/24/2024 17:21:52 06/24/19 25 06/24/2024 urina lysis panel , auto Unknown Analyte Normal Not Available [facility] [address], [place], [address], 06/24/2024 17:21:52 06/24/19 25 06/24/2024 urina lysis panel , auto Unknown Analyte Negati ve Not Available [facility] [address], [place], [address], 06/24/2024 17:21:52 06/24/19 25 06/24/2024 urina lysis panel , auto Unknown Analyte Negati ve Not Available [facility] [address], [place], [address], 06/24/2024 17:21:52 06/24/19 25 06/24/2024 urina lysis panel , auto Unknown Analyte Normal Not Available [facility] [address], [place], [address], 06/24/2024 17:21:52 06/24/19 25 06/24/2024 urina lysis panel , auto Unknown Analyte Normal 1 mg/dl Not Available [facility] [address], [place], [address], 06/24/2024 17:21:52 06/24/19 25 06/24/2024 urina lysis panel , auto Unknown Analyte Negati ve Not Available [facility] [address], [place], [address], 06/24/2024 17:21:52 06/24/19 25 06/24/2024 urina lysis panel , auto Unknown Analyte Negati ve Not Available [facility] [address], [place], [address], 06/24/2024 17:21:52 06/24/19 25 06/24/2024 urina lysis panel , auto Unknown Analyte Negati ve Not Available [facility] [address] [facility] [address], [place], [address], 06/24/2024 17:21:52 06/24/19 25 06/24/2024 urina lysis panel , auto Unknown Analyte Negati ve Not Available [facility] [address] [facility] [address], [place], [address], 06/24/2024 17:21:52 06/24/19 25 06/24/2024 PSA, serum or plasm a PSA 12.6 NG/mL 0.0 - 4.0 Not Available [facility] [address] [facility] [address], [place], [address], 06/24/2024 17:21:32 07/22/19 25 07/22/2024 PSA, serum or plasm a PSA 7.4 NG/mL 0.0 - 4.0 Not Available [facility] [address] [facility] [address], [place], [address], 07/22/2024 16:55:58 01/26/20 25 01/25/2025 PSA, serum or plasm a PSA 5.1 NG/mL 0.0 - 4.0 Not Available [facility] [address], [place], [address], 01/25/2025 16:24:44 01/26/20 25 01/25/2025 urina lysis panel , auto Unknown Analyte Clean Catch Not Available Critical [facility] [address], [place], [address], 01/25/2025 16:09:32 01/26/20 25 01/25/2025 urina lysis panel , auto Unknown Analyte Yellow Not Available [facility] [address], [place], [address], 01/25/2025 16:09:32 01/26/20 25 01/25/2025 urina lysis panel , auto Unknown Analyte Clear Not Available [facility] [address], [place], [address], 01/25/2025 16:09:32 01/26/20 25 01/25/2025 urina lysis panel , auto Unknown Analyte 1.010 Not Available [facility] [address], [place], [address], 01/25/2025 16:09:32 01/26/20 25 01/25/2025 urina lysis panel , auto Unknown Analyte 1.003 - 1.030 Not Available [facility] [address], [place], [address], 01/25/2025 16:09:32 01/26/20 25 01/25/2025 urina lysis panel , auto Unknown Analyte 5.0 Not Available [facility] [address], [place], [address], 01/25/2025 16:09:32 01/26/20 25 01/25/2025 urina lysis panel , auto Unknown Analyte 5.0 - 8.0 Not Available [facility] [address], [place], [address], 01/25/2025 16:09:32 01/26/2001/25/2025 urina lysis panel , auto Unknown Analyte Negati ve Not Available [facility] [address], [place], [address], 01/25/2025 16:09:32 01/26/2001/25/2025 urina lysis panel , auto Unknown Analyte Negati ve Not Available [facility] [address], [place], [address], 01/25/2025 16:09:32 01/26/20 25 01/25/2025 urina lysis panel , auto Unknown Analyte Negati ve Not Available [facility] [address], [place], [address], 01/25/2025 16:09:32 01/26/2001/25/2025 urina lysis panel , auto Unknown Analyte Negati ve Not Available [facility] [address], [place], [address], 01/25/2025 16:09:32 01/26/2001/25/2025 urina lysis panel , auto Unknown Analyte Negati ve Not Available [facility] [address], [place], [address], 01/25/2025 16:09:32 01/26/20 25 01/25/2025 urina lysis panel , auto Unknown Analyte Negati ve Not Available [facility] [address], [place], [address], 01/25/2025 16:09:32 01/26/20 25 01/25/2025 urina lysis panel , auto Unknown Analyte >1000 mg/dL Not Available [facility] [address], [place], [address], 01/25/2025 16:09:32 01/26/20 25 01/25/2025 urina lysis panel , auto Unknown Analyte Normal Not Available [facility] [address], [place], [address], 01/25/2025 16:09:32 01/26/20 25 01/25/2025 urina lysis panel , auto Unknown Analyte Negati ve Not Available [facility] [address], [place], [address], 01/25/2025 16:09:32 01/26/20 25 01/25/2025 urina lysis panel , auto Unknown Analyte Negati ve Not Available [facility] [address], [place], [address], 01/25/2025 16:09:32 01/26/2001/25/2025 urina lysis panel , auto Unknown Analyte Normal Not Available [facility] [address], [place], [address], 01/25/2025 16:09:32 01/26/20 25 01/25/2025 urina lysis panel , auto Unknown Analyte Normal Not Available [facility] [address], [place], [address], 01/25/2025 16:09:32 01/26/20 25 01/25/2025 urina lysis panel , auto Unknown Analyte Negati ve Not Available [facility] [address], [place], [address], 01/25/2025 16:09:32 01/26/20 25 01/25/2025 urina lysis panel , auto Unknown Analyte Negati ve Not Available [facility] [address], [address], 01/25/2025 16:09:32 01/26/20 25 01/25/2025 urina lysis panel , auto Unknown Analyte Negati ve Not Available [facility] [address], [address], 01/25/2025 16:09:32 01/26/20 25 01/25/2025 urina lysis panel , auto Unknown Analyte Negati ve Not Available [facility] [address], [address], 01/25/2025 16:09:32 Result Notes None recorded. Problems No Known Problems Medical Equipment None Reported. Allergies Allergen ID Allergen Name Allergen Category Reaction Reaction Severity Criticality Documentation Date Start Date Code Code System Note Provider Name and Address Organization Details Recorded Time 909363 Anectine medicatio n Not available Not available Not available 10/30/202119725 8 RxNorm Radha Levy [facility] [place] [facility] 15:18:56 [id number] nitroglyc [place] medicatio n Not available Not available Not available 10/30/2021 [id number] RxNorm Radha Cam [facility] 2 15:19:05 Medications Name Sig Start Date [...] 10 mg tablet,extend ed release 24 hr Take 1 tablet every day by oral route. 2024 active Not Available Not Available Not Avai lable tadalafil 20 mg tablet Take 1 tablet every day by oral route as needed. 2023 active Not Available Not Available Not Avai lable ketorolac active Not Available Not Georgette ilable Not Available methocarbamol active Not Available Not Available Not Available multivitamin active Not Available Not Available Not Available Vitals Date Recorded Body height Body mass index (BMI) Body weight Provider Name and Address Organization Details Last Updated DateTime 06/24/2024 180.34 cm 30 kg/m2 04748.36 g wilner [facility] 06/24/2024 17:24:31 Date Recorded Body height Body mass index (BMI) Body weight Provider Name and Address Organization Details Last Updated DateTime 07/22/2024 180.34 cm 30 kg/m2 81311.36 g Marquita Loja [facility] 07/22/2024 16:26:48 Date Recorded Body height Body mass index (BMI) Body weight Provider Name and Address Organization Details Last Updated DateTime 12/23/2023 180.34 cm 29.6 kg/m2 12422.58 g [facility] 12/[facility] 16:05:04 Date Recorded Body height Body mass index (BMI) Body weight Provider Name and Address Organization Details Last Updated DateTime 12/25/2022 180.34 cm 29.6 kg/m2 79476.58 g Lillian Contreras [facility] 12/25/2022 11:18:33 Date Recorded Body height Body mass index (BMI) Body weight Provider Name and Address Organization Details Last Updated DateTime 01/25/2025 180.34 cm 29.3 kg/m2 37603.4 g Deena Zhang [facility] 01/25/2025 16:05:56 Social History Question Answer Notes LastModified by Organizat ion Details LastModified Time Tobacco Smoking Status Never Smoker Radha thomas [facility] 10/30/2021 15:19:59 What Was The Date Of Your Most Recent Tobacco Screening? 01/25/2025 Information not available 01/25/2025 What Is Your Relationship Status? [email or web address] Information not available 10/30/2021 Has Tobacco Cessation Counseling Been Provided? No Information not available 10/30/2021 Have You Recently Traveled Abroad? No [email or web address] Information not available 10/30/2021 Sex: Unknown Functional Status Question Answer Note LastModified by Organizat ion Details LastModified Time Do you use any illicit or recreational drugs? No [email or web address] Information not available 10/30/2021 Do you or have you ever used any other forms of tobacco or nicotine? No [email or web address] Information not available 10/30/2021 What is your level of alcohol consumption? None [email or web address] Information not available 10/30/2021 Mental Status None recorded. Family History Relationship Description Onset Age of this Age Resolved Age Notes LastModified by Organization Details LastModified Time Father Malignant neoplasm of prostate Not available 10/30 15:19:36 Medical History Condition Response Sleep Apnea Y Thyroid Disorder Y High Cholesterol Y Immunizations Vaccine Type Date Status Note Provider Nam e and Address Organization Details Recorded Time Td (adult), 2 Lf tetanus toxoid, preservative free, adsorbed 7 completed Not Available [facility] 01/25/2025 15:56:18 COVID-19 vaccine, vector-nr, rS-Ad26, PF, 0.5 mL 1 completed Not Available [facility] 01/25/2025 15:56:18 COVID-19 vaccine, vector-nr, rS-Ad26, PF, 0.5 mL 1 completed Not Available [facility] 01/25/2025 15:56:18 Past Encounters Encounter ID Performer Location Encounter Start Date Encounter Closed Date Diagnosis/Indication Diagnosis SNOMED-CT Code Diagnosis ICD10 Code Diagnosis IMO Codes Diagnosis Note [id number] MD [facility] [address] [place] [address] 10/30/2021 14:38:14 10/30/2021 15:40:05 Prostate specific antigen above reference range 684037813 R97.20 Benign pro static hyperplasia with outflow obstruction 766027943 N40.1 [id number] MD [facility] [address] [address] 12/04/2021 13:13:23 12/04/2021 14:05:53 Prostate specific antigen above reference range 497216113 R97.20 [id number] CINTIA ROSADO MD SURGERY SCHEDULE [address] [place] [address] 12/17/2021 09:19:42 12/17/2021 09:21:27 [id number] CINTIA ROSADO MD [facility] [address],[place] [address] 12/20/2021 12:33:29 12/20/2021 13:05:45 Prostate specific antigen above reference range 854977001 R97.20 Benign pro static hyperplasia with outflow obstruction 077884603 N40.1 [id number] CINTIA ROSADO MD [facility] [address] [place] [address] 06/26/2022 09:25:21 06/26/2022 10:37:25 Prostate specific antigen above reference range 766801694 R97.20 Benign pro static hyperplasia with outflow obstruction 043302374 N40.1 [id number] CINTIA ROSADO MD [facility] [address] [place] [address] 12/25/2022 10:34:56 12/25/2022 11:32:21 Prostate specific antigen above reference range 410670235 R97.20 Benign pro static hyperplasia with outflow obstruction 007561335 N40.1 Primary er ectile dysfunction 123868489 N52.9 [id number] CINTIA ROSADO MD [facility] [address] [place] [address] 12/23/2023 15:38:20 12/23/2023 16:27:25 Prostate specific antigen above reference range 893027217 R97.20 Benign pro static hyperplasia with outflow obstruction 733085901 N40.1 Primary er ectile dysfunction 253295456 N52.9 [id number] CINTIA ROSADO MD [facility] [address] [place] [address] 06/24/2024 16:48:42 06/25/2024 08:49:31 Prostate specific antigen above reference range 992658083 R97.20 [id number] CINTIA ROSADO MD [facility] [address] [place] [address] 07/22/2024 16:19:08 07/23/2024 14:34:06 Prostate specific antigen above reference range 292790191 R97.20 [id number] CINTIA ROSADO MD [facility] [address] [place] [address] 01/25/2025 15:55:48 01/25/2025 16:29:52 Prostate specific antigen above reference range 308510549 R97.20 [id number] Benign pro static hyperplasia with outflow obstruction 025616169 N40.1 N13.8 [id number] Primary er ectile dysfunction 789828801 N52.9 [id number] Health Concerns Section Related Observation LastModified by Organization Detai ls LastModified Time None Recorded Concern Status LastModified by Organization Details LastModified Time None Recorded Advance Directives Directive None Recorded Payers Insurance Date Sequence Insurance Name Policy Number Policy [place] Covered Member ID [place] Member ID Guarantor Name 10/01/2024 PAYMENT PLAN Latrell Morales 01/24/2025 1 [place] [id number] 2 Latrell Morales [id number] Latrell Morales Notes Date Note Type Note Provider Name and Address Organization Details Recorded Time 12/25/2022 text/html He is back for follow-up [...] the 100 mg sildenafil CINTIA ROSADO MD [facility] [place], [address], [facility] 12/25/2022 11:36:44 12/23/2023 text/html He is back [...] We will try tadalafil [facility]IA [facility] [place], [address], [facility] 12/23/2023 16:31:51 06/24/2024 text/html He is back [...] we will schedule MRI CINTIA ROSADO MD [address] [place] [address] [place], [address], [facility] 06/24/2024 17:30:22 07/22/2024 text/html He is back [...] PSA in 6 months CINTIA ROSADO MD [address] [place] [address] [place], [address], [facility] 07/26/2024 16:29:53 01/25/2025 text/html He is back for follow-up of elevated PSA he started to have more voiding difficulties. Is having nocturia 2-3 times at night. His stream is diminished. Several years ago he was on alfuzosin. Will put him back on his PSA today is 5.1. Last time it was 7.4. Biopsies were negative (16.5. We will repeat 6 months CINTIA ROSADO MD [address] [place], [address], [facility] 01/25/2025 16:29:10
--- OUTSIDE RECORDS SUMMARY | 2025-03-08 16:03 | XMS_ITS | Continuity of Care Document ---
Author Organization [facility] Patrick reese [facility] Address [address] [place] [address] Assessment No assessment recorded. Plan of Treatment Reminders Order Date Submit Date Provider Last Modified By Organization Details Last Modified Time Details Appointments RECHECK 2025 04:45P M CINTIA ROSADO MD Not available Not available Not available Lab urinalysi s panel, auto 2024 025 [facility], [address], [place], [address], 01/25/2025 16:28:37 PSA, serum or plasma 2024 025 [facility], [address], [address], [place], [address], 01/25/2025 16:28:38 Referral None recorded. Procedures None recorded. Surgeries None recorded. Imaging None recorded. Medication Orders alfuzosin ER 10 mg tablet,ex tended release 24 hr 2024 025 [facility], [address], [address], 01/25/2025 16:28:47 Patient TargetsNo targets recorded. Patient InstructionsNo instructions recorded. Reason for Referral None Reported. Results Created Date Observation Date Name Description Value Unit Range Abnormal Flag Note LastModifiedBy Organization Detail LastModifiedTime 01/26/2001/25/2025 PSA, serum or plasm a PSA 5.1 NG/mL 0.0 - 4.0 Not Available [facility] [address], [place], [address], 01/25/2025 16:24:44 01/26/20 25 01/25/2025 urina lysis panel , auto Unknown Analyte Clean Catch Not Available [facility] [address], [place], [address], 01/25/2025 16:09:32 01/26/2001/25/2025 urina lysis panel , auto Unknown Analyte Yellow Not Available [facility] [address], [place], [address], 01/25/2025 16:09:32 01/26/20 25 01/25/2025 urina lysis panel , auto Unknown Analyte Clear Not Available [facility] [address], [place], [address], 01/25/2025 16:09:32 01/26/20 25 01/25/2025 urina lysis panel , auto Unknown Analyte 1.010 Not Available [facility] [address], [place], [address], 01/25/2025 16:09:32 01/26/20 25 01/25/2025 urina lysis panel , auto Unknown Analyte 1.003 - 1.030 Not Available [facility] [address], [place], [address], 01/25/2025 16:09:32 01/26/20 25 01/25/2025 urina lysis panel , auto Unknown Analyte 5.0 Not Available [facility] [address], [place], [address], 01/25/2025 16:09:32 01/26/20 25 01/25/2025 urina lysis panel , auto Unknown Analyte 5.0 - 8.0 Not Available [facility] [address], [place], [address], 01/25/2025 16:09:32 01/26/2001/25/2025 urina lysis panel , auto Unknown Analyte Negati ve Not Available [facility] [address], [place], [address], 01/25/2025 16:09:32 01/26/2001/25/2025 urina lysis panel , auto Unknown Analyte Negati ve Not Available [facility] [address], [place], [address], 01/25/2025 16:09:32 01/26/20 25 01/25/2025 urina lysis panel , auto Unknown Analyte Negati ve Not Available [facility] [address], [place], [address], 01/25/2025 16:09:32 01/26/2001/25/2025 urina lysis panel , auto Unknown Analyte Negati ve Not Available [facility] [address], [place], [address], 01/25/2025 16:09:32 01/26/20 25 01/25/2025 urina lysis panel , auto Unknown Analyte Negati ve Not Available [facility] [address], [place], [address], 01/25/2025 16:09:32 01/26/20 25 01/25/2025 urina lysis panel , auto Unknown Analyte Negati ve Not Available [facility] [address], [place], [address], 01/25/2025 16:09:32 01/26/2001/25/2025 urina lysis panel , auto Unknown Analyte >1000 mg/dL Not Available [facility] [address], [place], [address], 01/25/2025 16:09:32 01/26/2001/25/2025 urina lysis panel , auto Unknown Analyte Normal Not Available [facility] [address], [place], [address], 01/25/2025 16:09:32 01/26/20 25 01/25/2025 urina lysis panel , auto Unknown Analyte Negati ve Not Available [facility] [address], [place], [address], 01/25/2025 16:09:32 01/26/2001/25/2025 urina lysis panel , auto Unknown Analyte Negati ve Not Available [facility] [address], [place], [address], 01/25/2025 16:09:32 01/26/20 25 01/25/2025 urina lysis panel , auto Unknown Analyte Normal Not Available [facility] [address], [place], [address], 01/25/2025 16:09:32 01/26/20 25 01/25/2025 urina lysis panel , auto Unknown Analyte Normal Not Available [facility] [address], [place], [address], 01/25/2025 16:09:32 01/26/20 25 01/25/2025 urina lysis panel , auto Unknown Analyte Negati ve Not Available [facility] [address], [place], [address], 01/25/2025 16:09:32 01/26/20 25 01/25/2025 urina lysis panel , auto Unknown Analyte Negati ve Not Available [facility] [address], [place], [address], 01/25/2025 16:09:32 01/26/20 25 01/25/2025 urina lysis panel , auto Unknown Analyte Negati ve Not Available [facility] [address], [place], [address], 01/25/2025 16:09:32 01/26/20 25 01/25/2025 urina lysis panel , auto Unknown Analyte Negati ve Not Available [facility] [address], [place], [address], 01/25/2025 16:09:32 Result Notes None recorded. Problems No Known Problems Medical Equipment None Reported. Allergies Allergen ID Allergen Name Allergen Category Reaction Reaction Severity Criticality Documentation Date Start Date Code Code System Note Provider Name and Address Organization Details Recorded Time 022029 Anectine medicatio n Not available Not available Not available 10/30/2021 38493 8 RxNorm Radha Levy [facility] 2 15:18:56 [id number] nitroglyc [place] medicatio n Not available Not available Not available 10/30/2021 4917 RxNorm Radha Levy [facility] 2 15:19:05 Medications Name Sig Start [...] Updated DateTime 01/25/2025 180.34 cm 29.3 kg/m2 90319.4 g Deena Zhang [facility] 01/25/2025 16:05:56 Social History Question Answer Notes LastModified by [employer] Details LastModified Time Tobacco Smoking Status [facility] 15:19:59 What Was The Date Of Your Most Recent Tobacco Screening? 01/25/2025 Information not available 01/25/2025 What Is Your Relationship Status? [email or web address] Information not available 10/30/2021 Has Tobacco Cessation Counseling Been Provided? No Information not available 10/30/2021 Have You Recently Traveled Abroad? No Information not available 10/30/2021 Sex: Unknown Functional Status Question Answer Note LastModified by Organizat ion Details LastModified Time Do you use any illicit or recreational drugs? No [email or web address] Information not available 10/30/2021 Do you or have you ever used any other forms of tobacco or nicotine? No Information not available 10/30/2021 What is your level of alcohol consumption? None [email or web address] Information not available 10/30/2021 Mental Status None recorded. Family History Relationship Description Onset Age of this Age Resolved Age Notes LastModified by Organization Details LastModified Time Father Malignant neoplasm of prostate [email or web address] Not available 10/30 15:19:36 Medical History Condition Response Sleep Apnea Y Thyroid Disorder Y High Cholesterol Y Immunizations Vaccine Type Date Status Note Provider Nam e and Address Organization Details Recorded Time Td (adult), 2 Lf tetanus toxoid, preservative free, adsorbed 7 completed Not Available [facility] 01/25/2025 15:56:18 COVID-19 vaccine, vector-nr, rS-Ad26, PF, 0.5 mL 1 completed Not Available [facility] 01/25/2025 15:56:18 COVID-19 vaccine, vector-nr, rS-Ad26, PF, 0.5 mL 1 completed Not Available [facility] 01/25/2025 15:56:18 Past Encounters Encounter ID Performer Location Encounter Start Date Encounter Closed Date Diagnosis/Indication Diagnosis SNOMED-CT Code Diagnosis ICD10 Code Diagnosis IMO Codes Diagnosis Note [id number] CINTIA ROSADO MD [facility] [address] [facility] [place] [address] 01/25/2025 15:55:48 01/25/2025 16:29:52 Prostate specific antigen above reference range 268524491 R97.20 [id number] Benign pro static hyperplasia with outflow obstruction 122928379 N40.1 N13.8 30319377 Primary er ectile dysfunction 792002476 N52.9 54520150 Health Concerns Section Related Observation LastModified by Organization Detai ls LastModified Time None Recorded Concern Status LastModified by Organization Details LastModified Time None Recorded Payers Encounter Date Sequence Insurance Name Policy Number Policy [place] Covered Member ID [place] Member ID Guarantor Name 01/25/2025 1 [place] [id number] 2 Latrell Morales [id number] Latrell Morales Notes Date Note Type Note Provider Name and Address Organization Details Recorded Time 01/25/2025 text/html He is back for follow-up of elevated PSA he started to have more voiding difficulties. Is having nocturia 2-3 times at night. His stream is diminished. Several years ago he was on alfuzosin. Will put him back on his PSA today is 5.1. Last time it was 7.4. Biopsies were negative (16.5. We will repeat 6 months CINTIA ROSADO MD [address], [place], [address], [facility] 01/25/2025 16:29:10
[2025-03-08 18:36] LABS: Amylase 73 U/L (30-110); Lipase 92 U/L (23-300)
[2025-03-09 12:15] LABS: CA 19-9 37 U/mL (0-35)
== END 2025-03-08 23:59 | disposition home or self-care (01) ==
LOC: LAB 16:00
PROVIDERS: PCP Family Medicine; Visit Provider Internal Medicine Gastroenterology
DX: K86.1 Other chronic pancreatitis (principal); R97.8 Other abnormal tumor markers
CPT/HCPCS: 36415; 82150; 83690; 86301

== ENCOUNTER 2025-05-16 07:44 | Outpatient (CLI) | payer BC, SELFPAY ==
--- OUTSIDE RECORDS SUMMARY | 2025-05-16 07:47 | XMS_ITS | Data Portability ---
Author Organization [facility] Address [address] [place] [address] Assessment No assessment recorded. Plan of Treatment Reminders Order Date Submit Date Provider Last Modified By Organization Details Last Modified Time Details Appointments RECHECK 2025 04:45P M CINTIA ROSADO MD Not available Not available Not available Lab urinalysi s panel, auto 2024 025 [facility], [address], [address], [place], [address], 01/25/2025 16:28:37 PSA, serum or plasma 2024 025 [facility], [address], [address], [place], [address], 01/25/2025 16:28:38 PSA, serum or plasma 2024 025 [facility], [address], [address], [place], [address], 07/22/2024 16:58:53 PSA, serum or plasma 2024 025 [facility], [address], [address], [place], [address], 06/24/2024 17:29:52 urinalysi s panel, auto 2024 025 [facility], [address], [address], [place], [address], 06/24/2024 17:29:52 urinalysi s panel, auto 2023 024 [facility], [address], [address], [place], [address], 12/23/2023 16:31:33 PSA, serum or plasma 2023 024 [facility], [address], [address], [place], [address], 12/23/2023 16:31:34 urinalysi s panel, auto 2022 023 [facility], [address], [address], [place], [address], 12/25/2022 11:34:53 PSA, serum or plasma 2022 023 [facility], [address], [address], [place], [address], 12/25/2022 11:34:53 Referral None recorded. Procedures None recorded. Surgeries None recorded. Imaging None recorded. Medication Orders alfuzosin ER 10 mg tablet,ex tended release 24 hr 2024 025 [facility], [address], [address], 01/25/2025 16:28:47 Bactrim DS 800 mg-160 mg tablet 2024 025 [facility], [address], [address], 06/24/2024 17:29:53 tadalafil 20 mg tablet 2023 024 [facility], [address], [address], 12/23/2023 16:31:37 sildenafi l 100 mg tablet 2022 023 [facility], [address] [place], [address], 12/25/2022 11:34:58 Patient TargetsNo targets recorded. Patient InstructionsNo instructions recorded. Reason for Referral None Reported. Results Created Date Observation Date Name Description Value Unit Range Abnormal Flag Note LastModifiedBy Organization Detail LastModifiedTime 12/26/1912/25/2022 PSA, serum or plasm a PSA 3.5 NG/mL 0.0 - 4.0 Not Available [facility] [address], [address], 12/25/2022 11:21:00 12/26/19 23 12/25/2022 urina lysis panel , auto Unknown Analyte Clean Catch Not Available [facility] [address], [place], [address], 12/25/2022 11:20:28 12/26/19 23 12/25/2022 urina lysis panel , auto Unknown Analyte Yellow Not Available [facility] [address], [place], [address], 12/25/2022 11:20:28 0812/25/2022 urina lysis panel , auto Unknown Analyte Clear Not Available [facility] [address], [place], [address], 12/25/2022 11:20:28 12/26/19 23 12/25/2022 urina lysis panel , auto Unknown Analyte 1.015 Not Available [facility] [address], [place], [address], 12/25/2022 11:20:28 12/26/19 23 12/25/2022 urina lysis panel , auto Unknown Analyte 5.0 Not Available [facility] [address], [place], [address], 12/25/2022 11:20:28 12/26/19 23 12/25/2022 urina lysis panel , auto Unknown Analyte Negati ve Not Available [facility] [address], [place], [address], 12/25/2022 11:20:28 12/26/19 23 12/25/2022 urina lysis panel , auto Unknown Analyte Negati ve Not Available [facility] [address], [place], [address], 12/25/2022 11:20:28 12/26/19 23 12/25/2022 urina lysis panel , auto Unknown Analyte Negati ve Not Available [facility] [address], [place], [address], 12/25/2022 11:20:28 12/26/19 23 12/25/2022 urina lysis panel , auto Unknown Analyte Normal Not Available [facility] [address], [place], [address], 12/25/2022 11:20:28 12/26/19 23 12/25/2022 urina lysis panel , auto Unknown Analyte Negati ve Not Available [facility] [address], [place], [address], 12/25/2022 11:20:28 12/26/19 23 12/25/2022 urina lysis panel , auto Unknown Analyte Normal Not Available [facility] [address], [place], [address], 12/25/2022 11:20:28 12/26/19 23 12/25/2022 urina lysis panel , auto Unknown Analyte Negati ve Not Available [facility] [address], [place], [address], 12/25/2022 11:20:28 12/26/19 23 12/25/2022 urina lysis panel , auto Unknown Analyte Negati ve Not Available [facility] [address], [place], [address], 12/25/2022 11:20:28 12/23/19 24 12/23/2023 PSA, serum or plasm a PSA 4.9 NG/mL 0.0 - 4.0 Not Available [facility] [address], [place], [address], 12/23/2023 16:21:52 12/23/19 24 12/23/2023 urina lysis panel , auto Unknown Analyte Clean Catch Not Available [facility] [address] [place] [address] Rd [address], [place], [address], 12/23/2023 15:57:25 12/23/19 24 12/23/2023 urina lysis panel , auto Unknown Analyte Yellow Not Available [facility] [address], [place], [address], 12/23/2023 15:57:25 12/23/19 24 12/23/2023 urina lysis panel , auto Unknown Analyte Clear Not Available [facility] [address], [place], [address], 12/23/2023 15:57:25 12/23/19 24 12/23/2023 urina lysis panel , auto Unknown Analyte 1.020 Not Available [facility] [address], [place], [address], 12/23/2023 15:57:25 12/23/19 24 12/23/2023 urina lysis panel , auto Unknown Analyte 1.003- 1.035 Not Available [facility] [address], [place], [address], 12/23/2023 15:57:25 12/23/19 24 12/23/2023 urina lysis panel , auto Unknown Analyte 5.0 Not Available [facility] [address], [place], [address], 12/23/2023 15:57:25 12/23/19 24 12/23/2023 urina lysis panel , auto Unknown Analyte 5.0-8. 0 Not Available [facility] [address], [place], [address], 12/23/2023 15:57:25 12/23/19 24 12/23/2023 urina lysis panel , auto Unknown Analyte Negati ve Not Available [facility] [address] [place] [address] Rd [address], [place], [address], 12/23/2023 15:57:25 12/23/19 24 12/23/2023 urina lysis panel , auto Unknown Analyte Negati ve Not Available [facility] [address], [place], [address], 12/23/2023 15:57:25 12/23/19 24 12/23/2023 urina lysis panel , auto Unknown Analyte Negati ve Not Available [facility] [address], [place], [address], 12/23/2023 15:57:25 12/23/19 24 12/23/2023 urina lysis panel , auto Unknown Analyte Negati ve Not Available [facility] [address], [place], [address], 12/23/2023 15:57:25 12/23/19 24 12/23/2023 urina lysis panel , auto Unknown Analyte Negati ve Not Available [facility] [address], [place], [address], 12/23/2023 15:57:25 12/23/19 24 12/23/2023 urina lysis panel , auto Unknown Analyte Negati ve Not Available [facility] [address], [place], [address], 12/23/2023 15:57:25 12/23/19 24 12/23/2023 urina lysis panel , auto Unknown Analyte Normal Not Available [facility] [address], [place], [address], 12/23/2023 15:57:25 12/23/19 24 12/23/2023 urina lysis panel , auto Unknown Analyte Normal Not Available [facility] [place] [address], [place], [address], 12/23/2023 15:57:25 12/23/19 24 12/23/2023 urina lysis panel , auto Unknown Analyte Negati ve Not Available [facility] [place] [address], [place], [address], 12/23/2023 15:57:25 12/23/19 24 12/23/2023 urina lysis panel , auto Unknown Analyte Negati ve Not Available [facility] [place] [address], [place], [address], 12/23/2023 15:57:25 12/23/19 24 12/23/2023 urina lysis panel , auto Unknown Analyte Normal Not Available [facility] [address], [place], [address], 12/23/2023 15:57:25 12/23/19 24 12/23/2023 urina lysis panel , auto Unknown Analyte Normal 1 mg/dl Not Available [facility] [place] [address], [place], [address], 12/23/2023 15:57:25 12/23/19 24 12/23/2023 urina lysis panel , auto Unknown Analyte Negati ve Not Available [facility] [address], [place], [address], 12/23/2023 15:57:25 12/23/19 24 12/23/2023 urina lysis panel , auto Unknown Analyte Negati ve Not Available [facility] [address], [place], [address], 12/23/2023 15:57:25 12/23/19 24 12/23/2023 urina lysis panel , auto Unknown Analyte Negati ve Not Available [facility] [address], [place], [address], 12/23/2023 15:57:25 12/23/19 24 12/23/2023 urina lysis panel , auto Unknown Analyte Negati ve Not Available [facility] [address], [place], [address], 12/23/2023 15:57:25 06/24/19 25 06/24/2024 urina lysis panel , auto Unknown Analyte Clean Catch Not Available [facility] [address], [place], [address], 06/24/2024 17:21:52 06/24/19 25 06/24/2024 urina lysis panel , auto Unknown Analyte Yellow Not Available [facility] [address], [place], [address], 06/24/2024 17:21:52 06/24/19 25 06/24/2024 urina lysis panel , auto Unknown Analyte Clear Not Available [facility] [address], [place], [address], 06/24/2024 17:21:52 06/24/19 25 06/24/2024 urina lysis panel , auto Unknown Analyte 1.020 Not Available [facility] [address], [place], [address], 06/24/2024 17:21:52 06/24/19 25 06/24/2024 urina lysis panel , auto Unknown Analyte 1.003- 1.035 Not Available [facility] [address], [place], [address], 06/24/2024 17:21:52 06/24/19 25 06/24/2024 urina lysis panel , auto Unknown Analyte 5.0 Not Available [facility] [address], [place], [address], 06/24/2024 17:21:52 06/24/19 25 06/24/2024 urina lysis panel , auto Unknown Analyte 5.0-8. 0 Not Available [facility] [address], [place], [address], 06/24/2024 17:21:52 06/24/19 25 06/24/2024 urina lysis panel , auto Unknown Analyte Negati ve Not Available [facility] [address], [place], [address], 06/24/2024 17:21:52 06/24/19 25 06/24/2024 urina lysis panel , auto Unknown Analyte Negati ve Not Available [facility] [address], [place], [address], 06/24/2024 17:21:52 06/24/19 25 06/24/2024 urina lysis panel , auto Unknown Analyte Negati ve Not Available [facility] [address], [place], [address], 06/24/2024 17:21:52 06/24/19 25 06/24/2024 urina lysis panel , auto Unknown Analyte Negati ve Not Available [facility] [address], [place], [address], 06/24/2024 17:21:52 06/24/19 25 06/24/2024 urina lysis panel , auto Unknown Analyte Negati ve Not Available [facility] [address], [place], [address], 06/24/2024 17:21:52 06/24/19 25 06/24/2024 urina lysis panel , auto Unknown Analyte Negati ve Not Available [facility] [address] [place] [address] Rd [address], [place], [address], 06/24/2024 17:21:52 06/24/19 25 06/24/2024 urina lysis panel , auto Unknown Analyte Normal Not Available [facility] [address], [place], [address], 06/24/2024 17:21:52 06/24/19 25 06/24/2024 urina lysis panel , auto Unknown Analyte Normal Not Available [facility] [address], [place], [address], 06/24/2024 17:21:52 06/24/19 25 06/24/2024 urina lysis panel , auto Unknown Analyte Negati ve Not Available [facility] [address], [place], [address], 06/24/2024 17:21:52 06/24/19 25 06/24/2024 urina lysis panel , auto Unknown Analyte Negati ve Not Available [facility] [address], [place], [address], 06/24/2024 17:21:52 06/24/19 25 06/24/2024 urina lysis panel , auto Unknown Analyte Normal Not Available [facility] [address], [place], [address], 06/24/2024 17:21:52 06/24/19 25 06/24/2024 urina lysis panel , auto Unknown Analyte Normal 1 mg/dl Not Available [facility] [address], [place], [address], 06/24/2024 17:21:52 06/24/19 25 06/24/2024 urina lysis panel , auto Unknown Analyte Negati ve Not Available [facility] [address], [place], [address], 06/24/2024 17:21:52 06/24/19 25 06/24/2024 urina lysis panel , auto Unknown Analyte Negati ve Not Available [facility] [address], [place], [address], 06/24/2024 17:21:52 06/24/19 25 06/24/2024 urina lysis panel , auto Unknown Analyte Negati ve Not Available [facility] [address], [place], [address], 06/24/2024 17:21:52 06/24/19 25 06/24/2024 urina lysis panel , auto Unknown Analyte Negati ve Not Available [facility] [address], [place], [address], 06/24/2024 17:21:52 06/24/19 25 06/24/2024 PSA, serum or plasm a PSA 12.6 NG/mL 0.0 - 4.0 Not Available [facility] [address], [place], [address], 06/24/2024 17:21:32 07/22/19 25 07/22/2024 PSA, serum or plasm a PSA 7.4 NG/mL 0.0 - 4.0 Not Available [facility] [address], [place], [address], 07/22/2024 16:55:58 01/26/20 25 01/25/2025 PSA, serum or plasm a PSA 5.1 NG/mL 0.0 - 4.0 Not Available [facility] [address], [place], [address], 01/25/2025 16:24:44 01/26/20 25 01/25/2025 urina lysis panel , auto Unknown Analyte Clean Catch Not Available [facility] [address], [place], [address], 01/25/2025 16:09:32 01/26/20 25 01/25/2025 urina lysis panel , auto Unknown Analyte Yellow Not Available [facility] [address], [place], [address], 01/25/2025 16:09:32 01/26/20 25 01/25/2025 urina lysis panel , auto Unknown Analyte Clear Not Available [facility] With [address], [place], [address], 01/25/2025 16:09:32 01/26/20 25 01/25/2025 urina lysis panel , auto Unknown Analyte 1.010 Not Available [facility] [address], [place], [address], 01/25/2025 16:09:32 01/26/20 25 01/25/2025 urina lysis panel , auto Unknown Analyte 1.003 - 1.030 Not Available [facility] [address] [place], [place] [address], [place], [address], 01/25/2025 16:09:32 01/26/20 25 01/25/2025 urina lysis panel , auto Unknown Analyte 5.0 Not Available [facility] [address], [place], [address], 01/25/2025 16:09:32 01/26/2001/25/2025 urina lysis panel , auto Unknown Analyte 5.0 - 8.0 Not Available [facility] [address] [place] [address] Rd [address], [place], [address], 01/25/2025 16:09:32 01/26/2001/25/2025 urina lysis panel , auto Unknown Analyte Negati ve Not Available [facility] [address] [place] [address] Rd [address], [place], [address], 01/25/2025 16:09:32 01/26/2001/25/2025 urina lysis panel , auto Unknown Analyte Negati ve Not Available [facility] [address], [place], [address], 01/25/2025 16:09:32 01/26/2001/25/2025 urina lysis panel , auto Unknown Analyte Negati ve Not Available [facility] [address] [place] [address] Rd [address], [place], [address], 01/25/2025 16:09:32 01/26/2001/25/2025 urina lysis panel , auto Unknown Analyte Negati ve Not Available [facility] [address] [place] [address] Rd [address], [place], [address], 01/25/2025 16:09:32 01/26/2001/25/2025 urina lysis panel , auto Unknown Analyte Negati ve Not Available [facility] [address] [place] [address] Rd [address], [place], [address], 01/25/2025 16:09:32 01/26/20 25 01/25/2025 urina lysis panel , auto Unknown Analyte Negati ve Not Available [facility] [address], [place], [address], 01/25/2025 16:09:32 01/26/20 25 01/25/2025 urina lysis panel , auto Unknown Analyte >1000 mg/dL Not Available [facility] [address], [place], [address], 01/25/2025 16:09:32 01/26/2001/25/2025 urina lysis panel , auto Unknown Analyte Normal Not Available [facility] [address], [place], [address], 01/25/2025 16:09:32 01/26/20 25 01/25/2025 urina lysis panel , auto Unknown Analyte Negati ve Not Available [facility] [address], [place], [address], 01/25/2025 16:09:32 01/26/20 25 01/25/2025 urina lysis panel , auto Unknown Analyte Negati ve Not Available [facility] [address], [place], [address], 01/25/2025 16:09:32 01/26/2001/25/2025 urina lysis panel , auto Unknown Analyte Normal Not Available [facility] [address], [place], [address], 01/25/2025 16:09:32 01/26/2001/25/2025 urina lysis panel , auto Unknown Analyte Normal Not Available [facility] [address] [place] [address], [address], 01/25/2025 16:09:32 01/26/20 25 01/25/2025 urina lysis panel , auto Unknown Analyte Negati ve Not Available [facility] [address] [place] [address], [address], 01/25/2025 16:09:32 01/26/20 25 01/25/2025 urina lysis panel , auto Unknown Analyte Negati ve Not Available [facility] [address], [address], 01/25/2025 16:09:32 01/26/20 25 01/25/2025 urina lysis panel , auto Unknown Analyte Negati ve Not Available [facility] [address], [address], 01/25/2025 16:09:32 01/26/20 25 01/25/2025 urina lysis panel , auto Unknown Analyte Negati ve Not Available [facility] With [address] [place] [address], [id number], 01/25/2025 16:09:32 Result Notes None recorded. Problems No Known Problems Medical Equipment None Reported. Allergies Allergen ID Allergen Name Allergen Category Reaction Reaction Severity Criticality Documentation Date Start Date Code Code System Note Provider Name and Address Organization Details Recorded Time 201325 Anectine medicatio n Not available Not available Not available 10/30/202164979 8 RxNorm Radha Levy [facility] 15:18:56 [id number] nitroglyc [facility] Not available Not available Not available 10/30/2021 4917 RxNorm Radha Cam [facility] 2 15:19:05 Medications Name Sig Start Date [...] Updated DateTime 06/24/2024 180.34 cm 30 kg/m2 55500.36 g wilner [facility] 06/24/2024 17:24:31 Date Recorded Body height Body mass index (BMI) Body weight Provider Name and Address Organization Details Last Updated DateTime 07/22/2024 180.34 cm 30 kg/m2 80365.36 g Marquita Loja [facility] 07/22/2024 16:26:48 Date Recorded Body height Body mass index (BMI) Body weight Provider Name and Address Organization Details Last Updated DateTime 12/23/2023 180.34 cm 29.6 kg/m2 13161.58 g [facility] 12/23/2023 16:05:04 Date Recorded Body height Body mass index (BMI) Body weight Provider Name and Address Organization Details Last Updated DateTime 12/25/2022 180.34 cm 29.6 kg/m2 94453.58 g Lillian Contreras [facility] 12/25/2022 11:18:33 Date Recorded Body height Body mass index (BMI) Body weight Provider Name and Address Organization Details Last Updated DateTime 01/25/2025 180.34 cm 29.3 kg/m2 97743.4 g Deena Zhang [facility] 01/25/2025 16:05:56 Social History Question Answer Notes LastModified by Organizat ion Details LastModified Time Tobacco Smoking Status Never Smoker Radha thomas [facility] 10/30/2021 15:19:59 What Was The Date Of Your Most Recent Tobacco Screening? 01/25/2025 Information not available 01/25/2025 What Is Your Relationship Status? [email or web address] Information not available 10/30/2021 Has Tobacco Cessation Counseling Been Provided? No [email or web address] Information not available 10/30/2021 Have You Recently Traveled Abroad? No [email or web address] Information not available 10/30/2021 Sex: Unknown Functional Status Question Answer Note LastModified by Organizat ion Details LastModified Time Do you use any illicit or recreational drugs? No [email or web address] Information not available 10/30/2021 Do you or have you ever used any other forms of tobacco or nicotine? No [email or web address] Information not available 10/30/2021 What is your level of alcohol consumption? None [email or web address] Information not available 10/30/2021 Mental Status None recorded. Family History Relationship Description Onset Age of this Age Resolved Age Notes LastModified by Organization Details LastModified Time Father Malignant neoplasm of prostate [email or web address] Not available 10/30 15:19:36 Medical History Condition Response Sleep Apnea Y Thyroid Disorder Y High Cholesterol Y Immunizations Vaccine Type Date Status Note Provider Nam e and Address Organization Details Recorded Time Td (adult), 2 Lf tetanus toxoid, preservative free, adsorbed 7 completed Not Available [facility] 01/25/2025 15:56:18 COVID-19 vaccine, vector-nr, rS-Ad26, PF, 0.5 mL 1 completed Not Available [facility] 01/25/2025 15:56:18 COVID-19 vaccine, vector-nr, rS-Ad26, PF, 0.5 mL 1 completed Not Available [facility] 01/25/2025 15:56:18 Past Encounters Encounter ID Performer Location Encounter Start Date Encounter Closed Date Diagnosis/Indication Diagnosis SNOMED-CT Code Diagnosis ICD10 Code Diagnosis IMO Codes Diagnosis Note [id number] MD [facility] [address] [place] [address] 10/30/2021 14:38:14 10/30/2021 15:40:05 Prostate specific antigen above reference range 110495575 R97.20 Benign pro static hyperplasia with outflow obstruction 964912557 N40.1 [id number] MD [facility] [address] [address] 12/04/2021 13:13:23 12/04/2021 14:05:53 Prostate specific antigen above reference range 606414316 R97.20 [id number] CINTIA ROSADO MD SURGERY SCHEDULE [address] [place] [address] 12/17/2021 09:19:42 12/17/2021 09:21:27 [id number] CINTIA ROSADO MD [facility] [address] [address] 12/20/2021 12:33:29 12/20/2021 13:05:45 Prostate specific antigen above reference range 026831681 R97.20 Benign pro static hyperplasia with outflow obstruction 555649646 N40.1 [id number] CINTIA ROSADO MD [facility] [address] [place] [address] 06/26/2022 09:25:21 06/26/2022 10:37:25 Prostate specific antigen above reference range 423266281 R97.20 Benign pro static hyperplasia with outflow obstruction 773179995 N40.1 [id number] CINTIA ROSADO MD [facility] [address] [place] [address] 12/25/2022 10:34:56 12/25/2022 11:32:21 Prostate specific antigen above reference range 909672914 R97.20 Benign pro static hyperplasia with outflow obstruction 752604163 N40.1 Primary er ectile dysfunction 880143058 N52.9 [id number] CINTIA ROSADO MD [facility] [address] [place] [address] 12/23/2023 15:38:20 12/23/2023 16:27:25 Prostate specific antigen above reference range 886173564 R97.20 Benign pro static hyperplasia with outflow obstruction 536872896 N40.1 Primary er ectile dysfunction 196156018 N52.9 [id number] CINTIA ROSADO MD [facility] [address] [place] [address] 06/24/2024 16:48:42 06/25/2024 08:49:31 Prostate specific antigen above reference range 650768212 R97.20 [id number] CINTIA ROSADO MD [facility] [address] [place] [address] 07/22/2024 16:19:08 07/23/2024 14:34:06 Prostate specific antigen above reference range 128462217 R97.20 [id number] CINTIA ROSADO MD [facility] [address] [place] [address] 01/25/2025 15:55:48 01/25/2025 16:29:52 Prostate specific antigen above reference range 695741574 R97.20 [id number] Benign pro static hyperplasia with outflow obstruction 475879143 N40.1 N13.8 [id number] Primary er ectile dysfunction 212677454 N52.9 [id number] Health Concerns Section Related Observation LastModified by Organization Detai ls LastModified Time None Recorded Concern Status LastModified by Organization Details LastModified Time None Recorded Advance Directives Directive None Recorded Payers Insurance Date Sequence Insurance Name Policy Number Policy [place] Covered Member ID [place] Member ID Guarantor Name 10/01/2024 PAYMENT PLAN Latrell Morales 01/24/2025 1 [place] [id number] Latrell Morales [id number] Latrell Morales Notes Date Note Type [...] the 100 mg sildenafil CINTIA ROSADO MD [facility] [place], [address], [facility] 12/25/2022 11:36:44 12/23/2023 text/html He is [...] We will try tadalafil [facility] [place], [address], [facility] 12/23/2023 16:31:51 06/24/2024 text/html He is [...] we will schedule MRI CINTIA ROSADO MD [address] [place] [address] [place], [address], [facility] 06/24/2024 17:30:22 07/22/2024 text/html He is [...] PSA in 6 months CINTIA ROSADO MD [address] [place] [address] [place], [address], [facility] 07/26/2024 16:29:53 01/25/2025 text/html He is back [...] repeat 6 months CINTIA ROSADO MD [address] [place], [address], [facility] 01/25/2025 16:29:10
--- NOTE | 2025-05-16 08:00 | CA_ITS ---
APPROVED REPORT EXAM: Comprehensive 2D, Doppler, and color-flow Echocardiogram Verification Engineer: Mile Corado RDCS Ht: 5 ft 11 in Wt: 220lbs BSA: 2.20 BP: 125/83 mmHg Indications: HFREF M-Mode Dimensions RVDd 2.00 cm (0.9-2.6) LA Diam 3.02 cm (1.9-4.0) LVDd 5.88 cm (3.5-5.7) LVDs 4.39 cm (3.5-5.7) IVSd 0.60 cm (0.6-1.1) PWd 0.77 cm (0.6-1.1) EF (Teich) 49.30% FS 25.30% EDV (Teich) 171.90 mL ESV (Teich) 87.20 mL Other Information Study Quality: Technically Difficult Conclusion This is a limited TTE to evaluate for LV systolic function. Limited windows are obtained. The left ventricle is normal in size. There is increased LV wall thickness. There is moderate reduction in LV systolic function. The septum is asynchronous. No regional wall motion abnormalities are noted. LVEF is 35-40%. Compared to prior study from 10/13/2024, the reduction in LV systolic function is new. Future TTE evaluations are suggested with administration of ultrasound enhancing agent. Electronically signed by : Katherine Cohen MD 05/16/2025 09:26:55
== END 2025-05-16 23:59 | disposition home or self-care (01) ==
LOC: RT 07:44
PROVIDERS: PCP Family Medicine; Visit Provider Internal Medicine
DX: I50.20 Unspecified systolic (congestive) heart failure (principal); I42.8 Other cardiomyopathies; R93.1 Abnormal findings on diagnostic imaging of heart and coronary circulation
CPT/HCPCS: 93308